=== PATIENT | female | born 1945 | race Hispanic/Latino ===

== ENCOUNTER 2016-06-29 22:32 | Inpatient (IN) | payer MEDICARE ==
[2016-06-29] MEDS ORDERED: ATROVENT IH ONE (22:46)
[2016-06-29] MEDS ORDERED: PROVENTIL IH ONE (22:46)
--- NOTE | 2016-06-29 22:48 | Emergency Department Report ---
HPI - General Time Seen by Provider: 06/29/16 22:40 - HPI HPI: This is a 70-year-old female presents to the emergency department from home with a three-day history of shortness of breath, wheezing, dry cough. The patient has a history of COPD but is not oxygen dependent at home. She has a long history of tobacco abuse and continues to smoke but is down to about 2 cigarettes per day. She used to see Dr. Loo for primary care but says she has to switch to someone else due to her insurance. She denies any chest pain, fever, nausea, vomiting or diaphoresis. She is not taken anything for symptoms prior to presentation. No recent travel or sick contacts at home. She denies any history of AK, CVA, PE/DVT. ED Past Medical Hx - Past Medical History Hx Hypertension: Yes (2005) Hx Heart Attack/AMI: No Hx Congestive Heart Failure: No Hx Deep Vein Thrombosis: No Hx Pulmonary Embolism: No Hx Sickle Cell Disease: No Hx Arthritis: No Hx Seizures: Yes Hx Asthma: No Hx COPD: Yes Hx Tuberculosis: No Hx Dementia: No Hx HIV: No - Surgical History Hx Coronary Stent: No Hx Open Heart Surgery: No Hx Pacemaker: No Hx Internal Defibrillator: No Hx Cholecystectomy: No Hx Appendectomy: No Hx Breast Surgery: No Additional Surgical History: hip surgery, carotid endarterectomy, hysterectomy - Social History Smoking Status: Light Tobacco Smoker - Medications Home Medications: Home Medications Medication Instructions Recorded Confirmed Last Taken Type ALPRAZolam [Xanax TAB] 0.25 mg PO DAILY #7 tablet 01/29/16 06/30/16 1 Day Ago Rx 0.25 Albuterol Sulfate [Ventolin HFA] 2 puff IH Q4H PRN #1 hfa.aer.ad 01/29/16 1 Day Ago Rx 1 HYDROcodone/APAP 5-325 [[place] 1 each PO Q6HR PRN #12 tablet 01/29/16 06/30/16 1 Day Ago Rx 5-325 mg TAB] 1 tab amLODIPine [Norvasc] 5 mg PO QDAY #30 tablet 01/29/16 06/30/16 1 Day Ago Rx 5mg ED Review of Systems ROS: Stated complaint: JOHNNIE Other details as noted in HPI Comment: All other systems reviewed and negative Constitutional: denies: chills, fever Eyes: denies: eye pain, eye discharge, vision change ENT: denies: ear pain, throat pain Respiratory: cough, shortness of breath, wheezing Cardiovascular: denies: chest pain, palpitations Gastrointestinal: denies: abdominal pain, nausea, diarrhea Genitourinary: denies: urgency, dysuria, discharge Musculoskeletal: denies: back pain, joint swelling, arthralgia Skin: denies: rash, lesions Neurological: denies: headache, weakness, paresthesias Physical Exam - Physical Exam Physical Exam: GENERAL: The patient is well-developed well-nourished. HEENT: Normocephalic. Atraumatic. Extraocular motions are intact. Patient has moist mucous membranes. Pupils equal reactive to light bilaterally. NECK: Supple. Trachea is midline. CHEST/LUNGS: There is mild to moderate wheezing throughout the chest. There is some tachypnea but no accessory muscle use. A dry cough heard during examination. There is no respiratory distress noted. HEART/CARDIOVASCULAR: Regular. There is no tachycardia. There is no gallop rub or murmur. ABDOMEN: Abdomen is soft, nontender. Patient has normal bowel sounds. There is no abdominal distention. SKIN: There is no rash. Warm and dry. NEURO: The patient is awake, alert, and oriented. The patient is cooperative. The patient has no focal neurologic deficits. The patient has normal speech. MUSCULOSKELETAL: There is no tenderness or deformity. There is no limitation range of motion. There is no evidence of acute injury. Cap refill less than 2 seconds. - ABG Interpretation Ph: 7.324 PCO2: 55 PO2: 38 Bicarbonate: 29 Interpretation: respiratory acidosis, other (hypoxemia) ED Medical Decision Making - Lab Data Result diagrams: 06/29/16 22:49 06/29/16 22:49 - EKG Data -: EKG Interpreted by Me EKG shows normal: sinus rhythm, axis, intervals, QRS complexes (Q waves to the septal leads), ST-T waves Rate: normal - EKG Data When compared to previous EKG there are: previous EKG unavailable Interpretation: other (sinus rhythm, Q waves to the septal leads) - Radiology Data Radiology results: report reviewed, image reviewed interpreted by me: Chest x-ray shows some hyperinflation of the lungs and flattening of diaphragms consistent with emphysema but no pneumonia or pleural effusion or pneumothorax. CT angiography of the chest does not show any pulmonary embolism or dissection. There is COPD with mild fibrosis. Slight atelectasis of both lower lungs. - Medical Decision Making 70-year-old female presents the emergency department with a few days of shortness of breath, cough, wheezing. She has a history of COPD. Patient was evaluated with physical exam, labs, imaging EKG. EKG does not show any signs of ST elevation [place]. Chest x-ray shows some hyperinflation of the lungs and flattening of the diaphragms consistent with emphysema. Patient had some mild hypoxia while on nasal cannula. An ABG was done that showed some respiratory acidosis and hypoxemia. PO2 was only 38 on ABG. For this reason the patient was placed on a Ventimask. With her shortness of breath and tachycardia a PE had to be ruled out. D-dimer was elevated at [address] angiography of the chest was done. There was no pulmonary embolism or dissection and it showed findings consistent with COPD emphysema. Patient given Solu-Medrol and breathing treatments. Patient already has some hypomagnesemia so no more magnesium was given at this time. Labs showed a slightly elevated troponin as well as some hyponatremia of 125. Patient will be admitted to the hospital for further evaluation and treatment and has been accepted for admission by the hospitalist, Dr. Lyons. - Differential Diagnosis COPD, AK, PE, CHF, Pneumonia Critical Care Time: No Critical care attestation.: If time is entered above; I have spent that time in minutes in the direct care of this critically ill patient, excluding procedure time. ED Disposition Clinical Impression: COPD exacerbation, Hypoxemia, Bronchospasm Dyspnea Qualifiers: Dyspnea type: unspecified Qualified Code(s): R06.00 - Dyspnea, unspecified Disposition: OP ADMITTED IP TO THIS HOSP Is pt being admited?: Yes Condition: Stable Instructions: Chronic Obstructive Pulmonary Disease (ED) Time of Disposition: 05:01
[2016-06-29 23:07] LABS: Basophils % (Auto) 0.4 % (0.0-1.8); Eosinophils % (Auto) 0.6 % (0.0-4.3); Hematocrit 41.5 % (30.3-42.9); Hemoglobin 13.9 gm/dl (10.1-14.3); Mean Corpuscular HGB Conc 33 % (30-34); Mean Corpuscular Hemoglobin 31 pg (28-32); Mean Corpuscular Volume 93 fl (79-97); Platelet Count 348 K/mm3 (140-440); Red Blood Count 4.46 M/mm3 (3.65-5.03); Red Cell Distribution Width 13.9 % (13.2-15.2); White Blood Count 8.2 K/mm3 (4.5-11.0)
[2016-06-29 23:24] LABS: Anion Gap 17 mmol/L; Blood Urea Nitrogen 11 mg/dL (7-17); Calcium 8.6 mg/dL (8.4-10.2); Carbon Dioxide 30 mmol/L (22-30); Chloride 82.2 mmol/L (98-107); Glucose 118 mg/dL (65-100); Magnesium 3.2 mg/dL (1.7-2.3); Potassium 4.2 mmol/L (3.6-5.0); Sodium 125 mmol/L (137-145)
[2016-06-29 23:41] LABS: INR 0.92 (0.87-1.13); Partial Thromboplastin Time 26.9 Sec. (24.2-36.6)
[2016-06-29 23:55] LABS: ISTAT Base Excess 3; ISTAT PCO2 55.7 (35-45); ISTAT PH 7.324 (7.35-7.45); ISTAT PO2 38 (80-105); ISTAT SO2 66; ISTAT TCO2 31
[2016-06-30 00:03] LABS: Bilirubin,Urine NEG (Negative); Blood,Urine SM (Negative); Ketones,Urine NEG (Negative); Leukocyte Esterase,Urine TR (Negative); Mucus,Urine FEW /HPF; Nitrite,Urine NEG (Negative); Protein,Urine <15 mg/dL mg/dL (Negative); Urobilinogen,Urine < 2.0 mg/dL (<2.0)
[2016-06-30] MEDS ORDERED: NACL ONE (01:13)
--- NOTE | 2016-06-30 02:16 | XRay Report ---
FINAL REPORT PROCEDURE: CT ANGIO CHEST TECHNIQUE: Computerized tomographic angiography of the chest was performed after the IV injection of iodinated nonionic contrast including image processing. The image data was postprocessed using 2-dimensional multiplanar reformatted (MPR) and 3-dimensional (MIP and/or volume rendered) techniques. HISTORY: SOB, elevated dimer COMPARISON: No prior studies are available for comparison. FINDINGS: Heart and pericardium: Normal. Thoracic aorta: Normal. Pulmonary vasculature: Normal. Lymph nodes: No enlarged thoracic lymph nodes. Lungs: COPD with mild fibrosis in both lungs. Mild atelectasis identified in the left lower lung posteriorly. No effusion or pneumothorax. Central airway appears patent. Pleural space: No effusion, thickening, or pneumothorax. Musculoskeletal structures: No significant abnormality. Upper abdominal structures: No significant abnormality. IMPRESSION: COPD with mild fibrosis. Slight atelectasis both lower lungs.
[2016-06-30] MEDS ORDERED: NACL 0.9% 1000 ML 1,000 ML IV ONE (02:22)
[2016-06-30] MEDS ORDERED: XANAX PO ONE (03:59)
[2016-06-30] MEDS ORDERED: PROAIR IH PRN (05:59)
[2016-06-30] MEDS ORDERED: DULCOLAX PR PRN (06:00)
[2016-06-30] MEDS ORDERED: NACL 0.9% 1000 ML 1,000 ML IV SCH (06:00)
[2016-06-30] MEDS ORDERED: TYLENOL PO PRN (06:00)
[2016-06-30] MEDS ORDERED: ZOFRAN IV PRN (06:00)
[2016-06-30] MEDS ORDERED: MILK OF MAGNESIA PO PRN (06:00)
[2016-06-30] MEDS ORDERED: PROVENTIL IH PRN ×2 (06:03→06:12)
[2016-06-30] MEDS ORDERED: DUONEB 0.5 MG-3 MG/3 ML SOLN IH PRN (06:04)
[2016-06-30] MEDS ORDERED: NACL 3% 500 ML IV ONE (06:05)
[2016-06-30 06:35] LABS: Hematocrit 45.3 % (30.3-42.9); Hemoglobin 14.9 gm/dl (10.1-14.3); Mean Corpuscular HGB Conc 33 % (30-34); Mean Corpuscular Hemoglobin 31 pg (28-32); Mean Corpuscular Volume 94 fl (79-97); Platelet Count 337 K/mm3 (140-440); Red Blood Count 4.84 M/mm3 (3.65-5.03); Red Cell Distribution Width 14.2 % (13.2-15.2); White Blood Count 5.2 K/mm3 (4.5-11.0)
[2016-06-30 06:52] LABS: Alanine Aminotransferase 10 units/L (7-56); Albumin 3.8 g/dL (3.9-5); Alkaline Phosphatase 111 units/L (35-129); Anion Gap 18 mmol/L; BUN/Creatinine Ratio 13.33; Bilirubin,Total 0.3 mg/dL (0.1-1.2); Blood Urea Nitrogen 8 mg/dL (7-17); Calcium 8.8 mg/dL (8.4-10.2); Carbon Dioxide 29 mmol/L (22-30); Chloride 88.8 mmol/L (98-107); Glucose 126 mg/dL (65-100); Potassium 4.6 mmol/L (3.6-5.0); Sodium 131 mmol/L (137-145); Total Protein 7.6 g/dL (6.3-8.2)
--- NOTE | 2016-06-30 07:09 | Admit Criteria Form ---
Admission Criteria Documentation: COPD Clinical Indications for Admission to Inpatient Care (Place 'X' for any and all applicable criteria): Admission is indicated for ANY ONE of the following (1)(2)(3): [ ]I. Acute exacerbation by high-risk comorbidity (e.g., pneumonia, dysrhythmia, heart failure, pleural effusion, pneumothorax) or severe underlying COPD (e.g., steroid dependent) [X]II. Inpatient admission required rather than observation care (see Chronic Obstructive Pulmonary Disease: Observation Care) because of ANY ONE of the following: [X]a) New or pre-existing signs or symptoms of COPD (eg, dyspnea or Tachypnea at rest or with minimal activity) that persist despite outpatient and observation care treatment [X]b) New-onset hypoxemia (room air SaO2 less than 90%, PO2 less than 60 mm Hg (8.0 kPa)) that persists despite outpatient and observation care treatment [ ]c) Worsening of pre-existing hypoxemia (eg, new or increased requirement for supplemental oxygen to maintain oxygenation at baseline level) that persists despite outpatient and observation care treatment, with oxygen treatment needs performable only in acute inpatient setting [X]d) Hypercarbia (PCO2 greater than 40 mm Hg (5.3 kPa))-induced respiratory acidosis (pH less than 7.35) that persists despite outpatient and observation care treatment [X]e) Supplemental oxygen or respiratory treatments for over 24 hours that are performable only in acute inpatient setting [ ]f) Chest tube placement with active evacuation (e.g., suction, drainage) (5) [ ]g) Other condition, treatment or monitoring requiring inpatient admission [ ]III. Planned invasive surgical or diagnostic procedures requiring acute- care hospitalization [X]IV. Acute respiratory failure (e.g., uncompensated hypercarbia, severe hypoxemia) [ ]V. Severe comorbid condition (e.g., severe steroid myopathy, acute vertebral fracture) that has acutely worsened pulmonary function [ ]. Confusion state, lethargy, obtundation, stupor or coma Extended stay beyond goal length of stay may be needed for (31)(32): [ ]a ) Respiratory Failure. [ ]b) Severe or persisting hypoxemia or hypercarbia [ ]c) Severe or persistent dyspnea [ ]d) Comorbidities (e.g. chronic heart failure, atrial fibrillation with rapid response, pneumonia) [ ]e) Malnutrition The original [facility] content created by [facility] has been revised. The portions of the content which have been revised are identified through the use of italic text or in bold, and [facility] has neither reviewed nor approved the modified material. All other unmodified content is copyright [facility]. Please see references footnoted in the original [facility] edition 2016 Admission Criteria Met: Yes
[2016-06-30 08:19] LABS: Blastocytes % (Manual) 0 %
[2016-06-30 08:20] LABS: Basophils % (Manual) 0 % (0.0-1.8); Eosinophils % (Manual) 0 % (0.0-4.3); Total Cells Counted Percent 0
[2016-06-30] MEDS: DUONEB 0.5 MG-3 MG/3 ML SOLN IH SCH ×3 (08:20→20:00)
[2016-06-30 08:21] LABS: Diff Status Complete; RBC Morphology Normal
--- NOTE | 2016-06-30 08:53 | History and Physical Report ---
CHIEF COMPLAINT: Increasing shortness of breath of three days duration. HISTORY OF PRESENT ILLNESS: A 70-year-old female with a history of hypertension and COPD, comes in for increasing shortness of breath of three days duration. Cough presents with mucoid sputum present. No fever, no chills. The patient is on oxygen at home. The patient has a long history of tobacco smoke and continues to smoke. She says she is down to two cigarettes a day. No recent travel. No nausea, no vomiting. The patient denies any history of chest pain. The patient has shortness of breath on very minimal exertion and wheezing present. The patient's PCP is Dr. Erica Loo. The patient asked to change PCP secondary to Dr. Erica Loo retiring from primary care practice. PAST MEDICAL HISTORY: Significant for hypertension, nicotine dependence, and COPD. PAST SURGICAL HISTORY: Hip surgery, carotid endarterectomy and hysterectomy. SOCIAL HISTORY: Smokes about 2 cigarettes a day. FAMILY HISTORY: Significant for hypertension. CURRENT MEDICATIONS: Xanax 0.25 daily, albuterol 2 puffs q.4 hours p.r.n, [place] one tablet q.6 hours p.r.n., and amlodipine 5 mg p.o. daily. REVIEW OF SYSTEMS: Significant for, CONSTITUTIONAL: No chills, no fever. GENERAL: No weight loss, no weight gain. HEENT: No sore throat, no postnasal drip. CARDIOVASCULAR AND RESPIRATORY SYSTEM: Shortness of breath and wheezing present. Cough productive of mucoid sputum. No chest pain. No diaphoresis. No palpitations. GASTROINTESTINAL: No nausea, no vomiting, no diarrhea. GENITOURINARY: No dysuria, no flank pain. MUSCULOSKELETAL: No joint pains. CENTRAL NERVOUS SYSTEM: No syncope, no seizures. SKIN: No rashes. HEMATOLOGIC AND LYMPHATIC: No lymphedema, no easy bruising. PSYCHIATRIC: No depression. No homicidal or suicidal tendencies. A 14-point review of systems done. Other than history of present illness, review of systems is negative. PHYSICAL EXAMINATION: GENERAL: On examination, well-developed, well-nourished female, lying, in moderate respiratory distress. VITAL SIGNS: Blood pressure is 120/51, temperature , pulse is 101, respiratory rate is 22, shallow labored and tachypneic, sats are low ranging from 82-96. HEENT: Unremarkable. Posterior pharynx is normal. Pupils are equal and reactive. NECK: Supple, no lymphadenopathy, no thyromegaly. Accessory muscles of respiration are prominent. CARDIOVASCULAR: S1, S2 heard. No gallop, no murmur, no rub. Apical impulse in left fifth intercostal space and midclavicular line. LUNGS: Bilateral inspiratory and expiratory rhonchi present. Decreased air entry ABDOMEN: Soft and benign. No guarding, no rigidity. Bowel sounds are normal. EXTREMITIES: Good pedal pulses. No pedal edema. CENTRAL NERVOUS SYSTEM: Alert and oriented x 4, nonfocal exam. SKIN: Normal. Excessive wrinkles present. LABORATORY DATA: Show white count of 8200, H and H is 13.9, hematocrit of 41.5, and platelet count is 348,000. PH is 7.324, pCO2 is 55.7, pO2 is 38, bicarbonate is 29, O2 sats are 66% on FIO2 of 28. Sodium is 125, potassium is 4.2, chloride is 82.2, BUN and creatinine is 11 and 0.5, glucose is 118, CK-MB is 5.0, troponin is 0.037, HDL is 61. Urine is negative. EKG shows nonspecific ST-T wave changes. Heart rate of 90 per minute. Previous EKG unavailable. EKG interpreted by me. Chest x-ray shows hyperinflation and flattened diaphragm consistent with emphysema, but no pneumonia. CT of angiography chest shows no pulmonary embolism or dissection. EMERGENCY DEPARTMENT COURSE: The patient had a mild hypoxia while on nasal cannula. ABG showed respiratory acidosis, hypoxemia and hypercapnia. The patient was placed on Ventimask, was given breathing treatments. Also, hyponatremia of 125. ASSESSMENT AND PLAN: 1. Acute respiratory failure with hypoxia and hypercapnia. Continue nebulizer treatment, IV Levaquin and Solu-Medrol at 60 mg q. 8 hours. 2. Chronic obstructive pulmonary disease exacerbation same as in one. Continue nebulizer treatments, DuoNeb q. 6 hours around the clock and q.3 hours p.r.n., Solu-Medrol 60 mg IV piggyback q.8 hours, and IV Levaquin at 750 mg q. 24 hours. 3. Hyponatremia. Urine lytes ordered. A 3% normal saline at 40 mL ordered. We will recheck the sodium level. No reason for hyponatremia hydrochlorothiazide being administered. 4. Hypertension, continue amlodipine 5 mg daily. 5. Generalized anxiety disorder. Continue Xanax 0.25 mg daily p.r.n. 6. Chronic pain, continue [place] hours p.r.n. 7. Deep venous thrombosis prophylaxis, Lovenox 40 mg subcutaneous daily. [facility] [id number] SARITA/CARLEEN
[2016-06-30] MEDS: LEVAQUIN 750MG/150ML 750 MG/150 ML BAG IV SCH (11:25)
[2016-06-30] MEDS: XANAX PO SCH (11:26)
[2016-06-30] MEDS: NORVASC PO SCH (11:26)
--- NOTE | 2016-06-30 11:26 | Consultation ---
History of Present Illness Consult date: 06/30/16 Requesting physician: LARA ALVARADO Reason for consult: other (Acute on Chronic Hypoxemic Respiratory Failure) History of present illness: PULMONARY/CCM CONSULT NOTE (full dictation # [id number]) Please see dictated notes for full details Medications and Allergies Allergies Allergy/AdvReac Type Severity Reaction Status Date / Time aspirin Allergy Unknown Verified 06/25/14 16:10 chlorzoxazone Allergy Seizure Verified 04/15/14 21:58 [From Parafon Forte] codeine Allergy Unknown Verified 11/03/15 13:57 ibuprofen [From Motrin] Allergy Swelling Verified 04/15/14 21:58 morphine Allergy Unknown Verified 11/03/15 13:57 olmesartan medoxomil Allergy Nausea Verified 04/15/14 21:58 [From Benicar] phenytoin sodium Allergy Unknown Verified 04/15/14 18:58 [From Dilantin] phenytoin sodium extended Allergy Unknown Verified 04/15/14 18:58 [From Dilantin] ramipril Allergy Nausea Verified 04/15/14 21:58 verapamil Allergy Unknown Verified 11/03/15 18:15 Home Medications Medication Instructions Recorded Confirmed Last Taken Type ALPRAZolam [Xanax TAB] 0.25 mg PO DAILY #7 tablet 01/29/16 06/30/16 1 Day Ago Rx 0.25 Albuterol Sulfate [Ventolin HFA] 2 puff IH Q4H PRN #1 hfa.aer.ad 01/29/16 1 Day Ago Rx 1 HYDROcodone/APAP 5-325 [[place] 1 each PO Q6HR PRN #12 tablet 01/29/16 06/30/16 1 Day Ago Rx 5-325 mg TAB] 1 tab amLODIPine [Norvasc] 5 mg PO QDAY #30 tablet 01/29/16 06/30/16 1 Day Ago Rx 5mg Active Meds: Active Medications Acetaminophen (Tylenol) 650 mg PO Q4H PRN PRN Reason: Pain MILD(1-3)/Fever >100.5/GREGORY Acetaminophen/Hydrocodone Bitart ([place] 5/325) 1 each PO Q6HR PRN PRN Reason: Pain Albuterol (Proventil) 2.5 mg IH Q3HRT PRN PRN Reason: Shortness Of Breath/ Wheezing Albuterol/Ipratropium (Duoneb 0.5 Mg-3 Mg/3 Ml Soln) 1 ampul IH Q6HRT [facility] Last Admin: 06/30/16 08:20 Dose: 1 ampul Alprazolam (Xanax) 0.25 mg PO DAILY [place] Amlodipine Besylate (Norvasc) 5 mg PO QDAY [place] Bisacodyl (Dulcolax) 10 mg [place] QDAY PRN PRN Reason: Constipation unrelieved by [facility] Enoxaparin Sodium (Lovenox) 40 mg SUB-Q QDAY [place] Levofloxacin/Dextrose (Levaquin 750mg/150ml) 750 mg in 150 mls @ 100 mls/hr IV Q24HR [place] PRN Reason: Protocol Sodium Chloride (Nacl 3%) 500 mls @ 40 mls/hr IV ONCE.ED ONE Stop: 06/30/16 18:34 Last Admin: 06/30/16 06:52 Dose: 40 mls/hr Magnesium Hydroxide (Milk Of Magnesia) 30 ml PO Q4H PRN PRN Reason: Constipation Methylprednisolone Sodium Succinate (Solu-Medrol) 60 mg IV Q8H [place] Ondansetron HCl (Zofran) 4 mg IV Q8H PRN PRN Reason: N/V unrelieved by Reglan Physical Examination Vital signs: Vital Signs Pulse Resp Pulse Ox 96 H 28 H 96 06/29/16 22:33 06/29/16 22:33 06/29/16 22:33 Results - Laboratory Findings CBC and BMP: 06/30/16 06:22 06/30/16 06:22 ABG POC ABG pH 7.324 (7.35-7.45) L 06/29/16 23:43 POC ABG pCO2 55.7 (35-45) H 06/29/16 23:43 POC ABG pO2 38 (80-105) L 06/29/16 23:43 POC ABG HCO3 29.0 06/29/16 23:43 POC ABG Total CO2 31 06/29/16 23:43 POC ABG O2 Sat 66 06/29/16 23:43 PT/INR, D-dimer PT 12.3 Sec. (12.2-14.9) 06/29/16 23:17 INR 0.92 (0.87-1.13) 06/29/16 23:17 D-Dimer 779.93 ng/mlDDU (0-234) H 06/29/16 23:17 Abnormal lab findings: Abnormal Labs 06/30/16 06/30/16 06:22 06:22 Hgb 14.9 H Hct 45.3 H Seg Neuts % (Manual) 96.0 H Lymphocytes % (Manual) 4.0 L Lymphocytes # (Manual) 0.2 L Sodium 131 L Chloride 88.8 L Creatinine 0.6 L Glucose 126 H Albumin 3.8 L
[2016-06-30] MEDS: LOVENOX SUB-Q SCH (11:28)
[2016-06-30] MEDS: BROVANA NEBU IH SCH ×2 (12:00→20:00)
[2016-06-30] MEDS ORDERED: HYDROMET PO PRN (12:58)
--- NOTE | 2016-06-30 14:34 | Consultation ---
CONSULTING PHYSICIAN: Dasia Lyons MD REASON FOR CONSULTATION: Acute on chronic hypoxemic respiratory failure. CHIEF COMPLAINT AND HISTORY OF PRESENT ILLNESS: The patient is a 70-year-old female with past medical history significant amongst other things for a diagnosis of chronic obstructive lung disease for which she has been on home oxygen in the past, came into the hospital Emergency Room complaining of a 3-day history of shortness of breath, wheezing, cough productive at times of clear thick phlegm, is complaining of some right-sided pleuritic type chest pain prior to coming into the hospital. Also, denied any trauma to that side. In the emergency room, she was found to be hypoxemic, wheezing, and required admission for presumed acute COPD exacerbation. She denied any sick contacts at home. She stated that she was compliant with her flu and pneumonia vaccinations. She continues to smoke. She has a 20+ pack year tobacco smoking history and admits to smoking 1-2 cigarettes a day and that made her symptoms worse. When I stopped by to see her, she was alert. She had a, I believe a 50% Ventimask on. Denied gross or streaky hemoptysis. She states anxiety is her main problem, has not been eating well, has lost some weight of late. Denies any new lumps, bumps, or swellings on her body. Denies any new onset leg pain or swelling either unilaterally or bilaterally. Denies any history of venous thromboembolic phenomenon. She does admit to running out of some of her bronchodilators at home also. That really is as much of the history of presentation as I have. PAST MEDICAL HISTORY: Hypertension, history of seizures, history of chronic obstructive lung disease that should be home oxygen dependent. PAST SURGICAL HISTORY: She has had a hip surgery. She has had a carotid endarterectomy and a hysterectomy in the past. MEDICATIONS: She was on at the time I stopped by to see her, according to the medication administration record included the following: Tylenol 650 mg p.o. q. 4 hours p.r.n., [place] 1 tablet p.o. q. 6 hours p.r.n. that is 5/325 mg, DuoNeb treatments nebulized q. 6 hours, Xanax 0.25 mg p.o. daily, amlodipine 5 mg p.o. daily, Dulcolax 10 mg per rectum daily p.r.n., Lovenox 40 mg subcutaneous daily, Levaquin 750 mg IV daily, milk of magnesia p.r.n., Solu-Medrol 60 mg IV q. 8 hours, Zofran 4 mg IV q. 8 hours p.r.n. nausea and vomiting, and she received a one-time infusion of about 500 mL of sodium chloride at 40 mL an hour. ALLERGIES: To aspirin, to codeine, to ibuprofen. Nature of this allergy is unknown. DIET: Thin, cachectic lady. She states she has lost at least about 10 pounds in the last 3-6 months and blames it on poor appetite secondary to anxiety. FAMILY AND SOCIAL HISTORY: Lives in the community, 20+ pack year tobacco smoking history. These days smoking only about a few cigarettes a day she states. Denies current alcohol or illicit drug use or abuse. REVIEW OF SYSTEMS: No loss of consciousness. No new onset seizures. No new onset focal weakness. No gross hematochezia or melena. No gross hematuria or dysuria. No hematemesis. No hemoptysis. No palpitations. Complete review of systems obtained. Pertinent positives and/or negatives as in body of history above, otherwise noncontributory. PHYSICAL EXAMINATION: VITAL SIGNS: At presentation, she was afebrile, temperature 98.0, pulse was 96, respiratory rate was 28, blood pressure 135/53, oxygen sats 96%, inspired oxygen concentration was not recorded. HEAD, EYES, EARS, NOSE, AND THROAT: Pupils are equal, round, 3 mm, reactive to light. Extraocular muscle movements appear intact. Grossly, no palpable lymph nodes in the supraclavicular or submandibular lymph node chains. Oropharynx is a Mallampati #2 oropharynx with oropharyngeal dryness. LUNGS: Auscultation of both lung remy reveal diminished bilateral breath sounds, prolonged expiratory phase, bilateral expiratory wheezing. HEART: Heart sounds 1 and 2 are heard, regular rate and rhythm at the time of my evaluation, with a soft systolic murmur. ABDOMEN: Flat, soft, bowel sounds are positive, nontender. EXTREMITIES: Without overt digital clubbing, cyanosis, or pedal edema. NEUROLOGIC: The exam is grossly nonfocal. LABORATORY DATA: From my review are as follows: White cell count 8200, hemoglobin 13.8, hematocrit 41.5, platelet count 348. D-dimer elevated at 779. INR 0.92. Arterial blood gas showed a pH of 7.32, pCO2 of 56, pO2 of 38 that was on 2 liters nasal cannula. Serum sodium was 125, potassium 4.2, chloride 82, bicarbonate 30, BUN 11, creatinine 0.5, glucose 118, magnesium 3.2. Troponin slightly elevated at 0.037. Urinalysis negative for nitrites, trace leukocyte esterase, 2 white cells per high power field. Serum sodium is up to 131. No microbiology studies. Radiographic studies have been reviewed. I am attempting to open up the films. I have reviewed the radiologist's interpretation. The chest x-ray is reported by the radiologist as COPD with mild fibrosis and slight atelectasis of both lower lung remy. A CTA of her chest was also done. Again, I am waiting for that film to open up for my review. Its reported that there is a slight basilar atelectasis, no filling defects consistent with a pulmonary emboli. ASSESSMENT AND PLAN: We have an elderly lady in with an acute COPD exacerbation, partly due to noncompliance, partly due to continued tobacco abuse and perhaps may be due to infection. Respiratory hilario, she has refused bilevel positive airway pressure ventilation therapy. We can manage her off of BiPAP at this time. We will titrate oxygen to keep sats greater than or equal to about 90-92%. I will add long acting bronchodilators into the mix. We will continue systemic steroids. Sputum will be sent for Gram stain, cultures and sensitivities. Empiric antibiotic therapy will continue. A venous thromboembolic disorder workup is appropriate and adequate at this point. She is on DVT prophylaxis. She will be placed on GI prophylaxis. Flu and pneumonia vaccination will be per protocol and hopefully, she does improve on the short term. She can go to a regular medical floor. We will do telemetry or remote telemetry, just keep an eye on her oxygen levels. I advised her to keep her face mask on. Thank you very much for the consult Dr. Lyons. We will follow along. We will make further recommendations as picture progresses/becomes clearer. JOB# [id number] AJM/NTS
--- NOTE | 2016-06-30 17:41 | Event Note ---
Date: 06/30/16 Patient admitted for COPD exacerbation, denied fevers chills, refuses physical examination.
[2016-06-30] MEDS: NORCO 5/325 PO PRN (18:29)
[2016-07-01] MEDS: NORCO 5/325 PO PRN ×3 (00:37→17:33)
[2016-07-01] MEDS: DUONEB 0.5 MG-3 MG/3 ML SOLN IH SCH ×4 (03:01→20:30)
[2016-07-01 06:49] LABS: Basophils % (Auto) 0.1 % (0.0-1.8); Hematocrit 34.1 % (30.3-42.9); Hemoglobin 11.1 gm/dl (10.1-14.3); Mean Corpuscular HGB Conc 32 % (30-34); Mean Corpuscular Hemoglobin 31 pg (28-32); Mean Corpuscular Volume 95 fl (79-97); Platelet Count 302 K/mm3 (140-440); Red Blood Count 3.61 M/mm3 (3.65-5.03); Red Cell Distribution Width 14.3 % (13.2-15.2)
[2016-07-01 07:01] LABS: Alanine Aminotransferase 17 units/L (7-56); Albumin 3.2 g/dL (3.9-5); Albumin/Globulin Ratio 1.2 %; Alkaline Phosphatase 68 units/L (35-129); Anion Gap 19 mmol/L; BUN/Creatinine Ratio 13.33; Bilirubin,Total 0.2 mg/dL (0.1-1.2); Blood Urea Nitrogen 8 mg/dL (7-17); Calcium 8.4 mg/dL (8.4-10.2); Carbon Dioxide 28 mmol/L (22-30); Chloride 96.4 mmol/L (98-107); Glucose 118 mg/dL (65-100); Sodium 138 mmol/L (137-145); Total Protein 5.9 g/dL (6.3-8.2)
[2016-07-01] MEDS: BROVANA NEBU IH SCH ×2 (08:47→20:30)
[2016-07-01] MEDS: LEVAQUIN 750MG/150ML 750 MG/150 ML BAG IV SCH (10:19)
[2016-07-01] MEDS: XANAX PO SCH (10:20)
[2016-07-01] MEDS: NORVASC PO SCH (10:20)
[2016-07-01] MEDS: LOVENOX SUB-Q SCH (10:20)
[2016-07-01] MEDS: PEPCID PO SCH (10:20)
--- NOTE | 2016-07-01 11:47 | Progress Note ---
Assessment and Plan - Patient Problems (1) COPD exacerbation Current Visit: Yes Status: Acute Plan to address problem: - continue systemic steroids but taper - continue supplemental oxygen - complete empiric AB's course - continue ERIKA, LABA & ICS - continue GI & VTE prophylaxis - prn anxiolytics (2) Acute respiratory failure with hypoxia and hypercapnia Current Visit: No Status: Acute Plan to address problem: - as above (3) Anxiety Current Visit: No Status: Acute Plan to address problem: - xanax scheduled - will add prn xanax (4) Chronic pain Current Visit: No Status: Chronic Qualifiers: Chronic pain type: C Plan to address problem: - continue prn norco - per attending otherwise Subjective Date of service: 07/01/16 Principal diagnosis: Acute Hypoxemic Respiratory Failure; Acute COPD exacerbation Interval history: Seen and examined at bedside; 24 hour events reviewed; nursing and respiratory care staff consulted; no adverse overnight events reported to me; resting in bed ; remains on nasal canula; denies acute chest pains or increased SOB but complains of headache Objective Vital Signs - 12hr 07/01/16 07/01/16 07/01/16 00:37 01:37 03:02 Temperature Pulse Rate [ 89 Bilateral Throughout] Pulse Rate [ From Monitor] Respiratory 22 22 Rate Respiratory 18 Rate [Bilateral Throughout] Blood Pressure [Left Arm] O2 Sat by Pulse Oximetry 07/01/16 07/01/16 07/01/16 03:23 04:56 08:11 Temperature 97 F L 98.1 F Pulse Rate [ 91 H Bilateral Throughout] Pulse Rate [ 83 80 From Monitor] Respiratory 20 24 Rate Respiratory 16 Rate [Bilateral Throughout] Blood Pressure 129/65 154/63 [Left Arm] O2 Sat by Pulse 96 Oximetry Constitutional: alert, appears uncomfortable Eyes: non-icteric ENT: oropharynx moist Neck: supple Effort: mildly labored (but not too far from baseline per patient) Ascultation: Bilateral: diminished breath sounds, wheezes (expiratory in bases) Cardiovascular: regular rate and rhythm Gastrointestinal: normoactive bowel sounds, soft, non-tender, non-distended Integumentary: normal Extremities: no cyanosis, no edema, pink and warm, pulses normal, no ischemia or petechiae Neurologic: normal mental status, non-focal exam, pupils equal and round, motor strength normal and Psychiatric: mood appropriate, affect normal CBC and BMP: 02/23/17 06:01 07/01/16 06:01 ABG, PT/INR, D-dimer: ABG POC ABG pH 7.324 (7.35-7.45) L 06/29/16 23:43 POC ABG pCO2 55.7 (35-45) H 06/29/16 23:43 POC ABG pO2 38 (80-105) L 06/29/16 23:43 POC ABG HCO3 29.0 06/29/16 23:43 POC ABG Total CO2 31 06/29/16 23:43 POC ABG O2 Sat 66 06/29/16 23:43 PT/INR, D-dimer PT 12.3 Sec. (12.2-14.9) 06/29/16: INR 0.92 (0.87-1.13) 06/29/16 23:17 D-Dimer 779.93 ng/mlDDU (0-234) H 06/29/16 23:17 Abnormal lab findings: Abnormal Labs 06/30/16 06/30/16 07/01/16 06:22 06:22 06:01 RBC 3.61 L Hgb 14.9 H Hct 45.3 H Lymph % (Auto) 7.8 L Lymph # 0.5 L Seg Neutrophils % 85.1 H Seg Neuts % (Manual) 96.0 H Lymphocytes % (Manual) 4.0 L Lymphocytes # (Manual) 0.2 L Sodium 131 L Chloride 88.8 L Creatinine 0.6 L Glucose 126 H Total Protein Albumin 3.8 L 07/01/16 06:01 RBC Hgb Hct Lymph % (Auto) Lymph # Seg Neutrophils % Seg Neuts % (Manual) Lymphocytes % (Manual) Lymphocytes # (Manual) Sodium Chloride 96.4 L Creatinine 0.6 L Glucose 118 H Total Protein 5.9 L D Albumin 3.2 L
--- NOTE | 2016-07-01 11:53 | Progress Note ---
Assessment and Plan Assessment and plan: COPD exacerbation - On Solu-Medrol - IV Levaquin - Breathing treatment, oxygen support - DuoNeb's - Home O2 evaluation Anxiety disorder - Xanax Malnutrition - dietary consult Disposition - Continue inpatient care - Possible discharge tomorrow History Interval history: Shunt was seen and examined this morning, patient still complains short of breath, no fever or chest pain. Patient is asking for home oxygen. Hospitalist Physical - Physical exam Narrative exam: Not in cardiopulmonary distress. The patient appeared emaciated, friable. Vital signs as documented. Head exam is unremarkable. No scleral icterus . Neck is without jugular venous distension, thyromegaly, or carotid bruits. Lungs congested, bilateral wheezing. Cardiac exam reveals regular rate and Rhythm. First and second heart sounds normal. No murmurs, rubs or gallops. Abdominal exam reveals normal bowel sounds, no masses, no organomegaly and no aortic enlargement. Extremities are nonedematous and both femoral and pedal pulses are normal. CHEMICAL LABORATORY TESTER: Alert and oriented 3. No focal weakness. - Constitutional Vitals: Temp Pulse Resp BP Pulse Ox 98.1 F 80 24 154/63 96 07/01/16 08:11 07/01/16 08:11 07/01/16 08:11 07/01/16 08:11 07/01/16 08:11 Results - Labs CBC & Chem 7: 07/01/16 06:01 07/01/16 06:01 Labs: Laboratory Last Values WBC 7.0 K/mm3 (4.5-11.0) 07/01/16 06:01 RBC 3.61 M/mm3 (3.65-5.03) L 07/01/16 06:01 Hgb 11.1 gm/dl (10.1-14.3) D 07/01/16 06:01 Hct 34.1 % (30.3-42.9) D 07/01/16 06:01 MCV 95 fl (79-97) 07/01/16 06:01 MCH 31 pg (28-32) 07/01/16 06:01 MCHC 32 % (30-34) 07/01/16 06:01 RDW 14.3 % (13.2-15.2) 07/01/16 06:01 Plt Count 302 K/mm3 (140-440) 07/01/16 06:01 Lymph % (Auto) 7.8 % (13.4-35.0) L 07/01/16 06:01 Patrick % (Auto) 7.0 % (0.0-7.3) 07/01/16 06:01 Eos % (Auto) 0.0 % (0.0-4.3) 07/01/16 06:01 Baso % (Auto) 0.1 % (0.0-1.8) 07/01/16 06:01 Lymph # 0.5 K/mm3 (1.2-5.4) L 07/01/16 06:01 Patrick # 0.5 K/mm3 (0.0-0.8) 07/01/16 06:01 Eos # 0.0 K/mm3 (0.0-0.4) 07/01/16 06:01 Baso # 0.0 K/mm3 (0.0-0.1) 07/01/16 06:01 Add Manual Diff Complete 06/30/16 06:22 Total Counted 100 06/30/16 06:22 Seg Neutrophils % 85.1 % (40.0-70.0) H 07/01/16 06:01 Seg Neuts % (Manual) 96.0 % (40.0-70.0) H 06/30/16 06:22 Band Neutrophils % 0 % 06/30/16 06:22 Lymphocytes % (Manual) 4.0 % (13.4-35.0) L 06/30/16 06:22 Reactive Lymphs % (Man) 0 % 06/30/16 06:22 Monocytes % (Manual) 0 % (0.0-7.3) 06/30/16 06:22 Eosinophils % (Manual) 0 % (0.0-4.3) 06/30/16 06:22 Basophils % (Manual) 0 % (0.0-1.8) 06/30/16 06:22 Metamyelocytes % 0 % 06/30/16 06:22 Myelocytes % 0 % 06/30/16 06:22 Promyelocytes % 0 % 06/30/16 06:22 Blast Cells % 0 % 06/30/16 06:22 Nucleated RBC % Not Reportable 06/30/16 06:22 Seg Neutrophils # 5.9 K/mm3 (1.8-7.7) 07/01/16 06:01 Seg Neutrophils # Man 5.0 K/mm3 (1.8-7.7) 06/30/16 06:22 Band Neutrophils # 0.0 K/mm3 06/30/16 06:22 Lymphocytes # (Manual) 0.2 K/mm3 (1.2-5.4) L 06/30/16 06:22 Abs React Lymphs (Man) 0.0 K/mm3 06/30/16 06:22 Monocytes # (Manual) 0.0 K/mm3 (0.0-0.8) 06/30/16 06:22 Eosinophils # (Manual) 0.0 K/mm3 (0.0-0.4) 06/30/16 06:22 Basophils # (Manual) 0.0 K/mm3 (0.0-0.1) 06/30/16 06:22 Metamyelocytes # 0.0 K/mm3 06/30/16 06:22 Myelocytes # 0.0 K/mm3 06/30/16 06:22 Promyelocytes # 0.0 K/mm3 06/30/16 06:22 Blast Cells # 0.0 K/mm3 06/30/16 06:22 WBC Morphology Not Reportable 06/30/16 06:22 Hypersegmented Neuts Not Reportable 06/30/16 06:22 Hyposegmented Neuts Not Reportable 06/30/16 06:22 Hypogranular Neuts Not Reportable 06/30/16 06:22 Smudge Cells Not Reportable 06/30/16 06:22 Toxic Granulation Not Reportable 06/30/16 06:22 Toxic Vacuolation Not Reportable 06/30/16 06:22 Dohle Bodies Not Reportable 06/30/16 06:22 Pelger-Huet Anomaly Not Reportable 06/30/16 06:22 Trudy Rods Not Reportable 06/30/16 06:22 Platelet Estimate Appears normal 06/30/16 06:22 Clumped Platelets Not Reportable 06/30/16 06:22 Plt Clumps, EDTA Not Reportable 06/30/16 06:22 Large Platelets Not Reportable 06/30/16 06:22 Giant Platelets Not Reportable 06/30/16 06:22 Platelet Satelliting Not Reportable 06/30/16 06:22 Plt Morphology Comment Not Reportable 06/30/16 06:22 RBC Morphology Normal 06/30/16 06:22 Dimorphic RBCs Not Reportable 06/30/16 06:22 Polychromasia Not Reportable 06/30/16 06:22 Hypochromasia Not Reportable 06/30/16 06:22 Poikilocytosis Not Reportable 06/30/16 06:22 Anisocytosis Not Reportable 06/30/16 06:22 Microcytosis Not Reportable 06/30/16 06:22 Macrocytosis Not Reportable 06/30/16 06:22 Spherocytes Not Reportable 06/30/16 06:22 Pappenheimer Bodies Not Reportable 06/30/16 06:22 Sickle Cells Not Reportable 06/30/16 06:22 Target Cells Not Reportable 06/30/16 06:22 Tear Drop Cells Not Reportable 06/30/16 06:22 Ovalocytes Not Reportable 06/30/16 06:22 Helmet Cells Not Reportable 06/30/16 06:22 [place] Bodies Not Reportable 06/30/16 06:22 [place] Rings Not Reportable 06/30/16 06:22 [place] Cells Not Reportable 06/30/16 06:22 Bite Cells Not Reportable 06/30/16 06:22 Crenated Cell Not Reportable 06/30/16 06:22 Elliptocytes Not Reportable 06/30/16 06:22 Acanthocytes (Spur) Not Reportable 06/30/16 06:22 Rouleaux Not Reportable 06/30/16 06:22 Hemoglobin C Crystals Not Reportable 06/30/16 06:22 Schistocytes Not Reportable 06/30/16 06:22 Malaria parasites Not Reportable 06/30/16 06:22 [place] Bodies Not Reportable 06/30/16 06:22 Hem Pathologist Commnt No 06/30/16 06:22 PT 12.3 Sec. (12.2-14.9) 06/29/16 23:17 INR 0.92 (0.87-1.13) 06/29/16 23:17 APTT 26.9 Sec. (24.2-36.6) 06/29/16 23:17 D-Dimer 779.93 ng/mlDDU (0-234) H 06/29/16 23:17 POC ABG pH 7.324 (7.35-7.45) L 06/29/16 23:43 POC ABG pCO2 55.7 (35-45) H 06/29/16 23:43 POC ABG pO2 38 (80-105) L 06/29/16 23:43 POC ABG HCO3 29.0 06/29/16 23:43 POC ABG Total CO2 31 06/29/16 23:43 POC ABG O2 Sat 66 06/29/16 23:43 POC ABG Base Excess 3 06/29/16 23:43 FiO2 28 % 06/29/16 23:43 Sodium 138 mmol/L (137-145) D 07/01/16 06:01 Potassium 5.0 mmol/L (3.6-5.0) 07/01/16 06:01 Chloride 96.4 mmol/L (98-107) L 07/01/16 06:01 Carbon Dioxide 28 mmol/L (22-30) 07/01/16 06:01 Anion Gap 19 mmol/L 07/01/16 06:01 BUN 8 mg/dL (7-17) 07/01/16 06:01 Creatinine 0.6 mg/dL (0.7-1.2) L 07/01/16 06:01 Estimated GFR > 60 ml/min 07/01/16 06:01 BUN/Creatinine Ratio 13.33 % 07/01/16 06:01 Glucose 118 mg/dL (65-100) H 07/01/16 06:01 Hemoglobin A1c 5.7 % (4-6) 06/30/16 06:22 Calcium 8.4 mg/dL (8.4-10.2) 07/01/16 06:01 Magnesium 3.2 mg/dL (1.7-2.3) H 06/29/16 22:49 Total Bilirubin 0.2 mg/dL (0.1-1.2) 07/01/16 06:01 AST 22 units/L (5-40) 07/01/16 06:01 ALT 17 units/L (7-56) 07/01/16 06:01 Alkaline Phosphatase 68 units/L (35-129) 07/01/16 06:01 Total Creatine Kinase 62 units/L (30-135) 06/29/16 23:17 CK-MB (CK-2) 5.0 ng/mL (0.0-4.0) H 06/29/16 23:17 CK-MB (CK-2) Rel Index 8.0 (0-4) H 06/29/16 23:17 Troponin T 0.037 ng/mL (0.00-0.029) H 06/29/16 23:17 Total Protein 5.9 g/dL (6.3-8.2) L D 07/01/16 06:01 Albumin 3.2 g/dL (3.9-5) L 07/01/16 06:01 Albumin/Globulin Ratio 1.2 % 07/01/16 06:01 Triglycerides 96 mg/dL (2-149) 06/29/16 23: Cholesterol 150 mg/dL (50-199) 06/29/16 23: LDL Cholesterol Direct 70 mg/dL (50-130) 06/29/16 23:17 HDL Cholesterol 61 mg/dL (40-59) H 06/29/16 23:17 Cholesterol/HDL Ratio 2.45 % 06/29/16 23:17 Urine Color Yellow (Yellow) 06/29/16 23:40 Urine Turbidity Clear (Clear) 06/29/16 23:40 Urine pH 6.0 (5.0-7.0) 06/29/16 23:40 Ur Specific [place] 1.012 (1.003-1.030) 06/29/16 23:40 Urine Protein <15 mg/dl mg/dL (Negative) 06/29/16 23:40 Urine Glucose (UA) Neg mg/dL (Negative) 06/29/16 23:40 Urine Ketones Neg mg/dL (Negative) 06/29/16 23:40 Urine Blood Sm (Negative) 06/29/16 23:40 Urine Nitrite Neg (Negative) 06/29/16 23:40 Urine Bilirubin Neg (Negative) 06/29/16 23:40 Urine Urobilinogen < 2.0 mg/dL (<2.0) 06/29/16 23:40 Ur Leukocyte Esterase Tr (Negative) 06/29/16 23:40 Urine WBC (Auto) 2.0 /HPF (0.0-6.0) 06/29/16 23:40 Urine RBC (Auto) 2.0 /HPF (0.0-6.0) 06/29/16 23:40 U Epithel Cells (Auto) 1.0 /HPF (0-13.0) 06/29/16 23:40 Urine Mucus Few /HPF 06/29/16 23:40
[2016-07-01] MEDS ORDERED: XANAX PO PRN (13:18)
[2016-07-02] MEDS: DUONEB 0.5 MG-3 MG/3 ML SOLN IH SCH ×3 (01:23→13:27)
[2016-07-02] MEDS: NORCO 5/325 PO PRN ×2 (02:07→08:53)
[2016-07-02] MEDS: BROVANA NEBU IH SCH (07:45)
[2016-07-02] MEDS: LEVAQUIN 750MG/150ML 750 MG/150 ML BAG IV SCH (09:24)
[2016-07-02] MEDS: NORVASC PO SCH (09:25)
[2016-07-02] MEDS: PEPCID PO SCH (09:25)
[2016-07-02] MEDS: LOVENOX SUB-Q SCH (09:25)
[2016-07-02] MEDS: XANAX PO SCH (09:26)
--- NOTE | 2016-07-02 10:44 | Discharge Summary ---
Providers - Providers Date of Admission: 06/30/16 06:00 Date of discharge: 07/02/16 Attending physician: TIFFANIE MONTEIRO MD Primary care physician: RIKA FIELDS Hospitalization Reason for admission: COPD exacerbation Condition: Stable Disposition: DISCHARGED TO HOME OR SELFCARE Time spent for discharge: 31 minutes - Discharge Diagnoses (1) COPD exacerbation Status: Acute (2) Acute respiratory failure with hypoxia and hypercapnia Status: Acute Core Measure Documentation - Palliative Care Palliative Care/ Comfort Measures: Not Applicable - Core Measures Any of the following diagnoses?: none Exam - Physical Exam Narrative exam: Not in cardiopulmonary distress. The patient appeared emaciated, friable. Vital signs as documented. Head exam is unremarkable. No scleral icterus . Neck is without jugular venous distension, thyromegaly, or carotid bruits. Lungs no wheezing. Cardiac exam reveals regular rate and Rhythm. First and second heart sounds normal. No murmurs, rubs or gallops. Abdominal exam reveals normal bowel sounds, no masses, no organomegaly and no aortic enlargement. Extremities are nonedematous and both femoral and pedal pulses are normal. TOE LASTER: Alert and oriented 3. No focal weakness. - Constitutional Vitals: Temp Pulse Resp BP Pulse Ox 97.8 F 84 18 159/79 99 07/02/16 07:49 07/02/16 07:49 07/02/16 07:49 07/02/16 07:49 07/02/16 07:49 Plan Activity: no restrictions Diet: low cholesterol, low salt Durable Medical Equipment Needed Upon Discharge: Oxygen Follow up with: PRIMARY CARE, [Referring] - 3-5 Days Prescriptions: ALBUTEROL Inhaler [ProAir HFA Inhaler] 2 puff IH QID PRN #1 can PRN Reason: Shortness Of Breath ALPRAZolam [Xanax TAB] 0.25 mg PO DAILY #7 tablet amLODIPine [Norvasc] 5 mg PO QDAY #30 tablet HYDROcodone/APAP 5-325 [[place] 5-325 mg TAB] 1 each PO Q6HR PRN #12 tablet PRN Reason: Pain Levofloxacin [Levaquin TAB] 750 mg PO DAILY #3 tablet Prednisone [predniSONE 10 mg (6-Day Pack, 21 Tabs)] 10 mg PO .TAPER #1 tab.ds.pk
[2016-07-02 11:22] VITALS: BP 141/72
[2016-07-02] MEDS ORDERED: FLUARIX QUAD 2016-2017(36 MOS+) IM ONE (12:00)
--- NOTE | 2016-07-02 13:07 | Progress Note ---
Assessment and Plan - Patient Problems (1) COPD exacerbation Current Visit: Yes Status: Acute (2) Acute respiratory failure with hypoxia and hypercapnia Current Visit: No Status: Acute (3) Anxiety Current Visit: No Status: Acute (4) Chronic pain Current Visit: No Status: Chronic Subjective Date of service: 07/02/16 Principal diagnosis: Acute Hypoxemic Respiratory Failure; Acute COPD exacerbation Interval history: Seen and examined at bedside; 24 hour events reviewed; nursing and respiratory care staff consulted; no adverse overnight events reported to me; Objective Vital Signs - 12hr 07/02/16 07/02/16 07/02/16 01:23 01:33 03:58 Temperature 98.3 F Pulse Rate [ Apical] Pulse Rate [ 84 85 Bilateral Throughout] Pulse Rate [ 89 Right Radial] Respiratory 16 Rate Respiratory 18 18 Rate [Bilateral Throughout] Blood Pressure 134/60 [Right Arm] O2 Sat by Pulse 98 Oximetry 07/02/16 07/02/16 07/02/16 07:45 07:49 07:55 Temperature 97.8 F Pulse Rate [ 84 Apical] Pulse Rate [ 84 90 Bilateral Throughout] Pulse Rate [ Right Radial] Respiratory 18 Rate Respiratory 18 18 Rate [Bilateral Throughout] Blood Pressure 159/79 [Right Arm] O2 Sat by Pulse 98 99 Oximetry 07/02/16 11:21 Temperature 98.2 F Pulse Rate [ 83 Apical] Pulse Rate [ Bilateral Throughout] Pulse Rate [ Right Radial] Respiratory 16 Rate Respiratory Rate [Bilateral Throughout] Blood Pressure 141/72 [Right Arm] O2 Sat by Pulse 98 Oximetry Constitutional: alert, appears uncomfortable Eyes: non-icteric ENT: oropharynx moist Neck: supple Effort: mildly labored (but not too far from baseline per patient) Ascultation: Bilateral: diminished breath sounds, wheezes (expiratory in bases) Cardiovascular: regular rate and rhythm Gastrointestinal: normoactive bowel sounds, soft, non-tender, non-distended Integumentary: normal Extremities: no cyanosis, no edema, pink and warm, pulses normal, no ischemia or petechiae Neurologic: normal mental status, non-focal exam, pupils equal and round, motor strength normal and Psychiatric: mood appropriate, affect normal CBC and BMP: 07/01/16 06:01 07/01/16 06:01 ABG, PT/INR, D-dimer: ABG POC ABG pH 7.324 (7.35-7.45) L 02/21/17 23:43 POC ABG pCO2 55.7 (35-45) H 06/29/16 23:43 POC ABG pO2 38 (80-105) L 06/29/16 23:43 POC ABG HCO3 29.0 06/29/16 23:43 POC ABG Total CO2 31 06/29/16 23:43 POC ABG O2 Sat 66 06/29/16 23:43 PT/INR, D-dimer PT 12.3 Sec. (12.2-14.9) 06/29/16 23:17 INR 0.92 (0.87-1.13) 06/29/16 23:17 D-Dimer 779.93 ng/mlDDU (0-234) H 06/29/16 23:17 Abnormal lab findings: Abnormal Labs 06/30/16 06/30/16 07/01/16 06:22 06:22 06:01 RBC 3.61 L Hgb 14.9 H Hct 45.3 H Lymph % (Auto) 7.8 L Lymph # 0.5 L Seg Neutrophils % 85.1 H Seg Neuts % (Manual) 96.0 H Lymphocytes % (Manual) 4.0 L Lymphocytes # (Manual) 0.2 L Sodium 131 L Chloride 88.8 L Creatinine 0.6 L Glucose 126 H Total Protein Albumin 3.8 L 07/01/16 06:01 RBC Hgb Hct Lymph % (Auto) Lymph # Seg Neutrophils % Seg Neuts % (Manual) Lymphocytes % (Manual) Lymphocytes # (Manual) Sodium Chloride 96.4 L Creatinine 0.6 L Glucose 118 H Total Protein 5.9 L D Albumin 3.2 L
[2016-07-03] MEDS ORDERED: LEVAQUIN PO SCH (10:00)
== END 2016-07-02 15:54 | disposition home or self-care (01) | DRG 189 ==
LOC: ED 22:32 → 3A 06-30 06:00 → CC1 06-30 08:57 → 3A 06-30 22:57
PROVIDERS: ADMIT Internal Medicine; ATTEND Internal Medicine
PROC: 4A033R1 Measurement of Arterial Saturation, Peripheral, Percutaneous Approach (ICD-10-PCS; principal; 2016-06-29)
PROC: 5A09357 Assistance with Respiratory Ventilation, Less than 24 Consecutive Hours, Continuous Positive Airway Pressure (ICD-10-PCS; 2016-06-30)
DX: J96.01 Acute respiratory failure with hypoxia (principal); J44.1 Chronic obstructive pulmonary disease with (acute) exacerbation; E87.1 Hypo-osmolality and hyponatremia; E46 Unspecified protein-calorie malnutrition; I10 Essential (primary) hypertension; F17.200 Nicotine dependence, unspecified, uncomplicated; J96.02 Acute respiratory failure with hypercapnia; F41.9 Anxiety disorder, unspecified; G89.29 Other chronic pain; Z90.710 Acquired absence of both cervix and uterus; Z82.49 Family history of ischemic heart disease and other diseases of the circulatory system; Z88.6 Allergy status to analgesic agent; Z88.8 Allergy status to other drugs, medicaments and biological substances; Z68.26 Body mass index [BMI] 26.0-26.9, adult
CPT/HCPCS: 36415; 71010; 71275; 80048; 80053; 80061; 81001; 82550; 82553; 82803; 83036; 83735; 84484; 85007; 85025; 85379; 85610; 85730; 90686; 93005; 93010; 94640; 94660; 94760; 96374; J1650; J1956; J2930; J7030; Q9967

== ENCOUNTER 2017-03-02 08:14 | Inpatient (IN) | payer MEDICARE ==
[2017-03-02] MEDS ORDERED: DUONEB *Not for PRN Use IH ONE ×2 (09:07→09:20)
[2017-03-02 09:12] LABS: Hematocrit 35.5 % (30.3-42.9); Hemoglobin 11.6 gm/dl (10.1-14.3); Mean Corpuscular HGB Conc 33 % (30-34); Mean Corpuscular Hemoglobin 32 pg (28-32); Mean Corpuscular Volume 98 fl (79-97); Platelet Count 327 K/mm3 (140-440); Red Blood Count 3.62 M/mm3 (3.65-5.03); Red Cell Distribution Width 14.9 % (13.2-15.2); White Blood Count 19.1 K/mm3 (4.5-11.0)
[2017-03-02] MEDS ORDERED: DECADRON IV ONE (09:20)
[2017-03-02] MEDS ORDERED: MORPHINE IV ONE (09:21)
[2017-03-02 09:38] LABS: Alanine Aminotransferase 13 units/L (7-56); Albumin 3.3 g/dL (3.9-5); Albumin/Globulin Ratio 0.8 %; Alkaline Phosphatase 102 units/L (35-129); Anion Gap 16 mmol/L; BUN/Creatinine Ratio 53; Blood Urea Nitrogen 16 mg/dL (7-17); Carbon Dioxide 33 mmol/L (22-30); Chloride 89.8 mmol/L (98-107); Glucose 84 mg/dL (65-100); Potassium 4.5 mmol/L (3.6-5.0); Sodium 134 mmol/L (137-145); Total Protein 7.3 g/dL (6.3-8.2)
--- NOTE | 2017-03-02 09:38 | Emergency Department Report ---
ED Shortness of Breath HPI - General Chief Complaint: Dyspnea/Respdistress Stated Complaint: RESPIRATORY DISTRESS Time Seen by Provider: 03/02/17 08:56 Source: EMS Mode of arrival: Stretcher Limitations: Physical Limitation - History of Present Illness Initial Comments: 8-year-old female presents emergency Department with complaint of shortness of breath and chest pain. Patient is a known COPD patient has been having worsening shortness of breath for several days. She appears uncomfortable in the room. Denies fevers chills but does have increased cough. MD Complaint: shortness of breath, chest pain -: Gradual Severity: moderate Improves With: oxygen Worsens With: lying flat Known History Of: COPD - Related Data Previous Rx's Medication Instructions Recorded Last Taken Type ALBUTEROL Inhaler [ProAir HFA 2 puff IH QID PRN #1 can 02/14/17 Unknown Rx Inhaler] ALPRAZolam [Xanax TAB] 0.25 mg PO DAILY #7 tablet 02/14/17 Unknown Rx Budesonide [Pulmicort Respules] 0.5 mg IH Q12HRT #30 nebu 02/14/17 Unknown Rx HYDROcodone/APAP 5-325 [[place] 1 each PO Q6HR PRN #12 tablet 02/14/17 Unknown Rx 5-325 mg TAB] amLODIPine [Norvasc] 5 mg PO QDAY #30 tablet 02/14/17 Unknown Rx Allergies Allergy/AdvReac Type Severity Reaction Status Date / Time aspirin Allergy Unknown Verified 06/25/14 16:10 chlorzoxazone Allergy Seizure Verified 04/15/14 21:58 [From Parafon Forte] codeine Allergy Unknown Verified 11/03/15 13:57 ibuprofen [From Motrin] Allergy Swelling Verified 04/15/14 21:58 olmesartan medoxomil Allergy Nausea Verified 04/15/14 21:58 [From Benicar] phenytoin sodium Allergy Unknown Verified 04/15/14 18:58 [From Dilantin] phenytoin sodium extended Allergy Unknown Verified 04/15/14 18:58 [From Dilantin] ramipril Allergy Nausea Verified 04/15/14 21:58 verapamil Allergy Unknown Verified 11/03/15 18:15 ED Review of Systems ROS: Stated complaint: RESPIRATORY DISTRESS Other details as noted in HPI Comment: All other systems reviewed and negative Constitutional: denies: chills, fever Eyes: denies: eye pain, eye discharge, vision change ENT: denies: ear pain, throat pain Respiratory: denies: cough, shortness of breath, wheezing Cardiovascular: denies: chest pain, palpitations Endocrine: no symptoms reported Gastrointestinal: denies: abdominal pain, nausea, diarrhea Genitourinary: denies: urgency, dysuria, discharge Musculoskeletal: denies: back pain, joint swelling, arthralgia Skin: denies: rash, lesions Neurological: denies: headache, weakness, paresthesias Psychiatric: denies: anxiety, depression Hematological/Lymphatic: denies: easy bleeding, easy bruising ED Past Medical Hx - Past Medical History Hx Hypertension: Yes (2005) Hx Heart Attack/AMI: No Hx Congestive Heart Failure: No Hx Deep Vein Thrombosis: No Hx Pulmonary Embolism: No Hx Sickle Cell Disease: No Hx Arthritis: No Hx Seizures: Yes Hx Asthma: No Hx COPD: Yes Hx Tuberculosis: No Hx Dementia: No Hx HIV: No - Surgical History Hx Coronary Stent: No Hx Open Heart Surgery: No Hx Pacemaker: No Hx Internal Defibrillator: No Hx Cholecystectomy: No Hx Appendectomy: No Hx Breast Surgery: No Additional Surgical History: hip surgery, carotid endarterectomy, hysterectomy - Social History Smoking Status: Current Every Day Smoker Substance Use Type: None - Medications Home Medications: Home Medications Medication Instructions Recorded Confirmed Last Taken Type ALBUTEROL Inhaler [ProAir HFA 2 puff IH QID PRN #1 can 02/14/17 03/02/17 Unknown Rx Inhaler] ALPRAZolam [Xanax TAB] 0.25 mg PO DAILY #7 tablet 02/14/17 03/02/17 Unknown Rx Budesonide [Pulmicort Respules] 0.5 mg IH Q12HRT #30 nebu 02/14/17 03/02/17 Unknown Rx HYDROcodone/APAP 5-325 [[place] 1 each PO Q6HR PRN #12 tablet 02/14/17 03/02/17 Unknown Rx 5-325 mg TAB] amLODIPine [Norvasc] 5 mg PO QDAY #30 tablet 02/14/17 03/02/17 Unknown Rx ED Physical Exam - General Limitations: Physical Limitation General appearance: alert, anxious, cachectic - Head Head exam: Present: atraumatic, normocephalic - Eye Eye exam: Present: normal appearance. Absent: scleral icterus - ENT ENT exam: Present: mucous membranes moist - Neck Neck exam: Present: normal inspection - Respiratory Respiratory exam: Present: respiratory distress, wheezes - Cardiovascular Cardiovascular Exam: Present: normal rhythm, tachycardia. Absent: systolic murmur, diastolic murmur, rubs, gallop - GI/Abdominal GI/Abdominal exam: Present: soft, normal bowel sounds. Absent: distended, tenderness - Extremities Exam Extremities exam: Present: normal inspection - Back Exam Back exam: Present: normal inspection - Neurological Exam Neurological exam: Present: alert, oriented X3 - Psychiatric Psychiatric exam: Present: normal affect, normal mood - Skin Skin exam: Present: warm, dry, intact, normal color. Absent: rash ED Course Vital Signs 03/02/17 03/02/17 03/02/17 08:35 09:37 13:39 Temperature 97.6 F Pulse Rate 108 H 103 H 89 Respiratory 12 24 16 Rate Blood Pressure 185/65 Blood Pressure 185/65 156/46 142/62 [Left] O2 Sat by Pulse 95 95 98 Oximetry ED Medical Decision Making - Lab Data Result diagrams: 03/02/17 08:55 03/02/17 08:55 Laboratory Results - last 24 hr 03/02/17 03/02/17 08:55 08:55 WBC 19.1 H RBC 3.62 L Hgb 11.6 Hct 35.5 MCV 98 H MCH 32 MCHC 33 RDW 14.9 Plt Count 327 Sodium 134 L Potassium 4.5 Chloride 89.8 L Carbon Dioxide 33 H Anion Gap 16 BUN 16 Creatinine 0.3 L Estimated GFR > 60 BUN/Creatinine Ratio 53 Glucose 84 Calcium 9.0 Total Bilirubin 0.50 AST 15 ALT 13 Alkaline Phosphatase 102 Total Protein 7.3 Albumin 3.3 L Albumin/Globulin Ratio 0.8 - EKG Data -: EKG Interpreted by Me - EKG Data 03/02/17 09:45 Sinus tachycardia 102 rate prolonged QTC of [address] or T-wave changes - Medical Decision Making 71-year-old female with likely pneumonia versus COPD. Plan admit the patient to the hospitalist service. Patient has a white count less shift. Antibiotics ordered blood cultures ordered. Portions of this chart were dictated with dictation software. There may be dictation errors contained within this note. Critical care attestation.: If time is entered above; I have spent that time in minutes in the direct care of this critically ill patient, excluding procedure time. ED Disposition Clinical Impression: Pneumonia COPD (chronic obstructive pulmonary disease) Qualifiers: COPD type: COPD with acute lower respiratory infection Qualified Code(s): J44.0 - Chronic obstructive pulmonary disease with acute lower respiratory infection Disposition: OP ADMIT IP TO THIS HOSP Is pt being admited?: Yes Condition: Stable
--- NOTE | 2017-03-02 09:43 | XRay Report ---
Single view chest: Compared to 02/10/17. History: Shortness of breath. Findings: Normal cardiomediastinal silhouette. Trachea is midline. Evidence of COPD. Ill-defined new density identified in the right lower lobe. Scarring bilaterally. No consolidation. Impression: New ill-defined 2 cm density right lower lobe. CT scan recommended to rule out possibility of a mass.
[2017-03-02 10:11] LABS: Basophils % (Manual) 0 % (0.0-1.8); Blastocytes % (Manual) 0 %; Eosinophils % (Manual) 0 % (0.0-4.3)
[2017-03-02 10:14] LABS: Anisocytosis 1+; Diff Status Complete; Large Platelets Few; Platelet Estimate Cons
[2017-03-02 10:25] LABS: INR 0.92 (0.87-1.13)
[2017-03-02] MEDS ORDERED: ROCEPHIN/NS 1 GM/50 ML 1 GM/50 ML BAG IV ONE (10:40)
[2017-03-02] MEDS ORDERED: XANAX PO ONE (10:54)
[2017-03-02] MEDS ORDERED: XANAX ONE (10:58)
[2017-03-02] MEDS ORDERED: ZITHROMAX 500 MG in NACL 0.9% 250ML 250 ML IV ONE (11:00)
[2017-03-02] MEDS ORDERED: TYLENOL PO PRN (12:14)
[2017-03-02] MEDS ORDERED: PROVENTIL IH PRN (12:14)
[2017-03-02] MEDS ORDERED: NACL 0.9% 1000 ML IV ONE (12:14)
--- NOTE | 2017-03-02 12:31 | History and Physical Report ---
History of Present Illness Chief complaint: I cant breathe, and i keep coughing History of present illness: 71 YO Female with COPD, HTN, Seizure Disorder, Nicotine Dependence, Severe Malnutrition presents to ED for evaluation. Pt states that she has experienced shortness of breath, and productive cough with increased sputum production, and generalized weakness over the past 4 days with worsening symptoms over the past 2 days. Pt also acknowledges chest discomfort after coughing. Pt denies fever, chills, CP, Palpitations, NVD, Syncope, BRBPR, recent ill contacts, leg pain, calf pain, prolonged travel/immobility, individual/family history of DVT/PE, skin rash, hemoptysis, night sweats, trauma, or recent falls. Pt seen and evaluated in ED and found to have evidence of sepsis, and RLL Pneumonia suspicious for aspiration pneumonia. Pt is lethargic on exam, but is able to protect her airway. Sepsis protocol initiated in ED. Past History Past Medical History: COPD, hypertension, seizures, other (Severe Malnitrition, Nicotine Dependence, ) Past Surgical History: hysterectomy, total hip replacement, Other (CEA,) Medications and Allergies Allergies Allergy/AdvReac Type Severity Reaction Status Date / Time aspirin Allergy Unknown Verified 06/25/14 16:10 chlorzoxazone Allergy Seizure Verified 04/15/14 21:58 [From Parafon Forte] codeine Allergy Unknown Verified 11/03/15 13:57 ibuprofen [From Motrin] Allergy Swelling Verified 04/15/14 21:58 olmesartan medoxomil Allergy Nausea Verified 04/15/14 21:58 [From Benicar] phenytoin sodium Allergy Unknown Verified 04/15/14 18:58 [From Dilantin] phenytoin sodium extended Allergy Unknown Verified 04/15/14 18:58 [From Dilantin] ramipril Allergy Nausea Verified 04/15/14 21:58 verapamil Allergy Unknown Verified 11/03/15 18:15 Home Medications Medication Instructions Recorded Confirmed Last Taken Type ALBUTEROL Inhaler [ProAir HFA 2 puff IH QID PRN #1 can 02/14/17 Unknown Rx Inhaler] ALPRAZolam [Xanax TAB] 0.25 mg PO DAILY #7 tablet 02/14/17 Unknown Rx Budesonide [Pulmicort Respules] 0.5 mg IH Q12HRT #30 nebu 02/14/17 Unknown Rx HYDROcodone/APAP 5-325 [[place] 1 each PO Q6HR PRN #12 tablet 02/14/17 Unknown Rx 5-325 mg TAB] Prednisone [predniSONE 10 mg 10 mg PO .TAPER #1 tab.ds.pk 02/14/17 Unknown Rx (6-Day Pack, 21 Tabs)] amLODIPine [Norvasc] 5 mg PO QDAY #30 tablet 02/14/17 Unknown Rx Active Meds: Active Medications Acetaminophen (Tylenol) 650 mg PO Q4H PRN PRN Reason: Pain MILD(1-3)/Fever >100.5/GREGORY Acetaminophen/Hydrocodone Bitart ([place] 5/325) 1 each PO Q6HR PRN PRN Reason: Pain Albuterol (Proventil) 2.5 mg IH Q4HRT PRN PRN Reason: Shortness Of Breath Alprazolam (Xanax) 0.25 mg PO DAILY [place] Amlodipine Besylate (Norvasc) 5 mg PO QDAY [place] Budesonide (Pulmicort) 0.5 mg IH Q12HRT [place] Ceftriaxone Sodium (Rocephin/Ns 2 Gm/100 Ml) 2 gm in 100 mls @ 200 mls/hr IV Q24HR [place] PRN Reason: Protocol Ondansetron HCl (Zofran) 4 mg IV Q8H PRN PRN Reason: N/V unrelieved by Reglan Sodium Chloride (Nacl 0.9% 1000 Ml) 820 ml 30 ml/kg (820 ml) IV ONCE ONE Stop: 03/02/17 12:15 Review of Systems Constitutional: no weight loss, no weight gain, no fever, no chills, no sweats Ears, nose, mouth and throat: no ear pain, no ear discharge, no tinnitis, no decreased hearing, no nose pain, no nasal congestion, no nasal discharge Breasts: no change in shape, no swelling, no mass Cardiovascular: shortness of breath, no chest pain, no orthopnea, no palpitations Respiratory: cough, cough with sputum, excessive sputum, shortness of breath Gastrointestinal: no abdominal pain, no nausea, no vomiting, no diarrhea, no constipation Genitourinary Female: no pelvic pain, no flank pain, no menorrhagia, no dysuria Rectal: no pain, no incontinence, no bleeding Musculoskeletal: no neck stiffness, no neck pain, no shooting arm pain, no arm numbness/tingling, no low back pain Integumentary: no rash, no pruritis, no redness, no sores, no wounds, no jaundice Neurological: no transient paralysis, no paralysis, no weakness, no parathesias , no numbness, no tingling, no seizures, no syncope Psychiatric: no anxiety, no memory loss, no change in sleep habits, no sleep disturbances, no insomnia, no hypersomnia, no change in appetite Endocrine: no cold intolerance, no heat intolerance, no polyphagia, no excessive thirst, no polydipsia, no polyuria, no nocturia Hematologic/Lymphatic: no easy bruising, no easy bleeding Allergic/Immunologic: no urticaria, no allergic rhinitis, no wheezing Exam - Constitutional Vitals: Temp Pulse Resp BP Pulse Ox 97.6 F 103 H 24 156/46 95 03/02/17 08:35 03/02/17 09:37 03/02/17 09:37 03/02/17 09:37 03/02/17 09:37 General appearance: Present: mild distress, cachectic, disheveled - EENT Eyes: Present: PERRL ENT: hearing intact, clear oral mucosa - Neck Neck: Present: supple, normal ROM - Respiratory Respiratory effort: labored Respiratory: bilateral: diminished - Cardiovascular Heart Sounds: Present: S1 & S2. Absent: rub, click - Extremities Extremities: pulses symmetrical, No edema Peripheral Pulses: abnormal (capillary refill: 4 seconds) - Abdominal General gastrointestinal: Present: soft, non-tender, non-distended, normal bowel sounds, other (schaphoid) Female genitourinary: Present: normal - Rectal Rectal Exam: normal rectal tone - Integumentary Integumentary: Present: clear, dry, decreased turgor - Musculoskeletal Musculoskeletal: generalized weakness - Psychiatric Psychiatric: appropriate mood/affect, intact judgment & insight, other ( lethargic,) - Neurologic Neurologic: CNII-XII intact, moves all extremities Results - Labs CBC & Chem 7: 03/02/17 08:55 03/02/17 08:55 Labs: Abnormal lab results 03/02/17 03/02/17 03/02/17 Range/Units 08:55 08:55 09:31 WBC 19.1 H (4.5-11.0) K/mm3 RBC 3.62 L (3.65-5.03) M/mm3 MCV 98 H (79-97) fl Seg Neuts % (Manual) 91.0 H (40.0-70.0) % Lymphocytes % (Manual) 4.0 L (13.4-35.0) % Seg Neutrophils # Man 17.4 H (1.8-7.7) K/mm3 Lymphocytes # (Manual) 0.8 L (1.2-5.4) K/mm3 Monocytes # (Manual) 1.0 H (0.0-0.8) K/mm3 Sodium 134 L (137-145) mmol/L Chloride 89.8 L (98-107) mmol/L Carbon Dioxide 33 H (22-30) mmol/L Creatinine 0.3 L (0.7-1.2) mg/dL NT-Pro-B Natriuret Pep 1163 H (0-900) pg/mL Albumin 3.3 L (3.9-5) g/dL Assessment and Plan - Patient Problems (1) Sepsis Current Visit: Yes Status: Acute Qualifiers: Sepsis type: Streptococcus group B, in Qualified Code(s): P36.0 - Sepsis of due to streptococcus, group B Plan to address problem: IV abx, serial lactic acid level, am cbc, monitor uop q shift, remote telemetry , IVF resuscitation, blood cultures, urinalysis (2) Aspiration pneumonia Current Visit: Yes Status: Acute Qualifiers: Aspiration pneumonia type: due to gastric secretions Laterality: right Lung location: lower lobe of lung Qualified Code(s): J69.0 - Pneumonitis due to inhalation of food and vomit Plan to address problem: Aspiration precautions, IV abx, supplemental oxygen, nebs, pulmonary toilet, incentive spirometry, early ambulation, (3) Pulmonary nodule, right Current Visit: Yes Status: Suspected Plan to address problem: CT chest, when medically optimized, (4) Acute respiratory failure with hypoxia and hypercapnia Current Visit: No Status: Acute Plan to address problem: Supplemental oxygen, nebs, aspiration precautions, incentive spirometry, pulmonary toilet, NIPPV as clinically indicated. (5) COPD (chronic obstructive pulmonary disease) Current Visit: No Status: Chronic Qualifiers: COPD type: COPD with acute lower respiratory infection Chronic bronchitis type: C Emphysema type: E Qualified Code(s): J44.0 - Chronic obstructive pulmonary disease with acute lower respiratory infection Plan to address problem: Treat pneumonia, supplemental oxygen, nebs, aspiration precautions, inhaled steroid nebulizer therapy (6) DVT prophylaxis Current Visit: No Status: Chronic Plan to address problem: SCD to BLE, early ambulation.
[2017-03-02] MEDS: XANAX PO SCH ×2 (16:27→23:43)
[2017-03-02] MEDS: UNASYN/NS 1.5 GM/50 ML 1.5 GM/50 ML BAG IV SCH ×2 (17:11→23:44)
[2017-03-02] MEDS: PULMICORT IH SCH (21:21)
[2017-03-03] MEDS: UNASYN/NS 1.5 GM/50 ML 1.5 GM/50 ML BAG IV SCH (05:45)
[2017-03-03 06:31] LABS: Hematocrit 32.5 % (30.3-42.9); Hemoglobin 10.9 gm/dl (10.1-14.3); Mean Corpuscular HGB Conc 33 % (30-34); Mean Corpuscular Hemoglobin 33 pg (28-32); Mean Corpuscular Volume 100 fl (79-97); Platelet Count 283 K/mm3 (140-440); Red Blood Count 3.27 M/mm3 (3.65-5.03); Red Cell Distribution Width 15.1 % (13.2-15.2)
[2017-03-03 07:24] LABS: Anisocytosis 1+; Basophils % (Manual) 0 % (0.0-1.8); Blastocytes % (Manual) 0 %; Diff Status Complete; Eosinophils % (Manual) 0 % (0.0-4.3)
[2017-03-03] MEDS: PULMICORT IH SCH ×2 (07:56→20:15)
[2017-03-03] MEDS ORDERED: XANAX PO SCH (10:00)
[2017-03-03] MEDS ORDERED: ROCEPHIN/NS 2 GM/100 ML 2 GM/100 ML BAG IV SCH (10:00)
--- NOTE | 2017-03-03 10:50 | Progress Note ---
Assessment and Plan Assessment and plan: 71 YO Female with COPD, HTN, Seizure Disorder, Nicotine Dependence, Severe Malnutrition, presents today hospital complaining of cough, shortness of breath sputum production and generalized weakness 4 days Acute exacerbation of COPD -Steroids, nebulizer, and abx Acute resp failure, hypoxic continue oxygen supplementation, wean as tolerated Pulmonary nodule? Obtain CT chest to further assess Sepsis/ Aspiration PNA continue abx, speech therapy eval to assess for dysphagia DVT ppx lovenox History Interval history: She is complaining of worsening shortness of breath and chest pain. She does not feel any better. Pain is pleuritic and 6/10, mid chest Hospitalist Physical - Physical exam Narrative exam: General.: Moderate distress, cachectic, breathing through pursed lips HEENT: Moist mucous membranes, extraocular muscles intact, no lymphadenopathy Neck: supple Cardiac: S1-S2 heard Lungs: Rhonchorous breath sounds, no wheezing, decreased air entry Abdomen: soft , nontender, nondistended, bowel sounds positive Extremities: no edema clubbing or cyanosis Skin: no rash or lesions Neurologic: no gross focal deficits Psych: appropriate behavior, appropriate mood, corporative, judgment intact - Constitutional Vitals: Temp Pulse Resp BP Pulse Ox 97.7 F 87 28 H 139/54 100 03/03/17 08:15 03/03/17 08:15 03/03/17 08:15 03/03/17 08:15 03/03/17 08:15 General appearance: Present: cachectic, disheveled Results - Labs CBC & Chem 7: 03/03/17 06:15 03/02/17 08:55 Labs: Laboratory Last Values WBC 18.0 K/mm3 (4.5-11.0) H 03/03/17 06:15 RBC 3.27 M/mm3 (3.65-5.03) L 03/03/17 06:15 Hgb 10.9 gm/dl (10.1-14.3) 03/03/17 06:15 Hct 32.5 % (30.3-42.9) 03/03/17 06:15 MCV 100 fl (79-97) H 03/03/17 06:15 MCH 33 pg (28-32) H 03/03/17 06:15 MCHC 33 % (30-34) 03/03/17 06:15 RDW 15.1 % (13.2-15.2) 03/03/17 06:15 Plt Count 283 K/mm3 (140-440) 03/03/17 06:15 Add Manual Diff Complete 03/03/17 06:15 Total Counted 100 03/03/17 06:15 Seg Neutrophils % Voice Writing Reporter 03/03/17 06:15 Seg Neuts % (Manual) 93.0 % (40.0-70.0) H 03/03/17 06:15 Band Neutrophils % 0 % 03/03/17 06:15 Lymphocytes % (Manual) 3.0 % (13.4-35.0) L 03/03/17 06:15 Reactive Lymphs % (Man) 0 % 03/03/17 06:15 Monocytes % (Manual) 4.0 % (0.0-7.3) 03/03/17 06:15 Eosinophils % (Manual) 0 % (0.0-4.3) 03/03/17 06:15 Basophils % (Manual) 0 % (0.0-1.8) 03/03/17 06:15 Metamyelocytes % 0 % 03/03/17 06:15 Myelocytes % 0 % 03/03/17 06:15 Promyelocytes % 0 % 03/03/17 06:15 Blast Cells % 0 % 03/03/17 06:15 Nucleated RBC % Not Reportable 03/03/17 06:15 Seg Neutrophils # Man 16.7 K/mm3 (1.8-7.7) H 03/03/17 06:15 Band Neutrophils # 0.0 K/mm3 03/03/17 06:15 Lymphocytes # (Manual) 0.5 K/mm3 (1.2-5.4) L 03/03/17 06:15 Abs React Lymphs (Man) 0.0 K/mm3 03/03/17 06:15 Monocytes # (Manual) 0.7 K/mm3 (0.0-0.8) 03/03/17 06:15 Eosinophils # (Manual) 0.0 K/mm3 (0.0-0.4) 03/03/17 06:15 Basophils # (Manual) 0.0 K/mm3 (0.0-0.1) 03/03/17 06:15 Metamyelocytes # 0.0 K/mm3 03/03/17 06:15 Myelocytes # 0.0 K/mm3 03/03/17 06:15 Promyelocytes # 0.0 K/mm3 03/03/17 06:15 Blast Cells # 0.0 K/mm3 03/03/17 06:15 WBC Morphology Not Reportable 03/03/17 06:15 Hypersegmented Neuts Not Reportable 03/03/17 06:15 Hyposegmented Neuts Not Reportable 03/03/17 06:15 Hypogranular Neuts Not Reportable 03/03/17 06:15 Smudge Cells Not Reportable 03/03/17 06:15 Toxic Granulation Not Reportable 03/03/17 06:15 Toxic Vacuolation Not Reportable 03/03/17 06:15 Dohle Bodies Not Reportable 03/03/17 06:15 Pelger-Huet Anomaly Not Reportable 03/03/17 06:15 Trudy Rods Not Reportable 03/03/17 06:15 Platelet Estimate Appears normal 03/03/17 06:15 Clumped Platelets Not Reportable 03/03/17 06:15 Plt Clumps, EDTA Not Reportable 03/03/17 06:15 Large Platelets Not Reportable 03/03/17 06:15 Giant Platelets Not Reportable 03/03/17 06:15 Platelet Satelliting Not Reportable 03/03/17 06:15 Plt Morphology Comment Not Reportable 03/03/17 06:15 RBC Morphology Not Reportable 03/03/17 06:15 Dimorphic RBCs Not Reportable 03/03/17 06:15 Polychromasia Not Reportable 03/03/17 06:15 Hypochromasia Not Reportable 03/03/17 06:15 Poikilocytosis Not Reportable 03/03/17 06:15 Anisocytosis 1+ 03/03/17 06:15 Microcytosis Not Reportable 03/03/17 06:15 Macrocytosis Not Reportable 03/03/17 06:15 Spherocytes Not Reportable 03/03/17 06:15 Pappenheimer Bodies Not Reportable 03/03/17 06:15 Sickle Cells Not Reportable 03/03/17 06:15 Target Cells Not Reportable 03/03/17 06:15 Tear Drop Cells Not Reportable 03/03/17 06:15 Ovalocytes Not Reportable 03/03/17 06:15 Helmet Cells Not Reportable 03/03/17 06:15 [place] Bodies Not Reportable 03/03/17 06:15 [place] Rings Not Reportable 03/03/17 06:15 [place] Cells Not Reportable 03/03/17 06:15 Bite Cells Not Reportable 03/03/17 06:15 Crenated Cell Not Reportable 03/03/17 06:15 Elliptocytes Not Reportable 03/03/17 06:15 Acanthocytes (Spur) Not Reportable 03/03/17 06:15 Rouleaux Not Reportable 03/03/17 06:15 Hemoglobin C Crystals Not Reportable 03/03/17 06:15 Schistocytes Not Reportable 03/03/17 06:15 Malaria parasites Not Reportable 03/03/17 06:15 [place] Bodies Not Reportable 03/03/17 06:15 Hem Pathologist Commnt No 03/03/17 06:15 PT 12.8 Sec. (12.2-14.9) 03/02/17 09:31 INR 0.92 (0.87-1.13) 03/02/17 09:31 Sodium 134 mmol/L (137-145) L 03/02/17 08:55 Potassium 4.5 mmol/L (3.6-5.0) 03/02/17 08:55 Chloride 89.8 mmol/L (98-107) L 03/02/17 08:55 Carbon Dioxide 33 mmol/L (22-30) H 03/02/17 08:55 Anion Gap 16 mmol/L 03/02/17 08:55 BUN 16 mg/dL (7-17) 03/02/17 08:55 Creatinine 0.3 mg/dL (0.7-1.2) L 03/02/17 08:55 Estimated GFR > 60 ml/min 03/02/17 08:55 BUN/Creatinine Ratio 53 % 03/02/17 08:55 Glucose 84 mg/dL (65-100) 03/02/17 08:55 Lactic Acid 0.50 mmol/L (0.7-2.0) L 03/02/17 21:09 Calcium 9.0 mg/dL (8.4-10.2) 03/02/17 08:55 Total Bilirubin 0.50 mg/dL (0.1-1.2) 03/02/17 08:55 AST 15 units/L (5-40) 03/02/17 08:55 ALT 13 units/L (7-56) 03/02/17 08:55 Alkaline Phosphatase 102 units/L (35-129) 03/02/17 08:55 Troponin T < 0.010 ng/mL (0.00-0.029) 03/02/17 09:31 NT-Pro-B Natriuret Pep 1163 pg/mL (0-900) H 03/02/17 09:31 Total Protein 7.3 g/dL (6.3-8.2) 03/02/17 08:55 Albumin 3.3 g/dL (3.9-5) L 03/02/17 08:55 Albumin/Globulin Ratio 0.8 % 03/02/17 08:55
[2017-03-03] MEDS: NORVASC PO SCH (11:07)
[2017-03-03] MEDS: XANAX PO SCH ×2 (11:12→22:14)
[2017-03-03] MEDS: ZITHROMAX PO SCH (11:12)
[2017-03-03] MEDS ORDERED: Fluarix Quad 2017-2018(36 MOS+ IM ONE (12:00)
[2017-03-03] MEDS: ROCEPHIN/NS 2 GM/100 ML 2 GM/100 ML BAG IV SCH (12:20)
--- NOTE | 2017-03-03 12:25 | Cat Scan Report ---
CT CHEST WITHOUT CONTRAST: HISTORY: Right lung nodule. TECHNIQUE: Helical CT with sagittal and coronal reformatted images. FINDINGS: Compared to AP chest x-ray performed yesterday and the CT chest dated 06/30/16. Severe emphysematous changes are evident. There are mild subpleural infiltrative changes in the lateral right lower lobe which correlate with the density seen on recent x-ray. No discrete nodule is appreciated. This could represent an inflammatory process. The remainder of the lungs are clear. Trace right pleural effusion has developed. No pneumothorax. Heart and mediastinal structures are unremarkable on noncontrast CT. No thoracic adenopathy is appreciated. The bony structures are intact. IMPRESSION: Severe emphysematous changes. No discrete pulmonary nodule or mass is identified. Infiltrative changes are suspected in the lateral right lower lobe as described. Trace right pleural effusion. Consider followup CT chest to ensure resolution.
[2017-03-03] MEDS: NORCO 5/325 PO PRN (12:55)
[2017-03-03] MEDS: DUONEB *Not for PRN Use IH SCH ×2 (13:57→20:14)
[2017-03-03] MEDS: BROVANA NEBU IH SCH (20:14)
[2017-03-04] MEDS: NORCO 5/325 PO PRN ×3 (01:21→17:46)
[2017-03-04] MEDS: DUONEB *Not for PRN Use IH SCH ×4 (02:14→19:51)
[2017-03-04] MEDS: PULMICORT IH SCH ×2 (07:28→19:35)
[2017-03-04] MEDS: BROVANA NEBU IH SCH ×2 (07:29→19:35)
[2017-03-04] MEDS: NORVASC PO SCH (09:32)
[2017-03-04] MEDS: XANAX PO SCH ×2 (09:32→17:33)
[2017-03-04] MEDS: ZITHROMAX PO SCH (09:32)
[2017-03-04] MEDS: ROCEPHIN/NS 2 GM/100 ML 2 GM/100 ML BAG IV SCH (12:36)
--- NOTE | 2017-03-04 14:22 | Progress Note ---
Assessment and Plan Assessment and plan: 71 YO Female with COPD, HTN, Seizure Disorder, Nicotine Dependence, Severe Malnutrition, presents today hospital complaining of cough, shortness of breath sputum production and generalized weakness 4 days Acute exacerbation of COPD -Steroids, nebulizer, and abx Acute resp failure, hypoxic continue oxygen supplementation, wean as tolerated -check ABG today, pulmonary consult, NIPPV as needed -Check CTA chest to r/o PE Pulmonary nodule? Obtain CT chest to further assess Sepsis/ Aspiration PNA continue abx, speech therapy eval to assess for dysphagia DVT ppx lovenox History Interval history: She is complaining of worsening shortness of breath and chest pain. She does not feel any better. Pain is pleuritic and 6/, mid chest Hospitalist Physical - Physical exam Narrative exam: General.: Moderate distress, cachectic, breathing through pursed lips HEENT: Moist mucous membranes, extraocular muscles intact, no lymphadenopathy Neck: supple Cardiac: S1-S2 heard Lungs: Rhonchorous breath sounds, no wheezing, decreased air entry Abdomen: soft , nontender, nondistended, bowel sounds positive Extremities: no edema clubbing or cyanosis Skin: no rash or lesions Neurologic: no gross focal deficits Psych: appropriate behavior, appropriate mood, corporative, judgment intact - Constitutional Vitals: Temp Pulse Resp BP Pulse Ox 98.0 F 88 18 152/60 97 03/04/17 08:04 03/04/17 13:46 03/04/17 13:46 03/04/17 09:32 03/04/17 08:04 General appearance: Present: cachectic Results - Labs CBC & Chem 7: 03/03/17 06:15 03/02/17 08:55 Labs: Laboratory Last Values WBC 18.0 K/mm3 (4.5-11.0) H 03/03/17 06:15 RBC 3.27 M/mm3 (3.65-5.03) L 03/03/17 06:15 Hgb 10.9 gm/dl (10.1-14.3) 03/03/17 06:15 Hct 32.5 % (30.3-42.9) 03/03/17 06:15 MCV 100 fl (79-97) H 03/03/17 06:15 MCH 33 pg (28-32) H 03/03/17 06:15 MCHC 33 % (30-34) 03/03/17 06:15 RDW 15.1 % (13.2-15.2) 03/03/17 06:15 Plt Count 283 K/mm3 (140-440) 03/03/17 06:15 Add Manual Diff Complete 03/03/17 06:15 Total Counted 100 03/03/17 06:15 Seg Neutrophils % Target Developer 03/03/17 06:15 Seg Neuts % (Manual) 93.0 % (40.0-70.0) H 03/03/17 06:15 Band Neutrophils % 0 % 03/03/17 06:15 Lymphocytes % (Manual) 3.0 % (13.4-35.0) L 03/03/17 06:15 Reactive Lymphs % (Man) 0 % 03/03/17 06:15 Monocytes % (Manual) 4.0 % (0.0-7.3) 03/03/17 06:15 Eosinophils % (Manual) 0 % (0.0-4.3) 03/03/17 06:15 Basophils % (Manual) 0 % (0.0-1.8) 03/03/17 06:15 Metamyelocytes % 0 % 03/03/17 06:15 Myelocytes % 0 % 03/03/17 06:15 Promyelocytes % 0 % 03/03/17 06:15 Blast Cells % 0 % 03/03/17 06:15 Nucleated RBC % Not Reportable 03/03/17 06:15 Seg Neutrophils # Man 16.7 K/mm3 (1.8-7.7) H 03/03/17 06:15 Band Neutrophils # 0.0 K/mm3 03/03/17 06:15 Lymphocytes # (Manual) 0.5 K/mm3 (1.2-5.4) L 03/03/17 06:15 Abs React Lymphs (Man) 0.0 K/mm3 03/03/17 06:15 Monocytes # (Manual) 0.7 K/mm3 (0.0-0.8) 03/03/17 06:15 Eosinophils # (Manual) 0.0 K/mm3 (0.0-0.4) 03/03/17 06:15 Basophils # (Manual) 0.0 K/mm3 (0.0-0.1) 03/03/17 06:15 Metamyelocytes # 0.0 K/mm3 03/03/17 06:15 Myelocytes # 0.0 K/mm3 03/03/17 06:15 Promyelocytes # 0.0 K/mm3 03/03/17 06:15 Blast Cells # 0.0 K/mm3 03/03/17 06:15 WBC Morphology Not Reportable 03/03/17 06:15 Hypersegmented Neuts Not Reportable 03/03/17 06:15 Hyposegmented Neuts Not Reportable 03/03/17 06:15 Hypogranular Neuts Not Reportable 03/03/17 06:15 Smudge Cells Not Reportable 03/03/17 06:15 Toxic Granulation Not Reportable 03/03/17 06:15 Toxic Vacuolation Not Reportable 03/03/17 06:15 Dohle Bodies Not Reportable 03/03/17 06:15 Pelger-Huet Anomaly Not Reportable 03/03/17 06:15 Trudy Rods Not Reportable 03/03/17 06:15 Platelet Estimate Appears normal 03/03/17 06:15 Clumped Platelets Not Reportable 03/03/17 06:15 Plt Clumps, EDTA Not Reportable 03/03/17 06:15 Large Platelets Not Reportable 03/03/17 06:15 Giant Platelets Not Reportable 03/03/17 06:15 Platelet Satelliting Not Reportable 03/03/17 06:15 Plt Morphology Comment Not Reportable 03/03/17 06:15 RBC Morphology Not Reportable 03/03/17 06:15 Dimorphic RBCs Not Reportable 03/03/17 06:15 Polychromasia Not Reportable 03/03/17 06:15 Hypochromasia Not Reportable 03/03/17 06:15 Poikilocytosis Not Reportable 03/03/17 06:15 Anisocytosis 1+ 03/03/17 06:15 Microcytosis Not Reportable 03/03/17 06:15 Macrocytosis Not Reportable 03/03/17 06:15 Spherocytes Not Reportable 03/03/17 06:15 Pappenheimer Bodies Not Reportable 03/03/17 06:15 Sickle Cells Not Reportable 03/03/17 06:15 Target Cells Not Reportable 03/03/17 06:15 Tear Drop Cells Not Reportable 03/03/17 06:15 Ovalocytes Not Reportable 03/03/17 06:15 Helmet Cells Not Reportable 03/03/17 06:15 Chu-Friend Bodies Not Reportable 03/03/17 06:15 Oscar Rings Not Reportable 03/03/17 06:15 Benjamin Cells Not Reportable 03/03/17 06:15 Bite Cells Not Reportable 03/03/17 06:15 Crenated Cell Not Reportable 03/03/17 06:15 Elliptocytes Not Reportable 03/03/17 06:15 Acanthocytes (Spur) Not Reportable 03/03/17 06:15 Rouleaux Not Reportable 03/03/17 06:15 Hemoglobin C Crystals Not Reportable 03/03/17 06:15 Schistocytes Not Reportable 03/03/17 06:15 Malaria parasites Not Reportable 03/03/17 06:15 Brandon Bodies Not Reportable 03/03/17 06:15 Hem Pathologist Commnt No 03/03/17 06:15 PT 12.8 Sec. (12.2-14.9) 03/02/17 09:31 INR 0.92 (0.87-1.13) 03/02/17 09:31 Sodium 134 mmol/L (137-145) L 03/02/17 08:55 Potassium 4.5 mmol/L (3.6-5.0) 03/02/17 08:55 Chloride 89.8 mmol/L (98-107) L 03/02/17 08:55 Carbon Dioxide 33 mmol/L (22-30) H 03/02/17 08:55 Anion Gap 16 mmol/L 03/02/17 08:55 BUN 16 mg/dL (7-17) 03/02/17 08:55 Creatinine 0.3 mg/dL (0.7-1.2) L 03/02/17 08:55 Estimated GFR > 60 ml/min 03/02/17 08:55 BUN/Creatinine Ratio 53 % 03/02/17 08:55 Glucose 84 mg/dL (65-100) 03/02/17 08:55 Lactic Acid 0.50 mmol/L (0.7-2.0) L 03/02/17 21:09 Calcium 9.0 mg/dL (8.4-10.2) 03/02/17 08:55 Total Bilirubin 0.50 mg/dL (0.1-1.2) 03/02/17 08:55 AST 15 units/L (5-40) 03/02/17 08:55 ALT 13 units/L (7-56) 03/02/17 08:55 Alkaline Phosphatase 102 units/L (35-129) 03/02/17 08:55 Troponin T < 0.010 ng/mL (0.00-0.029) 03/02/17 09:31 NT-Pro-B Natriuret Pep 1163 pg/mL (0-900) H 03/02/17 09:31 Total Protein 7.3 g/dL (6.3-8.2) 03/02/17 08:55 Albumin 3.3 g/dL (3.9-5) L 03/02/17 08:55 Albumin/Globulin Ratio 0.8 % 03/02/17 08:55
--- NOTE | 2017-03-04 15:24 | Fluoroscopy Report ---
MODIFIED BARIUM SWALLOW INDICATION: Dysphagia. COMPARISON: None similar. FINDINGS: Fluoroscopy with video provided by radiologist for speech therapist to assess the swallowing mechanism. Food items of various consistencies given. Edentulous jaw. IMPRESSION: Successful modified barium swallow. Please refer to detailed report from speech pathologist. Thank you for the opportunity to participate in this patient's care.
[2017-03-04 17:19] LABS: ISTAT Base Excess 24; ISTAT DEVICE 0; ISTAT HCO3 48.1; ISTAT PH 7.451 (7.35-7.45); ISTAT PO2 43 (80-105); ISTAT SO2 78; ISTAT TCO2 > 50
[2017-03-05] MEDS: XANAX PO SCH ×4 (00:03→22:10)
[2017-03-05] MEDS: DUONEB *Not for PRN Use IH SCH ×4 (02:38→19:38)
[2017-03-05] MEDS: NORCO 5/325 PO PRN ×2 (06:02→14:42)
[2017-03-05] MEDS: PULMICORT IH SCH ×2 (07:05→19:37)
[2017-03-05] MEDS: BROVANA NEBU IH SCH ×2 (07:05→19:37)
[2017-03-05] MEDS: ZITHROMAX PO SCH (09:07)
[2017-03-05] MEDS: ROCEPHIN/NS 2 GM/100 ML 2 GM/100 ML BAG IV SCH (09:07)
[2017-03-05] MEDS: NORVASC PO SCH (09:08)
--- NOTE | 2017-03-05 10:39 | Event Note ---
Date: 03/05/17 Patient was just here at the beginning of the month and was followed by the other group. Please consult them for further management. Their notes can be seen under select visits and selecting the last admission
--- NOTE | 2017-03-05 13:17 | Progress Note ---
Assessment and Plan Assessment and plan: 71 YO Female with COPD, HTN, Seizure Disorder, Nicotine Dependence, Severe Malnutrition, presents today hospital complaining of cough, shortness of breath sputum production and generalized weakness 4 days Acute exacerbation of COPD -Steroids, nebulizer, and abx -We will need home oxygen prior to discharge Acute resp failure, hypoxic continue oxygen supplementation, wean as tolerated - ABG confirms hypoxia , will need home oxygen prior to discharge Pulmonary input pending She was planned for PE workup, venous ultrasound was negative for lower extremity DVT. She has plan for CT angiogram of her chest, but patient refused and states that she is getting better Pulmonary nodule ruled out CT chest reviewed, no evidence of pulmonary nodule Sepsis/ Aspiration PNA continue abx, Dysphagia Speech therapy input appreciated, continue. Diet with nectar thickened liquids DVT ppx lovenox History Interval history: She currently denies chest pain, states that shortness of breath is better. Hospitalist Physical - Physical exam Narrative exam: General.: Moderate distress, cachectic, breathing through pursed lips HEENT: Moist mucous membranes, extraocular muscles intact, no lymphadenopathy Neck: supple Cardiac: S1-S2 heard Lungs: Rhonchorous breath sounds, no wheezing, decreased air entry Abdomen: soft , nontender, nondistended, bowel sounds positive Extremities: no edema clubbing or cyanosis Skin: no rash or lesions Neurologic: no gross focal deficits Psych: appropriate behavior, appropriate mood, corporative, judgment intact - Constitutional Vitals: Temp Pulse Resp BP Pulse Ox 98.9 F 102 H 18 151/57 95 03/05/17 08:06 03/05/17 08:06 03/05/17 08:06 03/05/17 08:06 03/05/17 08:06 General appearance: Present: cachectic Results - Labs CBC & Chem 7: 03/03/17 06:15 03/02/17 08:55 Labs: Laboratory Last Values WBC 18.0 K/mm3 (4.5-11.0) H 03/03/17 06:15 RBC 3.27 M/mm3 (3.65-5.03) L 03/03/17 06:15 Hgb 10.9 gm/dl (10.1-14.3) 03/03/17 06:15 Hct 32.5 % (30.3-42.9) 03/03/17 06:15 MCV 100 fl (79-97) H 03/03/17 06:15 MCH 33 pg (28-32) H 03/03/17 06:15 MCHC 33 % (30-34) 03/03/17 06:15 RDW 15.1 % (13.2-15.2) 03/03/17 06:15 Plt Count 283 K/mm3 (140-440) 03/03/17 06:15 Add Manual Diff Complete 03/03/17 06:15 Total Counted 100 03/03/17 06:15 Seg Neutrophils % Makeup Editor 03/03/17 06:15 Seg Neuts % (Manual) 93.0 % (40.0-70.0) H 03/03/17 06:15 Band Neutrophils % 0 % 03/03/17 06:15 Lymphocytes % (Manual) 3.0 % (13.4-35.0) L 03/03/17 06:15 Reactive Lymphs % (Man) 0 % 03/03/17 06:15 Monocytes % (Manual) 4.0 % (0.0-7.3) 03/03/17 06:15 Eosinophils % (Manual) 0 % (0.0-4.3) 03/03/17 06:15 Basophils % (Manual) 0 % (0.0-1.8) 03/03/17 06:15 Metamyelocytes % 0 % 03/03/17 06:15 Myelocytes % 0 % 03/03/17 06:15 Promyelocytes % 0 % 03/03/17 06:15 Blast Cells % 0 % 03/03/17 06:15 Nucleated RBC % Not Reportable 03/03/17 06:15 Seg Neutrophils # Man 16.7 K/mm3 (1.8-7.7) H 03/03/17 06:15 Band Neutrophils # 0.0 K/mm3 03/03/17 06:15 Lymphocytes # (Manual) 0.5 K/mm3 (1.2-5.4) L 03/03/17 06:15 Abs React Lymphs (Man) 0.0 K/mm3 03/03/17 06:15 Monocytes # (Manual) 0.7 K/mm3 (0.0-0.8) 03/03/17 06:15 Eosinophils # (Manual) 0.0 K/mm3 (0.0-0.4) 03/03/17 06:15 Basophils # (Manual) 0.0 K/mm3 (0.0-0.1) 03/03/17 06:15 Metamyelocytes # 0.0 K/mm3 03/03/17 06:15 Myelocytes # 0.0 K/mm3 03/03/17 06:15 Promyelocytes # 0.0 K/mm3 03/03/17 06:15 Blast Cells # 0.0 K/mm3 03/03/17 06:15 WBC Morphology Not Reportable 03/03/17 06:15 Hypersegmented Neuts Not Reportable 03/03/17 06:15 Hyposegmented Neuts Not Reportable 03/03/17 06:15 Hypogranular Neuts Not Reportable 03/03/17 06:15 Smudge Cells Not Reportable 03/03/17 06:15 Toxic Granulation Not Reportable 03/03/17 06:15 Toxic Vacuolation Not Reportable 03/03/17 06:15 Dohle Bodies Not Reportable 03/03/17 06:15 Pelger-Huet Anomaly Not Reportable 03/03/17 06:15 Trudy Rods Not Reportable 03/03/17 06:15 Platelet Estimate Appears normal 03/03/17 06:15 Clumped Platelets Not Reportable 03/03/17 06:15 Plt Clumps, EDTA Not Reportable 03/03/17 06:15 Large Platelets Not Reportable 03/03/17 06:15 Giant Platelets Not Reportable 03/03/17 06:15 Platelet Satelliting Not Reportable 03/03/17 06:15 Plt Morphology Comment Not Reportable 03/03/17 06:15 RBC Morphology Not Reportable 03/03/17 06:15 Dimorphic RBCs Not Reportable 03/03/17 06:15 Polychromasia Not Reportable 03/03/17 06:15 Hypochromasia Not Reportable 03/03/17 06:15 Poikilocytosis Not Reportable 03/03/17 06:15 Anisocytosis 1+ 03/03/17 06:15 Microcytosis Not Reportable 03/03/17 06:15 Macrocytosis Not Reportable 03/03/17 06:15 Spherocytes Not Reportable 03/03/17 06:15 Pappenheimer Bodies Not Reportable 03/03/17 06:15 Sickle Cells Not Reportable 03/03/17 06:15 Target Cells Not Reportable 03/03/17 06:15 Tear Drop Cells Not Reportable 03/03/17 06:15 Ovalocytes Not Reportable 03/03/17 06:15 Helmet Cells Not Reportable 03/03/17 06:15 Chu-[place] Bodies Not Reportable 03/03/17 06:15 [place] Rings Not Reportable 03/03/17 06:15 Mcgrath Cells Not Reportable 03/03/17 06:15 Bite Cells Not Reportable 03/03/17 06:15 Crenated Cell Not Reportable 03/03/17 06:15 Elliptocytes Not Reportable 03/03/17 06:15 Acanthocytes (Spur) Not Reportable 03/03/17 06:15 Rouleaux Not Reportable 03/03/17 06:15 Hemoglobin C Crystals Not Reportable 03/03/17 06:15 Schistocytes Not Reportable 03/03/17 06:15 Malaria parasites Not Reportable 03/03/17 06:15 Brandon Bodies Not Reportable 03/03/17 06:15 Hem Pathologist Commnt No 03/03/17 06:15 PT 12.8 Sec. (12.2-14.9) 03/02/17 09:31 INR 0.92 (0.87-1.13) 03/02/17 09:31 POC ABG pH 7.451 (7.35-7.45) H 03/04/17 17:10 POC ABG pCO2 69.0 (35-45) H 03/04/17 17:10 POC ABG pO2 43 (80-105) L 03/04/17 17:10 POC ABG HCO3 48.1 03/04/17 17:10 POC ABG Total CO2 > 50 03/04/17 17:10 POC ABG O2 Sat 78 03/04/17 17:10 POC ABG Base Excess 24 03/04/17 17:10 FiO2 21 % 03/04/17 17:10 Sodium 134 mmol/L (137-145) L 03/02/17 08:55 Potassium 4.5 mmol/L (3.6-5.0) 03/02/17 08:55 Chloride 89.8 mmol/L (98-107) L 03/02/17 08:55 Carbon Dioxide 33 mmol/L (22-30) H 03/02/17 08:55 Anion Gap 16 mmol/L 03/02/17 08:55 BUN 16 mg/dL (7-17) 03/02/17 08:55 Creatinine 0.3 mg/dL (0.7-1.2) L 03/02/17 08:55 Estimated GFR > 60 ml/min 03/02/17 08:55 BUN/Creatinine Ratio 53 % 03/02/17 08:55 Glucose 84 mg/dL (65-100) 03/02/17 08:55 Lactic Acid 0.50 mmol/L (0.7-2.0) L 03/02/17 21:09 Calcium 9.0 mg/dL (8.4-10.2) 03/02/17 08:55 Total Bilirubin 0.50 mg/dL (0.1-1.2) 03/02/17 08:55 AST 15 units/L (5-40) 03/02/17 08:55 ALT 13 units/L (7-56) 03/02/17 08:55 Alkaline Phosphatase 102 units/L (35-129) 03/02/17 08:55 Troponin T < 0.010 ng/mL (0.00-0.029) 03/02/17 09:31 NT-Pro-B Natriuret Pep 1163 pg/mL (0-900) H 03/02/17 09:31 Total Protein 7.3 g/dL (6.3-8.2) 03/02/17 08:55 Albumin 3.3 g/dL (3.9-5) L 03/02/17 08:55 Albumin/Globulin Ratio 0.8 % 03/02/17 08:55 - Imaging and Cardiology Venous US: image reviewed (no DVT seen)
--- NOTE | 2017-03-05 21:37 | Event Note ---
Date: 03/05/17 New consult. Thank you 71 YO Female with COPD, HTN, Seizure Disorder, Nicotine Dependence, Severe Malnutrition, presents today hospital complaining of cough, shortness of breath sputum production and generalized weakness 4 days Acute exacerbation of COPD Acute resp failure, hypoxic Sepsis/ Aspiration PNA Oropharyngeal Dysphagia -Bronchodilators, supplemental oxygen to keep O2 sats>925 VTE prophylaxis Aspiration precautions Bronchodilators Steroids with quick taper Home oxygen evaluation prior to discharge. Full consult to follow
[2017-03-06] MEDS: DUONEB *Not for PRN Use IH SCH ×4 (01:42→20:59)
[2017-03-06] MEDS: ZOFRAN IV PRN (03:19)
[2017-03-06] MEDS: XANAX PO SCH ×3 (05:26→21:31)
[2017-03-06] MEDS: ZITHROMAX PO SCH (10:05)
[2017-03-06] MEDS: NORVASC PO SCH (10:05)
[2017-03-06] MEDS: ROCEPHIN/NS 2 GM/100 ML 2 GM/100 ML BAG IV SCH (10:06)
[2017-03-06] MEDS: PULMICORT IH SCH ×2 (11:05→20:59)
[2017-03-06] MEDS: BROVANA NEBU IH SCH ×2 (11:14→20:59)
[2017-03-06] MEDS: NORCO 5/325 PO PRN ×2 (11:34→20:49)
--- NOTE | 2017-03-06 14:36 | Progress Note ---
Assessment and Plan Acute on Chronic Hypoxemic respiratory failure Acute COPD exacerbation RLL pneumonia Possible RLL pulmonary nodule Tobacco Use disorder - continue bronchodilators and pulmonary toilet - continue systemic steroids but taper dose to 60mg IV q6h - continue empiric Rocephin and Zithromax - will get f/up CXR on tuesday (+/- contrast CT scan in about 2 weeks) - wean oxygen for O2 Sats > 92% (she states that she has home oxygen already - tobacco cessation counselled - continue other care per attending / other consultants ...stable to slightly improved but doubt she can be discharged tomorrow Subjective Date of service: 03/06/17 Principal diagnosis: Acute on Chronic hypoxemic Resp Failure; Acute COPD exacerbation Interval history: Patient is seen today for: Acute on Chronic hypoxemic Resp Failure; Acute COPD exacerbation Seen and examined at bedside; 24hour events reviewed; nursing and respiratory care staff consulted; no adverse overnight events reported to me; resting in bed ; on 2L NC; still mildly labored breathing at rest; no chest pains or palpitation; no emesis or overt aspiration; wants to go home tomorrow if possible; admits to still smoking about 1/4 PPD but agrees to continue working on quitting and assistance offered Objective Vital Signs - 12hr 03/06/17 03/06/17 03/06/17 04:33 07:44 11:02 Temperature 97.7 F 98.4 F Pulse Rate 99 H 90 Pulse Rate [ 103 H Anterior Bilateral Throughout] Respiratory 21 18 Rate Respiratory 18 Rate [Anterior Bilateral Throughout] Blood Pressure 141/63 148/62 O2 Sat by Pulse 99 98 Oximetry 03/06/17 03/06/17 11:22 11:23 Temperature 98.2 F Pulse Rate 98 H Pulse Rate [ 98 H Anterior Bilateral Throughout] Respiratory 20 Rate Respiratory 17 Rate [Anterior Bilateral Throughout] Blood Pressure 148/64 O2 Sat by Pulse 94 Oximetry Constitutional: alert, appears uncomfortable Eyes: non-icteric ENT: oropharynx moist, other (no ulcers) Neck: supple, no lymphadenopathy, no JVD, other (no thyromegaly) Effort: mildly labored Ascultation: Bilateral: diminished breath sounds, rales (inspiratory in bases) Percussion: Bilateral: not dull Cardiovascular: regular rate and rhythm, other (no rubs or murmurs) Gastrointestinal: normoactive bowel sounds, soft, non-tender, non-distended, other (no HSM) Integumentary: normal, other (no rash or cellulitis) Extremities: no cyanosis, no edema, pink and warm, pulses normal, no ischemia or petechiae Neurologic: normal mental status, non-focal exam, pupils equal and round, motor strength normal and, other (No fasiculations / spasticity) Psychiatric: mood appropriate, affect normal, other (poor insight regarding health status) CBC and BMP: 03/03/17 06:15 03/02/17 08:55 ABG, PT/INR, D-dimer: ABG POC ABG pH 7.451 (7.35-7.45) H 03/04/17 17:10 POC ABG pCO2 69.0 (35-45) H 03/04/17 17:10 POC ABG pO2 43 (80-105) L 03/04/17 17:10 POC ABG HCO3 48.1 03/04/17 17:10 POC ABG Total CO2 > 50 03/04/17 17:10 POC ABG O2 Sat 78 03/04/17 17:10 PT/INR, D-dimer PT 12.8 Sec. (12.2-14.9) 03/02/17 09:31 INR 0.92 (0.87-1.13) 03/02/17 09:31 Abnormal lab findings: Abnormal Labs 03/02/17 03/03/17 03/04/17 21:09 06:15 17:10 WBC 18.0 H RBC 3.27 L MCV 100 H MCH 33 H Seg Neuts % (Manual) 93.0 H Lymphocytes % (Manual) 3.0 L Seg Neutrophils # Man 16.7 H Lymphocytes # (Manual) 0.5 L POC ABG pH 7.451 H POC ABG pCO2 69.0 H POC ABG pO2 43 L Lactic Acid 0.50 L Chest x-ray: image reviewed (RLL possible nodule) CT scan - chest: image reviewed (RLL lateral segment consolidative change vs nodule not totally visible as out of aquisition remy)
--- NOTE | 2017-03-06 15:33 | Progress Note ---
Assessment and Plan Assessment and plan: 71 YO Female with COPD, HTN, Seizure Disorder, Nicotine Dependence, Severe Malnutrition, presents today hospital complaining of cough, shortness of breath sputum production and generalized weakness 4 days Acute exacerbation of COPD -Steroids, nebulizer, and abx Acute on chronic resp failure, hypoxic continue oxygen supplementation, wean as tolerated - ABG confirms hypoxia , will need home oxygen prior to discharge Pulmonary input pending She was planned for PE workup, venous ultrasound was negative for lower extremity DVT. She has plan for CT angiogram of her chest, but patient refused and states that she is getting better Pulmonary nodule ruled out CT chest reviewed, no evidence of pulmonary nodule Sepsis/ Aspiration PNA continue abx, Dysphagia Speech therapy input appreciated, continue. Diet with nectar thickened liquids Anxiety disorder continue Benzodiazepines q8h DVT ppx lovenox History Interval history: She currently denies chest pain, states that shortness of breath is better. Hospitalist Physical - Physical exam Narrative exam: General.: no distress, appears well HEENT: Moist mucous membranes, extraocular muscles intact, no lymphadenopathy Neck: supple Cardiac: S1-S2 heard Lungs: CTA, no wheezing, improved air entry Abdomen: soft , nontender, nondistended, bowel sounds positive Extremities: no edema clubbing or cyanosis Skin: no rash or lesions Neurologic: no gross focal deficits Psych: appropriate behavior, appropriate mood, corporative, judgment intact - Constitutional Vitals: Temp Pulse Resp BP Pulse Ox 98.2 F 98 H 20 148/64 94 03/06/17 11:23 03/06/17 11:23 03/06/17 11:23 03/06/17 11:23 03/06/17 11:23 General appearance: Present: cachectic Results - Labs CBC & Chem 7: 03/03/17 06:15 03/02/17 08:55 Labs: Laboratory Last Values WBC 18.0 K/mm3 (4.5-11.0) H 03/03/17 06:15 RBC 3.27 M/mm3 (3.65-5.03) L 03/03/17 06:15 Hgb 10.9 gm/dl (10.1-14.3) 03/03/17 06:15 Hct 32.5 % (30.3-42.9) 03/03/17 06:15 MCV 100 fl (79-97) H 03/03/17 06:15 MCH 33 pg (28-32) H 03/03/17 06:15 MCHC 33 % (30-34) 03/03/17 06:15 RDW 15.1 % (13.2-15.2) 03/03/17 06:15 Plt Count 283 K/mm3 (140-440) 03/03/17 06:15 Add Manual Diff Complete 03/03/17 06:15 Total Counted 100 03/03/17 06:15 Seg Neutrophils % [employer] Att[employer] 03/03/17 06:15 Seg Neuts % (Manual) 93.0 % (40.0-70.0) H 03/03/17 06:15 Band Neutrophils % 0 % 03/03/17 06:15 Lymphocytes % (Manual) 3.0 % (13.4-35.0) L 03/03/17 06:15 Reactive Lymphs % (Man) 0 % 03/03/17 06:15 Monocytes % (Manual) 4.0 % (0.0-7.3) 03/03/17 06:15 Eosinophils % (Manual) 0 % (0.0-4.3) 03/03/17 06:15 Basophils % (Manual) 0 % (0.0-1.8) 03/03/17 06:15 Metamyelocytes % 0 % 03/03/17 06:15 Myelocytes % 0 % 03/03/17 06:15 Promyelocytes % 0 % 03/03/17 06:15 Blast Cells % 0 % 03/03/17 06:15 Nucleated RBC % Not Reportable 03/03/17 06:15 Seg Neutrophils # Man 16.7 K/mm3 (1.8-7.7) H 03/03/17 06:15 Band Neutrophils # 0.0 K/mm3 03/03/17 06:15 Lymphocytes # (Manual) 0.5 K/mm3 (1.2-5.4) L 03/03/17 06:15 Abs React Lymphs (Man) 0.0 K/mm3 03/03/17 06:15 Monocytes # (Manual) 0.7 K/mm3 (0.0-0.8) 03/03/17 06:15 Eosinophils # (Manual) 0.0 K/mm3 (0.0-0.4) 03/03/17 06:15 Basophils # (Manual) 0.0 K/mm3 (0.0-0.1) 03/03/17 06:15 Metamyelocytes # 0.0 K/mm3 03/03/17 06:15 Myelocytes # 0.0 K/mm3 03/03/17 06:15 Promyelocytes # 0.0 K/mm3 03/03/17 06:15 Blast Cells # 0.0 K/mm3 03/03/17 06:15 WBC Morphology Not Reportable 03/03/17 06:15 Hypersegmented Neuts Not Reportable 03/03/17 06:15 Hyposegmented Neuts Not Reportable 03/03/17 06:15 Hypogranular Neuts Not Reportable 03/03/17 06:15 Smudge Cells Not Reportable 03/03/17 06:15 Toxic Granulation Not Reportable 03/03/17 06:15 Toxic Vacuolation Not Reportable 03/03/17 06:15 Dohle Bodies Not Reportable 03/03/17 06:15 Pelger-Huet Anomaly Not Reportable 03/03/17 06:15 Trudy Rods Not Reportable 03/03/17 06:15 Platelet Estimate Appears normal 03/03/17 06:15 Clumped Platelets Not Reportable 03/03/17 06:15 Plt Clumps, EDTA Not Reportable 03/03/17 06:15 Large Platelets Not Reportable 03/03/17 06:15 Giant Platelets Not Reportable 03/03/17 06:15 Platelet Satelliting Not Reportable 03/03/17 06:15 Plt Morphology Comment Not Reportable 03/03/17 06:15 RBC Morphology Not Reportable 03/03/17 06:15 Dimorphic RBCs Not Reportable 03/03/17 06:15 Polychromasia Not Reportable 03/03/17 06:15 Hypochromasia Not Reportable 03/03/17 06:15 Poikilocytosis Not Reportable 03/03/17 06:15 Anisocytosis 1+ 03/03/17 06:15 Microcytosis Not Reportable 03/03/17 06:15 Macrocytosis Not Reportable 03/03/17 06:15 Spherocytes Not Reportable 03/03/17 06:15 Pappenheimer Bodies Not Reportable 03/03/17 06:15 Sickle Cells Not Reportable 03/03/17 06:15 Target Cells Not Reportable 03/03/17 06:15 Tear Drop Cells Not Reportable 03/03/17 06:15 Ovalocytes Not Reportable 03/03/17 06:15 Helmet Cells Not Reportable 03/03/17 06:15 [place] Bodies Not Reportable 03/03/17 06:15 [place] Rings Not Reportable 03/03/17 06:15 [place] Cells Not Reportable 03/03/17 06:15 Bite Cells Not Reportable 03/03/17 06:15 Crenated Cell Not Reportable 03/03/17 06:15 Elliptocytes Not Reportable 03/03/17 06:15 Acanthocytes (Spur) Not Reportable 03/03/17 06:15 Rouleaux Not Reportable 03/03/17 06:15 Hemoglobin C Crystals Not Reportable 03/03/17 06:15 Schistocytes Not Reportable 03/03/17 06:15 Malaria parasites Not Reportable 03/03/17 06:15 [place] Bodies Not Reportable 03/03/17 06:15 Hem Pathologist Commnt No 03/03/17 06:15 PT 12.8 Sec. (12.2-14.9) 03/02/17 09:31 INR 0.92 (0.87-1.13) 03/02/17 09:31 POC ABG pH 7.451 (7.35-7.45) H 03/04/17 17:10 POC ABG pCO2 69.0 (35-45) H 03/04/17 17:10 POC ABG pO2 43 (80-105) L 03/04/17 17:10 POC ABG HCO3 48.1 03/04/17 17:10 POC ABG Total CO2 > 50 03/04/17 17:10 POC ABG O2 Sat 78 03/04/17 17:10 POC ABG Base Excess 24 03/04/17 17:10 FiO2 21 % 03/04/17 17:10 Sodium 134 mmol/L (137-145) L 03/02/17 08:55 Potassium 4.5 mmol/L (3.6-5.0) 03/02/17 08:55 Chloride 89.8 mmol/L (98-107) L 03/02/17 08:55 Carbon Dioxide 33 mmol/L (22-30) H 03/02/17 08:55 Anion Gap 16 mmol/L 03/02/17 08:55 BUN 16 mg/dL (7-17) 03/02/17 08:55 Creatinine 0.3 mg/dL (0.7-1.2) L 03/02/17 08:55 Estimated GFR > 60 ml/min 03/02/17 08:55 BUN/Creatinine Ratio 53 % 03/02/17 08:55 Glucose 84 mg/dL (65-100) 03/02/17 08:55 Lactic Acid 0.50 mmol/L (0.7-2.0) L 03/02/17 21:09 Calcium 9.0 mg/dL (8.4-10.2) 03/02/17 08:55 Total Bilirubin 0.50 mg/dL (0.1-1.2) 03/02/17 08:55 AST 15 units/L (5-40) 03/02/17 08:55 ALT 13 units/L (7-56) 03/02/17 08:55 Alkaline Phosphatase 102 units/L (35-129) 03/02/17 08:55 Troponin T < 0.010 ng/mL (0.00-0.029) 03/02/17 09:31 NT-Pro-B Natriuret Pep 1163 pg/mL (0-900) H 03/02/17 09:31 Total Protein 7.3 g/dL (6.3-8.2) 03/02/17 08:55 Albumin 3.3 g/dL (3.9-5) L 03/02/17 08:55 Albumin/Globulin Ratio 0.8 % 03/02/17 08:55
[2017-03-07] MEDS: DUONEB *Not for PRN Use IH SCH ×4 (01:26→20:44)
[2017-03-07] MEDS: XANAX PO SCH ×3 (05:43→21:02)
[2017-03-07] MEDS: NORCO 5/325 PO PRN ×3 (07:25→21:01)
--- NOTE | 2017-03-07 07:29 | Vascular Lab Report ---
LOWER EXTREMITY VENOUS DUPLEX: REASON FOR EXAM: Edema of the lower extremities. COMMENTS ON THE RIGHT: All veins visualized are freely compressible without evidence of internal echogenicity. Flow is spontaneous and phasic throughout. COMMENTS ON THE LEFT: All veins visualized are freely compressible without evidence of internal echogenicity. Flow is spontaneous and phasic throughout. IMPRESSION: No evidence of acute or chronic deep venous thrombosis in either lower extremity.
[2017-03-07] MEDS: NORVASC PO SCH ×2 (08:34→10:06)
[2017-03-07] MEDS: BROVANA NEBU IH SCH ×2 (09:17→20:44)
[2017-03-07] MEDS: PULMICORT IH SCH ×2 (09:17→20:44)
--- NOTE | 2017-03-07 09:23 | Progress Note ---
Assessment and Plan Assessment and plan: Acute exacerbation of COPD Steroids, nebulizer, and abx We will need home oxygen prior to discharge Repeat CXR today Acute resp failure, hypoxic continue oxygen supplementation, wean as tolerated ABG confirms hypoxia , cont home oxygen Pulmonary input pending Venous ultrasound was negative for lower extremity DVT. She has plan for CT angiogram of her chest, but patient refused and states that she is getting better Pulmonary nodule ruled out CT chest reviewed, no evidence of pulmonary nodule Sepsis/ Aspiration PNA continue abx, Dysphagia Speech therapy input appreciated, continue diet with nectar thickened liquids DVT ppx lovenox History Interval history: No new issues overnight Hospitalist Physical - Constitutional Vitals: Temp Pulse Resp BP Pulse Ox 98.3 F 90 18 131/84 97 03/07/17 08:07 03/07/17 09:00 03/07/17 09:00 03/07/17 08:07 03/07/17 08:07 General appearance: Present: cachectic - EENT Eyes: Present: PERRL, EOM intact ENT: hearing intact, clear oral mucosa, dentition normal - Neck Neck: Present: supple, normal ROM - Respiratory Respiratory effort: normal Respiratory: bilateral: diminished, rhonchi, wheezing - Cardiovascular Rhythm: regular Heart Sounds: Present: S1 & S2. Absent: gallop, rub - Extremities Extremities: no ischemia, No edema, Full ROM - Abdominal General gastrointestinal: soft, non-tender, non-distended, normal bowel sounds - Integumentary Integumentary: Present: clear, warm, dry - Neurologic Neurologic: CNII-XII intact, moves all extremities Results - Labs CBC & Chem 7: 03/03/17 06:15 03/02/17 08:55 Labs: Laboratory Last Values WBC 18.0 K/mm3 (4.5-11.0) H 03/03/17 06:15 RBC 3.27 M/mm3 (3.65-5.03) L 03/03/17 06:15 Hgb 10.9 gm/dl (10.1-14.3) 03/03/17 06:15 Hct 32.5 % (30.3-42.9) 03/03/17 06:15 MCV 100 fl (79-97) H 03/03/17 06:15 MCH 33 pg (28-32) H 03/03/17 06:15 MCHC 33 % (30-34) 03/03/17 06:15 RDW 15.1 % (13.2-15.2) 03/03/17 06:15 Plt Count 283 K/mm3 (140-440) 03/03/17 06:15 Add Manual Diff Complete 03/03/17 06:15 Total Counted 100 03/03/17 06:15 Seg Neutrophils % Mine Wirer 03/03/17 06:15 Seg Neuts % (Manual) 93.0 % (40.0-70.0) H 03/03/17 06:15 Band Neutrophils % 0 % 03/03/17 06:15 Lymphocytes % (Manual) 3.0 % (13.4-35.0) L 03/03/17 06:15 Reactive Lymphs % (Man) 0 % 03/03/17 06:15 Monocytes % (Manual) 4.0 % (0.0-7.3) 03/03/17 06:15 Eosinophils % (Manual) 0 % (0.0-4.3) 03/03/17 06:15 Basophils % (Manual) 0 % (0.0-1.8) 03/03/17 06:15 Metamyelocytes % 0 % 03/03/17 06:15 Myelocytes % 0 % 03/03/17 06:15 Promyelocytes % 0 % 03/03/17 06:15 Blast Cells % 0 % 03/03/17 06:15 Nucleated RBC % Not Reportable 03/03/17 06:15 Seg Neutrophils # Man 16.7 K/mm3 (1.8-7.7) H 03/03/17 06:15 Band Neutrophils # 0.0 K/mm3 03/03/17 06:15 Lymphocytes # (Manual) 0.5 K/mm3 (1.2-5.4) L 03/03/17 06:15 Abs React Lymphs (Man) 0.0 K/mm3 03/03/17 06:15 Monocytes # (Manual) 0.7 K/mm3 (0.0-0.8) 03/03/17 06:15 Eosinophils # (Manual) 0.0 K/mm3 (0.0-0.4) 03/03/17 06:15 Basophils # (Manual) 0.0 K/mm3 (0.0-0.1) 03/03/17 06:15 Metamyelocytes # 0.0 K/mm3 03/03/17 06:15 Myelocytes # 0.0 K/mm3 03/03/17 06:15 Promyelocytes # 0.0 K/mm3 03/03/17 06:15 Blast Cells # 0.0 K/mm3 03/03/17 06:15 WBC Morphology Not Reportable 03/03/17 06:15 Hypersegmented Neuts Not Reportable 03/03/17 06:15 Hyposegmented Neuts Not Reportable 03/03/17 06:15 Hypogranular Neuts Not Reportable 03/03/17 06:15 Smudge Cells Not Reportable 03/03/17 06:15 Toxic Granulation Not Reportable 03/03/17 06:15 Toxic Vacuolation Not Reportable 03/03/17 06:15 Dohle Bodies Not Reportable 03/03/17 06:15 Pelger-Huet Anomaly Not Reportable 03/03/17 06:15 Trudy Rods Not Reportable 03/03/17 06:15 Platelet Estimate Appears normal 03/03/17 06:15 Clumped Platelets Not Reportable 03/03/17 06:15 Plt Clumps, EDTA Not Reportable 03/03/17 06:15 Large Platelets Not Reportable 03/03/17 06:15 Giant Platelets Not Reportable 03/03/17 06:15 Platelet Satelliting Not Reportable 03/03/17 06:15 Plt Morphology Comment Not Reportable 03/03/17 06:15 RBC Morphology Not Reportable 03/03/17 06:15 Dimorphic RBCs Not Reportable 03/03/17 06:15 Polychromasia Not Reportable 03/03/17 06:15 Hypochromasia Not Reportable 03/03/17 06:15 Poikilocytosis Not Reportable 03/03/17 06:15 Anisocytosis 1+ 03/03/17 06:15 Microcytosis Not Reportable 03/03/17 06:15 Macrocytosis Not Reportable 03/03/17 06:15 Spherocytes Not Reportable 03/03/17 06:15 Pappenheimer Bodies Not Reportable 03/03/17 06:15 Sickle Cells Not Reportable 03/03/17 06:15 Target Cells Not Reportable 03/03/17 06:15 Tear Drop Cells Not Reportable 03/03/17 06:15 Ovalocytes Not Reportable 03/03/17 06:15 Helmet Cells Not Reportable 03/03/17 06:15 [place] Bodies Not Reportable 03/03/17 06:15 [place] Rings Not Reportable 03/03/17 06:15 [place] Cells Not Reportable 03/03/17 06:15 Bite Cells Not Reportable 03/03/17 06:15 Crenated Cell Not Reportable 03/03/17 06:15 Elliptocytes Not Reportable 03/03/17 06:15 Acanthocytes (Spur) Not Reportable 03/03/17 06:15 Rouleaux Not Reportable 03/03/17 06:15 Hemoglobin C Crystals Not Reportable 03/03/17 06:15 Schistocytes Not Reportable 03/03/17 06:15 Malaria parasites Not Reportable 03/03/17 06:15 [place] Bodies Not Reportable 03/03/17 06:15 Hem Pathologist Commnt No 03/03/17 06:15 PT 12.8 Sec. (12.2-14.9) 03/02/17 09:31 INR 0.92 (0.87-1.13) 03/02/17 09:31 POC ABG pH 7.451 (7.35-7.45) H 03/04/17 17:10 POC ABG pCO2 69.0 (35-45) H 03/04/17 17:10 POC ABG pO2 43 (80-105) L 03/04/17 17:10 POC ABG HCO3 48.1 03/04/17 17:10 POC ABG Total CO2 > 50 03/04/17 17:10 POC ABG O2 Sat 78 03/04/17 17:10 POC ABG Base Excess 24 03/04/17 17:10 FiO2 21 % 03/04/17 17:10 Sodium 134 mmol/L (137-145) L 03/02/17 08:55 Potassium 4.5 mmol/L (3.6-5.0) 03/02/17 08:55 Chloride 89.8 mmol/L (98-107) L 03/02/17 08:55 Carbon Dioxide 33 mmol/L (22-30) H 03/02/17 08:55 Anion Gap 16 mmol/L 03/02/17 08:55 BUN 16 mg/dL (7-17) 03/02/17 08:55 Creatinine 0.3 mg/dL (0.7-1.2) L 03/02/17 08:55 Estimated GFR > 60 ml/min 03/02/17 08:55 BUN/Creatinine Ratio 53 % 03/02/17 08:55 Glucose 84 mg/dL (65-100) 03/02/17 08:55 Lactic Acid 0.50 mmol/L (0.7-2.0) L 03/02/17 21:09 Calcium 9.0 mg/dL (8.4-10.2) 03/02/17 08:55 Total Bilirubin 0.50 mg/dL (0.1-1.2) 03/02/17 08:55 AST 15 units/L (5-40) 03/02/17 08:55 ALT 13 units/L (7-56) 03/02/17 08:55 Alkaline Phosphatase 102 units/L (35-129) 03/02/17 08:55 Troponin T < 0.010 ng/mL (0.00-0.029) 03/02/17 09:31 C-Reactive Protein 2.50 mg/dL (0.00-1.30) H 03/06/17 15:32 NT-Pro-B Natriuret Pep 1163 pg/mL (0-900) H 03/02/17 09:31 Total Protein 7.3 g/dL (6.3-8.2) 03/02/17 08:55 Albumin 3.3 g/dL (3.9-5) L 03/02/17 08:55 Albumin/Globulin Ratio 0.8 % 03/02/17 08:55
[2017-03-07] MEDS: ROCEPHIN/NS 2 GM/100 ML 2 GM/100 ML BAG IV SCH (10:22)
[2017-03-07] MEDS: ZITHROMAX PO SCH (10:22)
--- NOTE | 2017-03-07 12:30 | XRay Report ---
CHEST XRAY, 2 VIEWS: History: Followup pneumonia. Findings: Hazy opacity in the lateral right lung base has resolved since 03/02/17. Small bilateral pleural effusions have developed. Heart size remains normal. Underlying COPD is suspected. The bony structures are intact. IMPRESSION: Changes consistent with COPD. right lower lobe opacity has resolved since exam 5 days ago.
--- NOTE | 2017-03-07 19:25 | Progress Note ---
Assessment and Plan Patient alert, awake and resting on 2 litres O2.O2 saturation 98%. Patient weak. No acute respiratory distress.Patient afebrile.Pneumonia improved. Patient said she already has home. When discharged strongly recommend to come to my office as out patient for pulmonary follow up. - Patient Problems (1) Aspiration pneumonia Current Visit: Yes Status: Acute Qualifiers: Aspiration pneumonia type: due to gastric secretions Laterality: right Lung location: lower lobe of lung Qualified Code(s): J69.0 - Pneumonitis due to inhalation of food and vomit Plan to address problem: Right lower lobe infiltrate improved. Patient afebrile.Still has leukocytosis. Continue Zithromax and ceftrioxone. (2) Sepsis Current Visit: Yes Status: Acute Qualifiers: Sepsis type: Streptococcus group B, in Qualified Code(s): P36.0 - Sepsis of due to streptococcus, group B Plan to address problem: Patient is on zithromax and ceftrioxone. Patient afebrile. Other vital signs stable. (3) COPD (chronic obstructive pulmonary disease) Current Visit: Yes Status: Chronic Qualifiers: COPD type: COPD with acute lower respiratory infection Chronic bronchitis type: C Emphysema type: E Qualified Code(s): J44.0 - Chronic obstructive pulmonary disease with acute lower respiratory infection Plan to address problem: Continue O2 2 litres via nasal canula. ABGs on room air. Continue I/V solumedral Albuterol/atrovent aerosol treatments q 6 hours. Recommend DVT prophylaxis S/C Heparin. (4) Acute respiratory failure with hypoxia and hypercapnia Current Visit: No Status: Acute Plan to address problem: O2 2 litres via nasal canula. ABGs on room air. Albuterol/atrovent aerosol treatments. Continue I/V solumedral Recommend DVT prophylaxis. Continue S/C Heparin. Patient said she already has home O2. PFTs as out patient. (5) Metabolic encephalopathy Current Visit: No Status: Acute Plan to address problem: Management as per primary care. Subjective Date of service: 03/07/17 Principal diagnosis: Acute on Chronic hypoxemic Resp Failure; Acute COPD exacerbation Interval history: Patient alert, awake and resting on 2 litres O2.O2 saturation 98%. Patient weak. No acute respiratory distress.Patient afebrile. Pneumonia improved. Patient said she already has home. When discharged strongly recommend to come to my office as out patient for pulmonary follow up. Objective Vital Signs - 12hr 03/07/17 03/07/17 03/07/17 07:30 08:07 09:00 Temperature 97.5 F L 98.3 F Pulse Rate 96 H 89 Pulse Rate [ 90 Anterior Bilateral Throughout] Respiratory 22 20 Rate Respiratory 18 Rate [Anterior Bilateral Throughout] Blood Pressure 176/62 Blood Pressure 131/84 [Left] O2 Sat by Pulse 96 97 Oximetry 03/07/17 03/07/17 03/07/17 09:18 11:49 16:21 Temperature 97.7 F 98.2 F Pulse Rate 89 86 Pulse Rate [ 91 H Anterior Bilateral Throughout] Respiratory 18 22 Rate Respiratory 17 Rate [Anterior Bilateral Throughout] Blood Pressure 143/76 155/57 Blood Pressure [Left] O2 Sat by Pulse 98 97 96 Oximetry Constitutional: alert, appears uncomfortable Eyes: non-icteric ENT: oropharynx moist, other (no ulcers) Neck: supple, no lymphadenopathy, no JVD, other (no thyromegaly) Effort: mildly labored Ascultation: Bilateral: diminished breath sounds, rales (inspiratory in bases) Percussion: Bilateral: not dull Cardiovascular: regular rate and rhythm, other (no rubs or murmurs) Gastrointestinal: normoactive bowel sounds, soft, non-tender, non-distended, other (no HSM) Integumentary: normal, other (no rash or cellulitis) Extremities: no cyanosis, no edema, pink and warm, pulses normal, no ischemia or petechiae Neurologic: normal mental status, non-focal exam, pupils equal and round, motor strength normal and, other (No fasiculations / spasticity) Psychiatric: mood appropriate, affect normal, other (poor insight regarding health status) CBC and BMP: 03/03/17 06:15 03/02/17 08:55 ABG, PT/INR, D-dimer: ABG POC ABG pH 7.451 (7.35-7.45) H 03/04/17 17:10 POC ABG pCO2 69.0 (35-45) H 03/04/17 17:10 POC ABG pO2 43 (80-105) L 03/04/17 17:10 POC ABG HCO3 48.1 03/04/17 17:10 POC ABG Total CO2 > 50 03/04/17 17:10 POC ABG O2 Sat 78 03/04/17 17:10 PT/INR, D-dimer PT 12.8 Sec. (12.2-14.9) 03/02/17 09:31 INR 0.92 (0.87-1.13) 03/02/17 09:31 Abnormal lab findings: Abnormal Labs 03/02/17 03/03/17 03/04/17 21:09 06:15 17:10 WBC 18.0 H RBC 3.27 L MCV 100 H MCH 33 H Seg Neuts % (Manual) 93.0 H Lymphocytes % (Manual) 3.0 L Seg Neutrophils # Man 16.7 H Lymphocytes # (Manual) 0.5 L POC ABG pH 7.451 H POC ABG pCO2 69.0 H POC ABG pO2 43 L Lactic Acid 0.50 L C-Reactive Protein 03/06/17 15:32 WBC RBC MCV MCH Seg Neuts % (Manual) Lymphocytes % (Manual) Seg Neutrophils # Man Lymphocytes # (Manual) POC ABG pH POC ABG pCO2 POC ABG pO2 Lactic Acid C-Reactive Protein 2.50 H Chest x-ray: report reviewed, image reviewed (Improved right lower lobe infiltrate.)
[2017-03-08] MEDS: NORCO 5/325 PO PRN ×2 (03:17→09:07)
[2017-03-08] MEDS: XANAX PO SCH (05:29)
--- NOTE | 2017-03-08 08:23 | Discharge Summary ---
Providers - Providers Date of Admission: 03/02/17 12:14 Date of discharge: 03/08/17 Attending physician: KENYA YANCEY 03/03/17 10:21 Speech Therapy Evaluation and Treat [CONS] Routine Reason For Exam: dysphagia 03/05/17 12:04 Consult to Physician [CONS] Routine Consulting Provider: OLEGARIO LERMA Reason For Exam: respiratory failure Place consult to:: DR. LERMA Notified:: A.S. Phone number called:: [phone] Was contact made?: Yes If yes, spoke with:: DR. LERMA Time called:: 12:44 Comment:: KEN SPOKE WITH MD Primary care physician: [employer] Hospitalization Reason for admission: sob Condition: Stable Hospital course: 71 YO Female with COPD, HTN, Seizure Disorder, Nicotine Dependence, Severe Malnutrition presents to ED for evaluation of shortness of breath, and productive cough with increased sputum production, and generalized weakness over the past 4 days [employer] with worsening symptoms over the past 2 days [employer]. Pt also acknowledged chest discomfort after coughing. Pt denied fever, chills, CP, Palpitations, NVD, Syncope, BRBPR, recent ill contacts, leg pain, calf pain, prolonged travel/immobility, individual/family history of DVT/PE, skin rash, hemoptysis, night sweats, trauma, or recent falls. Pt seen and evaluated in ED and admitted with dx of sepsis, acute hypoxia, respiratory failureand RLL Pneumonia probable aspiration pneumonia.atient was evaluated for PE with venous ultrasound that was negative for DVT and CT angiogramthat was ordered but patient refused. Patient was evaluated by speech therapy with MBS that revealed mild to moderate oropharyngeal dysphagia. Speech therapy recommended dysphagia diet with pure and nectar thickened liquids. The patient was seen by pulmonary and consultation. Patient also had follow-up chest x-ray which revealed resolution of the pneumonia. Patient is felt to have received maximal hospital benefit and will discharge home. Dedicated discharge time 32 minutes Disposition: DC-01 TO HOME OR SELFCARE Time spent for discharge: 32 - Discharge Diagnoses (1) Aspiration pneumonia Status: Acute Qualifiers: Aspiration pneumonia type: due to gastric secretions Laterality: right Lung location: lower lobe of lung Qualified Code(s): J69.0 - Pneumonitis due to inhalation of food and vomit (2) Sepsis Status: Acute Qualifiers: Sepsis type: Streptococcus group B, in Qualified Code(s): P36.0 - Sepsis of due to streptococcus, group B (3) COPD (chronic obstructive pulmonary disease) Status: Chronic Qualifiers: COPD type: COPD with acute lower respiratory infection Chronic bronchitis type: C Emphysema type: E Qualified Code(s): J44.0 - Chronic obstructive pulmonary disease with acute lower respiratory infection (4) Acute respiratory failure with hypoxia and hypercapnia Status: Acute (5) COPD exacerbation Status: Acute (6) Malnutrition Status: Acute Qualifiers: Malnutrition type: M Protein-calorie malnutrition severity: P (7) Hypertension Status: Chronic Qualifiers: Hypertension type: essential hypertension Qualified Code(s): I10 - Essential (primary) hypertension Core Measure Documentation - Palliative Care Palliative Care/ Comfort Measures: Not Applicable - Core Measures Any of the following diagnoses?: none Exam - Constitutional Vitals: Temp Pulse Resp BP Pulse Ox 97.6 F 92 H 18 161/53 97 03/08/17 07:20 03/08/17 07:20 03/08/17 07:20 03/08/17 07:20 03/08/17 07:20 General appearance: Present: no acute distress, well-nourished - EENT Eyes: Present: PERRL ENT: hearing intact, clear oral mucosa - Neck Neck: Present: supple, normal ROM - Respiratory Respiratory effort: normal Respiratory: bilateral: CTA - Cardiovascular Heart Sounds: Present: S1 & S2. Absent: rub, click - Extremities Extremities: pulses symmetrical, No edema Peripheral Pulses: within normal limits - Abdominal General gastrointestinal: Present: soft, non-tender, non-distended, normal bowel sounds Female genitourinary: Present: normal - Integumentary Integumentary: Present: clear, warm, dry - Musculoskeletal Musculoskeletal: gait normal, strength equal bilaterally - Psychiatric Psychiatric: appropriate mood/affect, intact judgment & insight - Neurologic Neurologic: CNII-XII intact, moves all extremities Plan Activity: no restrictions Weight Bearing Status: Full Weight Bearing Diet: regular Follow up with: LENNY LOCKHART MD [Primary Care Provider] - 3-5 Days DEL MCALLISTER MD [Staff Physician] - 7 Days Prescriptions: ALBUTEROL Inhaler [ProAir HFA Inhaler] 2 puff IH QID PRN #1 can PRN Reason: Shortness Of Breath ALPRAZolam [Xanax TAB] 0.25 mg PO DAILY #7 tablet amLODIPine [Norvasc] 5 mg PO QDAY #30 tablet Arformoterol Nebu [Brovana Nebu] 15 mcg IH Q12HRT #30 ml Azithromycin [Zithromax TAB] 250 mg PO QDAY #5 tablet Budesonide [Pulmicort Respules] 0.5 mg IH Q12HRT #30 nebu HYDROcodone/APAP 5-325 [[place] 5-325 mg TAB] 1 each PO Q6HR PRN #12 tablet PRN Reason: Pain Ipratropium/Albuterol Sulfate [DUONEB *Not for PRN Use*] 1 ampul IH Q6HRT #30 ampul.neb
[2017-03-08] MEDS: BROVANA NEBU IH SCH (08:40)
[2017-03-08] MEDS: PULMICORT IH SCH (08:40)
[2017-03-08] MEDS: DUONEB *Not for PRN Use IH SCH ×3 (08:41→14:21)
[2017-03-08] MEDS: ZITHROMAX PO SCH (10:45)
[2017-03-08] MEDS: ROCEPHIN/NS 2 GM/100 ML 2 GM/100 ML BAG IV SCH (10:46)
[2017-03-08 11:45] VITALS: BP 159/63
[2017-03-08] MEDS: ZOFRAN IV PRN (11:47)
[2017-03-08] MEDS: NORVASC PO SCH (11:48)
== END 2017-03-08 13:00 | disposition home or self-care (01) | DRG 871 ==
LOC: ED 08:14 → 3A 12:14
PROVIDERS: ADMIT Internal Medicine; ATTEND Hospitalist
PROC: 4A033R1 Measurement of Arterial Saturation, Peripheral, Percutaneous Approach (ICD-10-PCS; principal; 2017-03-04)
PROC: 3E0234Z Introduction of Serum, Toxoid and Vaccine into Muscle, Percutaneous Approach (ICD-10-PCS; 2017-03-04)
DX: A41.9 Sepsis, unspecified organism (principal); J69.0 Pneumonitis due to inhalation of food and vomit; E43 Unspecified severe protein-calorie malnutrition; J96.21 Acute and chronic respiratory failure with hypoxia; J96.22 Acute and chronic respiratory failure with hypercapnia; J44.1 Chronic obstructive pulmonary disease with (acute) exacerbation; I10 Essential (primary) hypertension; F17.210 Nicotine dependence, cigarettes, uncomplicated; Z96.649 Presence of unspecified artificial hip joint; G40.909 Epilepsy, unspecified, not intractable, without status epilepticus; Z23 Encounter for immunization; Z88.6 Allergy status to analgesic agent; Z90.710 Acquired absence of both cervix and uterus; Z79.899 Other long term (current) drug therapy; Z88.5 Allergy status to narcotic agent
CPT/HCPCS: 36415; 36600; 71010; 71020; 71250; 74230; 80053; 82140; 82803; 83880; 84484; 85007; 85025; 85610; 86140; 87040; 87493; 90686; 93005; 93010; 93970; 94640; 94760; 96365; 96367; 96375; 99406; G8996-GN; G8997-GN; J0295; J0456; J0696; J1100; J2270; J2405; J2920; J2930; J7030; J7050

== ENCOUNTER 2017-04-04 12:23 | Inpatient (IN) | payer MEDICARE ==
[2017-04-04] MEDS ORDERED: DIPRIVAN 10 MG/ML 0 MG/0 ML BOTTLE IV ONE (13:03)
[2017-04-04] MEDS ORDERED: NACL 0.9% 1000 ML 1,000 ML ONE (13:06)
[2017-04-04] MEDS ORDERED: NACL 0.9% 1000 ML 1,000 ML IV ONE (13:17)
[2017-04-04 13:34] LABS: Hematocrit 28.6 % (30.3-42.9); Mean Corpuscular HGB Conc 31 % (30-34); Mean Corpuscular Hemoglobin 32 pg (28-32); Mean Corpuscular Volume 101 fl (79-97); Platelet Count 327 K/mm3 (140-440); Red Blood Count 2.83 M/mm3 (3.65-5.03); Red Cell Distribution Width 14.1 % (13.2-15.2); White Blood Count 4.2 K/mm3 (4.5-11.0)
[2017-04-04 13:44] LABS: INR 0.86 (0.87-1.13); Partial Thromboplastin Time 32.6 Sec. (24.2-36.6)
--- NOTE | 2017-04-04 13:52 | XRay Report ---
Portable chest: Fever. The lungs are markedly hyperinflated and hyperlucent. Mild patchy changes are noted at the right lung base. Normal heart with no vascular congestion. The cardiopulmonary findings are otherwise unremarkable. Endotracheal and nasogastric tubes are in good positions. Compared to the most recent prior examination of March 07 no interval changes. Impressions: Severe COPD. Incomplete resolution of mild right basilar infiltrate.
--- NOTE | 2017-04-04 13:52 | Emergency Department Report ---
ED General Adult HPI - General Chief complaint: Dyspnea/Respdistress Stated complaint: COPD EXACERBATION Time Seen by Provider: 04/04/17 13:13 Source: EMS Mode of arrival: Ambulatory Limitations: No Limitations - History of Present Illness Initial comments: According to paramedics the patient was found in a smoker's environment obtunded. Medics stated there are multiple ashtrays with cigarette butts. Patient has a history of COPD on home O2. She was poorly responsive at all on their arrival. They did a spot check of her glucose which was not low. They gave her Solu-Medrol and albuterol. She was not placed on CPAP. Patient arrived at this facility in obvious respiratory failure. She was noted to have small pupils not obviously responsive but not pinpoint. Immediately the patient had Ambu bag assistance. She was presumed to have hypercapnic respiratory failure considering her obviously poor air exchange. RSI was performed and the patient was intubated without difficulty. No other history is available. -: unknown - Related Data Previous Rx's Medication Instructions Recorded Last Taken Type ALBUTEROL Inhaler [ProAir HFA 2 puff IH QID PRN #1 can 03/08/17 Unknown Rx Inhaler] ALPRAZolam [Xanax TAB] 0.25 mg PO DAILY #7 tablet 03/08/17 Unknown Rx Arformoterol Nebu [Brovana Nebu] 15 mcg IH Q12HRT #30 ml 03/08/17 Unknown Rx Azithromycin [Zithromax TAB] 250 mg PO QDAY #5 tablet 03/08/17 Unknown Rx Budesonide [Pulmicort Respules] 0.5 mg IH Q12HRT #30 nebu 03/08/17 Unknown Rx HYDROcodone/APAP 5-325 [[place] 1 each PO Q6HR PRN #12 tablet 03/08/17 Unknown Rx 5-325 mg TAB] Ipratropium/Albuterol Sulfate 1 ampul IH Q6HRT #30 ampul.neb 03/08/17 Unknown Rx [DUONEB *Not for PRN Use*] amLODIPine [Norvasc] 5 mg PO QDAY #30 tablet 03/08/17 Unknown Rx methylPREDNISolone [Medrol] 4 mg PO QAM #1 tab.ds.pk 03/08/17 Unknown Rx Allergies Allergy/AdvReac Type Severity Reaction Status Date / Time aspirin Allergy Unknown Verified 06/25/14 16:10 chlorzoxazone Allergy Seizure Verified 04/15/14 21:58 [From Parafon Forte] codeine Allergy Unknown Verified 11/03/15 13:57 ibuprofen [From Motrin] Allergy Swelling Verified 04/15/14 21:58 olmesartan medoxomil Allergy Nausea Verified 04/15/14 21:58 [From Benicar] phenytoin sodium Allergy Unknown Verified 04/15/14 18:58 [From Dilantin] phenytoin sodium extended Allergy Unknown Verified 04/15/14 18:58 [From Dilantin] ramipril Allergy Nausea Verified 04/15/14 21:58 verapamil Allergy Unknown Verified 11/03/15 18:15 ED Review of Systems ROS: Stated complaint: COPD EXACERBATION Other details as noted in HPI Comment: Unobtainable due to pts medical conditions ED Past Medical Hx - Past Medical History Previous Medical History?: Yes Hx Hypertension: Yes Hx CVA: No Hx Heart Attack/AMI: No Hx Congestive Heart Failure: Yes Hx Diabetes: No Hx Deep Vein Thrombosis: No Hx Pulmonary Embolism: No Hx GERD: No Hx Liver Disease: No Hx Renal Disease: No Hx of Cancer: No Hx Sickle Cell Disease: No Hx Arthritis: No Hx Headaches / Migraines: No Hx Seizures: Yes Hx Kidney Stones: No Hx Psychiatric Treatment: No Hx Asthma: Yes Hx COPD: Yes Hx Tuberculosis: No Hx Dementia: No Hx HIV: No - Surgical History Past Surgical History?: Yes Hx Coronary Stent: No Hx Open Heart Surgery: No Hx Pacemaker: No Hx Internal Defibrillator: No Hx Cholecystectomy: No Hx Appendectomy: No Hx Breast Surgery: No Additional Surgical History: hip surgery, carotid endarterectomy, hysterectomy - Social History Smoking Status: Current Every Day Smoker Substance Use Type: None - Medications Home Medications: Home Medications Medication Instructions Recorded Confirmed Last Taken Type ALBUTEROL Inhaler [ProAir HFA 2 puff IH QID PRN #1 can 03/08/17 04/04/17 Unknown Rx Inhaler] ALPRAZolam [Xanax TAB] 0.25 mg PO DAILY #7 tablet 03/08/17 04/04/17 Unknown Rx Arformoterol Nebu [Brovana Nebu] 15 mcg IH Q12HRT #30 ml 03/08/17 04/04/17 Unknown Rx Azithromycin [Zithromax TAB] 250 mg PO QDAY #5 tablet 03/08/17 04/04/17 Unknown Rx Budesonide [Pulmicort Respules] 0.5 mg IH Q12HRT #30 nebu 03/08/17 04/04/17 Unknown Rx HYDROcodone/APAP 5-325 [[place] 1 each PO Q6HR PRN #12 tablet 03/08/17 04/04/17 Unknown Rx 5-325 mg TAB] Ipratropium/Albuterol Sulfate 1 ampul IH Q6HRT #30 ampul.neb 03/08/17 04/04/17 Unknown Rx [DUONEB *Not for PRN Use*] amLODIPine [Norvasc] 5 mg PO QDAY #30 tablet 03/08/17 04/04/17 Unknown Rx methylPREDNISolone [Medrol] 4 mg PO QAM #1 tab.ds.pk 03/08/17 04/04/17 Unknown Rx ED Physical Exam - General Limitations: No Limitations General appearance: obtunded - Head Head exam: Present: atraumatic - Eye Eye exam: Absent: scleral icterus Pupils: Present: miosis - ENT ENT exam: Present: mucous membranes dry - Neck Neck exam: Present: normal inspection. Absent: meningismus - Respiratory Respiratory exam: Present: accessory muscle use, decreased breath sounds - Cardiovascular Cardiovascular Exam: Present: tachycardia - GI/Abdominal GI/Abdominal exam: Present: soft, normal bowel sounds. Absent: distended, tenderness, guarding, rebound, rigid - Extremities Exam Extremities exam: Present: normal inspection. Absent: pedal edema, joint swelling (obtunded and unresponsive) - Neurological Exam Neurological exam: Present: other - Psychiatric Psychiatric exam: Present: other - Skin Skin exam: Present: dry, pallor ED Course Vital Signs 04/04/17 04/04/17 04/04/17 12:31 12:45 13:32 Temperature 98.1 F Pulse Rate 96 H 97 H Respiratory 20 Rate Blood Pressure 145/52 158/81 88/56 O2 Sat by Pulse 97 100 Oximetry 04/04/17 17:03 Temperature Pulse Rate 102 H Respiratory Rate Blood Pressure 122/67 O2 Sat by Pulse Oximetry - Reevaluation(s) Reevaluation #1: Patient had a hypotensive episode after intubation. It responded to IV fluid. Initially she was placed on an Ativan drip as she was becoming somewhat agitated. Nursing staff. She was given ceftriaxone as her lactic acid was slightly elevated. Her BMP showed a total CO2 which was really quite elevated consistent with metabolic compensation for chronic respiratory acidosis. Her blood gas was obtained after she had been on the vent for quite some time. Therefore, it probably didn't wreak flexed the degree of hypercapnic respiratory failure that she undoubtably had on arrival. She is admitted by the hospitalist with an intensive care physician consultation. 04/04/17 19:12 - Intubation Time Out Performed: No Sedative: Ketamine Mg Given: 100 Paralytic: Rocuronium Mg Given: 50 Laryngoscope: Jose Elias Size: 3 ET Tube Size: 7 (very small habitus) Tube Secured Depth (cm): 23 Tube Secured Location: lips Tube Placement Confirmation: visualized tube passing t, equal breath sounds bilat, no breath sounds over epi, confirmation by capnometr Patient Tolerated Procedure: well Intubation Complications: none ED Medical Decision Making - Lab Data Result diagrams: 04/04/17 13:24 04/04/17 13:24 Laboratory Results - last 24 hr 04/04/17 04/04/17 13:24 13:24 WBC 4.2 L RBC 2.83 L Hgb 9.0 L Hct 28.6 L MCV 101 H MCH 32 MCHC 31 RDW 14.1 Plt Count 327 PT 12.2 INR 0.86 L APTT 32.6 Critical Care Time: Yes Critical care time in (mins) excluding proc time.: 60 Critical care attestation.: If time is entered above; I have spent that time in minutes in the direct care of this critically ill patient, excluding procedure time. ED Disposition Clinical Impression: COPD exacerbation, Elevated brain natriuretic peptide (BNP) level, Elevated lactic acid level Respiratory failure Qualifiers: Chronicity: acute on chronic Respiratory failure complication: unspecified whether with hypoxia or hypercapnia Qualified Code(s): J96.20 - Acute and chronic respiratory failure, unspecified whether with hypoxia or hypercapnia Anemia Qualifiers: Anemia type: unspecified type Qualified Code(s): D64.9 - Anemia, unspecified Disposition: OP ADMIT IP TO THIS HOSP Is pt being admited?: Yes Does the pt Need Aspirin: Yes Condition: Stable Instructions: Chronic Bronchitis (ED) Referrals: PRIMARY CARE, [Primary Care Provider] - 3-5 Days Time of Disposition: 19:17
[2017-04-04 13:54] LABS: Alanine Aminotransferase 19 units/L (7-56); Albumin 2.7 g/dL (3.9-5); Albumin/Globulin Ratio 1.1 %; Alkaline Phosphatase 98 units/L (35-129); BUN/Creatinine Ratio 73; Blood Urea Nitrogen 22 mg/dL (7-17); Calcium 7.8 mg/dL (8.4-10.2); Chloride 95.2 mmol/L (98-107); Glucose 108 mg/dL (65-100); Sodium 147 mmol/L (137-145); Total Protein 5.1 g/dL (6.3-8.2)
[2017-04-04 14:08] LABS: Anion Gap 13 mmol/L; Bilirubin,Direct < 0.2 mg/dL (0-0.2)
[2017-04-04 14:10] LABS: Carbon Dioxide 43 mmol/L (22-30)
[2017-04-04 14:21] LABS: Anisocytosis 1+; Basophils % (Manual) 0 % (0.0-1.8); Blastocytes % (Manual) 0 %; Eosinophils % (Manual) 0 % (0.0-4.3)
[2017-04-04 14:22] LABS: Diff Status Complete; Stomatocytes 2+
[2017-04-04 14:41] LABS: ISTAT Base Excess 20; ISTAT HCO3 42.4; ISTAT PCO2 49.4 (35-45); ISTAT PH 7.542 (7.35-7.45); ISTAT PO2 275 (80-105); ISTAT SO2 100; ISTAT TCO2 44
[2017-04-04 14:43] LABS: Bacteria,Urine 1+ /HPF (Negative); Bilirubin,Urine NEG (Negative); Blood,Urine SM (Negative); Ketones,Urine TR mg/dL (Negative); Leukocyte Esterase,Urine NEG (Negative); Mucus,Urine FEW /HPF; Nitrite,Urine NEG (Negative); Protein,Urine <15 mg/dL mg/dL (Negative); Urobilinogen,Urine < 2.0 mg/dL (<2.0)
[2017-04-04] MEDS ORDERED: ARTIFICIAL TEARS OPHTH OINT OU PRN (15:17)
[2017-04-04] MEDS ORDERED: VASELINE LIP THERAPY TP PRN (15:17)
[2017-04-04] MEDS ORDERED: ATIVAN IV ONE (15:18)
[2017-04-04] MEDS ORDERED: ROCEPHIN/NS 1 GM/50 ML 1 GM/50 ML BAG IV ONE (15:19)
[2017-04-04] MEDS ORDERED: ATIVAN ONE (15:21)
--- NOTE | 2017-04-04 15:39 | XRay Report ---
Portable chest: Tube placement. Comparison is made to recent examination of 1:30 PM. Nasogastric and endotracheal tubes are both in good positions. The lungs remain hyperinflated with thickened interstitial disease and mild patchy changes at the right lung base. The cardiopulmonary pattern is unchanged from prior study. Impression: 1. Well-positioned life support tubes. 2. Incomplete resolution of right lower lobe infiltrate.
[2017-04-04] MEDS ORDERED: ZEMURON IV ONE (16:00)
[2017-04-04] MEDS ORDERED: KETALAR ONE (16:00)
[2017-04-04] MEDS ORDERED: NACL 0.9% 500 ML IV SCH (16:00)
--- NOTE | 2017-04-04 16:21 | History and Physical Report ---
History of Present Illness Chief complaint: Shortness of breath History of present illness: When I arrived patient was already intubated and sedated. Did not obtain any history directly from her. Medical history was obtained from the chart and from speaking to other hospital staff. * According to paramedics the patient was found in her house obtunded with ashtrays full of cigarette butts everywhere. She was noted to have a low glucose. The gave her steroids and albuterol. She arrived in the ER in obvious respiratory failure. She also had sluggish pupils. She was then intubated and put on sedation and mechanical ventilator. Of note this patient has been previously admitted in the hospital for treatment of aspiration pneumonia sepsis and acute respiratory failure due to COPD. * Past History Past Medical History: COPD, hypertension, seizures, other ( Nicotine Dependence , Severe Malnutrition,) Past Surgical History: Other ( hysterectomy, total hip replacement, Other (CEA,) ) Social history: smoking (current) Family history: other (unknown) Medications and Allergies Allergies Allergy/AdvReac Type Severity Reaction Status Date / Time aspirin Allergy Unknown Verified 06/25/14 16:10 chlorzoxazone Allergy Seizure Verified 04/15/14 21:58 [From Parafon Forte] codeine Allergy Unknown Verified 11/03/15 13:57 ibuprofen [From Motrin] Allergy Swelling Verified 04/15/14 21:58 olmesartan medoxomil Allergy Nausea Verified 04/15/14 21:58 [From Benicar] phenytoin sodium Allergy Unknown Verified 04/15/14 18:58 [From Dilantin] phenytoin sodium extended Allergy Unknown Verified 04/15/14 18:58 [From Dilantin] ramipril Allergy Nausea Verified 04/15/14 21:58 verapamil Allergy Unknown Verified 11/03/15 18:15 Home Medications Medication Instructions Recorded Confirmed Last Taken Type HYDROcodone/APAP 5-325 [[place] 1 each PO Q6HR PRN #12 tablet 03/08/17 04/25/17 Unknown Rx 5-325 mg TAB] ALBUTEROL Inhaler [ProAir HFA 2 puff IH QID PRN #1 can 04/11/17 04/25/17 Unknown Rx Inhaler] ALPRAZolam [Xanax TAB] 0.25 mg PO DAILY #7 tablet 04/11/17 04/25/17 Unknown Rx Arformoterol Nebu [Brovana Nebu] 15 mcg IH Q12HRT #30 ml 04/11/17 04/25/17 Unknown Rx Budesonide [Pulmicort Respules] 0.5 mg IH Q12HRT #30 nebu 04/11/17 04/25/17 Unknown Rx Famotidine [Pepcid] 20 mg PO BID #60 tablet 04/11/17 04/25/17 Unknown Rx Ipratropium/Albuterol Sulfate 1 ampul IH Q6HRT #30 ampul.neb 04/11/17 04/25/17 Unknown Rx [DUONEB *Not for PRN Use*] NIFEdipine [Procardia] 10 mg PO DAILY #30 capsule 04/11/17 04/25/17 Unknown Rx QUEtiapine [SEROquel] 50 mg PO QHS #60 tablet 04/11/17 04/25/17 Unknown Rx Bisacodyl [Dulcolax suppos] 10 mg NC DAILY PRN 04/25/17 04/25/17 Unknown History Azithromycin [Zithromax TAB] 500 mg PO QDAY #4 tablet 04/29/17 Unknown Rx Prednisone [predniSONE 10 mg 10 mg PO .TAPER #1 tab.ds.pk 04/29/17 Unknown Rx (6-Day Pack, 21 Tabs)] Active Meds: Active Medications Hydrophilic Ointment (Vaseline Lip Therapy) 1 applic TP Q2HR PRN PRN Reason: Dry Lips Lorazepam 100 mg/ Sodium Chloride/ Miscellaneous Information 100 mls @ 1 mls/ hr IV TITR CAMERON; 1 MG/HR PRN Reason: Protocol Ceftriaxone Sodium 1 gm/ (Sodium Chloride) 20 mls @ 20 mls/10 min IV ONCE.ED ONE Stop: 04/04/17 16:39 Multi-Ingred Cream/Lotion/Oil/Oint (Artificial Tears Ophth Oint) 1 applic OU Q4HR PRN PRN Reason: Dry Eye(s) Sodium Chloride (Nacl 0.9% 500 Ml) 1 ml IV DIRECT CAMERON Review of Systems ROS unobtainable: due to mental status Exam - Constitutional Vitals: Temp Pulse Resp BP Pulse Ox 98.1 F 97 H 20 88/56 100 04/04/17 13:32 04/04/17 13:32 04/04/17 13:32 04/04/17 13:32 04/04/17 13:32 General appearance: Present: no acute distress, cachectic - EENT Eyes: Present: PERRL ENT: hearing intact, clear oral mucosa - Neck Neck: Present: supple, normal ROM - Respiratory Respiratory effort: normal Respiratory: bilateral: diminished, wheezing - Cardiovascular Heart Sounds: Present: S1 & S2. Absent: rub, click - Extremities Extremities: pulses symmetrical, No edema Peripheral Pulses: within normal limits - Abdominal General gastrointestinal: Present: soft, non-tender, non-distended, normal bowel sounds Female genitourinary: Present: normal - Integumentary Integumentary: Present: clear, warm, dry - Musculoskeletal Musculoskeletal: other (obtunded) - Psychiatric Psychiatric: other (obtunded) - Neurologic Neurologic: other (obtunded) Results - Labs CBC & Chem 7: 04/11/17 04:40 04/11/17 04:40 Labs: Laboratory Last Values WBC 4.2 K/mm3 (4.5-11.0) L 04/04/17 13:24 RBC 2.83 M/mm3 (3.65-5.03) L 04/04/17 13:24 Hgb 9.0 gm/dl (10.1-14.3) L 04/04/17 13:24 Hct 28.6 % (30.3-42.9) L 04/04/17 13:24 MCV 101 fl (79-97) H 04/04/17 13:24 MCH 32 pg (28-32) 04/04/17 13:24 MCHC 31 % (30-34) 04/04/17 13:24 RDW 14.1 % (13.2-15.2) 04/04/17 13:24 Plt Count 327 K/mm3 (140-440) 04/04/17 13:24 Add Manual Diff Complete 04/04/17 13:24 Total Counted 100 04/04/17 13:24 Seg Neuts % (Manual) 93.0 % (40.0-70.0) H 04/04/17 13:24 Band Neutrophils % 0 % 04/04/17 13:24 Lymphocytes % (Manual) 2.0 % (13.4-35.0) L 04/04/17 13:24 Reactive Lymphs % (Man) 3.0 % 04/04/17 13:24 Monocytes % (Manual) 2.0 % (0.0-7.3) 04/04/17 13:24 Eosinophils % (Manual) 0 % (0.0-4.3) 04/04/17 13:24 Basophils % (Manual) 0 % (0.0-1.8) 04/04/17 13:24 Metamyelocytes % 0 % 04/04/17 13:24 Myelocytes % 0 % 04/04/17 13:24 Promyelocytes % 0 % 04/04/17 13:24 Blast Cells % 0 % 04/04/17 13:24 Nucleated RBC % Not Reportable 04/04/17 13:24 Seg Neutrophils # Man 3.9 K/mm3 (1.8-7.7) 04/04/17 13:24 Band Neutrophils # 0.0 K/mm3 04/04/17 13:24 Lymphocytes # (Manual) 0.1 K/mm3 (1.2-5.4) L 04/04/17 13:24 Abs React Lymphs (Man) 0.1 K/mm3 04/04/17 13:24 Monocytes # (Manual) 0.1 K/mm3 (0.0-0.8) 04/04/17 13:24 Eosinophils # (Manual) 0.0 K/mm3 (0.0-0.4) 04/04/17 13:24 Basophils # (Manual) 0.0 K/mm3 (0.0-0.1) 04/04/17 13:24 Metamyelocytes # 0.0 K/mm3 04/04/17 13:24 Myelocytes # 0.0 K/mm3 04/04/17 13:24 Promyelocytes # 0.0 K/mm3 04/04/17 13:24 Blast Cells # 0.0 K/mm3 04/04/17 13:24 WBC Morphology Not Reportable 04/04/17 13:24 Hypersegmented Neuts Not Reportable 04/04/17 13:24 Hyposegmented Neuts Not Reportable 04/04/17 13:24 Hypogranular Neuts Not Reportable 04/04/17 13:24 Smudge Cells Not Reportable 04/04/17 13:24 Toxic Granulation Not Reportable 04/04/17 13:24 Toxic Vacuolation Not Reportable 04/04/17 13:24 Dohle Bodies Not Reportable 04/04/17 13:24 Pelger-Huet Anomaly Not Reportable 04/04/17 13:24 Trudy Rods Not Reportable 04/04/17 13:24 Platelet Estimate Appears normal 04/04/17 13:24 Clumped Platelets Not Reportable 04/04/17 13:24 Plt Clumps, EDTA Not Reportable 04/04/17 13:24 Large Platelets Not Reportable 04/04/17 13:24 Giant Platelets Not Reportable 04/04/17 13:24 Platelet Satelliting Not Reportable 04/04/17 13:24 Plt Morphology Comment Not Reportable 04/04/17 13:24 RBC Morphology Not Reportable 04/04/17 13:24 Dimorphic RBCs Not Reportable 04/04/17 13:24 Polychromasia Not Reportable 04/04/17 13:24 Hypochromasia Not Reportable 04/04/17 13:24 Poikilocytosis Not Reportable 04/04/17 13:24 Anisocytosis 1+ 04/04/17 13:24 Microcytosis Not Reportable 04/04/17 13:24 Macrocytosis Not Reportable 04/04/17 13:24 Spherocytes Not Reportable 04/04/17 13:24 Pappenheimer Bodies Not Reportable 04/04/17 13:24 Sickle Cells Not Reportable 04/04/17 13:24 Target Cells Not Reportable 04/04/17 13:24 Tear Drop Cells Not Reportable 04/04/17 13:24 Ovalocytes Not Reportable 04/04/17 13:24 Stomatocytes 2+ 04/04/17 13:24 Helmet Cells Not Reportable 04/04/17 13:24 [place] Bodies Not Reportable 04/04/17 13:24 [place] Rings Not Reportable 04/04/17 13:24 [place] Cells Not Reportable 04/04/17 13:24 Bite Cells Not Reportable 04/04/17 13:24 Crenated Cell Not Reportable 04/04/17 13:24 Elliptocytes Not Reportable 04/04/17 13:24 Acanthocytes (Spur) Not Reportable 04/04/17 13:24 Rouleaux Not Reportable 04/04/17 13:24 Hemoglobin C Crystals Not Reportable 04/04/17 13:24 Schistocytes Not Reportable 04/04/17 13:24 Malaria parasites Not Reportable 04/04/17 13:24 [place] Bodies Not Reportable 04/04/17 13:24 Hem Pathologist Commnt No 04/04/17 13:24 PT 12.2 Sec. (12.2-14.9) 04/04/17 13:24 INR 0.86 (0.87-1.13) L 04/04/17 13:24 APTT 32.6 Sec. (24.2-36.6) 04/04/17 13:24 POC ABG pH 7.542 (7.35-7.45) H 04/04/17 14:38 POC ABG pCO2 49.4 (35-45) H 04/04/17 14:38 POC ABG pO2 275 (80-105) H 04/04/17 14:38 POC ABG HCO3 42.4 04/04/17 14:38 POC ABG Total CO2 44 04/04/17 14:38 POC ABG O2 Sat 100 04/04/17 14:38 POC ABG Base Excess 20 04/04/17 14:38 VBG pH 7.333 (7.320-7.420) 04/04/17 13:23 FiO2 50 % 04/04/17 14:38 Sodium 147 mmol/L (137-145) H 04/04/17 13:24 Potassium 4.0 mmol/L (3.6-5.0) 04/04/17 13:24 Chloride 95.2 mmol/L (98-107) L 04/04/17 13:24 Carbon Dioxide 43 mmol/L (22-30) H* 04/04/17 13:24 Anion Gap 13 mmol/L 04/04/17 13:24 BUN 22 mg/dL (7-17) H 04/04/17 13:24 Creatinine 0.3 mg/dL (0.7-1.2) L 04/04/17 13:24 Estimated GFR > 60 ml/min 04/04/17 13:24 BUN/Creatinine Ratio 73 % 04/04/17 13:24 Glucose 108 mg/dL (65-100) H 04/04/17 13:24 Lactic Acid 2.20 mmol/L (0.7-2.0) H* 04/04/17 13:23 Calcium 7.8 mg/dL (8.4-10.2) L 04/04/17 13:24 Magnesium 3.80 mg/dL (1.7-2.3) H 04/04/17 13:24 Total Bilirubin 0.20 mg/dL (0.1-1.2) 04/04/17 13:24 Direct Bilirubin < 0.2 mg/dL (0-0.2) 04/04/17 13:24 Indirect Bilirubin 0.0 mg/dL 04/04/17 13:24 AST 36 units/L (5-40) 04/04/17 13:24 ALT 19 units/L (7-56) 04/04/17 13:24 Alkaline Phosphatase 98 units/L (35-129) 04/04/17 13:24 NT-Pro-B Natriuret Pep 2373 pg/mL (0-900) H 04/04/17 13:24 Total Protein 5.1 g/dL (6.3-8.2) L 04/04/17 13:24 Albumin 2.7 g/dL (3.9-5) L 04/04/17 13:24 Albumin/Globulin Ratio 1.1 % 04/04/17 13:24 Urine Color Yellow (Yellow) 04/04/17 14:25 Urine Turbidity Clear (Clear) 04/04/17 14:25 Urine pH 7.0 (5.0-7.0) 04/04/17 14:25 Ur Specific [place] 1.009 (1.003-1.030) 04/04/17 14:25 Urine Protein <15 mg/dl mg/dL (Negative) 04/04/17 14:25 Urine Glucose (UA) Neg mg/dL (Negative) 04/04/17 14:25 Urine Ketones Tr mg/dL (Negative) 04/04/17 14:25 Urine Blood Sm (Negative) 04/04/17 14:25 Urine Nitrite Neg (Negative) 04/04/17 14:25 Urine Bilirubin Neg (Negative) 04/04/17 14:25 Urine Urobilinogen < 2.0 mg/dL (<2.0) 04/04/17 14:25 Ur Leukocyte Esterase Neg (Negative) 04/04/17 14:25 Urine WBC (Auto) 2.0 /HPF (0.0-6.0) 04/04/17 14:25 Urine RBC (Auto) 4.0 /HPF (0.0-6.0) 04/04/17 14:25 Urine Bacteria (Auto) 1+ /HPF (Negative) 04/04/17 14:25 Urine Mucus Few /HPF 04/04/17 14:25 - Imaging and Cardiology Chest x-ray: image reviewed (right base pneumonia) Assessment and Plan Assessment and plan: 71-year-old woman admitted to the hospital for altered mental status, acute respiratory failure Acute hypoxic and hypercapnic respiratory failure requiring mechanical ventilation less than 96 hours -Continue mechanical ventilator, pulmonary input appreciated, admitted to ICU COPD exacerbation -Steroids , nebs and antibiotics Metabolic encephalopathy Due to respiratory failure, treat underlying cause, Hypernatremia/dehydration We'll treat with half normal saline Right lower lobe pneumonia Continue antibiotic of above Severe malnutrition Dietitian consult. Tobacco abuse We'll provide tobacco cessation counseling and nicotine patches when her mental status improved The high probability of a clinically significant, sudden or life threatening deterioration of the [pulmonary and neurologic] system(s) required my full and direct attention, intervention and personal management. The aggregate critical care time was [44] minutes. This time is in addition to time spent performing reported procedures but includes the following: [] Data Review and interpretation [] Patient assessment and monitoring of vital signs [] Documentation [] Medication orders and management
[2017-04-04] MEDS ORDERED: DULCOLAX PR PRN (16:22)
[2017-04-04] MEDS ORDERED: MILK OF MAGNESIA PO PRN (16:22)
[2017-04-04] MEDS ORDERED: ZOFRAN IV PRN (16:22)
[2017-04-04] MEDS ORDERED: ATIVAN 100 MG in NACL 0.9% 50 ML, VIAFLEX EMPTY CONTAINER 0 ML IV SCH (16:30)
[2017-04-04] MEDS ORDERED: cefTRIAXone 1 GM in NACL 0.9% 20 ML IV ONE (16:30)
--- NOTE | 2017-04-04 18:10 | Consultation ---
History of Present Illness Consult date: 04/04/17 Requesting physician: JOLYNN BARAHONA Reason for consult: COPD, other (Acute on Chronic Hypoxemic Hypercapnic Respiratory Failure; Acute Encephalopathy) History of present illness: PULMONARY/CCM CONSULT NOTE (Full dictation # [id number]) Please see dictated notes for full details Medications and Allergies Allergies Allergy/AdvReac Type Severity Reaction Status Date / Time aspirin Allergy Unknown Verified 06/25/14 16:10 chlorzoxazone Allergy Seizure Verified 04/15/14 21:58 [From Parafon Forte] codeine Allergy Unknown Verified 11/03/15 13:57 ibuprofen [From Motrin] Allergy Swelling Verified 04/15/14 21:58 olmesartan medoxomil Allergy Nausea Verified 04/15/14 21:58 [From Benicar] phenytoin sodium Allergy Unknown Verified 04/15/14 18:58 [From Dilantin] phenytoin sodium extended Allergy Unknown Verified 04/15/14 18:58 [From Dilantin] ramipril Allergy Nausea Verified 04/15/14 21:58 verapamil Allergy Unknown Verified 11/03/15 18:15 Home Medications Medication Instructions Recorded Confirmed Last Taken Type ALBUTEROL Inhaler [ProAir HFA 2 puff IH QID PRN #1 can 03/08/17 04/04/17 Unknown Rx Inhaler] ALPRAZolam [Xanax TAB] 0.25 mg PO DAILY #7 tablet 03/08/17 04/04/17 Unknown Rx Arformoterol Nebu [Brovana Nebu] 15 mcg IH Q12HRT #30 ml 03/08/17 04/04/17 Unknown Rx Azithromycin [Zithromax TAB] 250 mg PO QDAY #5 tablet 03/08/17 04/04/17 Unknown Rx Budesonide [Pulmicort Respules] 0.5 mg IH Q12HRT #30 nebu 03/08/17 04/04/17 Unknown Rx HYDROcodone/APAP 5-325 [[place] 1 each PO Q6HR PRN #12 tablet 03/08/17 04/04/17 Unknown Rx 5-325 mg TAB] Ipratropium/Albuterol Sulfate 1 ampul IH Q6HRT #30 ampul.neb 03/08/17 04/04/17 Unknown Rx [DUONEB *Not for PRN Use*] amLODIPine [Norvasc] 5 mg PO QDAY #30 tablet 03/08/17 04/04/17 Unknown Rx methylPREDNISolone [Medrol] 4 mg PO QAM #1 tab.ds.pk 03/08/17 04/04/17 Unknown Rx Active Meds: Active Medications Acetaminophen (Tylenol) 650 mg PO Q4H PRN PRN Reason: Pain MILD(1-3)/Fever >100.5/GREGORY Albuterol/Ipratropium (Duoneb *Not For Prn Use*) 1 ampul IH Q6HRT CAMERON Arformoterol Tartrate (Brovana Nebu) 15 mcg IH Q12HRT CAMER[place] Bisacodyl (Dulcolax) 10 mg [place] QDAY PRN PRN Reason: Constipation unrelieved by MOM Budesonide (Pulmicort) 0.5 mg IH Q12HRT [facility] Enoxaparin Sodium (Lovenox) 40 mg SUB-Q QDAY [facility] Hydrophilic Ointment (Vaseline Lip Therapy) 1 applic TP Q2HR PRN PRN Reason: Dry Lips Lorazepam 100 mg/ Sodium Chloride/ Miscellaneous Information 100 mls @ 1 mls/ hr IV TITR CAMERON; 1 MG/HR PRN Reason: Protocol Last Admin: 04/04/17 16:25 Dose: 1 mg/hr, 1 mls/hr Sodium Chloride (Nacl 0.45% 1000 Ml) 1,000 mls @ 100 mls/hr IV DIRECT CAMERON Stop: 04/06/17 16:59 Levofloxacin/Dextrose (Levaquin 750mg/150ml) 750 mg in 150 mls @ 100 mls/hr IV Q24HR CAMERON PRN Reason: Protocol Magnesium Hydroxide (Milk Of Magnesia) 30 ml PO Q4H PRN PRN Reason: Constipation Methylprednisolone Sodium Succinate (Solu-Medrol) 125 mg IV Q8HR [facility] Multi-Ingred Cream/Lotion/Oil/Oint (Artificial Tears Ophth Oint) 1 applic OU Q4HR PRN PRN Reason: Dry Eye(s) Ondansetron HCl (Zofran) 4 mg IV Q8H PRN PRN Reason: N/V unrelieved by Reglan Sodium Chloride (Nacl 0.9% 500 Ml) 1 ml IV DIRECT CAMERON Physical Examination Vital signs: Vital Signs BP Pulse Ox 145/52 97 04/04/17 12:31 04/04/17 12:31 Results - Laboratory Findings CBC and BMP: 04/04/17 13:24 04/04/17 13:24 ABG POC ABG pH 7.542 (7.35-7.45) H 04/04/17 14:38 POC ABG pCO2 49.4 (35-45) H 04/04/17 14:38 POC ABG pO2 275 (80-105) H 04/04/17 14:38 POC ABG HCO3 42.4 04/04/17 14:38 POC ABG Total CO2 44 04/04/17 14:38 POC ABG O2 Sat 100 04/04/17 14:38 PT/INR, D-dimer PT 12.2 Sec. (12.2-14.9) 04/04/17 13:24 INR 0.86 (0.87-1.13) L 04/04/17 13:24 Abnormal lab findings: Abnormal Labs 04/04/17 04/04/17 04/04/17 13:23 13:24 13:24 WBC 4.2 L RBC 2.83 L Hgb 9.0 L Hct 28.6 L MCV 101 H Seg Neuts % (Manual) 93.0 H Lymphocytes % (Manual) 2.0 L Lymphocytes # (Manual) 0.1 L INR 0.86 L POC ABG pH POC ABG pCO2 POC ABG pO2 Sodium Chloride Carbon Dioxide BUN Creatinine Glucose Lactic Acid 2.20 H* Calcium Magnesium NT-Pro-B Natriuret Pep Total Protein Albumin 04/04/17 04/04/17 13:24 14:38 WBC RBC Hgb Hct MCV Seg Neuts % (Manual) Lymphocytes % (Manual) Lymphocytes # (Manual) INR POC ABG pH 7.542 H POC ABG pCO2 49.4 H POC ABG pO2 275 H Sodium 147 H Chloride 95.2 L Carbon Dioxide 43 H* BUN 22 H Creatinine 0.3 L Glucose 108 H Lactic Acid Calcium 7.8 L Magnesium 3.80 H NT-Pro-B Natriuret Pep 2373 H Total Protein 5.1 L Albumin 2.7 L
[2017-04-04] MEDS ORDERED: fentaNYL DRIP Premix 2,000 MCG/100 ML BAG IV SCH (19:00)
[2017-04-04 19:22] LABS: Creatine Kinase MB 6.3 ng/mL (0.0-4.0)
[2017-04-04 19:24] LABS: Creatine Kinase 83 units/L (30-135)
[2017-04-04] MEDS: BROVANA NEBU IH SCH (19:34)
[2017-04-04] MEDS: PULMICORT IH SCH (19:34)
[2017-04-04] MEDS: DUONEB *Not for PRN Use IH SCH (19:34)
[2017-04-05] MEDS: NACL 0.45% 1000 ML 1,000 ML IV SCH ×2 (01:56→22:46)
[2017-04-05] MEDS: DUONEB *Not for PRN Use IH SCH ×4 (02:12→20:00)
[2017-04-05 03:37] LABS: ISTAT Base Excess 17; ISTAT HCO3 36.9; ISTAT PCO2 31.5 (35-45); ISTAT PH 7.677 (7.35-7.45); ISTAT PO2 175 (80-105); ISTAT SO2 100; ISTAT TCO2 38
[2017-04-05 05:09] LABS: ISTAT Base Excess 15; ISTAT HCO3 37.5; ISTAT PCO2 44.5 (35-45); ISTAT PH 7.533 (7.35-7.45); ISTAT PO2 89 (80-105); ISTAT SO2 98; ISTAT TCO2 39
[2017-04-05 05:34] LABS: Hematocrit 30.8 % (30.3-42.9); Mean Corpuscular HGB Conc 33 % (30-34); Mean Corpuscular Hemoglobin 32 pg (28-32); Mean Corpuscular Volume 100 fl (79-97); Platelet Count 342 K/mm3 (140-440); Red Blood Count 3.09 M/mm3 (3.65-5.03); Red Cell Distribution Width 14.3 % (13.2-15.2); White Blood Count 8.6 K/mm3 (4.5-11.0)
[2017-04-05 05:49] LABS: BUN/Creatinine Ratio 47; Blood Urea Nitrogen 28 mg/dL (7-17); Calcium 8.3 mg/dL (8.4-10.2); Carbon Dioxide 30 mmol/L (22-30); Chloride 93.5 mmol/L (98-107); Glucose 88 mg/dL (65-100); Potassium 4.4 mmol/L (3.6-5.0); Sodium 144 mmol/L (137-145)
--- NOTE | 2017-04-05 05:49 | Consultation ---
PULMONARY CRITICAL CARE CONSULT NOTE CONSULTING PHYSICIAN: Dr. Peraza REASON FOR CONSULTATION: Acute on chronic hypoxemic respiratory failure and hypercapnic respiratory failure. CHIEF COMPLAINT AND HISTORY OF PRESENT ILLNESS: The patient is a 71-year-old female known to me from past admissions. Past medical history indeed significant for a diagnosis of chronic obstructive lung disease, adult failure to thrive, came in complaining of increasing shortness of breath, productive cough with increased phlegm production. Denied any gross or streaky hemoptysis. It has been getting worse over the preceding 3-4 days with a generalized malaise. She complained of some chest tightness. No real pain in association with her cough. This was at admission initial evaluation by the admitting physician, the attending. She had denied fevers or chills. Denied chest pains. Denied palpitations. Denied syncope. She was evaluated in the Emergency Room, she looked septic. Chest x-ray was suspicious for a right lower lobe pneumonia. At some point, the patient decompensated and required intubation, hence the consult. When I stopped by to see her, she was on mechanical ventilator support, assist control mode, tidal volume 400, rate of 16, PEEP of 5 on 35% FiO2 and was on an Ativan drip, although going at 1 mg per hour, she was unable to respond to my questions appropriately. She did intermittently fight the ventilator and caused some alarms to go up. I do not have any history of vomiting or overt aspiration. It is unclear if there were any sick contacts at home. It is unclear what if she was compliant with her medications. As far as I know, she may still be smoking cigarettes. The above is as much of the history of presentation as I have. PAST MEDICAL HISTORY: Again, significant for chronic obstructive lung disease, unclear if she is home oxygen dependent; history of hypertension; history of seizure disorder; history of tobacco use. She has a history of adult failure to thrive. History of congestive heart failure. PAST SURGICAL HISTORY: She has had a hysterectomy. She has had total hip replacement and carotid endarterectomy in the past. MEDICATIONS: She was on at the time I stopped by to see her were reviewed. Pertinent medications include albuterol and Atrovent treatments nebulized q. 6 hours, Brovana 15 mcg nebulized q. 12 hours, Pulmicort 0.5 mg inhaled q. 12 hours, Levaquin 750 mg IV daily, Lovenox 40 mg subcutaneous daily, Ativan drip at 1 mg per hour, Solu-Medrol 125 mg IV q. 8 hours and p.r.n. Zofran. ALLERGIES: ASPIRIN, CODEINE, IBUPROFEN. Nature of this allergy is unknown. DIET: Cachectic looking lady, but really no significant weight changes since I have last seen her. FAMILY AND SOCIAL HISTORY: I believe she lives in the community. She does have a 10 plus pack year tobacco smoking history, probably much more than that. Continues to smoke. Alcohol or illicit drug use or abuse history is unknown. REVIEW OF SYSTEMS: Unfortunately, is unobtainable at this point secondary to the patient's medical and mental condition since she has been here, no gross hematochezia or melena, no gross hematuria, no hematemesis, no bloody tracheal secretions and no witnessed seizures. PHYSICAL EXAMINATION: At presentation in the Emergency Room: VITAL SIGNS: Afebrile, temperature 98.1, pulse 96, respiratory rate was 20, blood pressure 145/52, oxygen sats 97%, inspired oxygen concentration was not recorded at that time. GENERAL: She is an elderly looking lady, looks her stated age, looks unkempt normocephalic, atraumatic. ET tube in place, taped around 19 cm at the lips, in mild to moderate distress all the same. HEAD, EYES, EARS, NOSE AND THROAT: She is anicteric. No conjunctival erythema. She has some distended neck veins, but no gross jugular venous distention. No palpable thyromegaly, grossly no palpable lymph nodes in the supraclavicular or submandibular lymph node chains. LUNGS: Auscultation of both lung remy reveal bilateral rales, right greater than left. No active wheezing. HEART: Heart sounds 1 and 2 are heard at the time of my exam, regular rate and rhythm. No rubs, no murmurs. ABDOMEN: Soft, is flat. Bowel sounds are positive. Does not appear tender. EXTREMITIES: Without overt digital clubbing, cyanosis, no pedal edema. SKIN: Poor turgor. There is mild tenting. No cellulitis. No decubiti. NEUROLOGIC: The pupils are equal, round, reactive to light and accommodation about 2-3 mm. Extraocular muscle movements appeared intact and she moves all 4 extremities spontaneously. LABORATORY DATA: From my review are as follows: White cell count 4200, hemoglobin 9.0, hematocrit 28.6, platelet count 327. INR 0.86. Arterial blood gas showed a pH of 7.54, pCO2 of 49, pO2 of 275 that was on 50% FiO2 at that time with the above settings, I believe. Serum sodium was 147, potassium 4.0, chloride 95, bicarb 43, BUN 22, creatinine 0.3, glucose was 108. Lactic acid level was elevated at 2.2. Liver function tests essentially within normal limits. BNP 2373. Urinalysis showed trace ketones, negative for nitrites and leukocyte esterase and was otherwise bland. Two sets of blood cultures have been drawn, no growth to date. Chest x-ray essentially shows severe hyperinflation with tenting of the right and left hemidiaphragms almost teardrop looking cardiovascular silhouette even taking the expansion into consideration. No gross cardiomegaly. ET tube tip is just about 1 cm above the aortic knob and certainly below the clavicular heads. NG tube is seen coursing through the mediastinum. No gross pneumothorax, no gross bony fracture. ASSESSMENT: 1. Acute on chronic hypoxemic hypercapnic respiratory failure. 2. Possible pneumonia versus chronic scarring. 3. Sepsis syndrome. 4. Acute chronic obstructive pulmonary disease exacerbation. 5. History of hypertension. 6. History of cardiomyopathy, ejection fraction unknown. 7. History of tobacco use disorder. 8. History of hypertension. PLAN: 1. Continue full mechanical ventilatory support in the short time. I will reduce the set rate down to 12 in light of hypercapnia. I should say in light of alkalosis and allow her to retain some CO2 get back to a chronic baseline state. Aspiration precautions and other ventilator bundles will be addressed daily. We will continue bronchodilators as well as pulmonary hygiene as ordered via the respiratory therapist. I will reduce the systemic steroid dose to about 60 mg IV q. 8 hours. Acute coronary syndrome workup will be done. I will get a set of cardiac enzymes in the setting of an acute chronic obstructive pulmonary disease exacerbation to rule out that being a cause. I have a rather low index of suspicion for venous thromboembolic phenomenon at this point and we will hold on VTE workup. Volume status as long as the blood pressure is okay, we will pursue conservative volume management strategies in light of the elevated BNP and the unclear cardiac status. Enteral nutrition will be the feeding modality of choice. She will be placed on GI prophylaxis. She is appropriately on DVT prophylaxis. We will continue empiric antibiotic therapy for an acute severe COPD exacerbation. Tracheal aspirate has been sent for Gram stain, cultures and sensitivities. I will get a CRP level to better evaluate true infectious potential of the leukopenia. Lactic acid level will be trended. Flu and pneumonia vaccination will be per protocol. Tobacco abstinence will again be counseled once she is extubated and in a better state mentally. We will continue sedation. I will switch over to fentanyl for sedation and analgesia together and see if we can wean her off the Ativan. Thank you very much for the consult Dr. Peraza, Dr. Brar. We will follow along. We will make further recommendations as the picture progresses/becomes clearer. She is critically ill on life-sustaining interventions including mechanical ventilatory support at risk for further deterioration including . At this time, I spent about 40-45 minutes of critical care time without overlap. JOB# [id number] CARMITA/CARLEEN
[2017-04-05 05:50] LABS: Anion Gap 25 mmol/L
[2017-04-05 07:54] LABS: Basophils % (Manual) 0 % (0.0-1.8); Blastocytes % (Manual) 0 %; Eosinophils % (Manual) 0 % (0.0-4.3)
[2017-04-05 07:55] LABS: Anisocytosis 1+
[2017-04-05 07:56] LABS: Diff Status Complete; Stomatocytes 1+
[2017-04-05] MEDS ORDERED: NACL 0.9% 1000 ML 1,000 ML IV ONE (08:13)
[2017-04-05] MEDS ORDERED: SODIUM BICARBONATE FEEDTUBE PRN (10:00)
[2017-04-05] MEDS ORDERED: SIMPLE SYRUP FEEDTUBE PRN ×2 (10:00)
[2017-04-05] MEDS ORDERED: LEVAQUIN 750MG/150ML 750 MG/150 ML BAG IV SCH (10:00)
[2017-04-05] MEDS ORDERED: PANCREAZE DR 10,500 UNIT FEEDTUBE PRN (10:00)
--- NOTE | 2017-04-05 10:31 | Consultation ---
History of Present Illness - Reason for Consult Consult date: 04/05/17 sepsis Requesting physician: SONIA HUYNH - History of Present Illness 71 years old female with history of COPD, hypertension, seizures, Nicotine Dependence, Severe Malnutrition; admitted on 04/04/17 after being found obtunded at home with ashtrays full of cigarette butts everywhere. EMS noted low glucose. They gave her steroids and albuterol. Patient is currently intubated on the ventilator. There is no family members at bedside. Note, [facility] due to respiratory failure, COPD exacerbation and asp pneumonia. In day in the emergency room, he was found on respiratory distress with O2 sat of 80, sluggish pupils. Initial temperature was 98.1. Heart rate 96. Blood pressure 145/52. Initial white count 4.2. Hg 7.1. Platelets 141. Creat 0.3. Lactic acid 2.2. Lactic acid went to 4.7. CRP 5.6. Urinalysis negative. Chest x-ray showed COPD with right basilar infiltrate. Microbiology: Blood cultures: 04/04 [facility] 1 of 4 bottles Urine cultures: Current Antimicrobials: levaquin Past History Past Medical History: COPD, hypertension, seizures, other ( Nicotine Dependence , Severe Malnutrition,) Past Surgical History: Other ( hysterectomy, total hip replacement, Other (CEA,) ) Social history: smoking (current) Family history: other (unknown) Medications and Allergies Allergies Allergy/AdvReac Type Severity Reaction Status Date / Time aspirin Allergy Unknown Verified 06/25/14 16:10 chlorzoxazone Allergy Seizure Verified 04/15/14 21:58 [From Parafon Forte] codeine Allergy Unknown Verified 11/03/15 13:57 ibuprofen [From Motrin] Allergy Swelling Verified 04/15/14 21:58 olmesartan medoxomil Allergy Nausea Verified 04/15/14 21:58 [From Benicar] phenytoin sodium Allergy Unknown Verified 04/15/14 18:58 [From Dilantin] phenytoin sodium extended Allergy Unknown Verified 04/15/14 18:58 [From Dilantin] ramipril Allergy Nausea Verified 04/15/14 21:58 verapamil Allergy Unknown Verified 11/03/15 18:15 Home Medications Medication Instructions Recorded Confirmed Last Taken Type ALBUTEROL Inhaler [ProAir HFA 2 puff IH QID PRN #1 can 10/31/17 11/27/17 Unknown Rx Inhaler] ALPRAZolam [Xanax TAB] 0.25 mg PO DAILY #7 tablet 03/08/17 04/04/17 Unknown Rx Arformoterol Nebu [Brovana Nebu] 15 mcg IH Q12HRT #30 ml 03/08/17 04/04/17 Unknown Rx Azithromycin [Zithromax TAB] 250 mg PO QDAY #5 tablet 03/08/17 04/04/17 Unknown Rx Budesonide [Pulmicort Respules] 0.5 mg IH Q12HRT #30 nebu 03/08/17 04/04/17 Unknown Rx HYDROcodone/APAP 5-325 [Starr 1 each PO Q6HR PRN #12 tablet 03/08/17 04/04/17 Unknown Rx 5-325 mg TAB] Ipratropium/Albuterol Sulfate 1 ampul IH Q6HRT #30 ampul.neb 03/08/17 04/04/17 Unknown Rx [DUONEB *Not for PRN Use*] amLODIPine [Norvasc] 5 mg PO QDAY #30 tablet 03/08/17 04/04/17 Unknown Rx methylPREDNISolone [Medrol] 4 mg PO QAM #1 tab.ds.pk 03/08/17 04/04/17 Unknown Rx Active Meds: Active Medications Acetaminophen (Tylenol) 650 mg PO Q4H PRN PRN Reason: Pain MILD(1-3)/Fever >100.5/GREGORY Albuterol/Ipratropium (Duoneb *Not For Prn Use*) 1 ampul IH Q6HRT [facility] Last Admin: 04/05/17 02:12 Dose: 1 ampul Lipase/Protease/Amylase (Tee Diallo 10,500 Unit) 1 each FEEDTUBE PRN PRN PRN Reason: For Clogged Feeding Tube Arformoterol Tartrate (Brovana Nebu) 15 mcg IH Q12HRT [facility] Last Admin: 04/04/17 19:34 Dose: 15 mcg Aspirin (Aspirin) 150 mg NJ ONCE ONE Stop: 04/05/17 19:19 Bisacodyl (Dulcolax) 10 mg NJ QDAY PRN PRN Reason: Constipation unrelieved by MOM Budesonide (Pulmicort) 0.5 mg IH Q12HRT [facility] Last Admin: 04/04/17 19:34 Dose: 0.5 mg Enoxaparin Sodium (Lovenox) 40 mg SUB-Q QDAY [facility] Hydrophilic Ointment (Vaseline Lip Therapy) 1 applic TP Q2HR PRN PRN Reason: Dry Lips Lorazepam 100 mg/ Sodium Chloride/ Miscellaneous Information 100 mls @ 1 mls/ hr IV TITR [facility]; 1 MG/HR PRN Reason: Protocol Last Admin: 04/04/17 16:25 Dose: 1 mg/hr, 1 mls/hr Sodium Chloride (Nacl 0.45% 1000 Ml) 1,000 mls @ 100 mls/hr IV DIRECT [facility] Stop: 04/06/17 16:59 Last Admin: 04/05/17 01:56 Dose: 100 mls/hr Levofloxacin/Dextrose (Levaquin 750mg/150ml) 750 mg in 150 mls @ 100 mls/hr IV Q24HR [facility] PRN Reason: Protocol Fentanyl Citrate (Fentanyl Drip Premix) 2,000 mcg in 100 mls @ 1.905 mls/hr IV TITR [facility]; 1 MCG/KG/HR PRN Reason: Protocol Magnesium Hydroxide (Milk Of Magnesia) 30 ml PO Q4H PRN PRN Reason: Constipation Methylprednisolone Sodium Succinate (Solu-Medrol) 60 mg IV Q8HR [facility] Last Admin: 04/05/17 01:40 Dose: 60 mg Multi-Ingred Cream/Lotion/Oil/Oint (Artificial Tears Ophth Oint) 1 applic OU Q4HR PRN PRN Reason: Dry Eye(s) Ondansetron HCl (Zofran) 4 mg IV Q8H PRN PRN Reason: N/V unrelieved by Reglan Simple Syrup (Simple Syrup) 15 ml FEEDTUBE PRN PRN PRN Reason: Hypoglycemia Simple Syrup (Simple Syrup) 30 ml FEEDTUBE PRN PRN PRN Reason: Hypoglycemia Sodium Bicarbonate (Sodium Bicarbonate) 325 mg FEEDTUBE PRN PRN PRN Reason: For Clogged Feeding Tube Sodium Chloride (Nacl 0.9% 500 Ml) 1 ml IV DIRECT [place] Review of Systems ROS unobtainable: due to mental status Physical Examination - Physical Exam Narrative exam: General appearance: sedated on the vent Eyes: anicteric sclerae, moist conjunctivae; no lid-lag; PERRLA HENT: Atraumatic; oropharynx +ETT Neck: Trachea midline; supple, no thyromegaly or lymphadenopathy Lungs: distant BS CV: RRR Abdomen: Soft, non-tender Extremities: No peripheral edema or extremity lymphadenopathy Skin: Normal temperature, turgor and texture; no rash, ulcers or subcutaneous nodules Psych: unable to asses. Neuro: sedated Lines: No CVL / PICC - Constitutional Vitals: Vital Signs Temp Pulse Resp BP Pulse Ox 98.1 F 91 H 12 141/78 98 04/04/17 13:32 04/05/17 08:30 04/05/17 09:00 04/05/17 08:30 04/05/17 08:30 Temperature -Last 24 Hours Temperature 98.1 F Results - Labs CBC & Chem 7: 04/05/17 05:12 04/05/17 05:12 Labs: Abnormal lab results 04/04/17 04/04/17 04/04/17 Range/Units 13:23 13:24 13:24 WBC 4.2 L (4.5-11.0) K/mm3 RBC 2.83 L (3.65-5.03) M/mm3 Hgb 9.0 L (10.1-14.3) gm/dl Hct 28.6 L (30.3-42.9) % MCV 101 H (79-97) fl Seg Neuts % (Manual) 93.0 H (40.0-70.0) % Lymphocytes % (Manual) 2.0 L (13.4-35.0) % Lymphocytes # (Manual) 0.1 L (1.2-5.4) K/mm3 INR 0.86 L (0.87-1.13) POC ABG pH (7.35-7.45) POC ABG pCO2 (35-45) POC ABG pO2 (80-105) Sodium (137-145) mmol/L Chloride (98-107) mmol/L Carbon Dioxide (22-30) mmol/L BUN (7-17) mg/dL Creatinine (0.7-1.2) mg/dL Glucose (65-100) mg/dL Lactic Acid 2.20 H* (0.7-2.0) mmol/L Calcium (8.4-10.2) mg/dL Magnesium (1.7-2.3) mg/dL CK-MB (CK-2) (0.0-4.0) ng/mL CK-MB (CK-2) Rel Index (0-4) C-Reactive Protein (0.00-1.30) mg/dL NT-Pro-B Natriuret Pep (0-900) pg/mL Total Protein (6.3-8.2) g/dL Albumin (3.9-5) g/dL 04/04/17 04/04/17 04/04/17 Range/Units 13:24 14:38 18:34 WBC (4.5-11.0) K/mm3 RBC (3.65-5.03) M/mm3 Hgb (10.1-14.3) gm/dl Hct (30.3-42.9) % MCV (79-97) fl Seg Neuts % (Manual) (40.0-70.0) % Lymphocytes % (Manual) (13.4-35.0) % Lymphocytes # (Manual) (1.2-5.4) K/mm3 INR (0.87-1.13) POC ABG pH 7.542 H (7.35-7.45) POC ABG pCO2 49.4 H (35-45) POC ABG pO2 275 H (80-105) Sodium 147 H (137-145) mmol/L Chloride 95.2 L (98-107) mmol/L Carbon Dioxide 43 H* (22-30) mmol/L BUN 22 H (7-17) mg/dL Creatinine 0.3 L (0.7-1.2) mg/dL Glucose 108 H (65-100) mg/dL Lactic Acid (0.7-2.0) mmol/L Calcium 7.8 L (8.4-10.2) mg/dL Magnesium 3.80 H (1.7-2.3) mg/dL CK-MB (CK-2) (0.0-4.0) ng/mL CK-MB (CK-2) Rel Index (0-4) C-Reactive Protein 5.60 H (0.00-1.30) mg/dL NT-Pro-B Natriuret Pep 2373 H (0-900) pg/mL Total Protein 5.1 L (6.3-8.2) g/dL Albumin 2.7 L (3.9-5) g/dL 04/04/17 04/05/17 04/05/17 Range/Units 18:34 03:15 04:54 WBC (4.5-11.0) K/mm3 RBC (3.65-5.03) M/mm3 Hgb (10.1-14.3) gm/dl Hct (30.3-42.9) % MCV (79-97) fl Seg Neuts % (Manual) (40.0-70.0) % Lymphocytes % (Manual) (13.4-35.0) % Lymphocytes # (Manual) (1.2-5.4) K/mm3 INR (0.87-1.13) POC ABG pH 7.677 H 7.533 H (7.35-7.45) POC ABG pCO2 31.5 L (35-45) POC ABG pO2 175 H (80-105) Sodium (137-145) mmol/L Chloride (98-107) mmol/L Carbon Dioxide (22-30) mmol/L BUN (7-17) mg/dL Creatinine (0.7-1.2) mg/dL Glucose (65-100) mg/dL Lactic Acid (0.7-2.0) mmol/L Calcium (8.4-10.2) mg/dL Magnesium (1.7-2.3) mg/dL CK-MB (CK-2) 6.3 H (0.0-4.0) ng/mL CK-MB (CK-2) Rel Index 7.5 H (0-4) C-Reactive Protein (0.00-1.30) mg/dL NT-Pro-B Natriuret Pep (0-900) pg/mL Total Protein (6.3-8.2) g/dL Albumin (3.9-5) g/dL 04/05/17 04/05/17 04/05/17 Range/Units 05:12 05:12 05:12 WBC (4.5-11.0) K/mm3 RBC 3.09 L (3.65-5.03) M/mm3 Hgb 10.0 L (10.1-14.3) gm/dl Hct (30.3-42.9) % MCV 100 H (79-97) fl Seg Neuts % (Manual) (40.0-70.0) % Lymphocytes % (Manual) 12.0 L (13.4-35.0) % Lymphocytes # (Manual) 1.0 L (1.2-5.4) K/mm3 INR (0.87-1.13) POC ABG pH (7.35-7.45) POC ABG pCO2 (35-45) POC ABG pO2 (80-105) Sodium (137-145) mmol/L Chloride 93.5 L (98-107) mmol/L Carbon Dioxide (22-30) mmol/L BUN 28 H (7-17) mg/dL Creatinine 0.6 L D (0.7-1.2) mg/dL Glucose (65-100) mg/dL Lactic Acid 4.70 H* (0.7-2.0) mmol/L Calcium 8.3 L (8.4-10.2) mg/dL Magnesium (1.7-2.3) mg/dL CK-MB (CK-2) (0.0-4.0) ng/mL CK-MB (CK-2) Rel Index (0-4) C-Reactive Protein (0.00-1.30) mg/dL NT-Pro-B Natriuret Pep (0-900) pg/mL Total Protein (6.3-8.2) g/dL Albumin (3.9-5) g/dL Assessment and Plan Assessment: 1) Acute on Chronic resp failure: 2) Right sided pneumonia: HAP ? aspiration. History of recent pneumonia. Recent CT showed RLL infiltrate. CRP 5.6 3) COPD 4) GPC in blood cultures: real bacteremia versus contaminant. 5) History of seizures 6) Nicotine Dependence, 7) Severe Malnutrition 8) Lactic acidosis 9) Encephalopathy Plan: -follow-up blood cultures, urine culture -repeat blood cultures tomorrow -obtain respiratory cultures, procalcitonin, C-reactive protein (CRP) -check influenza antigen PCR in nasopharinx -swallowing eval -stop levaquin -start zosyn and vanco -poor prognosis Thank you Dr Kay for your consultation, will follow up with you. Keely Avila MD Infectious Diseases Specialist [facility] ([facility]) M [phone] O [phone]
[2017-04-05] MEDS: LOVENOX SUB-Q SCH (10:43)
[2017-04-05] MEDS ORDERED: VANCOMYCIN VIAL 1,000 MG in NACL 0.9% 100 ML IV SCH (11:00)
[2017-04-05] MEDS ORDERED: VANCOMYCIN PHARMACY TO DOSE IV SCH (11:00)
--- NOTE | 2017-04-05 11:35 | XRay Report ---
FINAL REPORT EXAM: XR CHEST 1V AP HISTORY: follow up respiratory failure TECHNIQUE: A portable semi-erect view of the chest was obtained. Comparison is made to the study of 06/03/2015. FINDINGS: The lungs are emphysematous. There are no localized infiltrates or effusions. The heart size is normal. The tip of the ET tube is 4 cm above the bebo. There is an NG tube coursing into the stomach. The bones and soft tissues reveal generalized osteopenia. IMPRESSION: COPD. No acute infiltrates or congestion.
[2017-04-05] MEDS: ZOSYN/NS 3.375GM/50ML 3.375 GM/50 ML BAG IV SCH ×2 (13:19→22:32)
[2017-04-05] MEDS ORDERED: ZOSYN/NS 4.5GM/100ML 4.5 GM/100 ML VIAL IV SCH (14:00)
[2017-04-05] MEDS: PULMICORT IH SCH ×3 (14:51→19:59)
[2017-04-05] MEDS: BROVANA NEBU IH SCH ×2 (14:55→19:59)
--- NOTE | 2017-04-05 16:28 | Progress Note ---
Assessment and Plan - Patient Problems (1) Acute respiratory failure with hypoxia and hypercapnia Current Visit: No Status: Acute Plan to address problem: Continue with mechanical ventilatory support Lung protective strategies Aspiration precautions, HOB>40 VAP bundle addressed VTE/Stress ulcer prophylaxis Daily SAT Daily SBT, initiate tomorrow Avoid benzodiazepines Agitation management Check position of feeding tube then initiate nutritional support with glycemic control Wright catheter in this critically ill patient (2) COPD exacerbation Current Visit: Yes Status: Acute Plan to address problem: Bronchodilators Steroids Monitor accuchecks and ensure glycemic control Antibiotics (3) Malnutrition Current Visit: No Status: Acute Plan to address problem: Enteric nutrition. Suspect her severe COPD is contributing to her cachexia (4) Tobacco abuse disorder Current Visit: Yes Status: Acute Plan to address problem: Nicotine withdrawal precautions Smoking cessation counselling post extubation Subjective Date of service: 04/05/17 Interval history: F/UP: Acute on chronic hypercapnic/hypoxic respiratory failure on MVS No acute events documented or noted. Seen and examined. Vitals, labs, medications, chart, imaging reviewed. Discussed in interdisciplinary rounds. Objective - Exam Narrative Exam: VITAL SIGNS: Reviewed. GENERAL: The patient appeared markedly cachectic. Vital signs as documented. HEAD: No signs of head trauma. EYES: Pupils are equal. Unable to assess EARS: Hearing grossly intact. MOUTH: ET tube in place. No dyssynchrony NECK: No adenopathy, no JVD. CHEST: Chest with diminished breath sounds bilaterally. No wheezes, rales, or rhonchi. CARDIAC: Regular rate and rhythm. S1 and S2, without murmurs, gallops, or rubs. VASCULAR: No Edema. Peripheral pulses normal and equal in all extremities. ABDOMEN: Soft, without detectable tenderness. No sign of distention. No rebound or guarding, and no masses palpated. Bowel Sounds normal. MUSCULOSKELETAL: Extremities without clubbing, cyanosis or edema. NEUROLOGIC EXAM: Obeys one step commands---squeeze my hands, no focal motor or sensory deficits noted SKIN: Age-appropriate wrinkles some blemishes Vital Signs - 12hr 04/05/17 04/05/17 04/05/17 04:30 04:45 04:55 Temperature Pulse Rate 106 H 102 H 97 H Respiratory 12 14 Rate Blood Pressure 131/70 131/70 131/70 O2 Sat by Pulse 99 98 100 Oximetry 04/05/17 04/05/1717 05:00 05:15 05:30 Temperature Pulse Rate 103 H 101 H 103 H Respiratory 12 11 L 12 Rate Blood Pressure 174/78 174/78 168/78 O2 Sat by Pulse 100 99 98 Oximetry 04/05/17 04/05/17 04/05/17 05:45 06:00 06:15 Temperature Pulse Rate 101 H 100 H 97 H Respiratory 12 15 12 Rate Blood Pressure 168/78 154/74 154/74 O2 Sat by Pulse 98 99 98 Oximetry 04/05/17 04/05/17 04/05/17 06:30 06:45 07:00 Temperature Pulse Rate 96 H 95 H 96 H Respiratory 12 12 12 Rate Blood Pressure 150/73 150/73 150/77 O2 Sat by Pulse 99 99 99 Oximetry 04/05/17 04/05/17 04/05/17 07:15 07:20 07:30 Temperature Pulse Rate 94 H 91 H Respiratory 12 12 13 Rate Blood Pressure 150/77 146/77 O2 Sat by Pulse 99 97 99 Oximetry 04/05/17 04/05/17 04/05/17 07:45 08:00 08:15 Temperature Pulse Rate 92 H 90 94 H Respiratory 12 12 12 Rate Blood Pressure 146/77 131/74 131/74 O2 Sat by Pulse 99 99 99 Oximetry 04/05/17 04/05/17 04/05/17 08:30 08:45 09:00 Temperature Pulse Rate 91 H 92 H 95 H Respiratory 12 12 12 Rate Blood Pressure 141/78 141/78 165/82 O2 Sat by Pulse 98 98 99 Oximetry 04/05/17 04/05/17 04/05/17 09:15 09:30 09:45 Temperature Pulse Rate 97 H 97 H 98 H Respiratory 17 12 12 Rate Blood Pressure 165/82 184/82 184/82 O2 Sat by Pulse 97 98 98 Oximetry 04/05/17 04/05/17 04/05/17 10:00 10:15 10:22 Temperature Pulse Rate 95 H 101 H 97 H Respiratory 12 19 Rate Blood Pressure 156/82 156/82 180/80 O2 Sat by Pulse 100 98 98 Oximetry 04/05/17 04/05/17 04/05/17 10:30 10:45 11:00 Temperature Pulse Rate 96 H 96 H 105 H Respiratory 12 15 19 Rate Blood Pressure 183/80 183/80 177/80 O2 Sat by Pulse 99 98 97 Oximetry 04/05/17 04/05/17 04/05/17 11:15 11:30 11:45 Temperature Pulse Rate 103 H 102 H 110 H Respiratory 24 14 19 Rate Blood Pressure 177/80 183/61 183/61 O2 Sat by Pulse 98 99 93 Oximetry 04/05/17 04/05/17 04/05/17 12:00 12:15 12:30 Temperature Pulse Rate 110 H 107 H 96 H Respiratory 21 18 15 Rate Blood Pressure 161/73 161/73 166/75 O2 Sat by Pulse 99 99 100 Oximetry 04/05/17 04/05/17 04/05/17 13:00 13:30 14:00 Temperature Pulse Rate 95 H 89 81 Respiratory 35 H 31 H 30 H Rate Blood Pressure 169/73 143/64 154/67 O2 Sat by Pulse 100 100 100 Oximetry 04/05/17 04/05/17 14:36 16:00 Temperature 98.7 F Pulse Rate 84 Respiratory Rate Blood Pressure 186/79 O2 Sat by Pulse 100 Oximetry CBC and BMP: 04/06/17 03:45 04/06/17 03:45 ABG, PT/INR, D-dimer: ABG POC ABG pH 7.533 (7.35-7.45) H 04/05/17 04:54 POC ABG pCO2 44.5 (35-45) 04/05/17 04:54 POC ABG pO2 89 (80-105) 04/05/17 04:54 POC ABG HCO3 37.5 04/05/17 04:54 POC ABG Total CO2 39 04/05/17 04:54 POC ABG O2 Sat 98 04/05/17 04:54 PT/INR, D-dimer PT 12.2 Sec. (12.2-14.9) 04/04/17 13:24 INR 0.86 (0.87-1.13) L 04/04/17 13:24 Abnormal lab findings: Abnormal Labs 04/04/17 04/04/17 04/04/17 13:23 13:24 13:24 WBC 4.2 L RBC 2.83 L Hgb 9.0 L Hct 28.6 L MCV 101 H Seg Neuts % (Manual) 93.0 H Lymphocytes % (Manual) 2.0 L Lymphocytes # (Manual) 0.1 L INR 0.86 L POC ABG pH POC ABG pCO2 POC ABG pO2 Sodium Chloride Carbon Dioxide BUN Creatinine Glucose POC Glucose Lactic Acid 2.20 H* Calcium Magnesium CK-MB (CK-2) CK-MB (CK-2) Rel Index C-Reactive Protein NT-Pro-B Natriuret Pep Total Protein Albumin 04/04/17 04/04/17 04/04/17 13:24 14:38 18:34 WBC RBC Hgb Hct MCV Seg Neuts % (Manual) Lymphocytes % (Manual) Lymphocytes # (Manual) INR POC ABG pH 7.542 H POC ABG pCO2 49.4 H POC ABG pO2 275 H Sodium 147 H Chloride 95.2 L Carbon Dioxide 43 H* BUN 22 H Creatinine 0.3 L Glucose 108 H POC Glucose Lactic Acid Calcium 7.8 L Magnesium 3.80 H CK-MB (CK-2) CK-MB (CK-2) Rel Index C-Reactive Protein 5.60 H NT-Pro-B Natriuret Pep 2373 H Total Protein 5.1 L Albumin 2.7 L 04/04/17 04/05/17 04/05/17 18:34 03:15 04:54 WBC RBC Hgb Hct MCV Seg Neuts % (Manual) Lymphocytes % (Manual) Lymphocytes # (Manual) INR POC ABG pH 7.677 H 7.533 H POC ABG pCO2 31.5 L POC ABG pO2 175 H Sodium Chloride Carbon Dioxide BUN Creatinine Glucose POC Glucose Lactic Acid Calcium Magnesium CK-MB (CK-2) 6.3 H CK-MB (CK-2) Rel Index 7.5 H C-Reactive Protein NT-Pro-B Natriuret Pep Total Protein Albumin 04/05/17 04/05/17 04/05/17 05:12 05:12 05:12 WBC RBC 3.09 L Hgb 10.0 L Hct MCV 100 H Seg Neuts % (Manual) Lymphocytes % (Manual) 12.0 L Lymphocytes # (Manual) 1.0 L INR POC ABG pH POC ABG pCO2 POC ABG pO2 Sodium Chloride 93.5 L Carbon Dioxide BUN 28 H Creatinine 0.6 L D Glucose POC Glucose Lactic Acid 4.70 H* Calcium 8.3 L Magnesium CK-MB (CK-2) CK-MB (CK-2) Rel Index C-Reactive Protein NT-Pro-B Natriuret Pep Total Protein Albumin 04/05/17 12:20 WBC RBC Hgb Hct MCV Seg Neuts % (Manual) Lymphocytes % (Manual) Lymphocytes # (Manual) INR POC ABG pH POC ABG pCO2 POC ABG pO2 Sodium Chloride Carbon Dioxide BUN Creatinine Glucose POC Glucose 147 H Lactic Acid Calcium Magnesium CK-MB (CK-2) CK-MB (CK-2) Rel Index C-Reactive Protein NT-Pro-B Natriuret Pep Total Protein Albumin Chest x-ray: image reviewed (Changes consistent with COPD) Critical care time in (mins) excluding proc time.: 35 Critical care attestation.: If time is entered above; I have spent that time in minutes in the direct care of this critically ill patient, excluding procedure time.
[2017-04-05] MEDS: VANCOMYCIN 750 MG in NACL 0.9% 250ML 250 ML IV SCH (16:34)
--- NOTE | 2017-04-05 17:17 | Progress Note ---
Assessment and Plan Assessment and plan: 71-year-old woman admitted to the hospital for altered mental status, acute respiratory failure Acute hypoxic and hypercapnic respiratory failure requiring mechanical ventilation less than 96 hours -Continue mechanical ventilator, pulmonary input appreciated, Discussed with son , patient with severe COPD but still smokes although son said only one cigarette daily and no exposure to second hand smoke. -Continue Nebs -Repeat ABG COPD exacerbation -Steroids , nebs and antibiotics Metabolic encephalopathy Due to respiratory failure, treat underlying cause, Hypernatremia/dehydration We'll treat with half normal saline Possible Sepsis ID consult CRP Right lower lobe pneumonia possible Aspiration Continue antibiotic of above swallow eval when extubated Hypoglycemia Continue D5W Severe malnutrition Dietitian consult. Tobacco abuse We'll provide tobacco cessation counseling and nicotine patches in her mental status improved spoke to family Considering recurrent admission, and severe COPD, patient with poor prognosis. Will continue to aggressively treat DVT/GI prophy The high probability of a clinically significant, sudden or life threatening deterioration of the [Pulmonary] system(s) required my full and direct attention , intervention and personal management. The aggregate critical care time was [35 ] minutes. This time is in addition to time spent performing reported procedures but includes the following: [x] Data Review and interpretation [x] Patient assessment and monitoring of vital signs [x] Documentation [x] Medication orders and management History Interval history: Patient seen and examined remains intubated, not totally responsive at this time. son at the bedside. Hospitalist Physical - Physical exam Narrative exam: VITAL SIGNS: Reviewed. GENERAL: The patient appeared markedly cachectic. Vital signs as documented. HEAD: No signs of head trauma. EYES: Pupils are equal. Unable to assess EARS: Hearing grossly intact. MOUTH: ET tube in place NECK: No adenopathy, no JVD. CHEST: Chest with diminished breath sounds bilaterally. No wheezes, rales, or rhonchi. CARDIAC: Regular rate and rhythm. S1 and S2, without murmurs, gallops, or rubs. VASCULAR: No Edema. Peripheral pulses normal and equal in all extremities. ABDOMEN: Soft, without detectable tenderness. No sign of distention. No rebound or guarding, and no masses palpated. Bowel Sounds normal. MUSCULOSKELETAL: Contracted, although family reports patient ambulates.. Extremities without clubbing, cyanosis or edema. NEUROLOGIC EXAM: Lethargic, Sedated. No focal sensory or strength deficits. . PSYCHIATRIC: Mood normal. SKIN: Age-appropriate wrinkles some blemishes - Constitutional Vitals: Temp Pulse Resp BP Pulse Ox 98.7 F 84 30 H 186/79 100 04/05/17 16:00 04/05/17 14:36 04/05/17 14:00 04/05/17 14:36 04/05/17 14:36 General appearance: Present: no acute distress, cachectic Results - Labs CBC & Chem 7: 04/06/17 03:45 04/06/17 03:45 Labs: Laboratory Last Values WBC 8.6 K/mm3 (4.5-11.0) 04/05/17 05:12 RBC 3.09 M/mm3 (3.65-5.03) L 04/05/17 05:12 Hgb 10.0 gm/dl (10.1-14.3) L 04/05/17 05:12 Hct 30.8 % (30.3-42.9) 04/05/17 05:12 MCV 100 fl (79-97) H 04/05/17 05:12 MCH 32 pg (28-32) 04/05/17 05:12 MCHC 33 % (30-34) 04/05/17 05:12 RDW 14.3 % (13.2-15.2) 04/05/17 05:12 Plt Count 342 K/mm3 (140-440) 04/05/17 05:12 Add Manual Diff Complete 04/05/17 05:12 Total Counted 100 04/05/17 05:12 Seg Neuts % (Manual) 63.0 % (40.0-70.0) 04/05/17 05:12 Band Neutrophils % 23.0 % 04/05/17 05:12 Lymphocytes % (Manual) 12.0 % (13.4-35.0) L 04/05/17 05:12 Reactive Lymphs % (Man) 0 % 04/05/17 05:12 Monocytes % (Manual) 2.0 % (0.0-7.3) 04/05/17 05:12 Eosinophils % (Manual) 0 % (0.0-4.3) 04/05/17 05:12 Basophils % (Manual) 0 % (0.0-1.8) 04/05/17 05:12 Metamyelocytes % 0 % 04/05/17 05:12 Myelocytes % 0 % 04/05/17 05:12 Promyelocytes % 0 % 04/05/17 05:12 Blast Cells % 0 % 04/05/17 05:12 Nucleated RBC % Not Reportable 04/05/17 05:12 Seg Neutrophils # Man 5.4 K/mm3 (1.8-7.7) 04/05/17 05:12 Band Neutrophils # 2.0 K/mm3 04/05/17 05:12 Lymphocytes # (Manual) 1.0 K/mm3 (1.2-5.4) L 04/05/17 05:12 Abs React Lymphs (Man) 0.0 K/mm3 04/05/17 05:12 Monocytes # (Manual) 0.2 K/mm3 (0.0-0.8) 04/05/17 05:12 Eosinophils # (Manual) 0.0 K/mm3 (0.0-0.4) 04/05/17 05:12 Basophils # (Manual) 0.0 K/mm3 (0.0-0.1) 04/05/17 05:12 Metamyelocytes # 0.0 K/mm3 04/05/17 05:12 Myelocytes # 0.0 K/mm3 04/05/17 05:12 Promyelocytes # 0.0 K/mm3 04/05/17 05:12 Blast Cells # 0.0 K/mm3 04/05/17 05:12 WBC Morphology Not Reportable 04/05/17 05:12 Hypersegmented Neuts Not Reportable 04/05/17 05:12 Hyposegmented Neuts Not Reportable 04/05/17 05:12 Hypogranular Neuts Not Reportable 04/05/17 05:12 Smudge Cells Not Reportable 04/05/17 05:12 Toxic Granulation Not Reportable 04/05/17 05:12 Toxic Vacuolation Not Reportable 04/05/17 05:12 Dohle Bodies Not Reportable 04/05/17 05:12 Pelger-Huet Anomaly Not Reportable 04/05/17 05:12 Trudy Rods Not Reportable 04/05/17 05:12 Platelet Estimate Appears normal 04/05/17 05:12 Clumped Platelets Not Reportable 04/05/17 05:12 Plt Clumps, EDTA Not Reportable 04/05/17 05:12 Large Platelets Not Reportable 04/05/17 05:12 Giant Platelets Not Reportable 04/05/17 05:12 Platelet Satelliting Not Reportable 04/05/17 05:12 Plt Morphology Comment Not Reportable 04/05/17 05:12 RBC Morphology Not Reportable 04/05/17 05:12 Dimorphic RBCs Not Reportable 04/05/17 05:12 Polychromasia Not Reportable 04/05/17 05:12 Hypochromasia Not Reportable 04/05/17 05:12 Poikilocytosis Not Reportable 04/05/17 05:12 Anisocytosis 1+ 04/05/17 05:12 Microcytosis Not Reportable 04/05/17 05:12 Macrocytosis Not Reportable 04/05/17 05:12 Spherocytes Not Reportable 04/05/17 05:12 Pappenheimer Bodies Not Reportable 04/05/17 05:12 Sickle Cells Not Reportable 04/05/17 05:12 Target Cells Not Reportable 04/05/17 05:12 Tear Drop Cells Not Reportable 04/05/17 05:12 Ovalocytes Not Reportable 04/05/17 05:12 Stomatocytes 1+ 04/05/17 05:12 Helmet Cells Not Reportable 04/05/17 05:12 Chu-Kouts Bodies Not Reportable 04/05/17 05:12 Bienville Rings Not Reportable 04/05/17 05:12 Benjamin Cells Not Reportable 04/05/17 05:12 Bite Cells Not Reportable 04/05/17 05:12 Crenated Cell Not Reportable 04/05/17 05:12 Elliptocytes Not Reportable 04/05/17 05:12 Acanthocytes (Spur) Not Reportable 04/05/17 05:12 Rouleaux Not Reportable 04/05/17 05:12 Hemoglobin C Crystals Not Reportable 04/05/17 05:12 Schistocytes Not Reportable 04/05/17 05:12 Malaria parasites Not Reportable 04/05/17 05:12 Brandon Bodies Not Reportable 04/05/17 05:12 Hem Pathologist Commnt No 04/05/17 05:12 PT 12.2 Sec. (12.2-14.9) 04/04/17 13:24 INR 0.86 (0.87-1.13) L 04/04/17 13:24 APTT 32.6 Sec. (24.2-36.6) 04/04/17 13:24 POC ABG pH 7.533 (7.35-7.45) H 04/05/17 04:54 POC ABG pCO2 44.5 (35-45) 04/05/17 04:54 POC ABG pO2 89 (80-105) 04/05/17 04:54 POC ABG HCO3 37.5 04/05/17 04:54 POC ABG Total CO2 39 04/05/17 04:54 POC ABG O2 Sat 98 04/05/17 04:54 POC ABG Base Excess 15 04/05/17 04:54 VBG pH 7.333 (7.320-7.420) 04/04/17 13:23 FiO2 30 % 04/05/17 04:54 Sodium 144 mmol/L (137-145) 04/05/17 05:12 Potassium 4.4 mmol/L (3.6-5.0) 04/05/17 05:12 Chloride 93.5 mmol/L (98-107) L 04/05/17 05:12 Carbon Dioxide 30 mmol/L (22-30) D 04/05/17 05:12 Anion Gap 25 mmol/L 04/05/17 05:12 BUN 28 mg/dL (7-17) H 04/05/17 05:12 Creatinine 0.6 mg/dL (0.7-1.2) L D 04/05/17 05:12 Estimated GFR > 60 ml/min 04/05/17 05:12 BUN/Creatinine Ratio 47 % 04/05/17 05:12 Glucose 88 mg/dL (65-100) 04/05/17 05:12 POC Glucose 147 (70-105) H 04/05/17 12:20 Lactic Acid 4.70 mmol/L (0.7-2.0) H* 04/05/17 05:12 Calcium 8.3 mg/dL (8.4-10.2) L 04/05/17 05:12 Magnesium 3.80 mg/dL (1.7-2.3) H 04/04/17 13:24 Total Bilirubin 0.20 mg/dL (0.1-1.2) 04/04/17 13:24 Direct Bilirubin < 0.2 mg/dL (0-0.2) 04/04/17 13:24 Indirect Bilirubin 0.0 mg/dL 04/04/17 13:24 AST 36 units/L (5-40) 04/04/17 13:24 ALT 19 units/L (7-56) 04/04/17 13:24 Alkaline Phosphatase 98 units/L (35-129) 04/04/17 13:24 Total Creatine Kinase 83 units/L (30-135) 04/04/17 18:34 CK-MB (CK-2) 6.3 ng/mL (0.0-4.0) H 04/04/17 18:34 CK-MB (CK-2) Rel Index 7.5 (0-4) H 04/04/17 18:34 Troponin T < 0.010 ng/mL (0.00-0.029) 04/04/17 18:34 C-Reactive Protein 5.60 mg/dL (0.00-1.30) H 04/04/17 18:34 NT-Pro-B Natriuret Pep 2373 pg/mL (0-900) H 04/04/17 13:24 Total Protein 5.1 g/dL (6.3-8.2) L 04/04/17 13:24 Albumin 2.7 g/dL (3.9-5) L 04/04/17 13:24 Albumin/Globulin Ratio 1.1 % 04/04/17 13:24 Urine Color Yellow (Yellow) 04/04/17 14:25 Urine Turbidity Clear (Clear) 04/04/17 14:25 Urine pH 7.0 (5.0-7.0) 04/04/17 14:25 Ur Specific [place] 1.009 (1.003-1.030) 04/04/17 14:25 Urine Protein <15 mg/dl mg/dL (Negative) 04/04/17 14:25 Urine Glucose (UA) Neg mg/dL (Negative) 04/04/17 14:25 Urine Ketones Tr mg/dL (Negative) 04/04/17 14:25 Urine Blood Sm (Negative) 04/04/17 14:25 Urine Nitrite Neg (Negative) 04/04/17 14:25 Urine Bilirubin Neg (Negative) 04/04/17 14:25 Urine Urobilinogen < 2.0 mg/dL (<2.0) 04/04/17 14:25 Ur Leukocyte Esterase Neg (Negative) 04/04/17 14:25 Urine WBC (Auto) 2.0 /HPF (0.0-6.0) 04/04/17 14:25 Urine RBC (Auto) 4.0 /HPF (0.0-6.0) 04/04/17 14:25 Urine Bacteria (Auto) 1+ /HPF (Negative) 04/04/17 14:25 Urine Mucus Few /HPF 04/04/17 14:25 - Imaging and Cardiology Chest x-ray: image reviewed (copd)
[2017-04-05] MEDS ORDERED: ASPIRIN PR ONE (19:18)
[2017-04-05 22:01] LABS: Urine Drugs of Abuse Note Disclamer
[2017-04-06] MEDS: DUONEB *Not for PRN Use IH SCH ×4 (01:58→20:35)
[2017-04-06 03:59] LABS: Hematocrit 26.2 % (30.3-42.9); Hemoglobin 8.5 gm/dl (10.1-14.3); Mean Corpuscular HGB Conc 33 % (30-34); Mean Corpuscular Hemoglobin 32 pg (28-32); Mean Corpuscular Volume 98 fl (79-97); Platelet Count 257 K/mm3 (140-440); Red Blood Count 2.67 M/mm3 (3.65-5.03); Red Cell Distribution Width 14.8 % (13.2-15.2); White Blood Count 8.6 K/mm3 (4.5-11.0)
[2017-04-06 04:34] LABS: Alanine Aminotransferase 13 units/L (7-56); Albumin 2.5 g/dL (3.9-5); Alkaline Phosphatase 77 units/L (35-129); Anion Gap 14 mmol/L; BUN/Creatinine Ratio 48; Blood Urea Nitrogen 24 mg/dL (7-17); Calcium 7.7 mg/dL (8.4-10.2); Carbon Dioxide 32 mmol/L (22-30); Chloride 96.2 mmol/L (98-107); Glucose 116 mg/dL (65-100); Potassium 4.2 mmol/L (3.6-5.0); Sodium 138 mmol/L (137-145); Total Protein 5.1 g/dL (6.3-8.2)
[2017-04-06 04:53] LABS: ISTAT Base Excess 10; ISTAT PCO2 54.5 (35-45); ISTAT PH 7.415 (7.35-7.45); ISTAT PO2 88 (80-105); ISTAT SO2 97; ISTAT TCO2 37
[2017-04-06] MEDS: ZOSYN/NS 3.375GM/50ML 3.375 GM/50 ML BAG IV SCH ×2 (06:07→13:06)
[2017-04-06] MEDS: BROVANA NEBU IH SCH ×2 (08:24→19:57)
[2017-04-06] MEDS: PULMICORT IH SCH ×2 (08:24→19:57)
--- NOTE | 2017-04-06 09:48 | Progress Note ---
Assessment and Plan Acute on Chronic Hypercapnic Hypoxemic Respiratory Failure Acute COPD exacerbation Acute Encephalopathy (Toxic-Metabolic) Tobacco Use Disorder - continue to lighten sedation and daily sedation vacations - wean oxygen for O2 Sats > 94% - continue aspiration precautions (HOB >/= 40 degrees) - lung protective strategies adopted - VAP bundle addressed - Daily SAT - begin PSV trials as tolerated today (ABG after first couple hours on PSV) - Agitation management (Avoid benzodiazepines if possible) - continue systemic steroids but taper - continue AB's and de-escalate shortly - continue enteral nutrition as tolerated - continue GI & VTE prophylaxis - continue other care per attending / other consultants ....35' CCT Subjective Date of service: 04/06/17 Principal diagnosis: Acute on Chronic Hypoxemic Respiratory Failure; Sepsis Syndrome Interval history: Patient is seen today for: Acute on Chronic Hypercapnic Hypoxemic respiratory Failure; Sepsis Syndrome Seen and examined at bedside; 24 hour events reviewed; nursing and respiratory care staff consulted; remains on MVS; slowly weaning sedation; no emesis or overt aspiration; remains on systemic steroids; no gross bleeding Objective Vital Signs - 12hr 04/05/17 04/05/17 04/05/17 21:51 22:00 22:11 Temperature Pulse Rate 74 71 73 Pulse Rate [ Bilateral Throughout] Respiratory 12 12 12 Rate Respiratory Rate [Bilateral Throughout] Blood Pressure 125/59 123/56 123/56 O2 Sat by Pulse 99 99 99 Oximetry 04/05/17 04/05/17 04/05/17 22:21 22:30 22:41 Temperature Pulse Rate 74 68 65 Pulse Rate [ Bilateral Throughout] Respiratory 12 12 12 Rate Respiratory Rate [Bilateral Throughout] Blood Pressure 123/56 126/57 126/57 O2 Sat by Pulse 98 100 98 Oximetry 04/05/17 04/05/17 04/05/17 22:51 23:00 23:11 Temperature Pulse Rate 75 81 79 Pulse Rate [ Bilateral Throughout] Respiratory 12 12 12 Rate Respiratory Rate [Bilateral Throughout] Blood Pressure 126/57 108/53 108/53 O2 Sat by Pulse 98 100 98 Oximetry 04/05/17 04/05/17 04/05/17 23:21 23:30 23:41 Temperature Pulse Rate 82 87 88 Pulse Rate [ Bilateral Throughout] Respiratory 12 12 12 Rate Respiratory Rate [Bilateral Throughout] Blood Pressure 108/53 100/46 100/46 O2 Sat by Pulse 99 98 99 Oximetry 04/05/17 04/06/17 04/06/17 23:51 00:00 00:11 Temperature 97.2 F L Pulse Rate 84 84 87 Pulse Rate [ Bilateral Throughout] Respiratory 12 12 12 Rate Respiratory Rate [Bilateral Throughout] Blood Pressure 100/46 108/53 108/53 O2 Sat by Pulse 98 99 99 Oximetry 04/06/17 04/06/17 04/06/17 00:21 00:30 00:41 Temperature Pulse Rate 84 77 77 Pulse Rate [ Bilateral Throughout] Respiratory 12 12 12 Rate Respiratory Rate [Bilateral Throughout] Blood Pressure 108/53 115/53 115/53 O2 Sat by Pulse 100 99 100 Oximetry 04/06/17 04/06/17 04/06/17 00:51 01:00 01:11 Temperature Pulse Rate 74 73 60 Pulse Rate [ Bilateral Throughout] Respiratory 12 12 12 Rate Respiratory Rate [Bilateral Throughout] Blood Pressure 115/53 121/54 115/53 O2 Sat by Pulse 100 100 100 Oximetry 04/06/17 04/06/17 04/06/17 01:21 01:30 01:41 Temperature Pulse Rate 63 63 60 Pulse Rate [ Bilateral Throughout] Respiratory 12 12 12 Rate Respiratory Rate [Bilateral Throughout] Blood Pressure 115/53 118/56 118/56 O2 Sat by Pulse 100 99 99 Oximetry 04/06/17 04/06/17 04/06/17 01:48 01:51 02:00 Temperature Pulse Rate 58 L 94 H Pulse Rate [ Bilateral Throughout] Respiratory 12 12 10 L Rate Respiratory Rate [Bilateral Throughout] Blood Pressure 118/56 122/78 O2 Sat by Pulse 98 100 96 Oximetry 04/06/17 04/06/17 04/06/17 02:11 02:21 02:30 Temperature Pulse Rate 103 H 90 Pulse Rate [ Bilateral Throughout] Respiratory 15 16 Rate Respiratory Rate [Bilateral Throughout] Blood Pressure 122/78 122/78 124/55 O2 Sat by Pulse 73 L 96 97 Oximetry 04/06/17 04/06/17 04/06/17 02:41 02:51 03:00 Temperature Pulse Rate 78 70 66 Pulse Rate [ Bilateral Throughout] Respiratory 12 12 12 Rate Respiratory Rate [Bilateral Throughout] Blood Pressure 124/55 124/55 108/53 O2 Sat by Pulse 97 97 99 Oximetry 04/06/17 04/06/17 04/06/17 03:11 03:21 03:30 Temperature Pulse Rate 64 64 65 Pulse Rate [ Bilateral Throughout] Respiratory 12 12 12 Rate Respiratory Rate [Bilateral Throughout] Blood Pressure 108/53 108/53 115/53 O2 Sat by Pulse 99 100 99 Oximetry 04/06/17 04/06/17 04/06/17 03:41 03:51 04:00 Temperature 97.8 F Pulse Rate 63 62 68 Pulse Rate [ Bilateral Throughout] Respiratory 12 12 12 Rate Respiratory Rate [Bilateral Throughout] Blood Pressure 115/53 115/53 108/51 O2 Sat by Pulse 100 99 100 Oximetry 04/06/17 04/06/17 04/06/17 04:11 04:18 04:21 Temperature Pulse Rate 66 70 61 Pulse Rate [ Bilateral Throughout] Respiratory 12 Rate Respiratory Rate [Bilateral Throughout] Blood Pressure 108/51 108/51 108/51 O2 Sat by Pulse 99 98 99 Oximetry 04/06/17 04/06/17 04/06/17 04:30 04:41 04:51 Temperature Pulse Rate 58 L 60 66 Pulse Rate [ Bilateral Throughout] Respiratory 04 19 12 Rate Respiratory Rate [Bilateral Throughout] Blood Pressure 112/54 112/54 112/54 O2 Sat by Pulse 98 100 100 Oximetry 04/06/17 04/06/17 04/06/17 05:00 05:11 05:21 Temperature Pulse Rate 68 59 L 62 Pulse Rate [ Bilateral Throughout] Respiratory 12 12 Rate Respiratory Rate [Bilateral Throughout] Blood Pressure 116/54 116/54 116/54 O2 Sat by Pulse 100 100 100 Oximetry 04/06/17 04/06/17 04/06/17 05:30 05:41 05:51 Temperature Pulse Rate 57 L 59 L 65 Pulse Rate [ Bilateral Throughout] Respiratory 12 12 Rate Respiratory Rate [Bilateral Throughout] Blood Pressure 121/54 121/54 121/54 O2 Sat by Pulse 100 100 100 Oximetry 04/06/17 04/06/17 04/06/17 06:00 06:11 06:21 Temperature Pulse Rate 63 81 73 Pulse Rate [ Bilateral Throughout] Respiratory 12 12 12 Rate Respiratory Rate [Bilateral Throughout] Blood Pressure 115/50 115/50 115/50 O2 Sat by Pulse 100 96 97 Oximetry 04/06/17 04/06/17 04/06/17 06:30 08:00 08:19 Temperature 98.3 F Pulse Rate 72 81 Pulse Rate [ Bilateral Throughout] Respiratory 12 12 Rate Respiratory Rate [Bilateral Throughout] Blood Pressure 101/40 132/51 O2 Sat by Pulse 98 98 95 Oximetry 04/06/17 04/06/17 08:24 08:57 Temperature Pulse Rate Pulse Rate [ 84 82 Bilateral Throughout] Respiratory Rate Respiratory 12 12 Rate [Bilateral Throughout] Blood Pressure O2 Sat by Pulse Oximetry Constitutional: no acute distress, other (sedated) Eyes: non-icteric ENT: oropharynx moist, other (no thyromegaly) Neck: supple, no lymphadenopathy, no JVD Effort: mildly labored Ascultation: Bilateral: diminished breath sounds, rhonchi (bases) Cardiovascular: regular rate and rhythm, other (No rubs / murmurs) Gastrointestinal: normoactive bowel sounds, soft, non-tender, non-distended, other (No HSM) Integumentary: normal Extremities: no cyanosis, no edema, pink and warm, pulses normal Neurologic: pupils equal and round, unable to assess Psychiatric: other (unable to assess) CBC and BMP: 04/06/17 03:45 04/06/17 03:45 ABG, PT/INR, D-dimer: ABG POC ABG pH 7.415 (7.35-7.45) 04/06/17 04:25 POC ABG pCO2 54.5 (35-45) H 04/06/17 04:25 POC ABG pO2 88 (80-105) 04/06/17 04:25 POC ABG HCO3 35.0 04/06/17 04:25 POC ABG Total CO2 37 04/06/17 04:25 POC ABG O2 Sat 97 04/06/17 04:25 PT/INR, D-dimer PT 12.2 Sec. (12.2-14.9) 04/04/17 13:24 INR 0.86 (0.87-1.13) L 04/04/17 13:24 Abnormal lab findings: Abnormal Labs 04/04/17 04/04/17 04/04/17 13:23 13:24 13:24 WBC 4.2 L RBC 2.83 L Hgb 9.0 L Hct 28.6 L MCV 101 H Seg Neuts % (Manual) 93.0 H Lymphocytes % (Manual) 2.0 L Lymphocytes # (Manual) 0.1 L INR 0.86 L POC ABG pH POC ABG pCO2 POC ABG pO2 Sodium Chloride Carbon Dioxide BUN Creatinine Glucose POC Glucose Lactic Acid 2.20 H* Calcium Magnesium CK-MB (CK-2) CK-MB (CK-2) Rel Index C-Reactive Protein NT-Pro-B Natriuret Pep Total Protein Albumin 04/04/17 04/04/17 04/04/17 13:24 14:38 18:34 WBC RBC Hgb Hct MCV Seg Neuts % (Manual) Lymphocytes % (Manual) Lymphocytes # (Manual) INR POC ABG pH 7.542 H POC ABG pCO2 49.4 H POC ABG pO2 275 H Sodium 147 H Chloride 95.2 L Carbon Dioxide 43 H* BUN 22 H Creatinine 0.3 L Glucose 108 H POC Glucose Lactic Acid Calcium 7.8 L Magnesium 3.80 H CK-MB (CK-2) CK-MB (CK-2) Rel Index C-Reactive Protein 5.60 H NT-Pro-B Natriuret Pep 2373 H Total Protein 5.1 L Albumin 2.7 L 04/04/17 04/05/17 04/05/17 18:34 03:15 04:54 WBC RBC Hgb Hct MCV Seg Neuts % (Manual) Lymphocytes % (Manual) Lymphocytes # (Manual) INR POC ABG pH 7.677 H 7.533 H POC ABG pCO2 31.5 L POC ABG pO2 175 H Sodium Chloride Carbon Dioxide BUN Creatinine Glucose POC Glucose Lactic Acid Calcium Magnesium CK-MB (CK-2) 6.3 H CK-MB (CK-2) Rel Index 7.5 H C-Reactive Protein NT-Pro-B Natriuret Pep Total Protein Albumin 04/05/17 04/05/17 04/05/17 05:12 05:12 05:12 WBC RBC 3.09 L Hgb 10.0 L Hct MCV 100 H Seg Neuts % (Manual) Lymphocytes % (Manual) 12.0 L Lymphocytes # (Manual) 1.0 L INR POC ABG pH POC ABG pCO2 POC ABG pO2 Sodium Chloride 93.5 L Carbon Dioxide BUN 28 H Creatinine 0.6 L D Glucose POC Glucose Lactic Acid 4.70 H* Calcium 8.3 L Magnesium CK-MB (CK-2) CK-MB (CK-2) Rel Index C-Reactive Protein NT-Pro-B Natriuret Pep Total Protein Albumin 04/05/17 04/06/17 04/06/17 12:20 03:31 03:45 WBC RBC 2.67 L Hgb 8.5 L Hct 26.2 L MCV 98 H Seg Neuts % (Manual) Lymphocytes % (Manual) Lymphocytes # (Manual) INR POC ABG pH POC ABG pCO2 POC ABG pO2 Sodium Chloride Carbon Dioxide BUN Creatinine Glucose POC Glucose 147 H 118 H Lactic Acid Calcium Magnesium CK-MB (CK-2) CK-MB (CK-2) Rel Index C-Reactive Protein NT-Pro-B Natriuret Pep Total Protein Albumin 04/06/17 04/06/17 04/06/17 03:45 04:25 06:07 WBC RBC Hgb Hct MCV Seg Neuts % (Manual) Lymphocytes % (Manual) Lymphocytes # (Manual) INR POC ABG pH POC ABG pCO2 54.5 H POC ABG pO2 Sodium Chloride 96.2 L Carbon Dioxide 32 H BUN 24 H Creatinine 0.5 L Glucose 116 H POC Glucose 135 H Lactic Acid Calcium 7.7 L Magnesium CK-MB (CK-2) CK-MB (CK-2) Rel Index C-Reactive Protein NT-Pro-B Natriuret Pep Total Protein 5.1 L Albumin 2.5 L Chest x-ray: image reviewed (ETT tip at clavicular heads; hyperinflation; no new infiltrate) Allied health notes reviewed: nursing
--- NOTE | 2017-04-06 10:22 | XRay Report ---
CHEST 1 VIEW INDICATION: Respiratory failure followup. COMPARISON: Yesterday. FINDINGS: Portable, frontal chest radiograph, 2:14 AM, 04/06/2017 reveals stable cardiomediastinal silhouette, supporting devices, hyperexpanded lungs and osseous structures, providing for the difference in technique. CONCLUSION: No significant interval change in this intubated patient with COPD. Thank you for the opportunity to participate in this patient's care.
--- NOTE | 2017-04-06 10:53 | Progress Note ---
Assessment and Plan Assessment and plan: 71-year-old woman admitted to the hospital for altered mental status, acute respiratory failure Acute hypoxic and hypercapnic respiratory failure requiring mechanical ventilation less than 96 hours -Continue mechanical ventilator, pulmonary input appreciated, Discussed with son , patient with severe COPD but still smokes although son said only one cigarette daily and no exposure to second hand smoke. -Continue Nebs -Repeat ABG COPD exacerbation -Steroids , nebs and antibiotics Metabolic encephalopathy Due to respiratory failure, treat underlying cause, Hypernatremia/dehydration We'll treat with half normal saline Possible Sepsis ID consult CRP Right lower lobe pneumonia possible Aspiration Continue antibiotic of above swallow eval when extubated Anemia Likly of chronic condition, will monitor closely, no gross evidence of bleeding. will check iron status. Hypoglycemia Continue D5W Severe malnutrition Dietitian consult. Tobacco abuse We'll provide tobacco cessation counseling and nicotine patches in her mental status improved No family present today. Considering recurrent admission, and severe COPD, patient with poor prognosis. Will continue to aggressively treat DVT/GI prophy The high probability of a clinically significant, sudden or life threatening deterioration of the [Pulmonary] system(s) required my full and direct attention , intervention and personal management. The aggregate critical care time was [35 ] minutes. This time is in addition to time spent performing reported procedures but includes the following: [x] Data Review and interpretation [x] Patient assessment and monitoring of vital signs [x] Documentation [x] Medication orders and management History Interval history: Patient seen and examined remains intubated, OFF Sedation, responds occasionally but not fully awake. Hospitalist Physical - Physical exam Narrative exam: VITAL SIGNS: Reviewed. GENERAL: The patient appeared markedly cachectic. Vital signs as documented. HEAD: No signs of head trauma. EYES: Pupils are equal. Unable to assess EARS: Hearing grossly intact. MOUTH: ET tube in place NECK: No adenopathy, no JVD. CHEST: Chest with diminished breath sounds bilaterally. No wheezes, rales, or rhonchi. CARDIAC: Regular rate and rhythm. S1 and S2, without murmurs, gallops, or rubs. VASCULAR: No Edema. Peripheral pulses normal and equal in all extremities. ABDOMEN: Soft, without detectable tenderness. No sign of distention. No rebound or guarding, and no masses palpated. Bowel Sounds normal. MUSCULOSKELETAL: Contracted, although family reports patient ambulates.. Extremities without clubbing, cyanosis or edema. NEUROLOGIC EXAM: Lethargic, Sedated. No focal sensory or strength deficits. . PSYCHIATRIC: Mood normal. SKIN: Age-appropriate wrinkles some blemishes - Constitutional Vitals: Temp Pulse Resp BP Pulse Ox 98.3 F 82 12 132/51 95 04/06/17 08:00 04/06/17 08:57 04/06/17 08:57 04/06/17 08:19 04/06/17 08:19 General appearance: Present: no acute distress, cachectic Results - Labs CBC & Chem 7: 04/06/17 03:45 04/06/17 03:45 Labs: Laboratory Last Values WBC 8.6 K/mm3 (4.5-11.0) 04/06/17 03:45 RBC 2.67 M/mm3 (3.65-5.03) L 04/06/17 03:45 Hgb 8.5 gm/dl (10.1-14.3) L 04/06/17 03:45 Hct 26.2 % (30.3-42.9) L 04/06/17 03:45 MCV 98 fl (79-97) H 04/06/17 03:45 MCH 32 pg (28-32) 04/06/17 03:45 MCHC 33 % (30-34) 04/06/17 03:45 RDW 14.8 % (13.2-15.2) 04/06/17 03:45 Plt Count 257 K/mm3 (140-440) 04/06/17 03:45 Add Manual Diff Complete 04/05/17 05:12 Total Counted 100 04/05/17 05:12 Seg Neuts % (Manual) 63.0 % (40.0-70.0) 04/05/17 05:12 Band Neutrophils % 23.0 % 04/05/17 05:12 Lymphocytes % (Manual) 12.0 % (13.4-35.0) L 04/05/17 05:12 Reactive Lymphs % (Man) 0 % 04/05/17 05:12 Monocytes % (Manual) 2.0 % (0.0-7.3) 04/05/17 05:12 Eosinophils % (Manual) 0 % (0.0-4.3) 04/05/17 05:12 Basophils % (Manual) 0 % (0.0-1.8) 04/05/17 05:12 Metamyelocytes % 0 % 04/05/17 05:12 Myelocytes % 0 % 04/05/17 05:12 Promyelocytes % 0 % 04/05/17 05:12 Blast Cells % 0 % 04/05/17 05:12 Nucleated RBC % Not Reportable 04/05/17 05:12 Seg Neutrophils # Man 5.4 K/mm3 (1.8-7.7) 04/05/17 05:12 Band Neutrophils # 2.0 K/mm3 04/05/17 05:12 Lymphocytes # (Manual) 1.0 K/mm3 (1.2-5.4) L 04/05/17 05:12 Abs React Lymphs (Man) 0.0 K/mm3 04/05/17 05:12 Monocytes # (Manual) 0.2 K/mm3 (0.0-0.8) 04/05/17 05:12 Eosinophils # (Manual) 0.0 K/mm3 (0.0-0.4) 04/05/17 05:12 Basophils # (Manual) 0.0 K/mm3 (0.0-0.1) 04/05/17 05:12 Metamyelocytes # 0.0 K/mm3 04/05/17 05:12 Myelocytes # 0.0 K/mm3 04/05/17 05:12 Promyelocytes # 0.0 K/mm3 04/05/17 05:12 Blast Cells # 0.0 K/mm3 04/05/17 05:12 WBC Morphology Not Reportable 04/05/17 05:12 Hypersegmented Neuts Not Reportable 04/05/17 05:12 Hyposegmented Neuts Not Reportable 04/05/17 05:12 Hypogranular Neuts Not Reportable 04/05/17 05:12 Smudge Cells Not Reportable 04/05/17 05:12 Toxic Granulation Not Reportable 04/05/17 05:12 Toxic Vacuolation Not Reportable 04/05/17 05:12 Dohle Bodies Not Reportable 04/05/17 05:12 Pelger-Huet Anomaly Not Reportable 04/05/17 05:12 Trudy Rods Not Reportable 04/05/17 05:12 Platelet Estimate Appears normal 04/05/17 05:12 Clumped Platelets Not Reportable 04/05/17 05:12 Plt Clumps, EDTA Not Reportable 04/05/17 05:12 Large Platelets Not Reportable 04/05/17 05:12 Giant Platelets Not Reportable 04/05/17 05:12 Platelet Satelliting Not Reportable 04/05/17 05:12 Plt Morphology Comment Not Reportable 04/05/17 05:12 RBC Morphology Not Reportable 04/05/17 05:12 Dimorphic RBCs Not Reportable 04/05/17 05:12 Polychromasia Not Reportable 04/05/17 05:12 Hypochromasia Not Reportable 04/05/17 05:12 Poikilocytosis Not Reportable 04/05/17 05:12 Anisocytosis 1+ 04/05/17 05:12 Microcytosis Not Reportable 04/05/17 05:12 Macrocytosis Not Reportable 04/05/17 05:12 Spherocytes Not Reportable 04/05/17 05:12 Pappenheimer Bodies Not Reportable 04/05/17 05:12 Sickle Cells Not Reportable 04/05/17 05:12 Target Cells Not Reportable 04/05/17 05:12 Tear Drop Cells Not Reportable 04/05/17 05:12 Ovalocytes Not Reportable 04/05/17 05:12 Stomatocytes 1+ 04/05/17 05:12 Helmet Cells Not Reportable 04/05/17 05:12 [place] Bodies Not Reportable 04/05/17 05:12 [place] Rings Not Reportable 04/05/17 05:12 [place] Cells Not Reportable 04/05/17 05:12 Bite Cells Not Reportable 04/05/17 05:12 Crenated Cell Not Reportable 04/05/17 05:12 Elliptocytes Not Reportable 04/05/17 05:12 Acanthocytes (Spur) Not Reportable 04/05/17 05:12 Rouleaux Not Reportable 04/05/17 05:12 Hemoglobin C Crystals Not Reportable 04/05/17 05:12 Schistocytes Not Reportable 04/05/17 05:12 Malaria parasites Not Reportable 04/05/17 05:12 [place] Bodies Not Reportable 04/05/17 05:12 Hem Pathologist Commnt No 04/05/17 05:12 PT 12.2 Sec. (12.2-14.9) 04/04/17 13:24 INR 0.86 (0.87-1.13) L 04/04/17 13:24 APTT 32.6 Sec. (24.2-36.6) 04/04/17 13:24 POC ABG pH 7.415 (7.35-7.45) 04/06/17 04:25 POC ABG pCO2 54.5 (35-45) H 04/06/17 04:25 POC ABG pO2 88 (80-105) 04/06/17 04:25 POC ABG HCO3 35.0 04/06/17 04:25 POC ABG Total CO2 37 04/06/17 04:25 POC ABG O2 Sat 97 04/06/17 04:25 POC ABG Base Excess 10 04/06/17 04:25 VBG pH 7.333 (7.320-7.420) 04/04/17 13:23 FiO2 30 % 04/06/17 04:25 Sodium 138 mmol/L (137-145) 04/06/17 03:45 Potassium 4.2 mmol/L (3.6-5.0) 04/06/17 03:45 Chloride 96.2 mmol/L (98-107) L 04/06/17 03:45 Carbon Dioxide 32 mmol/L (22-30) H 04/06/17 03:45 Anion Gap 14 mmol/L 04/06/17 03:45 BUN 24 mg/dL (7-17) H 04/06/17 03:45 Creatinine 0.5 mg/dL (0.7-1.2) L 04/06/17 03:45 Estimated GFR > 60 ml/min 04/06/17 03:45 BUN/Creatinine Ratio 48 % 04/06/17 03:45 Glucose 116 mg/dL (65-100) H 04/06/17 03:45 POC Glucose 135 (70-105) H 04/06/17 06:07 Lactic Acid 1.70 mmol/L (0.7-2.0) 04/06/17 03:45 Calcium 7.7 mg/dL (8.4-10.2) L 04/06/17 03:45 Phosphorus 3.60 mg/dL (2.5-4.5) 04/06/17 03:45 Magnesium 1.90 mg/dL (1.7-2.3) 04/06/17 03:45 Total Bilirubin 0.20 mg/dL (0.1-1.2) 04/06/17 03:45 Direct Bilirubin < 0.2 mg/dL (0-0.2) 04/04/17 13:24 Indirect Bilirubin 0.0 mg/dL 04/04/17 13:24 AST 28 units/L (5-40) 04/06/17 03:45 ALT 13 units/L (7-56) 04/06/17 03:45 Alkaline Phosphatase 77 units/L (35-129) 04/06/17 03:45 Total Creatine Kinase 83 units/L (30-135) 04/04/17 18:34 CK-MB (CK-2) 6.3 ng/mL (0.0-4.0) H 04/04/17 18:34 CK-MB (CK-2) Rel Index 7.5 (0-4) H 04/04/17 18:34 Troponin T < 0.010 ng/mL (0.00-0.029) 04/04/17 18:34 C-Reactive Protein 5.60 mg/dL (0.00-1.30) H 04/04/17 18:34 NT-Pro-B Natriuret Pep 2373 pg/mL (0-900) H 04/04/17 13:24 Total Protein 5.1 g/dL (6.3-8.2) L 04/06/17 03:45 Albumin 2.5 g/dL (3.9-5) L 04/06/17 03:45 Albumin/Globulin Ratio 1.0 % 04/06/17 03:45 Urine Color Yellow (Yellow) 04/04/17 14:25 Urine Turbidity Clear (Clear) 04/04/17 14:25 Urine pH 7.0 (5.0-7.0) 04/04/17 14:25 Ur Specific [place] 1.009 (1.003-1.030) 04/04/17 14:25 Urine Protein <15 mg/dl mg/dL (Negative) 04/04/17 14:25 Urine Glucose (UA) Neg mg/dL (Negative) 04/04/17 14:25 Urine Ketones Tr mg/dL (Negative) 04/04/17 14:25 Urine Blood Sm (Negative) 04/04/17 14:25 Urine Nitrite Neg (Negative) 04/04/17 14:25 Urine Bilirubin Neg (Negative) 04/04/17 14:25 Urine Urobilinogen < 2.0 mg/dL (<2.0) 04/04/17 14:25 Ur Leukocyte Esterase Neg (Negative) 04/04/17 14:25 Urine WBC (Auto) 2.0 /HPF (0.0-6.0) 04/04/17 14:25 Urine RBC (Auto) 4.0 /HPF (0.0-6.0) 04/04/17 14:25 Urine Bacteria (Auto) 1+ /HPF (Negative) 04/04/17 14:25 Urine Mucus Few /HPF 04/04/17 14:25 Urine Opiates Screen Presumptive negative 04/05/17 21:50 Urine Methadone Screen Presumptive negative 04/05/17 21:50 Ur Barbiturates Screen Presumptive negative 04/05/17 21:50 Ur Phencyclidine Scrn Presumptive negative 04/05/17 21:50 Ur Amphetamines Screen Presumptive negative 04/05/17 21:50 U Benzodiazepines Scrn Presumptive positive 04/05/17 21:50 Urine Cocaine Screen Presumptive negative 04/05/17 21:50 U Marijuana (THC) Screen Presumptive negative 04/05/17 21:50 Drugs of Abuse Note Disclamer 04/05/17 21:50 - Imaging and Cardiology Chest x-ray: image reviewed (emphysema)
[2017-04-06] MEDS: PEPCID PO SCH ×2 (11:11→22:49)
[2017-04-06] MEDS: LOVENOX SUB-Q SCH (11:11)
--- NOTE | 2017-04-06 11:16 | Progress Note ---
Assessment and Plan Assessment: 1) Acute on Chronic resp failure 2) Right sided pneumonia: HAP ? aspiration ? HAP. History of recent pneumonia. Recent CT showed RLL infiltrate. 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 5) History of seizures 6) Nicotine Dependence 7) Severe Malnutrition 8) Lactic acidosis 9) Encephalopathy Plan: -repeat blood cultures tomorrow -follow-up respiratory cultures -swallowing eval -continue zosyn and vanco -poor prognosis Thank you Dr Kay for your consultation, will follow up with you. Keely Avila MD Infectious Diseases Specialist [facility] ([facility]) M [phone] O [phone] Subjective Date of service: 04/06/17 Principal diagnosis: resp failure Interval history: Remains on the vent fio2 30% p5, sedated, no fever. Microbiology: Blood cultures: 04/04 GPC 1 of 4 bottles Urine cultures: 04/04 neg Influenza: negative Current Antimicrobials: zosyn vanco Previous Antimicrobials: levaquin Objective - Exam Narrative Exam: General appearance: sedated on the vent Eyes: anicteric sclerae, moist conjunctivae; no lid-lag; PERRLA HENT: Atraumatic; oropharynx +ETT Neck: Trachea midline; supple, no thyromegaly or lymphadenopathy Lungs: distant BS CV: RRR Abdomen: Soft, non-tender Extremities: No peripheral edema or extremity lymphadenopathy Skin: Normal temperature, turgor and texture; no rash, ulcers or subcutaneous nodules Psych: unable to asses. Neuro: sedated Lines: No CVL / PICC - Constitutional Vitals: Vital Signs Temp Pulse Resp BP Pulse Ox 98.3 F 82 17 144/51 93 04/06/17 08:00 04/06/17 11:00 04/06/17 11:00 04/06/17 11:00 04/06/17 11:00 Temperature -Last 24 Hours Temperature 98.3 F Temperature 97.8 F Temperature 97.8 F Temperature 97.2 F Temperature 98.0 F Temperature 98.7 F - Labs CBC & Chem 7: 04/06/17 03:45 04/06/17 03:45 Labs: Abnormal lab results 04/05/17 04/06/17 04/06/17 Range/Units 12:20 03:31 03:45 RBC 2.67 L (3.65-5.03) M/mm3 Hgb 8.5 L (10.1-14.3) gm/dl Hct 26.2 L (30.3-42.9) % MCV 98 H (79-97) fl POC ABG pCO2 (35-45) Chloride (98-107) mmol/L Carbon Dioxide (22-30) mmol/L BUN (7-17) mg/dL Creatinine (0.7-1.2) mg/dL Glucose (65-100) mg/dL POC Glucose 147 H 118 H (70-105) Calcium (8.4-10.2) mg/dL Total Protein (6.3-8.2) g/dL Albumin (3.9-5) g/dL 04/06/17 04/06/17 04/06/17 Range/Units 03:45 04:25 06:07 RBC (3.65-5.03) M/mm3 Hgb (10.1-14.3) gm/dl Hct (30.3-42.9) % MCV (79-97) fl POC ABG pCO2 54.5 H (35-45) Chloride 96.2 L (98-107) mmol/L Carbon Dioxide 32 H (22-30) mmol/L BUN 24 H (7-17) mg/dL Creatinine 0.5 L (0.7-1.2) mg/dL Glucose 116 H (65-100) mg/dL POC Glucose 135 H (70-105) Calcium 7.7 L (8.4-10.2) mg/dL Total Protein 5.1 L (6.3-8.2) g/dL Albumin 2.5 L (3.9-5) g/dL
[2017-04-06] MEDS: VANCOMYCIN 750 MG in NACL 0.9% 250ML 250 ML IV SCH (14:17)
--- NOTE | 2017-04-07 02:19 | XRay Report ---
FINAL REPORT EXAM: XR CHEST 1V AP HISTORY: follow up respiratory failure COMPARISON: April 05, 2017. FINDINGS: Frontal view(s) of the chest obtained. Heart normal in size. ETT and NG tube remain in place. Stable emphysematous changes lungs with prominent hyperinflation lungs and flattening hemidiaphragms. Stable patchy density at the lateral margin right lung base. No pneumothorax. IMPRESSION: Stable prominent emphysematous changes. Stable nonspecific patchy density at the lateral margin right lung base which may reflect areas scarring or pneumonia. Stable positioning of ET tube and NG tube.
[2017-04-07] MEDS: DUONEB *Not for PRN Use IH SCH ×4 (02:20→21:29)
[2017-04-07 05:56] LABS: ISTAT Base Excess 16; ISTAT HCO3 39.2; ISTAT PCO2 52.1 (35-45); ISTAT PH 7.485 (7.35-7.45); ISTAT PO2 100 (80-105); ISTAT SO2 98; ISTAT TCO2 41
[2017-04-07] MEDS: ZOSYN/NS 3.375GM/50ML 3.375 GM/50 ML BAG IV SCH ×4 (06:20→21:46)
[2017-04-07] MEDS: BROVANA NEBU IH SCH ×2 (08:04→21:29)
[2017-04-07] MEDS: PULMICORT IH SCH ×2 (08:04→21:29)
[2017-04-07] MEDS: PEPCID PO SCH ×2 (09:22→21:51)
[2017-04-07] MEDS: LOVENOX SUB-Q SCH (09:22)
[2017-04-07] MEDS: TYLENOL PO PRN (09:26)
[2017-04-07] MEDS ORDERED: MORPHINE IV ONE (10:04)
--- NOTE | 2017-04-07 10:23 | Progress Note ---
Assessment and Plan Assessment: 1) Acute on Chronic resp failure 2) Right sided pneumonia: HAP ? aspiration ? HAP. History of recent pneumonia. Recent CT showed RLL infiltrate. 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 5) History of seizures 6) Nicotine Dependence 7) Severe Malnutrition 8) Lactic acidosis 9) Encephalopathy Plan: -repeat blood cultures today -follow-up respiratory cultures -continue zosyn - day 3 of 7 -stop vanco -poor prognosis Thank you Dr Kay for your consultation, will follow up with you. Keely Avila MD Infectious Diseases Specialist [facility] ([facility]) M [phone] O [phone] Subjective Date of service: 04/07/17 Principal diagnosis: Acute on Chronic Hypoxemic Respiratory Failure; Sepsis Syndrome Interval history: Remains on the vent fio2 30% p5, sedated, but follows commands no fever. Microbiology: Blood cultures: 04/04 GPC 1 of 4 bottles Urine cultures: 04/04 neg Influenza: negative Current Antimicrobials: zosyn vanco Previous Antimicrobials: levaquin Objective - Exam Narrative Exam: General appearance: sedated on the vent Eyes: anicteric sclerae, moist conjunctivae; no lid-lag; PERRLA HENT: Atraumatic; oropharynx +ETT Neck: Trachea midline; supple, no thyromegaly or lymphadenopathy Lungs: distant BS CV: RRR Abdomen: Soft, non-tender Extremities: No peripheral edema or extremity lymphadenopathy Skin: Normal temperature, turgor and texture; no rash, ulcers or subcutaneous nodules Psych: unable to asses. Neuro: sedated Lines: No CVL / PICC - Constitutional Vitals: Vital Signs Temp Pulse Resp BP Pulse Ox 97.9 F 91 H 28 H 155/80 97 04/07/17 08:00 04/07/17 10:13 04/07/17 10:13 04/07/17 10:13 04/07/17 10:13 Temperature -Last 24 Hours Temperature 97.9 F Temperature 98.4 F Temperature 98.3 F Temperature 97.5 F Temperature 97.5 F Temperature 98.3 F - Labs CBC & Chem 7: 04/06/17 03:45 04/06/17 03:45 Labs: Abnormal lab results 04/06/17 04/06/17 04/07/17 Range/Units 12:06 17:40 00:05 POC ABG pH (7.35-7.45) POC ABG pCO2 (35-45) POC Glucose 150 H 123 H 138 H (70-105) 04/07/17 04/07/17 Range/Units 04:34 05:41 POC ABG pH 7.485 H (7.35-7.45) POC ABG pCO2 52.1 H (35-45) POC Glucose 153 H (70-105)
[2017-04-07 10:58] LABS: ISTAT Base Excess 18; ISTAT HCO3 41.7; ISTAT PH 7.479 (7.35-7.45); ISTAT PO2 82 (80-105); ISTAT SO2 96; ISTAT TCO2 43
--- NOTE | 2017-04-07 11:57 | Progress Note ---
Assessment and Plan - Patient Problems (1) Acute respiratory failure with hypoxia and hypercapnia Status: Acute Plan to address problem: Tolerating PSV trial. Get weaning parameters. Plan to liberate from mechanical ventilatory support, once weaning parameters are adequate. NIPPV support post extubation Swallow evaluation PT/OT to evaluate and treat (2) COPD exacerbation Status: Acute Plan to address problem: Bronchodilators Steroids Monitor accuchecks and ensure glycemic control Antibiotics (3) Malnutrition Status: Acute Plan to address problem: Enteric nutrition. Suspect her severe COPD is contributing to her cachexia (4) Tobacco abuse disorder Status: Acute Plan to address problem: Nicotine withdrawal precautions Smoking cessation counselling post extubation Subjective Date of service: 04/07/17 Principal diagnosis: Acute on Chronic Hypoxemic Respiratory Failure; Sepsis Syndrome Interval history: F/UP: Acute on chronic hypercapnic/hypoxic respiratory failure on [facility] No acute events documented or noted. Tolerating PSV trials. Seen and examined. Vitals, labs, medications, chart, imaging reviewed. Discussed in interdisciplinary rounds. Objective - Exam Narrative Exam: General appearance: ET to [facility] Chronically ill looking, atraumatic, normocephalic Eyes: anicteric sclerae, moist conjunctivae; no lid-lag; PERRLA HENT: EOMI, PERRL Neck: Trachea midline; supple, no thyromegaly or lymphadenopathy Lungs: Decreased AE bilaterally, distant BS , no wheezing, no rhonchi CV: RRR , S1,S2, no murmurs, gallops or rubs Abdomen: Soft, non-tender, non distended, BS in all 4 quadrants Extremities: No peripheral edema or extremity lymphadenopathy Skin: Normal temperature, turgor and texture; no rash, ulcers or subcutaneous nodules Neuro: Awake, alert, non focal neurology Vital Signs - 12hr 04/07/17 04/07/17 04/07/17 00:00 00:30 01:00 Temperature Pulse Rate 101 H 90 100 H Pulse Rate [ Bilateral Throughout] Respiratory 21 15 22 Rate Respiratory Rate [Bilateral Throughout] Blood Pressure 146/66 144/63 155/78 O2 Sat by Pulse 97 100 99 Oximetry 04/07/17 04/07/17 04/07/17 01:30 02:01 02:30 Temperature Pulse Rate 104 H 106 H 87 Pulse Rate [ Bilateral Throughout] Respiratory 16 21 17 Rate Respiratory Rate [Bilateral Throughout] Blood Pressure 138/61 145/68 154/68 O2 Sat by Pulse 98 98 98 Oximetry 04/07/17 04/07/17 04/07/17 03:01 03:31 03:34 Temperature 98.4 F Pulse Rate 102 H 108 H Pulse Rate [ Bilateral Throughout] Respiratory 22 24 Rate Respiratory Rate [Bilateral Throughout] Blood Pressure 150/75 150/75 O2 Sat by Pulse 96 97 Oximetry 04/07/17 04/07/17 04/07/17 04:00 04:23 04:30 Temperature Pulse Rate 88 89 102 H Pulse Rate [ Bilateral Throughout] Respiratory 20 20 Rate Respiratory Rate [Bilateral Throughout] Blood Pressure 167/73 167/73 155/75 O2 Sat by Pulse 98 99 99 Oximetry 04/07/17 04/07/17 04/07/17 05:00 05:31 06:00 Temperature Pulse Rate 86 94 H 81 Pulse Rate [ Bilateral Throughout] Respiratory 15 13 19 Rate Respiratory Rate [Bilateral Throughout] Blood Pressure 115/56 155/71 162/70 O2 Sat by Pulse 99 97 97 Oximetry 04/07/17 04/07/17 04/07/17 06:30 07:00 07:30 Temperature Pulse Rate 94 H 84 89 Pulse Rate [ Bilateral Throughout] Respiratory 18 13 18 Rate Respiratory Rate [Bilateral Throughout] Blood Pressure 158/75 159/73 156/73 O2 Sat by Pulse 87 98 Oximetry 04/07/17 04/07/17 04/07/17 07:58 08:00 08:01 Temperature 97.9 F Pulse Rate 90 91 H 95 H Pulse Rate [ 91 H Bilateral Throughout] Respiratory 18 25 H Rate Respiratory 25 H Rate [Bilateral Throughout] Blood Pressure 144/93 157/65 154/65 O2 Sat by Pulse 99 99 99 Oximetry 04/07/17 04/07/17 04/07/17 08:22 08:30 08:36 Temperature Pulse Rate 81 Pulse Rate [ 900 H Bilateral Throughout] Respiratory 26 H Rate Respiratory 23 Rate [Bilateral Throughout] Blood Pressure 165/68 O2 Sat by Pulse 99 100 Oximetry 04/07/17 04/07/17 04/07/17 09:00 09:30 10:00 Temperature Pulse Rate 81 89 89 Pulse Rate [ Bilateral Throughout] Respiratory 25 H 22 18 Rate Respiratory Rate [Bilateral Throughout] Blood Pressure 140/69 164/89 155/80 O2 Sat by Pulse 100 100 98 Oximetry 04/07/17 04/07/17 04/07/17 10:13 10:30 11:00 Temperature Pulse Rate 91 H 79 79 Pulse Rate [ Bilateral Throughout] Respiratory 28 H 25 H 26 H Rate Respiratory Rate [Bilateral Throughout] Blood Pressure 155/80 173/74 141/71 O2 Sat by Pulse 97 100 100 Oximetry Constitutional: no acute distress, other (sedated) Eyes: non-icteric ENT: oropharynx moist, other (no thyromegaly) Neck: supple, no lymphadenopathy, no JVD Effort: mildly labored Ascultation: Bilateral: diminished breath sounds, rhonchi (bases) Cardiovascular: regular rate and rhythm, other (No rubs / murmurs) Gastrointestinal: normoactive bowel sounds, soft, non-tender, non-distended, other (No HSM) Integumentary: normal Extremities: no cyanosis, no edema, pink and warm, pulses normal Neurologic: pupils equal and round, unable to assess Psychiatric: other (unable to assess) CBC and BMP: 04/11/17 04:40 04/11/17 04:40 ABG, PT/INR, D-dimer: ABG POC ABG pH 7.479 (7.35-7.45) H 04/07/17 10:13 POC ABG pCO2 56.0 (35-45) H 04/07/17 10:13 POC ABG pO2 82 (80-105) 04/07/17 10:13 POC ABG HCO3 41.7 04/07/17 10:13 POC ABG Total CO2 43 04/07/17 10:13 POC ABG O2 Sat 96 04/07/17 10:13 PT/INR, D-dimer PT 12.2 Sec. (12.2-14.9) 04/04/17 13:24 INR 0.86 (0.87-1.13) L 04/04/17 13:24 Abnormal lab findings: Abnormal Labs 04/04/17 04/04/17 04/04/17 13:23 13:24 13:24 WBC 4.2 L RBC 2.83 L Hgb 9.0 L Hct 28.6 L MCV 101 H Seg Neuts % (Manual) 93.0 H Lymphocytes % (Manual) 2.0 L Lymphocytes # (Manual) 0.1 L INR 0.86 L POC ABG pH POC ABG pCO2 POC ABG pO2 Sodium Chloride Carbon Dioxide BUN Creatinine Glucose POC Glucose Lactic Acid 2.20 H* Calcium Magnesium CK-MB (CK-2) CK-MB (CK-2) Rel Index C-Reactive Protein NT-Pro-B Natriuret Pep Total Protein Albumin 04/04/17 04/04/17 04/04/17 13:24 14:38 18:34 WBC RBC Hgb Hct MCV Seg Neuts % (Manual) Lymphocytes % (Manual) Lymphocytes # (Manual) INR POC ABG pH 7.542 H POC ABG pCO2 49.4 H POC ABG pO2 275 H Sodium 147 H Chloride 95.2 L Carbon Dioxide 43 H* BUN 22 H Creatinine 0.3 L Glucose 108 H POC Glucose Lactic Acid Calcium 7.8 L Magnesium 3.80 H CK-MB (CK-2) CK-MB (CK-2) Rel Index C-Reactive Protein 5.60 H NT-Pro-B Natriuret Pep 2373 H Total Protein 5.1 L Albumin 2.7 L 04/04/17 04/05/17 04/05/17 18:34 03:15 04:54 WBC RBC Hgb Hct MCV Seg Neuts % (Manual) Lymphocytes % (Manual) Lymphocytes # (Manual) INR POC ABG pH 7.677 H 7.533 H POC ABG pCO2 31.5 L POC ABG pO2 175 H Sodium Chloride Carbon Dioxide BUN Creatinine Glucose POC Glucose Lactic Acid Calcium Magnesium CK-MB (CK-2) 6.3 H CK-MB (CK-2) Rel Index 7.5 H C-Reactive Protein NT-Pro-B Natriuret Pep Total Protein Albumin 04/05/17 04/05/17 04/05/17 05:12 05:12 05:12 WBC RBC 3.09 L Hgb 10.0 L Hct MCV 100 H Seg Neuts % (Manual) Lymphocytes % (Manual) 12.0 L Lymphocytes # (Manual) 1.0 L INR POC ABG pH POC ABG pCO2 POC ABG pO2 Sodium Chloride 93.5 L Carbon Dioxide BUN 28 H Creatinine 0.6 L D Glucose POC Glucose Lactic Acid 4.70 H* Calcium 8.3 L Magnesium CK-MB (CK-2) CK-MB (CK-2) Rel Index C-Reactive Protein NT-Pro-B Natriuret Pep Total Protein Albumin 04/05/17 04/06/17 04/06/17 12:20 03:31 03:45 WBC RBC 2.67 L Hgb 8.5 L Hct 26.2 L MCV 98 H Seg Neuts % (Manual) Lymphocytes % (Manual) Lymphocytes # (Manual) INR POC ABG pH POC ABG pCO2 POC ABG pO2 Sodium Chloride Carbon Dioxide BUN Creatinine Glucose POC Glucose 147 H 118 H Lactic Acid Calcium Magnesium CK-MB (CK-2) CK-MB (CK-2) Rel Index C-Reactive Protein NT-Pro-B Natriuret Pep Total Protein Albumin 04/06/17 04/06/17 04/06/17 03:45 04:25 06:07 WBC RBC Hgb Hct MCV Seg Neuts % (Manual) Lymphocytes % (Manual) Lymphocytes # (Manual) INR POC ABG pH POC ABG pCO2 54.5 H POC ABG pO2 Sodium Chloride 96.2 L Carbon Dioxide 32 H BUN 24 H Creatinine 0.5 L Glucose 116 H POC Glucose 135 H Lactic Acid Calcium 7.7 L Magnesium CK-MB (CK-2) CK-MB (CK-2) Rel Index C-Reactive Protein NT-Pro-B Natriuret Pep Total Protein 5.1 L Albumin 2.5 L 04/06/17 04/06/17 04/07/17 12:06 17:40 00:05 WBC RBC Hgb Hct MCV Seg Neuts % (Manual) Lymphocytes % (Manual) Lymphocytes # (Manual) INR POC ABG pH POC ABG pCO2 POC ABG pO2 Sodium Chloride Carbon Dioxide BUN Creatinine Glucose POC Glucose 150 H 123 H 138 H Lactic Acid Calcium Magnesium CK-MB (CK-2) CK-MB (CK-2) Rel Index C-Reactive Protein NT-Pro-B Natriuret Pep Total Protein Albumin 04/07/17 04/07/17 04/07/17 04:34 05:41 10:13 WBC RBC Hgb Hct MCV Seg Neuts % (Manual) Lymphocytes % (Manual) Lymphocytes # (Manual) INR POC ABG pH 7.485 H 7.479 H POC ABG pCO2 52.1 H 56.0 H POC ABG pO2 Sodium Chloride Carbon Dioxide BUN Creatinine Glucose POC Glucose 153 H Lactic Acid Calcium Magnesium CK-MB (CK-2) CK-MB (CK-2) Rel Index C-Reactive Protein NT-Pro-B Natriuret Pep Total Protein Albumin Allied health notes reviewed: RT Critical care time in (mins) excluding proc time.: 35 Critical care attestation.: If time is entered above; I have spent that time in minutes in the direct care of this critically ill patient, excluding procedure time.
[2017-04-07] MEDS: APRESOLINE IV PRN ×2 (13:32→18:21)
[2017-04-07] MEDS ORDERED: HALDOL IV ONE (15:40)
[2017-04-07] MEDS ORDERED: ATIVAN IV ONE (16:45)
--- NOTE | 2017-04-07 17:20 | Progress Note ---
Assessment and Plan Assessment and plan: 71-year-old woman admitted to the hospital for altered mental status, acute respiratory failure Acute hypoxic and hypercapnic respiratory failure requiring mechanical ventilation less than 96 hours -Continue mechanical ventilator, pulmonary input appreciated, Discussed with son , patient with severe COPD but still smokes although son said only one cigarette daily and no exposure to second hand smoke. -Continue Nebs -attempt weaning Trial -Restraints secondary to anxiety COPD exacerbation -Steroids, nebs and antibiotics Metabolic encephalopathy Due to respiratory failure, treat underlying cause, Hypernatremia/dehydration We'll treat with half normal saline Possible Sepsis ID consult CRP Right lower lobe pneumonia possible Aspiration Continue antibiotic of above swallow eval when extubated Anemia Likely of chronic condition, will monitor closely, no gross evidence of bleeding. will check iron status. Hypoglycemia Continue D5W Severe malnutrition Dietitian consult. Tobacco abuse We'll provide tobacco cessation counseling and nicotine patches in her mental status improved No family present today. Considering recurrent admission, and severe COPD, patient with poor prognosis. Will continue to aggressively treat DVT/GI prophy The high probability of a clinically significant, sudden or life threatening deterioration of the [Pulmonary] system(s) required my full and direct attention , intervention and personal management. The aggregate critical care time was [35 ] minutes. This time is in addition to time spent performing reported procedures but includes the following: [x] Data Review and interpretation [x] Patient assessment and monitoring of vital signs [x] Documentation [x] Medication orders and management History Interval history: Patient seen and examined remains intubated, OFF Sedation, responds to verbal stimuli, gets anxious easily. Hospitalist Physical - Physical exam Narrative exam: VITAL SIGNS: Reviewed. GENERAL: The patient appeared markedly cachectic. Vital signs as documented. HEAD: No signs of head trauma. EYES: Pupils are equal. Unable to assess EARS: Hearing grossly intact. MOUTH: ET tube in place NECK: No adenopathy, no JVD. CHEST: Chest with diminished breath sounds bilaterally. No wheezes, rales, or rhonchi. CARDIAC: Regular rate and rhythm. S1 and S2, without murmurs, gallops, or rubs. VASCULAR: No Edema. Peripheral pulses normal and equal in all extremities. ABDOMEN: Soft, without detectable tenderness. No sign of distention. No rebound or guarding, and no masses palpated. Bowel Sounds normal. MUSCULOSKELETAL: Contracted, although family reports patient ambulates. Extremities without clubbing, cyanosis or edema. NEUROLOGIC EXAM: Lethargic, No focal sensory or strength deficits. . PSYCHIATRIC: Mood Anxious. SKIN: Age-appropriate wrinkles some blemishes - Constitutional Vitals: Temp Pulse Resp BP Pulse Ox 97.9 F 120 H 28 H 181/61 97 04/07/17 08:00 04/07/17 16:31 04/07/17 16:31 04/07/17 16:31 04/07/17 16:31 General appearance: Present: mild distress, cachectic Results - Labs CBC & Chem 7: 04/08/17 03:55 04/08/17 03:55 Labs: Laboratory Last Values WBC 8.6 K/mm3 (4.5-11.0) 04/06/17 03:45 RBC 2.67 M/mm3 (3.65-5.03) L 04/06/17 03:45 Hgb 8.5 gm/dl (10.1-14.3) L 04/06/17 03:45 Hct 26.2 % (30.3-42.9) L 04/06/17 03:45 MCV 98 fl (79-97) H 04/06/17 03:45 MCH 32 pg (28-32) 04/06/17 03:45 MCHC 33 % (30-34) 04/06/17 03:45 RDW 14.8 % (13.2-15.2) 04/06/17 03:45 Plt Count 257 K/mm3 (140-440) 04/06/17 03:45 Add Manual Diff Complete 04/05/17 05:12 Total Counted 100 04/05/17 05:12 Seg Neuts % (Manual) 63.0 % (40.0-70.0) 04/05/17 05:12 Band Neutrophils % 23.0 % 04/05/17 05:12 Lymphocytes % (Manual) 12.0 % (13.4-35.0) L 04/05/17 05:12 Reactive Lymphs % (Man) 0 % 04/05/17 05:12 Monocytes % (Manual) 2.0 % (0.0-7.3) 04/05/17 05:12 Eosinophils % (Manual) 0 % (0.0-4.3) 04/05/17 05:12 Basophils % (Manual) 0 % (0.0-1.8) 04/05/17 05:12 Metamyelocytes % 0 % 04/05/17 05:12 Myelocytes % 0 % 04/05/17 05:12 Promyelocytes % 0 % 04/05/17 05:12 Blast Cells % 0 % 04/05/17 05:12 Nucleated RBC % Not Reportable 04/05/17 05:12 Seg Neutrophils # Man 5.4 K/mm3 (1.8-7.7) 04/05/17 05:12 Band Neutrophils # 2.0 K/mm3 04/05/17 05:12 Lymphocytes # (Manual) 1.0 K/mm3 (1.2-5.4) L 04/05/17 05:12 Abs React Lymphs (Man) 0.0 K/mm3 04/05/17 05:12 Monocytes # (Manual) 0.2 K/mm3 (0.0-0.8) 04/05/17 05:12 Eosinophils # (Manual) 0.0 K/mm3 (0.0-0.4) 04/05/17 05:12 Basophils # (Manual) 0.0 K/mm3 (0.0-0.1) 04/05/17 05:12 Metamyelocytes # 0.0 K/mm3 04/05/17 05:12 Myelocytes # 0.0 K/mm3 04/05/17 05:12 Promyelocytes # 0.0 K/mm3 04/05/17 05:12 Blast Cells # 0.0 K/mm3 04/05/17 05:12 WBC Morphology Not Reportable 04/05/17 05:12 Hypersegmented Neuts Not Reportable 04/05/17 05:12 Hyposegmented Neuts Not Reportable 04/05/17 05:12 Hypogranular Neuts Not Reportable 04/05/17 05:12 Smudge Cells Not Reportable 04/05/17 05:12 Toxic Granulation Not Reportable 04/05/17 05:12 Toxic Vacuolation Not Reportable 04/05/17 05:12 Dohle Bodies Not Reportable 04/05/17 05:12 Pelger-Huet Anomaly Not Reportable 04/05/17 05:12 Trudy Rods Not Reportable 04/05/17 05:12 Platelet Estimate Appears normal 04/05/17 05:12 Clumped Platelets Not Reportable 04/05/17 05:12 Plt Clumps, EDTA Not Reportable 04/05/17 05:12 Large Platelets Not Reportable 04/05/17 05:12 Giant Platelets Not Reportable 04/05/17 05:12 Platelet Satelliting Not Reportable 04/05/17 05:12 Plt Morphology Comment Not Reportable 04/05/17 05:12 RBC Morphology Not Reportable 04/05/17 05:12 Dimorphic RBCs Not Reportable 04/05/17 05:12 Polychromasia Not Reportable 04/05/17 05:12 Hypochromasia Not Reportable 04/05/17 05:12 Poikilocytosis Not Reportable 04/05/17 05:12 Anisocytosis 1+ 04/05/17 05:12 Microcytosis Not Reportable 04/05/17 05:12 Macrocytosis Not Reportable 04/05/17 05:12 Spherocytes Not Reportable 04/05/17 05:12 Pappenheimer Bodies Not Reportable 04/05/17 05:12 Sickle Cells Not Reportable 04/05/17 05:12 Target Cells Not Reportable 04/05/17 05:12 Tear Drop Cells Not Reportable 04/05/17 05:12 Ovalocytes Not Reportable 04/05/17 05:12 Stomatocytes 1+ 04/05/17 05:12 Helmet Cells Not Reportable 04/05/17 05:12 Chu-[place] Bodies Not Reportable 04/05/17 05:12 Daggett Rings Not Reportable 04/05/17 05:12 Benjamin Cells Not Reportable 04/05/17 05:12 Bite Cells Not Reportable 04/05/17 05:12 Crenated Cell Not Reportable 04/05/17 05:12 Elliptocytes Not Reportable 04/05/17 05:12 Acanthocytes (Spur) Not Reportable 04/05/17 05:12 Rouleaux Not Reportable 04/05/17 05:12 Hemoglobin C Crystals Not Reportable 04/05/17 05:12 Schistocytes Not Reportable 04/05/17 05:12 Malaria parasites Not Reportable 04/05/17 05:12 Brandon Bodies Not Reportable 04/05/17 05:12 Hem Pathologist Commnt No 04/05/17 05:12 PT 12.2 Sec. (12.2-14.9) 04/04/17 13:24 INR 0.86 (0.87-1.13) L 04/04/17 13:24 APTT 32.6 Sec. (24.2-36.6) 04/04/17 13:24 POC ABG pH 7.479 (7.35-7.45) H 04/07/17 10:13 POC ABG pCO2 56.0 (35-45) H 04/07/17 10:13 POC ABG pO2 82 (80-105) 04/07/17 10:13 POC ABG HCO3 41.7 04/07/17 10:13 POC ABG Total CO2 43 04/07/17 10:13 POC ABG O2 Sat 96 04/07/17 10:13 POC ABG Base Excess 18 04/07/17 10:13 VBG pH 7.333 (7.320-7.420) 04/04/17 13:23 FiO2 30 % 04/07/17 10:13 Sodium 138 mmol/L (137-145) 04/06/17 03:45 Potassium 4.2 mmol/L (3.6-5.0) 04/06/17 03:45 Chloride 96.2 mmol/L (98-107) L 04/06/17 03:45 Carbon Dioxide 32 mmol/L (22-30) H 04/06/17 03:45 Anion Gap 14 mmol/L 04/06/17 03:45 BUN 24 mg/dL (7-17) H 04/06/17 03:45 Creatinine 0.5 mg/dL (0.7-1.2) L 04/06/17 03:45 Estimated GFR > 60 ml/min 04/06/17 03:45 BUN/Creatinine Ratio 48 % 04/06/17 03:45 Glucose 116 mg/dL (65-100) H 04/06/17 03:45 POC Glucose 116 (70-105) H 04/07/17 11:36 Lactic Acid 1.70 mmol/L (0.7-2.0) 04/06/17 03:45 Calcium 7.7 mg/dL (8.4-10.2) L 04/06/17 03:45 Phosphorus 3.60 mg/dL (2.5-4.5) 04/06/17 03:45 Magnesium 1.90 mg/dL (1.7-2.3) 04/06/17 03:45 Total Bilirubin 0.20 mg/dL (0.1-1.2) 04/06/17 03:45 Direct Bilirubin < 0.2 mg/dL (0-0.2) 04/04/17 13:24 Indirect Bilirubin 0.0 mg/dL 04/04/17 13:24 AST 28 units/L (5-40) 04/06/17 03:45 ALT 13 units/L (7-56) 04/06/17 03:45 Alkaline Phosphatase 77 units/L (35-129) 04/06/17 03:45 Total Creatine Kinase 83 units/L (30-135) 04/04/17 18:34 CK-MB (CK-2) 6.3 ng/mL (0.0-4.0) H 04/04/17 18:34 CK-MB (CK-2) Rel Index 7.5 (0-4) H 04/04/17 18:34 Troponin T < 0.010 ng/mL (0.00-0.029) 04/04/17 18:34 C-Reactive Protein 5.60 mg/dL (0.00-1.30) H 04/04/17 18:34 NT-Pro-B Natriuret Pep 2373 pg/mL (0-900) H 04/04/17 13:24 Total Protein 5.1 g/dL (6.3-8.2) L 04/06/17 03:45 Albumin 2.5 g/dL (3.9-5) L 04/06/17 03:45 Albumin/Globulin Ratio 1.0 % 04/06/17 03:45 Urine Color Yellow (Yellow) 04/04/17 14:25 Urine Turbidity Clear (Clear) 04/04/17 14:25 Urine pH 7.0 (5.0-7.0) 04/04/17 14:25 Ur Specific [place] 1.009 (1.003-1.030) 04/04/17 14:25 Urine Protein <15 mg/dl mg/dL (Negative) 04/04/17 14:25 Urine Glucose (UA) Neg mg/dL (Negative) 04/04/17 14:25 Urine Ketones Tr mg/dL (Negative) 04/04/17 14:25 Urine Blood Sm (Negative) 04/04/17 14:25 Urine Nitrite Neg (Negative) 04/04/17 14:25 Urine Bilirubin Neg (Negative) 04/04/17 14:25 Urine Urobilinogen < 2.0 mg/dL (<2.0) 04/04/17 14:25 Ur Leukocyte Esterase Neg (Negative) 04/04/17 14:25 Urine WBC (Auto) 2.0 /HPF (0.0-6.0) 04/04/17 14:25 Urine RBC (Auto) 4.0 /HPF (0.0-6.0) 04/04/17 14:25 Urine Bacteria (Auto) 1+ /HPF (Negative) 04/04/17 14:25 Urine Mucus Few /HPF 04/04/17 14:25 Urine Opiates Screen Presumptive negative 04/05/17 21:50 Urine Methadone Screen Presumptive negative 04/05/17 21:50 Ur Barbiturates Screen Presumptive negative 04/05/17 21:50 Ur Phencyclidine Scrn Presumptive negative 04/05/17 21:50 Ur Amphetamines Screen Presumptive negative 04/05/17 21:50 U Benzodiazepines Scrn Presumptive positive 04/05/17 21:50 Urine Cocaine Screen Presumptive negative 04/05/17 21:50 U Marijuana (THC) Screen Presumptive negative 04/05/17 21:50 Drugs of Abuse Note Disclamer 04/05/17 21:50
[2017-04-07] MEDS ORDERED: APRESOLINE IV PRN (17:21)
[2017-04-07] MEDS ORDERED: NORVASC PO SCH (18:00)
[2017-04-07] MEDS ORDERED: ATIVAN IV PRN (18:55)
[2017-04-07] MEDS: NORVASC PO SCH (18:58)
[2017-04-07] MEDS: XANAX PO SCH (18:59)
[2017-04-08] MEDS: DUONEB *Not for PRN Use IH SCH ×4 (02:32→19:11)
[2017-04-08 04:35] LABS: Hematocrit 31.4 % (30.3-42.9); Hemoglobin 10.3 gm/dl (10.1-14.3); Mean Corpuscular HGB Conc 33 % (30-34); Mean Corpuscular Hemoglobin 31 pg (28-32); Mean Corpuscular Volume 95 fl (79-97); Platelet Count 285 K/mm3 (140-440); Red Cell Distribution Width 14.7 % (13.2-15.2); White Blood Count 12.4 K/mm3 (4.5-11.0)
[2017-04-08] MEDS: ZOSYN/NS 3.375GM/50ML 3.375 GM/50 ML BAG IV SCH ×3 (04:40→22:35)
[2017-04-08 04:50] LABS: Anion Gap 16 mmol/L; BUN/Creatinine Ratio 47; Blood Urea Nitrogen 14 mg/dL (7-17); Carbon Dioxide 33 mmol/L (22-30); Chloride 97.4 mmol/L (98-107); Glucose 96 mg/dL (65-100); Potassium 3.1 mmol/L (3.6-5.0); Sodium 143 mmol/L (137-145)
[2017-04-08] MEDS: PULMICORT IH SCH ×2 (08:04→19:11)
[2017-04-08] MEDS: BROVANA NEBU IH SCH ×2 (08:04→19:11)
--- NOTE | 2017-04-08 10:40 | Progress Note ---
Assessment and Plan Acute on Chronic Hypercapnic Hypoxemic Respiratory Failure Acute COPD exacerbation Acute Encephalopathy (Toxic-Metabolic) Tobacco Use Disorder - continue to wean oxygen for O2 Sats > 92% - continue aspiration precautions - BIPAP prn for SOB / wheezing - continue bronchodilators and pulmonary hygeine per RT - Agitation management (Avoid benzodiazepines if possible) - continue systemic steroids but taper - continue AB's and de-escalate shortly - ST evaluation and advance diet - started tobacco abstinence counselling already - continue GI & VTE prophylaxis - continue other care per attending / other consultants ....35' Subjective Date of service: 04/08/17 Principal diagnosis: Acute on Chronic Hypoxemic Respiratory Failure; Sepsis Syndrome Interval history: Patient is seen today for: Acute on Chronic Hypercapnic Hypoxemic respiratory Failure; Sepsis Syndrome Seen and examined at bedside; 24 hour events reviewed; nursing and respiratory care staff consulted; doing well post extubation so far; somnolent; no emesis or overt aspiration; denies acute chest pains or increased SOB Objective Vital Signs - 12hr 04/07/17 04/07/17 04/07/17 22:57 23:01 23:20 Temperature 98.8 F Pulse Rate 89 87 Pulse Rate [ Anterior Bilateral Throughout] Respiratory 21 22 Rate Respiratory Rate [Anterior Bilateral Throughout] Blood Pressure 161/59 161/59 O2 Sat by Pulse 100 100 Oximetry 04/07/17 04/08/17 04/08/17 23:30 00:00 00:30 Temperature Pulse Rate 85 83 83 Pulse Rate [ Anterior Bilateral Throughout] Respiratory 23 27 H 24 Rate Respiratory Rate [Anterior Bilateral Throughout] Blood Pressure 116/52 107/56 116/53 O2 Sat by Pulse 100 100 100 Oximetry 04/08/17 04/08/17 04/08/17 01:00 01:31 02:00 Temperature Pulse Rate 82 82 88 Pulse Rate [ Anterior Bilateral Throughout] Respiratory 21 17 20 Rate Respiratory Rate [Anterior Bilateral Throughout] Blood Pressure 106/55 134/63 134/63 O2 Sat by Pulse 100 99 100 Oximetry 04/08/17 04/08/17 04/08/17 02:30 02:31 02:45 Temperature Pulse Rate 93 H Pulse Rate [ 99 H 95 H Anterior Bilateral Throughout] Respiratory 17 Rate Respiratory 24 18 Rate [Anterior Bilateral Throughout] Blood Pressure 133/75 O2 Sat by Pulse 99 Oximetry 04/08/17 04/08/17 04/08/17 03:00 03:21 03:30 Temperature 98.4 F Pulse Rate 93 H 88 Pulse Rate [ Anterior Bilateral Throughout] Respiratory 17 19 Rate Respiratory Rate [Anterior Bilateral Throughout] Blood Pressure 126/69 135/59 O2 Sat by Pulse 100 100 Oximetry 04/08/17 04/08/17 04/08/17 04:00 04:30 05:00 Temperature Pulse Rate 98 H 102 H 95 H Pulse Rate [ Anterior Bilateral Throughout] Respiratory 11 L 13 19 Rate Respiratory Rate [Anterior Bilateral Throughout] Blood Pressure 135/69 117/51 130/64 O2 Sat by Pulse 97 98 Oximetry 04/08/17 04/08/17 04/08/17 05:31 06:00 07:00 Temperature Pulse Rate 98 H 102 H Pulse Rate [ Anterior Bilateral Throughout] Respiratory 21 16 19 Rate Respiratory Rate [Anterior Bilateral Throughout] Blood Pressure 125/56 127/62 146/64 O2 Sat by Pulse 100 100 99 Oximetry 04/08/17 04/08/17 04/08/17 07:30 08:00 08:02 Temperature 97.6 F Pulse Rate 92 H 88 Pulse Rate [ 98 H Anterior Bilateral Throughout] Respiratory 21 19 Rate Respiratory 17 Rate [Anterior Bilateral Throughout] Blood Pressure 157/67 153/66 O2 Sat by Pulse 98 Oximetry 04/08/17 04/08/17 04/08/17 08:14 08:30 09:00 Temperature Pulse Rate 104 H 97 H Pulse Rate [ 94 H Anterior Bilateral Throughout] Respiratory 19 23 Rate Respiratory 20 Rate [Anterior Bilateral Throughout] Blood Pressure 142/70 153/67 O2 Sat by Pulse Oximetry Constitutional: appears uncomfortable, other (sedated lightly) Eyes: non-icteric ENT: oropharynx moist, other (no thyromegaly) Neck: supple, no lymphadenopathy, no JVD, other (ETT in place) Effort: mildly labored Ascultation: Bilateral: diminished breath sounds, rhonchi (bases), other ( prolonged exp phase) Cardiovascular: regular rate and rhythm, other (No rubs / murmurs) Gastrointestinal: normoactive bowel sounds, soft, non-tender, non-distended, other (No HSM) Integumentary: normal Extremities: no cyanosis, no edema, pink and warm, pulses normal Neurologic: normal mental status, non-focal exam, pupils equal and round, motor strength normal and Psychiatric: anxious CBC and BMP: 04/10/17 06:05 04/10/17 06:05 ABG, PT/INR, D-dimer: ABG POC ABG pH 7.479 (7.35-7.45) H 04/07/17 10:13 POC ABG pCO2 56.0 (35-45) H 04/07/17 10:13 POC ABG pO2 82 (80-105) 04/07/17 10:13 POC ABG HCO3 41.7 04/07/17 10:13 POC ABG Total CO2 43 04/07/17 10:13 POC ABG O2 Sat 96 04/07/17 10:13 PT/INR, D-dimer PT 12.2 Sec. (12.2-14.9) 04/04/17 13:24 INR 0.86 (0.87-1.13) L 04/04/17 13:24 Abnormal lab findings: Abnormal Labs 04/04/17 04/04/17 04/04/17 13:23 13:24 13:24 WBC 4.2 L RBC 2.83 L Hgb 9.0 L Hct 28.6 L MCV 101 H Seg Neuts % (Manual) 93.0 H Lymphocytes % (Manual) 2.0 L Lymphocytes # (Manual) 0.1 L INR 0.86 L POC ABG pH POC ABG pCO2 POC ABG pO2 Sodium Potassium Chloride Carbon Dioxide BUN Creatinine Glucose POC Glucose Lactic Acid 2.20 H* Calcium Magnesium CK-MB (CK-2) CK-MB (CK-2) Rel Index C-Reactive Protein NT-Pro-B Natriuret Pep Total Protein Albumin 04/04/17 04/04/17 04/04/17 13:24 14:38 18:34 WBC RBC Hgb Hct MCV Seg Neuts % (Manual) Lymphocytes % (Manual) Lymphocytes # (Manual) INR POC ABG pH 7.542 H POC ABG pCO2 49.4 H POC ABG pO2 275 H Sodium 147 H Potassium Chloride 95.2 L Carbon Dioxide 43 H* BUN 22 H Creatinine 0.3 L Glucose 108 H POC Glucose Lactic Acid Calcium 7.8 L Magnesium 3.80 H CK-MB (CK-2) CK-MB (CK-2) Rel Index C-Reactive Protein 5.60 H NT-Pro-B Natriuret Pep 2373 H Total Protein 5.1 L Albumin 2.7 L 04/04/17 04/05/17 04/05/17 18:34 03:15 04:54 WBC RBC Hgb Hct MCV Seg Neuts % (Manual) Lymphocytes % (Manual) Lymphocytes # (Manual) INR POC ABG pH 7.677 H 7.533 H POC ABG pCO2 31.5 L POC ABG pO2 175 H Sodium Potassium Chloride Carbon Dioxide BUN Creatinine Glucose POC Glucose Lactic Acid Calcium Magnesium CK-MB (CK-2) 6.3 H CK-MB (CK-2) Rel Index 7.5 H C-Reactive Protein NT-Pro-B Natriuret Pep Total Protein Albumin 04/05/17 04/05/17 04/05/17 05:12 05:12 05:12 WBC RBC 3.09 L Hgb 10.0 L Hct MCV 100 H Seg Neuts % (Manual) Lymphocytes % (Manual) 12.0 L Lymphocytes # (Manual) 1.0 L INR POC ABG pH POC ABG pCO2 POC ABG pO2 Sodium Potassium Chloride 93.5 L Carbon Dioxide BUN 28 H Creatinine 0.6 L D Glucose POC Glucose Lactic Acid 4.70 H* Calcium 8.3 L Magnesium CK-MB (CK-2) CK-MB (CK-2) Rel Index C-Reactive Protein NT-Pro-B Natriuret Pep Total Protein Albumin 04/05/17 04/06/17 04/06/17 12:20 03:31 03:45 WBC RBC 2.67 L Hgb 8.5 L Hct 26.2 L MCV 98 H Seg Neuts % (Manual) Lymphocytes % (Manual) Lymphocytes # (Manual) INR POC ABG pH POC ABG pCO2 POC ABG pO2 Sodium Potassium Chloride Carbon Dioxide BUN Creatinine Glucose POC Glucose 147 H 118 H Lactic Acid Calcium Magnesium CK-MB (CK-2) CK-MB (CK-2) Rel Index C-Reactive Protein NT-Pro-B Natriuret Pep Total Protein Albumin 04/06/17 04/06/17 04/06/17 03:45 04:25 06:07 WBC RBC Hgb Hct MCV Seg Neuts % (Manual) Lymphocytes % (Manual) Lymphocytes # (Manual) INR POC ABG pH POC ABG pCO2 54.5 H POC ABG pO2 Sodium Potassium Chloride 96.2 L Carbon Dioxide 32 H BUN 24 H Creatinine 0.5 L Glucose 116 H POC Glucose 135 H Lactic Acid Calcium 7.7 L Magnesium CK-MB (CK-2) CK-MB (CK-2) Rel Index C-Reactive Protein NT-Pro-B Natriuret Pep Total Protein 5.1 L Albumin 2.5 L 04/06/17 04/06/17 04/07/17 12:06 17:40 00:05 WBC RBC Hgb Hct MCV Seg Neuts % (Manual) Lymphocytes % (Manual) Lymphocytes # (Manual) INR POC ABG pH POC ABG pCO2 POC ABG pO2 Sodium Potassium Chloride Carbon Dioxide BUN Creatinine Glucose POC Glucose 150 H 123 H 138 H Lactic Acid Calcium Magnesium CK-MB (CK-2) CK-MB (CK-2) Rel Index C-Reactive Protein NT-Pro-B Natriuret Pep Total Protein Albumin 04/07/17 04/07/17 04/07/17 04:34 05:41 10:13 WBC RBC Hgb Hct MCV Seg Neuts % (Manual) Lymphocytes % (Manual) Lymphocytes # (Manual) INR POC ABG pH 7.485 H 7.479 H POC ABG pCO2 52.1 H 56.0 H POC ABG pO2 Sodium Potassium Chloride Carbon Dioxide BUN Creatinine Glucose POC Glucose 153 H Lactic Acid Calcium Magnesium CK-MB (CK-2) CK-MB (CK-2) Rel Index C-Reactive Protein NT-Pro-B Natriuret Pep Total Protein Albumin 04/07/17 04/07/17 04/08/17 11:36 23:56 03:55 WBC 12.4 H RBC 3.30 L Hgb Hct MCV Seg Neuts % (Manual) Lymphocytes % (Manual) Lymphocytes # (Manual) INR POC ABG pH POC ABG pCO2 POC ABG pO2 Sodium Potassium Chloride Carbon Dioxide BUN Creatinine Glucose POC Glucose 116 H 141 H Lactic Acid Calcium Magnesium CK-MB (CK-2) CK-MB (CK-2) Rel Index C-Reactive Protein NT-Pro-B Natriuret Pep Total Protein Albumin 04/08/17 04/08/17 03:55 05:26 WBC RBC Hgb Hct MCV Seg Neuts % (Manual) Lymphocytes % (Manual) Lymphocytes # (Manual) INR POC ABG pH POC ABG pCO2 POC ABG pO2 Sodium Potassium 3.1 L D Chloride 97.4 L Carbon Dioxide 33 H BUN Creatinine 0.3 L Glucose POC Glucose 122 H Lactic Acid Calcium 8.0 L Magnesium CK-MB (CK-2) CK-MB (CK-2) Rel Index C-Reactive Protein NT-Pro-B Natriuret Pep Total Protein Albumin Chest x-ray: image reviewed Allied health notes reviewed: RT
[2017-04-08] MEDS: NORVASC PO SCH (10:55)
[2017-04-08] MEDS: LOVENOX SUB-Q SCH (10:55)
[2017-04-08] MEDS: PEPCID PO SCH ×2 (10:55→22:24)
[2017-04-08] MEDS: XANAX PO SCH (10:56)
[2017-04-08] MEDS ORDERED: POTASSIUM CHLORIDE FEEDTUBE NR (11:00)
--- NOTE | 2017-04-08 14:46 | Progress Note ---
Subjective Date of service: 04/08/17 Principal diagnosis: Acute on Chronic Hypoxemic Respiratory Failure; Sepsis Syndrome Interval history: Extubated on the floor, c/o back pain, no fever. Microbiology: Blood cultures: 04/04 GPC 1 of 4 bottles 04/07 ngtd Urine cultures: 04/04 neg Influenza: negative Current Antimicrobials: zosyn 04/05 Previous Antimicrobials: levaquin vanco Objective - Constitutional Vitals: Vital Signs Temp Pulse Resp BP Pulse Ox 97.6 F 91 H 20 149/62 83 L 04/08/17 08:00 04/08/17 12:30 04/08/17 12:30 04/08/17 12:30 04/08/17 12:01 Temperature -Last 24 Hours Temperature 97.6 F Temperature 98.4 F Temperature 98.8 F Temperature 98.2 F - Labs CBC & Chem 7: 04/08/17 03:55 04/08/17 03:55 Labs: Abnormal lab results 04/07/17 04/08/17 04/08/17 Range/Units 23:56 03:55 03:55 WBC 12.4 H (4.5-11.0) K/mm3 RBC 3.30 L (3.65-5.03) M/mm3 Potassium 3.1 L D (3.6-5.0) mmol/L Chloride 97.4 L (98-107) mmol/L Carbon Dioxide 33 H (22-30) mmol/L Creatinine 0.3 L (0.7-1.2) mg/dL POC Glucose 141 H (70-105) Calcium 8.0 L (8.4-10.2) mg/dL 04/08/17 Range/Units 05:26 WBC (4.5-11.0) K/mm3 RBC (3.65-5.03) M/mm3 Potassium (3.6-5.0) mmol/L Chloride (98-107) mmol/L Carbon Dioxide (22-30) mmol/L Creatinine (0.7-1.2) mg/dL POC Glucose 122 H (70-105) Calcium (8.4-10.2) mg/dL
--- NOTE | 2017-04-08 16:49 | Progress Note ---
Assessment and Plan Assessment and plan: 71-year-old woman admitted to the hospital for altered mental status, acute respiratory failure Acute hypoxic and hypercapnic respiratory failure requiring mechanical ventilation less than 96 hours -Extubated. pulmonary input appreciated, Discussed with son, patient with severe COPD but still smokes although son said only one cigarette daily and no exposure to second hand smoke. -Continue Nebs -attempt weaning Trial -Restraints secondary to anxiety -Transfer to Medical floor. COPD exacerbation -Steroids, nebs and antibiotics Metabolic encephalopathy Due to respiratory failure, treat underlying cause, Hypernatremia/dehydration We'll treat with half normal saline Possible Sepsis ID consult CRP Right lower lobe pneumonia possible Aspiration Continue antibiotic of above swallow eval when extubated Anemia Likely of chronic condition, will monitor closely, no gross evidence of bleeding. will check iron status. Hypoglycemia Continue D5W Severe malnutrition Dietitian consult. Tobacco abuse We'll provide tobacco cessation counseling and nicotine patches in her mental status improved No family present today. Considering recurrent admission, and severe COPD, patient with poor prognosis. Will continue to aggressively treat DVT/GI prophy The high probability of a clinically significant, sudden or life threatening deterioration of the [Pulmonary] system(s) required my full and direct attention , intervention and personal management. The aggregate critical care time was [35 ] minutes. This time is in addition to time spent performing reported procedures but includes the following: [x] Data Review and interpretation [x] Patient assessment and monitoring of vital signs [x] Documentation [x] Medication orders and management History Interval history: Patient seen and examined remains intubated, OFF Sedation, responds to verbal stimuli, gets anxious easily. Hospitalist Physical - Physical exam Narrative exam: VITAL SIGNS: Reviewed. GENERAL: The patient appeared markedly cachectic. Vital signs as documented. HEAD: No signs of head trauma. EYES: Pupils are equal. Unable to assess EARS: Hearing grossly intact. MOUTH: ET tube in place NECK: No adenopathy, no JVD. CHEST: Chest with diminished breath sounds bilaterally. No wheezes, rales, or rhonchi. CARDIAC: Regular rate and rhythm. S1 and S2, without murmurs, gallops, or rubs. VASCULAR: No Edema. Peripheral pulses normal and equal in all extremities. ABDOMEN: Soft, without detectable tenderness. No sign of distention. No rebound or guarding, and no masses palpated. Bowel Sounds normal. MUSCULOSKELETAL: Contracted, although family reports patient ambulates. Extremities without clubbing, cyanosis or edema. NEUROLOGIC EXAM: Lethargic, No focal sensory or strength deficits. . PSYCHIATRIC: Mood Anxious. SKIN: Age-appropriate wrinkles some blemishes - Constitutional Vitals: Temp Pulse Resp BP Pulse Ox 97.6 F 95 H 18 149/62 83 L 04/08/17 08:00 04/08/17 14:20 04/08/17 14:20 04/08/17 12:30 04/08/17 12:01 General appearance: Present: mild distress, cachectic Results - Labs CBC & Chem 7: 04/09/17 05:01 04/09/17 05:01 Labs: Laboratory Last Values WBC 12.4 K/mm3 (4.5-11.0) H 04/08/17 03:55 RBC 3.30 M/mm3 (3.65-5.03) L 04/08/17 03:55 Hgb 10.3 gm/dl (10.1-14.3) 04/08/17 03:55 Hct 31.4 % (30.3-42.9) 04/08/17 03:55 MCV 95 fl (79-97) 04/08/17 03:55 MCH 31 pg (28-32) 04/08/17 03:55 MCHC 33 % (30-34) 04/08/17 03:55 RDW 14.7 % (13.2-15.2) 04/08/17 03:55 Plt Count 285 K/mm3 (140-440) 04/08/17 03:55 Add Manual Diff Complete 04/05/17 05:12 Total Counted 100 04/05/17 05:12 Seg Neuts % (Manual) 63.0 % (40.0-70.0) 04/05/17 05:12 Band Neutrophils % 23.0 % 04/05/17 05:12 Lymphocytes % (Manual) 12.0 % (13.4-35.0) L 04/05/17 05:12 Reactive Lymphs % (Man) 0 % 04/05/17 05:12 Monocytes % (Manual) 2.0 % (0.0-7.3) 04/05/17 05:12 Eosinophils % (Manual) 0 % (0.0-4.3) 04/05/17 05:12 Basophils % (Manual) 0 % (0.0-1.8) 04/05/17 05:12 Metamyelocytes % 0 % 04/05/17 05:12 Myelocytes % 0 % 04/05/17 05:12 Promyelocytes % 0 % 04/05/17 05:12 Blast Cells % 0 % 04/05/17 05:12 Nucleated RBC % Not Reportable 04/05/17 05:12 Seg Neutrophils # Man 5.4 K/mm3 (1.8-7.7) 04/05/17 05:12 Band Neutrophils # 2.0 K/mm3 04/05/17 05:12 Lymphocytes # (Manual) 1.0 K/mm3 (1.2-5.4) L 04/05/17 05:12 Abs React Lymphs (Man) 0.0 K/mm3 04/05/17 05:12 Monocytes # (Manual) 0.2 K/mm3 (0.0-0.8) 04/05/17 05:12 Eosinophils # (Manual) 0.0 K/mm3 (0.0-0.4) 04/05/17 05:12 Basophils # (Manual) 0.0 K/mm3 (0.0-0.1) 04/05/17 05:12 Metamyelocytes # 0.0 K/mm3 04/05/17 05:12 Myelocytes # 0.0 K/mm3 04/05/17 05:12 Promyelocytes # 0.0 K/mm3 04/05/17 05:12 Blast Cells # 0.0 K/mm3 04/05/17 05:12 WBC Morphology Not Reportable 04/05/17 05:12 Hypersegmented Neuts Not Reportable 04/05/17 05:12 Hyposegmented Neuts Not Reportable 04/05/17 05:12 Hypogranular Neuts Not Reportable 04/05/17 05:12 Smudge Cells Not Reportable 04/05/17 05:12 Toxic Granulation Not Reportable 04/05/17 05:12 Toxic Vacuolation Not Reportable 04/05/17 05:12 Dohle Bodies Not Reportable 04/05/17 05:12 Pelger-Huet Anomaly Not Reportable 04/05/17 05:12 Trudy Rods Not Reportable 04/05/17 05:12 Platelet Estimate Appears normal 04/05/17 05:12 Clumped Platelets Not Reportable 04/05/17 05:12 Plt Clumps, EDTA Not Reportable 04/05/17 05:12 Large Platelets Not Reportable 04/05/17 05:12 Giant Platelets Not Reportable 04/05/17 05:12 Platelet Satelliting Not Reportable 04/05/17 05:12 Plt Morphology Comment Not Reportable 04/05/17 05:12 RBC Morphology Not Reportable 04/05/17 05:12 Dimorphic RBCs Not Reportable 04/05/17 05:12 Polychromasia Not Reportable 04/05/17 05:12 Hypochromasia Not Reportable 04/05/17 05:12 Poikilocytosis Not Reportable 04/05/17 05:12 Anisocytosis 1+ 04/05/17 05:12 Microcytosis Not Reportable 04/05/17 05:12 Macrocytosis Not Reportable 04/05/17 05:12 Spherocytes Not Reportable 04/05/17 05:12 Pappenheimer Bodies Not Reportable 04/05/17 05:12 Sickle Cells Not Reportable 04/05/17 05:12 Target Cells Not Reportable 04/05/17 05:12 Tear Drop Cells Not Reportable 04/05/17 05:12 Ovalocytes Not Reportable 04/05/17 05:12 Stomatocytes 1+ 04/05/17 05:12 Helmet Cells Not Reportable 04/05/17 05:12 [place] Bodies Not Reportable 04/05/17 05:12 [place] Rings Not Reportable 04/05/17 05:12 [place] Cells Not Reportable 04/05/17 05:12 Bite Cells Not Reportable 04/05/17 05:12 Crenated Cell Not Reportable 04/05/17 05:12 Elliptocytes Not Reportable 04/05/17 05:12 Acanthocytes (Spur) Not Reportable 04/05/17 05:12 Rouleaux Not Reportable 04/05/17 05:12 Hemoglobin C Crystals Not Reportable 04/05/17 05:12 Schistocytes Not Reportable 04/05/17 05:12 Malaria parasites Not Reportable 04/05/17 05:12 [place] Bodies Not Reportable 04/05/17 05:12 Hem Pathologist Commnt No 04/05/17 05:12 PT 12.2 Sec. (12.2-14.9) 04/04/17 13:24 INR 0.86 (0.87-1.13) L 04/04/17 13:24 APTT 32.6 Sec. (24.2-36.6) 04/04/17 13:24 POC ABG pH 7.479 (7.35-7.45) H 04/07/17 10:13 POC ABG pCO2 56.0 (35-45) H 04/07/17 10:13 POC ABG pO2 82 (80-105) 04/07/17 10:13 POC ABG HCO3 41.7 04/07/17 10:13 POC ABG Total CO2 43 04/07/17 10:13 POC ABG O2 Sat 96 04/07/17 10:13 POC ABG Base Excess 18 04/07/17 10:13 VBG pH 7.333 (7.320-7.420) 04/04/17 13:23 FiO2 30 % 04/07/17 10:13 Sodium 143 mmol/L (137-145) 04/08/17 03:55 Potassium 3.1 mmol/L (3.6-5.0) L D 04/08/17 03:55 Chloride 97.4 mmol/L (98-107) L 04/08/17 03:55 Carbon Dioxide 33 mmol/L (22-30) H 04/08/17 03:55 Anion Gap 16 mmol/L 04/08/17 03:55 BUN 14 mg/dL (7-17) 04/08/17 03:55 Creatinine 0.3 mg/dL (0.7-1.2) L 04/08/17 03:55 Estimated GFR > 60 ml/min 04/08/17 03:55 BUN/Creatinine Ratio 47 % 04/08/17 03:55 Glucose 96 mg/dL (65-100) 04/08/17 03:55 POC Glucose 122 (70-105) H 04/08/17 05:26 Lactic Acid 1.70 mmol/L (0.7-2.0) 04/06/17 03:45 Calcium 8.0 mg/dL (8.4-10.2) L 04/08/17 03:55 Phosphorus 3.60 mg/dL (2.5-4.5) 04/06/17 03:45 Magnesium 1.90 mg/dL (1.7-2.3) 04/06/17 03:45 Total Bilirubin 0.20 mg/dL (0.1-1.2) 04/06/17 03:45 Direct Bilirubin < 0.2 mg/dL (0-0.2) 04/04/17 13:24 Indirect Bilirubin 0.0 mg/dL 04/04/17 13:24 AST 28 units/L (5-40) 04/06/17 03:45 ALT 13 units/L (7-56) 04/06/17 03:45 Alkaline Phosphatase 77 units/L (35-129) 04/06/17 03:45 Total Creatine Kinase 83 units/L (30-135) 04/04/17 18:34 CK-MB (CK-2) 6.3 ng/mL (0.0-4.0) H 04/04/17 18:34 CK-MB (CK-2) Rel Index 7.5 (0-4) H 04/04/17 18:34 Troponin T < 0.010 ng/mL (0.00-0.029) 04/04/17 18:34 C-Reactive Protein 5.60 mg/dL (0.00-1.30) H 04/04/17 18:34 NT-Pro-B Natriuret Pep 2373 pg/mL (0-900) H 04/04/17 13:24 Total Protein 5.1 g/dL (6.3-8.2) L 04/06/17 03:45 Albumin 2.5 g/dL (3.9-5) L 04/06/17 03:45 Albumin/Globulin Ratio 1.0 % 04/06/17 03:45 Urine Color Yellow (Yellow) 04/04/17 14:25 Urine Turbidity Clear (Clear) 04/04/17 14:25 Urine pH 7.0 (5.0-7.0) 04/04/17 14:25 Ur Specific [place] 1.009 (1.003-1.030) 04/04/17 14:25 Urine Protein <15 mg/dl mg/dL (Negative) 04/04/17 14:25 Urine Glucose (UA) Neg mg/dL (Negative) 04/04/17 14:25 Urine Ketones Tr mg/dL (Negative) 04/04/17 14:25 Urine Blood Sm (Negative) 04/04/17 14:25 Urine Nitrite Neg (Negative) 04/04/17 14:25 Urine Bilirubin Neg (Negative) 04/04/17 14:25 Urine Urobilinogen < 2.0 mg/dL (<2.0) 04/04/17 14:25 Ur Leukocyte Esterase Neg (Negative) 04/04/17 14:25 Urine WBC (Auto) 2.0 /HPF (0.0-6.0) 04/04/17 14:25 Urine RBC (Auto) 4.0 /HPF (0.0-6.0) 04/04/17 14:25 Urine Bacteria (Auto) 1+ /HPF (Negative) 04/04/17 14:25 Urine Mucus Few /HPF 04/04/17 14:25 Urine Opiates Screen Presumptive negative 04/05/17 21:50 Urine Methadone Screen Presumptive negative 04/05/17 21:50 Ur Barbiturates Screen Presumptive negative 04/05/17 21:50 Ur Phencyclidine Scrn Presumptive negative 04/05/17 21:50 Ur Amphetamines Screen Presumptive negative 04/05/17 21:50 U Benzodiazepines Scrn Presumptive positive 04/05/17 21:50 Urine Cocaine Screen Presumptive negative 04/05/17 21:50 U Marijuana (THC) Screen Presumptive negative 04/05/17 21:50 Drugs of Abuse Note Disclamer 04/05/17 21:50
--- NOTE | 2017-04-08 22:35 | Event Note ---
s/p fall, sustained laceration to superioir left eye steri-strips placed, check CT head
[2017-04-08] MEDS: TYLENOL PO PRN (22:47)
--- NOTE | 2017-04-09 01:39 | Cat Scan Report ---
FINAL REPORT EXAM: CT HEAD/BRAIN W CON HISTORY: Status post fall. TECHNIQUE: Unenhanced axial CT images of the brain were obtained. No prior studies are available for comparison. FINDINGS: There is mild diffuse generalized volume loss. Mild periventricular low attenuation is seen, nonspecific but most likely chronic small vessel ischemic disease. The conteh-white differentiation is maintained. There is no extra-axial fluid collection, mass, mass effect, midline shift, hydrocephalus, or acute intracranial hemorrhage. There is slightly depressed fracture involving anterior wall of the left maxillary sinus. There is moderate opacification of the left maxillary sinus with frothy secretions. There is also a comminuted fractures along the posterior and lateral rodriguez of the left maxillary sinus. The fracture lines extend superiorly to also involve the lateral left orbital wall, and also left orbital floor. A tiny 1-2 mm focus of air is seen superficial to the fracture site at the lateral left orbital wall. There is a tiny air-fluid level in the left sphenoid sinus. The orbits and globes are grossly unremarkable. IMPRESSION: 1. No acute intracranial abnormality. Mild generalized volume loss and probable chronic small vessel ischemic changes. 2. Comminuted fractures involving the anterior, posterior, and lateral rodriguez of the left maxillary sinus, and also of the left lateral orbital wall and left orbital floor. Moderate opacification of left maxillary sinus with frothy secretions. 3. Tiny air-fluid in the left sphenoid sinus.
[2017-04-09] MEDS: ZOSYN/NS 3.375GM/50ML 3.375 GM/50 ML BAG IV SCH ×3 (05:26→22:11)
[2017-04-09] MEDS: TYLENOL PO PRN ×3 (05:27→22:35)
[2017-04-09 06:22] LABS: Anion Gap 19 mmol/L; BUN/Creatinine Ratio 40; Blood Urea Nitrogen 12 mg/dL (7-17); Calcium 8.3 mg/dL (8.4-10.2); Carbon Dioxide 34 mmol/L (22-30); Chloride 97.3 mmol/L (98-107); Glucose 88 mg/dL (65-100); Sodium 146 mmol/L (137-145)
[2017-04-09 06:23] LABS: Potassium 3.9 mmol/L (3.6-5.0)
[2017-04-09 06:36] LABS: Hemoglobin 9.1 gm/dl (10.1-14.3); Mean Corpuscular HGB Conc 32 % (30-34); Mean Corpuscular Hemoglobin 30 pg (28-32); Mean Corpuscular Volume 96 fl (79-97); Red Blood Count 3.02 M/mm3 (3.65-5.03); White Blood Count 19.1 K/mm3 (4.5-11.0)
[2017-04-09 06:37] LABS: Platelet Count 267 K/mm3 (140-440)
[2017-04-09] MEDS: BROVANA NEBU IH SCH ×2 (08:25→19:56)
[2017-04-09] MEDS: PULMICORT IH SCH ×2 (08:25→19:56)
[2017-04-09] MEDS: DUONEB *Not for PRN Use IH SCH ×4 (08:26→19:57)
[2017-04-09] MEDS: XANAX PO SCH (10:04)
[2017-04-09] MEDS: LOVENOX SUB-Q SCH (12:00)
[2017-04-09] MEDS: NORVASC PO SCH (12:02)
[2017-04-09] MEDS: PEPCID PO SCH ×2 (12:03→22:11)
--- NOTE | 2017-04-09 13:08 | Progress Note ---
Assessment and Plan Acute on Chronic Hypercapnic Hypoxemic Respiratory Failure Acute COPD exacerbation Acute Encephalopathy (Toxic-Metabolic) Tobacco Use Disorder - continue to wean oxygen for O2 Sats > 92% - continue aspiration precautions - BIPAP prn for SOB / wheezing - continue bronchodilators and pulmonary hygeine per RT - Agitation management (Avoid benzodiazepines if possible) - continue systemic steroids but taper - continue AB's and de-escalate per ID recs (repeat BC's NGTD) - ST evaluation and advance diet - started tobacco abstinence counselling already - continue GI & VTE prophylaxis - continue other care per attending / other consultants ...re-evaluate in am & prn Subjective Date of service: 04/09/17 Principal diagnosis: Acute on Chronic Hypoxemic Respiratory Failure; Sepsis Syndrome Interval history: Patient is seen today for: Acute on Chronic Hypercapnic Hypoxemic respiratory Failure; Sepsis Syndrome Seen and examined at bedside; 24 hour events reviewed; nursing and respiratory care staff consulted; doing well post extubation so far; remains somnolent; no N /V/F/C; denies acute chest pains or increased SOB Objective Vital Signs - 12hr 04/09/17 04/09/17 04/09/17 01:32 05:38 08:25 Temperature 98.3 F Pulse Rate 101 H Pulse Rate [ 115 H Anterior Bilateral Throughout] Respiratory 24 21 Rate Respiratory 18 Rate [Anterior Bilateral Throughout] Blood Pressure 151/63 [Left] O2 Sat by Pulse 96 99 Oximetry 04/09/17 08:35 Temperature Pulse Rate Pulse Rate [ 109 H Anterior Bilateral Throughout] Respiratory Rate Respiratory 18 Rate [Anterior Bilateral Throughout] Blood Pressure [Left] O2 Sat by Pulse Oximetry Constitutional: other (somnolent) Eyes: non-icteric ENT: oropharynx moist, other (no thyromegaly) Neck: supple, no lymphadenopathy, no JVD Effort: mildly labored Ascultation: Bilateral: diminished breath sounds, rhonchi (bases) Cardiovascular: regular rate and rhythm, other (No rubs / murmurs) Gastrointestinal: normoactive bowel sounds, soft, non-tender, non-distended, other (No HSM) Integumentary: normal Extremities: no cyanosis, no edema, pink and warm, pulses normal Neurologic: normal mental status, non-focal exam, pupils equal and round, motor strength normal and Psychiatric: anxious CBC and BMP: 04/10/17 06:05 04/10/17 06:05 ABG, PT/INR, D-dimer: ABG POC ABG pH 7.479 (7.35-7.45) H 04/07/17 10:13 POC ABG pCO2 56.0 (35-45) H 04/07/17 10:13 POC ABG pO2 82 (80-105) 04/07/17 10:13 POC ABG HCO3 41.7 04/07/17 10:13 POC ABG Total CO2 43 04/07/17 10:13 POC ABG O2 Sat 96 04/07/17 10:13 PT/INR, D-dimer PT 12.2 Sec. (12.2-14.9) 04/04/17 13:24 INR 0.86 (0.87-1.13) L 04/04/17 13:24 Abnormal lab findings: Abnormal Labs 04/04/17 04/04/17 04/04/17 13:23 13:24 13:24 WBC 4.2 L RBC 2.83 L Hgb 9.0 L Hct 28.6 L MCV 101 H Seg Neuts % (Manual) 93.0 H Lymphocytes % (Manual) 2.0 L Lymphocytes # (Manual) 0.1 L INR 0.86 L POC ABG pH POC ABG pCO2 POC ABG pO2 Sodium Potassium Chloride Carbon Dioxide BUN Creatinine Glucose POC Glucose Lactic Acid 2.20 H* Calcium Magnesium CK-MB (CK-2) CK-MB (CK-2) Rel Index C-Reactive Protein NT-Pro-B Natriuret Pep Total Protein Albumin 04/04/17 04/04/17 04/04/17 13:24 14:38 18:34 WBC RBC Hgb Hct MCV Seg Neuts % (Manual) Lymphocytes % (Manual) Lymphocytes # (Manual) INR POC ABG pH 7.542 H POC ABG pCO2 49.4 H POC ABG pO2 275 H Sodium 147 H Potassium Chloride 95.2 L Carbon Dioxide 43 H* BUN 22 H Creatinine 0.3 L Glucose 108 H POC Glucose Lactic Acid Calcium 7.8 L Magnesium 3.80 H CK-MB (CK-2) CK-MB (CK-2) Rel Index C-Reactive Protein 5.60 H NT-Pro-B Natriuret Pep 2373 H Total Protein 5.1 L Albumin 2.7 L 04/04/17 04/05/17 04/05/17 18:34 03:15 04:54 WBC RBC Hgb Hct MCV Seg Neuts % (Manual) Lymphocytes % (Manual) Lymphocytes # (Manual) INR POC ABG pH 7.677 H 7.533 H POC ABG pCO2 31.5 L POC ABG pO2 175 H Sodium Potassium Chloride Carbon Dioxide BUN Creatinine Glucose POC Glucose Lactic Acid Calcium Magnesium CK-MB (CK-2) 6.3 H CK-MB (CK-2) Rel Index 7.5 H C-Reactive Protein NT-Pro-B Natriuret Pep Total Protein Albumin 04/05/17 04/05/17 04/05/17 05:12 05:12 05:12 WBC RBC 3.09 L Hgb 10.0 L Hct MCV 100 H Seg Neuts % (Manual) Lymphocytes % (Manual) 12.0 L Lymphocytes # (Manual) 1.0 L INR POC ABG pH POC ABG pCO2 POC ABG pO2 Sodium Potassium Chloride 93.5 L Carbon Dioxide BUN 28 H Creatinine 0.6 L D Glucose POC Glucose Lactic Acid 4.70 H* Calcium 8.3 L Magnesium CK-MB (CK-2) CK-MB (CK-2) Rel Index C-Reactive Protein NT-Pro-B Natriuret Pep Total Protein Albumin 04/05/17 04/06/17 04/06/17 12:20 03:31 03:45 WBC RBC 2.67 L Hgb 8.5 L Hct 26.2 L MCV 98 H Seg Neuts % (Manual) Lymphocytes % (Manual) Lymphocytes # (Manual) INR POC ABG pH POC ABG pCO2 POC ABG pO2 Sodium Potassium Chloride Carbon Dioxide BUN Creatinine Glucose POC Glucose 147 H 118 H Lactic Acid Calcium Magnesium CK-MB (CK-2) CK-MB (CK-2) Rel Index C-Reactive Protein NT-Pro-B Natriuret Pep Total Protein Albumin 04/06/17 04/06/17 04/06/17 03:45 04:25 06:07 WBC RBC Hgb Hct MCV Seg Neuts % (Manual) Lymphocytes % (Manual) Lymphocytes # (Manual) INR POC ABG pH POC ABG pCO2 54.5 H POC ABG pO2 Sodium Potassium Chloride 96.2 L Carbon Dioxide 32 H BUN 24 H Creatinine 0.5 L Glucose 116 H POC Glucose 135 H Lactic Acid Calcium 7.7 L Magnesium CK-MB (CK-2) CK-MB (CK-2) Rel Index C-Reactive Protein NT-Pro-B Natriuret Pep Total Protein 5.1 L Albumin 2.5 L 04/06/17 04/06/17 04/07/17 12:06 17:40 00:05 WBC RBC Hgb Hct MCV Seg Neuts % (Manual) Lymphocytes % (Manual) Lymphocytes # (Manual) INR POC ABG pH POC ABG pCO2 POC ABG pO2 Sodium Potassium Chloride Carbon Dioxide BUN Creatinine Glucose POC Glucose 150 H 123 H 138 H Lactic Acid Calcium Magnesium CK-MB (CK-2) CK-MB (CK-2) Rel Index C-Reactive Protein NT-Pro-B Natriuret Pep Total Protein Albumin 04/07/17 04/07/17 04/07/17 04:34 05:41 10:13 WBC RBC Hgb Hct MCV Seg Neuts % (Manual) Lymphocytes % (Manual) Lymphocytes # (Manual) INR POC ABG pH 7.485 H 7.479 H POC ABG pCO2 52.1 H 56.0 H POC ABG pO2 Sodium Potassium Chloride Carbon Dioxide BUN Creatinine Glucose POC Glucose 153 H Lactic Acid Calcium Magnesium CK-MB (CK-2) CK-MB (CK-2) Rel Index C-Reactive Protein NT-Pro-B Natriuret Pep Total Protein Albumin 04/07/17 04/07/17 04/08/17 11:36 23:56 03:55 WBC 12.4 H RBC 3.30 L Hgb Hct MCV Seg Neuts % (Manual) Lymphocytes % (Manual) Lymphocytes # (Manual) INR POC ABG pH POC ABG pCO2 POC ABG pO2 Sodium Potassium Chloride Carbon Dioxide BUN Creatinine Glucose POC Glucose 116 H 141 H Lactic Acid Calcium Magnesium CK-MB (CK-2) CK-MB (CK-2) Rel Index C-Reactive Protein NT-Pro-B Natriuret Pep Total Protein Albumin 04/08/17 04/08/17 04/08/17 03:55 05:26 21:50 WBC RBC Hgb Hct MCV Seg Neuts % (Manual) Lymphocytes % (Manual) Lymphocytes # (Manual) INR POC ABG pH POC ABG pCO2 POC ABG pO2 Sodium Potassium 3.1 L D Chloride 97.4 L Carbon Dioxide 33 H BUN Creatinine 0.3 L Glucose POC Glucose 122 H 159 H Lactic Acid Calcium 8.0 L Magnesium CK-MB (CK-2) CK-MB (CK-2) Rel Index C-Reactive Protein NT-Pro-B Natriuret Pep Total Protein Albumin 04/09/17 04/09/17 05:01 05:01 WBC 19.1 H RBC 3.02 L Hgb 9.1 L Hct 29.0 L MCV Seg Neuts % (Manual) Lymphocytes % (Manual) Lymphocytes # (Manual) INR POC ABG pH POC ABG pCO2 POC ABG pO2 Sodium 146 H Potassium Chloride 97.3 L Carbon Dioxide 34 H BUN Creatinine 0.3 L Glucose POC Glucose Lactic Acid Calcium 8.3 L Magnesium CK-MB (CK-2) CK-MB (CK-2) Rel Index C-Reactive Protein NT-Pro-B Natriuret Pep Total Protein Albumin Chest x-ray: image reviewed Allied health notes reviewed: RT
--- NOTE | 2017-04-09 13:40 | Progress Note ---
Assessment and Plan Assessment: 1) Acute on Chronic resp failure 2) Right sided pneumonia: HAP ? aspiration ? HAP. History of recent pneumonia. Recent CT showed RLL infiltrate. 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 5) History of seizures 6) Nicotine Dependence 7) Severe Malnutrition 8) Lactic acidosis 9) Encephalopathy Plan: -continue zosyn - day 5 I am signing off Thank you Dr Kay for your consultation, will follow up with you. Keely Avila MD Infectious Diseases Specialist [facility] [phone] Subjective Date of service: 04/09/17 Principal diagnosis: Acute on Chronic Hypoxemic Respiratory Failure; Sepsis Syndrome Interval history: feels ok no fever. Microbiology: Blood cultures: 04/04 GPC 1 of 4 bottles 04/07 ngtd Urine cultures: 04/04 neg Influenza: negative Current Antimicrobials: zosyn 04/05 Previous Antimicrobials: levaquin vanco Objective - Exam Narrative Exam: General appearance: sedated on the vent Eyes: anicteric sclerae, moist conjunctivae; no lid-lag; PERRLA HENT: Atraumatic; oropharynx +ETT Neck: Trachea midline; supple, no thyromegaly or lymphadenopathy Lungs: distant BS CV: RRR Abdomen: Soft, non-tender Extremities: No peripheral edema or extremity lymphadenopathy Skin: Normal temperature, turgor and texture; no rash, ulcers or subcutaneous nodules Psych: unable to asses. Neuro: sedated Lines: No CVL / PICC - Constitutional Vitals: Vital Signs Temp Pulse Resp BP Pulse Ox 98.3 F 109 H 18 151/63 99 04/09/17 05:38 04/09/17 08:35 04/09/17 08:35 04/09/17 05:38 04/09/17 08:25 Temperature -Last 24 Hours Temperature 98.3 F Temperature 97.4 F Temperature 98.0 F Temperature 98.2 F - Labs CBC & Chem 7: 04/09/17 05:01 04/09/17 05:01 Labs: Abnormal lab results 04/08/17 04/09/17 04/09/17 Range/Units 21:50 05:01 05:01 WBC 19.1 H (4.5-11.0) K/mm3 RBC 3.02 L (3.65-5.03) M/mm3 Hgb 9.1 L (10.1-14.3) gm/dl Hct 29.0 L (30.3-42.9) % Sodium 146 H (137-145) mmol/L Chloride 97.3 L (98-107) mmol/L Carbon Dioxide 34 H (22-30) mmol/L Creatinine 0.3 L (0.7-1.2) mg/dL POC Glucose 159 H (70-105) Calcium 8.3 L (8.4-10.2) mg/dL
--- NOTE | 2017-04-09 17:18 | Progress Note ---
Assessment and Plan Assessment and plan: 71-year-old woman admitted to the hospital for altered mental status, acute respiratory failure Acute hypoxic and hypercapnic respiratory failure requiring mechanical ventilation less than 96 hours -Extubated. pulmonary input appreciated, Discussed with son, patient with severe COPD but still smokes although son said only one cigarette daily and no exposure to second hand smoke. -Continue Nebs, taper solumedrol. -Pulmonary following -Restraints secondary to anxiety Orbital and Maxillary fracture -Following a fall, unassisted. -No visual abnormality and visual acuity testing -Outpatient Opthalamology eval COPD exacerbation -Steroids, nebs and antibiotics Metabolic encephalopathy Due to respiratory failure, treat underlying cause, Hypernatremia/dehydration Improving, continue gentle hydration Possible Sepsis ID consult CRP Right lower lobe pneumonia possible Aspiration Continue antibiotic of above Anemia Likely of chronic condition, will monitor closely, no gross evidence of bleeding. will check iron status. Hypoglycemia Continue D5W Severe malnutrition Dietitian consult. Tobacco abuse We'll provide tobacco cessation counseling and nicotine patches in her mental status improved No family present today. Considering recurrent admission, and severe COPD, patient with poor prognosis. Will continue to aggressively treat DVT/GI prophy History Interval history: Patient seen and examined remains intubated, off Sedation, responds to verbal stimuli, gets anxious easily. Unfortunately last night patient fell while attempting to get out of bed unassisted to the bathroom. Hospitalist Physical - Physical exam Narrative exam: VITAL SIGNS: Reviewed. GENERAL: The patient appeared markedly cachectic. Vital signs as documented. HEAD: No signs of head trauma. EYES: Pupils are equal. Left orbital thrombosis, echymosis EARS: Hearing grossly intact. MOUTH: ET tube in place NECK: No adenopathy, no JVD. CHEST: Chest with diminished breath sounds bilaterally. No wheezes, rales, or rhonchi. CARDIAC: Regular rate and rhythm. S1 and S2, without murmurs, gallops, or rubs. VASCULAR: No Edema. Peripheral pulses normal and equal in all extremities. ABDOMEN: Soft, without detectable tenderness. No sign of distention. No rebound or guarding, and no masses palpated. Bowel Sounds normal. MUSCULOSKELETAL: Contracted, although family reports patient ambulates. Extremities without clubbing, cyanosis or edema. NEUROLOGIC EXAM: Lethargic, No focal sensory or strength deficits. . PSYCHIATRIC: Mood Anxious. SKIN: Age-appropriate wrinkles some blemishes - Constitutional Vitals: Temp Pulse Resp BP Pulse Ox 98.3 F 112 H 20 151/63 99 04/09/17 05:38 04/09/17 13:19 04/09/17 13:19 04/09/17 05:38 04/09/17 08:25 General appearance: Present: mild distress, cachectic Results - Labs CBC & Chem 7: 04/09/17 05:01 04/09/17 05:01 Labs: Laboratory Last Values WBC 19.1 K/mm3 (4.5-11.0) H 04/09/17 05:01 RBC 3.02 M/mm3 (3.65-5.03) L 04/09/17 05:01 Hgb 9.1 gm/dl (10.1-14.3) L 04/09/17 05:01 Hct 29.0 % (30.3-42.9) L 04/09/17 05:01 MCV 96 fl (79-97) 04/09/17 05:01 MCH 30 pg (28-32) 04/09/17 05:01 MCHC 32 % (30-34) 04/09/17 05:01 RDW 15.0 % (13.2-15.2) 04/09/17 05:01 Plt Count 267 K/mm3 (140-440) 04/09/17 05:01 Add Manual Diff Complete 04/05/17 05:12 Total Counted 100 04/05/17 05:12 Seg Neuts % (Manual) 63.0 % (40.0-70.0) 04/05/17 05:12 Band Neutrophils % 23.0 % 04/05/17 05:12 Lymphocytes % (Manual) 12.0 % (13.4-35.0) L 04/05/17 05:12 Reactive Lymphs % (Man) 0 % 04/05/17 05:12 Monocytes % (Manual) 2.0 % (0.0-7.3) 04/05/17 05:12 Eosinophils % (Manual) 0 % (0.0-4.3) 04/05/17 05:12 Basophils % (Manual) 0 % (0.0-1.8) 04/05/17 05:12 Metamyelocytes % 0 % 04/05/17 05:12 Myelocytes % 0 % 04/05/17 05:12 Promyelocytes % 0 % 04/05/17 05:12 Blast Cells % 0 % 04/05/17 05:12 Nucleated RBC % Not Reportable 04/05/17 05:12 Seg Neutrophils # Man 5.4 K/mm3 (1.8-7.7) 04/05/17 05:12 Band Neutrophils # 2.0 K/mm3 04/05/17 05:12 Lymphocytes # (Manual) 1.0 K/mm3 (1.2-5.4) L 04/05/17 05:12 Abs React Lymphs (Man) 0.0 K/mm3 04/05/17 05:12 Monocytes # (Manual) 0.2 K/mm3 (0.0-0.8) 04/05/17 05:12 Eosinophils # (Manual) 0.0 K/mm3 (0.0-0.4) 04/05/17 05:12 Basophils # (Manual) 0.0 K/mm3 (0.0-0.1) 04/05/17 05:12 Metamyelocytes # 0.0 K/mm3 04/05/17 05:12 Myelocytes # 0.0 K/mm3 04/05/17 05:12 Promyelocytes # 0.0 K/mm3 04/05/17 05:12 Blast Cells # 0.0 K/mm3 04/05/17 05:12 WBC Morphology Not Reportable 04/05/17 05:12 Hypersegmented Neuts Not Reportable 04/05/17 05:12 Hyposegmented Neuts Not Reportable 04/05/17 05:12 Hypogranular Neuts Not Reportable 04/05/17 05:12 Smudge Cells Not Reportable 04/05/17 05:12 Toxic Granulation Not Reportable 04/05/17 05:12 Toxic Vacuolation Not Reportable 04/05/17 05:12 Dohle Bodies Not Reportable 04/05/17 05:12 Pelger-Huet Anomaly Not Reportable 04/05/17 05:12 Trudy Rods Not Reportable 04/05/17 05:12 Platelet Estimate Appears normal 04/05/17 05:12 Clumped Platelets Not Reportable 04/05/17 05:12 Plt Clumps, EDTA Not Reportable 04/05/17 05:12 Large Platelets Not Reportable 04/05/17 05:12 Giant Platelets Not Reportable 04/05/17 05:12 Platelet Satelliting Not Reportable 04/05/17 05:12 Plt Morphology Comment Not Reportable 04/05/17 05:12 RBC Morphology Not Reportable 04/05/17 05:12 Dimorphic RBCs Not Reportable 04/05/17 05:12 Polychromasia Not Reportable 04/05/17 05:12 Hypochromasia Not Reportable 04/05/17 05:12 Poikilocytosis Not Reportable 04/05/17 05:12 Anisocytosis 1+ 04/05/17 05:12 Microcytosis Not Reportable 04/05/17 05:12 Macrocytosis Not Reportable 04/05/17 05:12 Spherocytes Not Reportable 04/05/17 05:12 Pappenheimer Bodies Not Reportable 04/05/17 05:12 Sickle Cells Not Reportable 04/05/17 05:12 Target Cells Not Reportable 04/05/17 05:12 Tear Drop Cells Not Reportable 04/05/17 05:12 Ovalocytes Not Reportable 04/05/17 05:12 Stomatocytes 1+ 04/05/17 05:12 Helmet Cells Not Reportable 04/05/17 05:12 [place] Bodies Not Reportable 04/05/17 05:12 [place] Rings Not Reportable 04/05/17 05:12 [place] Cells Not Reportable 04/05/17 05:12 Bite Cells Not Reportable 04/05/17 05:12 Crenated Cell Not Reportable 04/05/17 05:12 Elliptocytes Not Reportable 04/05/17 05:12 Acanthocytes (Spur) Not Reportable 04/05/17 05:12 Rouleaux Not Reportable 04/05/17 05:12 Hemoglobin C Crystals Not Reportable 04/05/17 05:12 Schistocytes Not Reportable 04/05/17 05:12 Malaria parasites Not Reportable 04/05/17 05:12 [place] Bodies Not Reportable 04/05/17 05:12 Hem Pathologist Commnt No 04/05/17 05:12 PT 12.2 Sec. (12.2-14.9) 04/04/17 13:24 INR 0.86 (0.87-1.13) L 04/04/17 13:24 APTT 32.6 Sec. (24.2-36.6) 04/04/17 13:24 POC ABG pH 7.479 (7.35-7.45) H 04/07/17 10:13 POC ABG pCO2 56.0 (35-45) H 04/07/17 10:13 POC ABG pO2 82 (80-105) 04/07/17 10:13 POC ABG HCO3 41.7 04/07/17 10:13 POC ABG Total CO2 43 04/07/17 10:13 POC ABG O2 Sat 96 04/07/17 10:13 POC ABG Base Excess 18 04/07/17 10:13 VBG pH 7.333 (7.320-7.420) 04/04/17 13:23 FiO2 30 % 04/07/17 10:13 Sodium 146 mmol/L (137-145) H 04/09/17 05:01 Potassium 3.9 mmol/L (3.6-5.0) D 04/09/17 05:01 Chloride 97.3 mmol/L (98-107) L 04/09/17 05:01 Carbon Dioxide 34 mmol/L (22-30) H 04/09/17 05:01 Anion Gap 19 mmol/L 04/09/17 05:01 BUN 12 mg/dL (7-17) 04/09/17 05:01 Creatinine 0.3 mg/dL (0.7-1.2) L 04/09/17 05:01 Estimated GFR > 60 ml/min 04/09/17 05:01 BUN/Creatinine Ratio 40 % 04/09/17 05:01 Glucose 88 mg/dL (65-100) 04/09/17 05:01 POC Glucose 164 (70-105) H 04/09/17 13:11 Lactic Acid 1.70 mmol/L (0.7-2.0) 04/06/17 03:45 Calcium 8.3 mg/dL (8.4-10.2) L 04/09/17 05:01 Phosphorus 3.60 mg/dL (2.5-4.5) 04/06/17 03:45 Magnesium 1.90 mg/dL (1.7-2.3) 04/06/17 03:45 Total Bilirubin 0.20 mg/dL (0.1-1.2) 04/06/17 03:45 Direct Bilirubin < 0.2 mg/dL (0-0.2) 04/04/17 13:24 Indirect Bilirubin 0.0 mg/dL 04/04/17 13:24 AST 28 units/L (5-40) 04/06/17 03:45 ALT 13 units/L (7-56) 04/06/17 03:45 Alkaline Phosphatase 77 units/L (35-129) 04/06/17 03:45 Total Creatine Kinase 83 units/L (30-135) 04/04/17 18:34 CK-MB (CK-2) 6.3 ng/mL (0.0-4.0) H 04/04/17 18:34 CK-MB (CK-2) Rel Index 7.5 (0-4) H 04/04/17 18:34 Troponin T < 0.010 ng/mL (0.00-0.029) 04/04/17 18:34 C-Reactive Protein 5.60 mg/dL (0.00-1.30) H 04/04/17 18:34 NT-Pro-B Natriuret Pep 2373 pg/mL (0-900) H 04/04/17 13:24 Total Protein 5.1 g/dL (6.3-8.2) L 04/06/17 03:45 Albumin 2.5 g/dL (3.9-5) L 04/06/17 03:45 Albumin/Globulin Ratio 1.0 % 04/06/17 03:45 Urine Color Yellow (Yellow) 04/04/17 14:25 Urine Turbidity Clear (Clear) 04/04/17 14:25 Urine pH 7.0 (5.0-7.0) 04/04/17 14:25 Ur Specific [place] 1.009 (1.003-1.030) 04/04/17 14:25 Urine Protein <15 mg/dl mg/dL (Negative) 04/04/17 14:25 Urine Glucose (UA) Neg mg/dL (Negative) 04/04/17 14:25 Urine Ketones Tr mg/dL (Negative) 04/04/17 14:25 Urine Blood Sm (Negative) 04/04/17 14:25 Urine Nitrite Neg (Negative) 04/04/17 14:25 Urine Bilirubin Neg (Negative) 04/04/17 14:25 Urine Urobilinogen < 2.0 mg/dL (<2.0) 04/04/17 14:25 Ur Leukocyte Esterase Neg (Negative) 04/04/17 14:25 Urine WBC (Auto) 2.0 /HPF (0.0-6.0) 04/04/17 14:25 Urine RBC (Auto) 4.0 /HPF (0.0-6.0) 04/04/17 14:25 Urine Bacteria (Auto) 1+ /HPF (Negative) 04/04/17 14:25 Urine Mucus Few /HPF 04/04/17 14:25 Urine Opiates Screen Presumptive negative 04/05/17 21:50 Urine Methadone Screen Presumptive negative 04/05/17 21:50 Ur Barbiturates Screen Presumptive negative 04/05/17 21:50 Ur Phencyclidine Scrn Presumptive negative 04/05/17 21:50 Ur Amphetamines Screen Presumptive negative 04/05/17 21:50 U Benzodiazepines Scrn Presumptive positive 04/05/17 21:50 Urine Cocaine Screen Presumptive negative 04/05/17 21:50 U Marijuana (THC) Screen Presumptive negative 04/05/17 21:50 Drugs of Abuse Note Disclamer 04/05/17 21:50
[2017-04-09] MEDS ORDERED: LEVAQUIN PO ONE (22:00)
[2017-04-09] MEDS ORDERED: DELTASONE PO ONE (22:00)
[2017-04-09] MEDS: HABITROL TD SCH (22:35)
[2017-04-10] MEDS: DUONEB *Not for PRN Use IH SCH ×4 (01:41→20:26)
[2017-04-10 06:42] LABS: Hematocrit 28.9 % (30.3-42.9); Hemoglobin 9.5 gm/dl (10.1-14.3); Mean Corpuscular HGB Conc 33 % (30-34); Mean Corpuscular Hemoglobin 31 pg (28-32); Mean Corpuscular Volume 96 fl (79-97); Platelet Count 257 K/mm3 (140-440); Red Blood Count 3.02 M/mm3 (3.65-5.03); Red Cell Distribution Width 14.8 % (13.2-15.2); White Blood Count 13.1 K/mm3 (4.5-11.0)
[2017-04-10] MEDS: ZOSYN/NS 3.375GM/50ML 3.375 GM/50 ML BAG IV SCH ×3 (06:49→22:15)
[2017-04-10 07:18] LABS: Anion Gap 14 mmol/L; BUN/Creatinine Ratio 35; Blood Urea Nitrogen 14 mg/dL (7-17); Calcium 8.2 mg/dL (8.4-10.2); Carbon Dioxide 37 mmol/L (22-30); Chloride 100.1 mmol/L (98-107); Glucose 123 mg/dL (65-100); Potassium 3.1 mmol/L (3.6-5.0); Sodium 148 mmol/L (137-145)
[2017-04-10] MEDS: BROVANA NEBU IH SCH ×2 (07:49→20:26)
[2017-04-10] MEDS: PULMICORT IH SCH ×2 (07:49→20:26)
[2017-04-10] MEDS: PEPCID PO SCH ×2 (10:15→22:21)
[2017-04-10] MEDS: NORVASC PO SCH (10:16)
[2017-04-10] MEDS: XANAX PO SCH (10:16)
[2017-04-10] MEDS: TYLENOL PO PRN (10:17)
[2017-04-10] MEDS: LOVENOX SUB-Q SCH (10:18)
[2017-04-10] MEDS: HABITROL TD SCH (10:19)
--- NOTE | 2017-04-10 14:20 | Progress Note ---
Assessment and Plan Acute on Chronic Hypercapnic Hypoxemic Respiratory Failure Acute COPD exacerbation Acute Encephalopathy (Toxic-Metabolic) Tobacco Use Disorder - continue to wean oxygen for O2 Sats > 92% - continue aspiration precautions - BIPAP prn for SOB / wheezing - continue bronchodilators and pulmonary hygeine per RT - Agitation management (Avoid benzodiazepines if possible) - continue systemic steroids but taper - continue AB's and de-escalate per ID recs (repeat BC's NGTD) - ST evaluation and advance diet - started tobacco abstinence counselling already - continue GI & VTE prophylaxis - continue other care per attending / other consultants ...re-evaluate in am & prn Subjective Date of service: 04/10/17 Principal diagnosis: Acute on Chronic Hypoxemic Respiratory Failure; Sepsis Syndrome Interval history: Patient is seen today for: Acute on Chronic Hypercapnic Hypoxemic respiratory Failure; Sepsis Syndrome Seen and examined at bedside; 24 hour events reviewed; nursing and respiratory care staff consulted; doing well post extubation so far Objective Vital Signs - 12hr 04/10/17 04/10/17 04/10/17 05:01 05:55 07:47 Temperature 97.9 F 98.0 F Pulse Rate 92 H 92 H 112 H Pulse Rate [ Anterior Bilateral Throughout] Respiratory 18 18 Rate Respiratory Rate [Anterior Bilateral Throughout] Blood Pressure 140/76 Blood Pressure 119/55 [Left] O2 Sat by Pulse 98 97 Oximetry 04/10/17 04/10/17 04/10/17 08:00 08:15 09:19 Temperature Pulse Rate Pulse Rate [ 92 H 93 H Anterior Bilateral Throughout] Respiratory Rate Respiratory 18 18 Rate [Anterior Bilateral Throughout] Blood Pressure Blood Pressure [Left] O2 Sat by Pulse 98 Oximetry 04/10/17 04/10/17 10:16 10:17 Temperature Pulse Rate 112 H Pulse Rate [ Anterior Bilateral Throughout] Respiratory 18 Rate Respiratory Rate [Anterior Bilateral Throughout] Blood Pressure 140/76 Blood Pressure [Left] O2 Sat by Pulse Oximetry Constitutional: other (somnolent) Eyes: non-icteric ENT: oropharynx moist, other (no thyromegaly) Neck: supple, no lymphadenopathy, no JVD Effort: mildly labored Ascultation: Bilateral: diminished breath sounds, rhonchi (bases), other ( prolonged exp phase) Cardiovascular: regular rate and rhythm, other (No rubs / murmurs) Gastrointestinal: normoactive bowel sounds, soft, non-tender, non-distended, other (No HSM) Integumentary: normal Extremities: no cyanosis, no edema, pink and warm, pulses normal Neurologic: normal mental status, non-focal exam, pupils equal and round, motor strength normal and Psychiatric: anxious CBC and BMP: 04/10/17 06:05 04/10/17 06:05 ABG, PT/INR, D-dimer: ABG POC ABG pH 7.479 (7.35-7.45) H 04/07/17 10:13 POC ABG pCO2 56.0 (35-45) H 04/07/17 10:13 POC ABG pO2 82 (80-105) 04/07/17 10:13 POC ABG HCO3 41.7 04/07/17 10:13 POC ABG Total CO2 43 04/07/17 10:13 POC ABG O2 Sat 96 04/07/17 10:13 PT/INR, D-dimer PT 12.2 Sec. (12.2-14.9) 04/04/17 13:24 INR 0.86 (0.87-1.13) L 04/04/17 13:24 Abnormal lab findings: Abnormal Labs 04/04/17 04/04/17 04/04/17 13:23 13:24 13:24 WBC 4.2 L RBC 2.83 L Hgb 9.0 L Hct 28.6 L MCV 101 H Seg Neuts % (Manual) 93.0 H Lymphocytes % (Manual) 2.0 L Lymphocytes # (Manual) 0.1 L INR 0.86 L POC ABG pH POC ABG pCO2 POC ABG pO2 Sodium Potassium Chloride Carbon Dioxide BUN Creatinine Glucose POC Glucose Lactic Acid 2.20 H* Calcium Magnesium CK-MB (CK-2) CK-MB (CK-2) Rel Index C-Reactive Protein NT-Pro-B Natriuret Pep Total Protein Albumin 04/04/17 04/04/17 04/04/17 13:24 14:38 18:34 WBC RBC Hgb Hct MCV Seg Neuts % (Manual) Lymphocytes % (Manual) Lymphocytes # (Manual) INR POC ABG pH 7.542 H POC ABG pCO2 49.4 H POC ABG pO2 275 H Sodium 147 H Potassium Chloride 95.2 L Carbon Dioxide 43 H* BUN 22 H Creatinine 0.3 L Glucose 108 H POC Glucose Lactic Acid Calcium 7.8 L Magnesium 3.80 H CK-MB (CK-2) CK-MB (CK-2) Rel Index C-Reactive Protein 5.60 H NT-Pro-B Natriuret Pep 2373 H Total Protein 5.1 L Albumin 2.7 L 04/04/17 04/05/17 04/05/17 18:34 03:15 04:54 WBC RBC Hgb Hct MCV Seg Neuts % (Manual) Lymphocytes % (Manual) Lymphocytes # (Manual) INR POC ABG pH 7.677 H 7.533 H POC ABG pCO2 31.5 L POC ABG pO2 175 H Sodium Potassium Chloride Carbon Dioxide BUN Creatinine Glucose POC Glucose Lactic Acid Calcium Magnesium CK-MB (CK-2) 6.3 H CK-MB (CK-2) Rel Index 7.5 H C-Reactive Protein NT-Pro-B Natriuret Pep Total Protein Albumin 04/05/17 04/05/17 04/05/17 05:12 05:12 05:12 WBC RBC 3.09 L Hgb 10.0 L Hct MCV 100 H Seg Neuts % (Manual) Lymphocytes % (Manual) 12.0 L Lymphocytes # (Manual) 1.0 L INR POC ABG pH POC ABG pCO2 POC ABG pO2 Sodium Potassium Chloride 93.5 L Carbon Dioxide BUN 28 H Creatinine 0.6 L D Glucose POC Glucose Lactic Acid 4.70 H* Calcium 8.3 L Magnesium CK-MB (CK-2) CK-MB (CK-2) Rel Index C-Reactive Protein NT-Pro-B Natriuret Pep Total Protein Albumin 04/05/17 04/06/17 04/06/17 12:20 03:31 03:45 WBC RBC 2.67 L Hgb 8.5 L Hct 26.2 L MCV 98 H Seg Neuts % (Manual) Lymphocytes % (Manual) Lymphocytes # (Manual) INR POC ABG pH POC ABG pCO2 POC ABG pO2 Sodium Potassium Chloride Carbon Dioxide BUN Creatinine Glucose POC Glucose 147 H 118 H Lactic Acid Calcium Magnesium CK-MB (CK-2) CK-MB (CK-2) Rel Index C-Reactive Protein NT-Pro-B Natriuret Pep Total Protein Albumin 04/06/17 04/06/17 04/06/17 03:45 04:25 06:07 WBC RBC Hgb Hct MCV Seg Neuts % (Manual) Lymphocytes % (Manual) Lymphocytes # (Manual) INR POC ABG pH POC ABG pCO2 54.5 H POC ABG pO2 Sodium Potassium Chloride 96.2 L Carbon Dioxide 32 H BUN 24 H Creatinine 0.5 L Glucose 116 H POC Glucose 135 H Lactic Acid Calcium 7.7 L Magnesium CK-MB (CK-2) CK-MB (CK-2) Rel Index C-Reactive Protein NT-Pro-B Natriuret Pep Total Protein 5.1 L Albumin 2.5 L 04/06/17 04/06/17 04/07/17 12:06 17:40 00:05 WBC RBC Hgb Hct MCV Seg Neuts % (Manual) Lymphocytes % (Manual) Lymphocytes # (Manual) INR POC ABG pH POC ABG pCO2 POC ABG pO2 Sodium Potassium Chloride Carbon Dioxide BUN Creatinine Glucose POC Glucose 150 H 123 H 138 H Lactic Acid Calcium Magnesium CK-MB (CK-2) CK-MB (CK-2) Rel Index C-Reactive Protein NT-Pro-B Natriuret Pep Total Protein Albumin 04/07/17 04/07/17 04/07/17 04:34 05:41 10:13 WBC RBC Hgb Hct MCV Seg Neuts % (Manual) Lymphocytes % (Manual) Lymphocytes # (Manual) INR POC ABG pH 7.485 H 7.479 H POC ABG pCO2 52.1 H 56.0 H POC ABG pO2 Sodium Potassium Chloride Carbon Dioxide BUN Creatinine Glucose POC Glucose 153 H Lactic Acid Calcium Magnesium CK-MB (CK-2) CK-MB (CK-2) Rel Index C-Reactive Protein NT-Pro-B Natriuret Pep Total Protein Albumin 04/07/17 04/07/17 04/08/17 11:36 23:56 03:55 WBC 12.4 H RBC 3.30 L Hgb Hct MCV Seg Neuts % (Manual) Lymphocytes % (Manual) Lymphocytes # (Manual) INR POC ABG pH POC ABG pCO2 POC ABG pO2 Sodium Potassium Chloride Carbon Dioxide BUN Creatinine Glucose POC Glucose 116 H 141 H Lactic Acid Calcium Magnesium CK-MB (CK-2) CK-MB (CK-2) Rel Index C-Reactive Protein NT-Pro-B Natriuret Pep Total Protein Albumin 04/08/17 04/08/17 04/08/17 03:55 05:26 21:50 WBC RBC Hgb Hct MCV Seg Neuts % (Manual) Lymphocytes % (Manual) Lymphocytes # (Manual) INR POC ABG pH POC ABG pCO2 POC ABG pO2 Sodium Potassium 3.1 L D Chloride 97.4 L Carbon Dioxide 33 H BUN Creatinine 0.3 L Glucose POC Glucose 122 H 159 H Lactic Acid Calcium 8.0 L Magnesium CK-MB (CK-2) CK-MB (CK-2) Rel Index C-Reactive Protein NT-Pro-B Natriuret Pep Total Protein Albumin 04/09/17 04/09/17 04/09/17 05:01 05:01 08:00 WBC 19.1 H RBC 3.02 L Hgb 9.1 L Hct 29.0 L MCV Seg Neuts % (Manual) Lymphocytes % (Manual) Lymphocytes # (Manual) INR POC ABG pH POC ABG pCO2 POC ABG pO2 Sodium 146 H Potassium Chloride 97.3 L Carbon Dioxide 34 H BUN Creatinine 0.3 L Glucose POC Glucose 126 H Lactic Acid Calcium 8.3 L Magnesium CK-MB (CK-2) CK-MB (CK-2) Rel Index C-Reactive Protein NT-Pro-B Natriuret Pep Total Protein Albumin 04/09/17 04/09/17 04/10/17 13:11 21:56 06:05 WBC 13.1 H RBC 3.02 L Hgb 9.5 L Hct 28.9 L MCV Seg Neuts % (Manual) Lymphocytes % (Manual) Lymphocytes # (Manual) INR POC ABG pH POC ABG pCO2 POC ABG pO2 Sodium Potassium Chloride Carbon Dioxide BUN Creatinine Glucose POC Glucose 164 H 130 H Lactic Acid Calcium Magnesium CK-MB (CK-2) CK-MB (CK-2) Rel Index C-Reactive Protein NT-Pro-B Natriuret Pep Total Protein Albumin 04/10/17 04/10/17 06:05 07:56 WBC RBC Hgb Hct MCV Seg Neuts % (Manual) Lymphocytes % (Manual) Lymphocytes # (Manual) INR POC ABG pH POC ABG pCO2 POC ABG pO2 Sodium 148 H Potassium 3.1 L D Chloride Carbon Dioxide 37 H BUN Creatinine 0.4 L Glucose 123 H POC Glucose 147 H Lactic Acid Calcium 8.2 L Magnesium CK-MB (CK-2) CK-MB (CK-2) Rel Index C-Reactive Protein NT-Pro-B Natriuret Pep Total Protein Albumin Allied health notes reviewed: RT
[2017-04-10] MEDS ORDERED: MORPHINE IV PRN (14:26)
--- NOTE | 2017-04-10 14:35 | Progress Note ---
Assessment and Plan Assessment and Plan 71-year-old woman admitted to the hospital for altered mental status, acute respiratory failure Improved. Sitting in bed and talking normally Slightly tachypneic Acute hypoxic and hypercapnic respiratory failure requiring mechanical ventilation less than 96 hours -Extubated. pulmonary input appreciated, Discussed with son, patient with severe COPD but still smokes although son said only one cigarette daily and no exposure to second hand smoke. -Continue Nebs, taper solumedrol. -Pulmonary following -Restraints secondary to anxiety Orbital and Maxillary fracture -Following a fall, unassisted. -No visual abnormality and visual acuity testing -Outpatient Opthalamology eval COPD exacerbation -Steroids, nebs and antibiotics Metabolic encephalopathy Due to respiratory failure, treat underlying cause, Hypernatremia/dehydration Improving, continue gentle hydration Possible Sepsis ID consult CRP Right lower lobe pneumonia possible Aspiration Continue antibiotic of above Anemia Likely of chronic condition, will monitor closely, no gross evidence of bleeding. will check iron status. Hypoglycemia Continue D5W Severe malnutrition Dietitian consult. Tobacco abuse We'll provide tobacco cessation counseling and nicotine patches in her mental status improved No family present today. Considering recurrent admission, and severe COPD, patient with poor prognosis. Will continue to aggressively treat DVT/GI prophy Discharge planning issues:Patient willing to be discharged tomorrow Has 2 sons who will take care of her Subjective Date of service: 04/10/17 Principal diagnosis: Acute on Chronic Hypoxemic Respiratory Failure; Sepsis Syndrome Objective - Constitutional Vitals: Vital Signs - 12hr 04/10/17 04/10/17 04/10/17 05:01 05:55 07:47 Temperature 97.9 F 98.0 F Pulse Rate 92 H 92 H 112 H Pulse Rate [ Anterior Bilateral Throughout] Respiratory 18 18 Rate Respiratory Rate [Anterior Bilateral Throughout] Blood Pressure 140/76 Blood Pressure 119/55 [Left] O2 Sat by Pulse 98 97 Oximetry 04/10/17 04/10/17 04/10/17 08:00 08:15 09:19 Temperature Pulse Rate Pulse Rate [ 92 H 93 H Anterior Bilateral Throughout] Respiratory Rate Respiratory 18 18 Rate [Anterior Bilateral Throughout] Blood Pressure Blood Pressure [Left] O2 Sat by Pulse 98 Oximetry 04/10/17 04/10/17 10:16 10:17 Temperature Pulse Rate 112 H Pulse Rate [ Anterior Bilateral Throughout] Respiratory 18 Rate Respiratory Rate [Anterior Bilateral Throughout] Blood Pressure 140/76 Blood Pressure [Left] O2 Sat by Pulse Oximetry - Labs CBC & Chem 7: 04/10/17 06:05 04/10/17 06:05 Labs: Abnormal lab results 04/09/17 04/10/17 04/10/17 Range/Units 21:56 06:05 06:05 WBC 13.1 H (4.5-11.0) K/mm3 RBC 3.02 L (3.65-5.03) M/mm3 Hgb 9.5 L (10.1-14.3) gm/dl Hct 28.9 L (30.3-42.9) % Sodium 148 H (137-145) mmol/L Potassium 3.1 L D (3.6-5.0) mmol/L Carbon Dioxide 37 H (22-30) mmol/L Creatinine 0.4 L (0.7-1.2) mg/dL Glucose 123 H (65-100) mg/dL POC Glucose 130 H (70-105) Calcium 8.2 L (8.4-10.2) mg/dL 04/10/17 Range/Units 07:56 WBC (4.5-11.0) K/mm3 RBC (3.65-5.03) M/mm3 Hgb (10.1-14.3) gm/dl Hct (30.3-42.9) % Sodium (137-145) mmol/L Potassium (3.6-5.0) mmol/L Carbon Dioxide (22-30) mmol/L Creatinine (0.7-1.2) mg/dL Glucose (65-100) mg/dL POC Glucose 147 H (70-105) Calcium (8.4-10.2) mg/dL
[2017-04-10] MEDS ORDERED: PEPTO BISMOL PO PRN (17:22)
[2017-04-10] MEDS: PERCOCET 5/325 PO PRN (17:31)
[2017-04-10 21:29] LABS: ISTAT Base Excess 14; ISTAT HCO3 37.9; ISTAT PCO2 56.8 (35-45); ISTAT PH 7.432 (7.35-7.45); ISTAT PO2 86 (80-105); ISTAT SO2 97; ISTAT TCO2 40
[2017-04-11] MEDS: PERCOCET 5/325 PO PRN (01:24)
[2017-04-11] MEDS: DUONEB *Not for PRN Use IH SCH ×3 (02:02→14:14)
[2017-04-11 05:50] LABS: Hematocrit 24.9 % (30.3-42.9); Hemoglobin 8.4 gm/dl (10.1-14.3); Mean Corpuscular HGB Conc 34 % (30-34); Mean Corpuscular Hemoglobin 33 pg (28-32); Mean Corpuscular Volume 96 fl (79-97); Platelet Count 252 K/mm3 (140-440); Red Blood Count 2.59 M/mm3 (3.65-5.03); Red Cell Distribution Width 15.1 % (13.2-15.2)
[2017-04-11 05:53] LABS: White Blood Count 20.6 K/mm3 (4.5-11.0)
[2017-04-11 06:14] LABS: Albumin 2.7 g/dL (3.9-5); Albumin/Globulin Ratio 1.2 %; Alkaline Phosphatase 52 units/L (35-129); BUN/Creatinine Ratio 45; Blood Urea Nitrogen 18 mg/dL (7-17); Calcium 7.4 mg/dL (8.4-10.2); Carbon Dioxide 32 mmol/L (22-30); Chloride 95.1 mmol/L (98-107); Glucose 123 mg/dL (65-100); Sodium 140 mmol/L (137-145); Total Protein 4.9 g/dL (6.3-8.2)
[2017-04-11 06:42] LABS: Basophils % (Manual) 0 % (0.0-1.8); Blastocytes % (Manual) 0 %; Eosinophils % (Manual) 0 % (0.0-4.3); Total Cells Counted Percent 0
[2017-04-11 06:44] LABS: Diff Status Complete; Platelet Estimate Consistent w Auto
[2017-04-11 06:46] LABS: Alanine Aminotransferase 20 units/L (7-56); Anion Gap 17 mmol/L; Potassium 3.8 mmol/L (3.6-5.0)
[2017-04-11] MEDS: ZOSYN/NS 3.375GM/50ML 3.375 GM/50 ML BAG IV SCH (06:52)
[2017-04-11] MEDS: BROVANA NEBU IH SCH (08:14)
[2017-04-11] MEDS: PULMICORT IH SCH (08:14)
[2017-04-11] MEDS: PEPCID PO SCH (09:30)
[2017-04-11] MEDS: LOVENOX SUB-Q SCH (09:30)
[2017-04-11] MEDS: XANAX PO SCH (09:30)
[2017-04-11] MEDS: HABITROL TD SCH (09:31)
[2017-04-11] MEDS: NORVASC PO SCH (09:42)
--- NOTE | 2017-04-11 12:10 | Discharge Summary ---
Providers - Providers Date of Admission: 04/04/17 16:22 Date of discharge: 04/11/17 Attending physician: MICHELLE CUMMINGS 04/04/17 13:38 Consult to Physician [CONS] Urgent Consulting Provider: OLEGARIO LERMA Reason For Exam: resp failure Place consult to:: Dr. Lerma Notified:: yes Phone number called:: [phone] Was contact made?: Yes If yes, spoke with:: Dr. Lerma Time called:: 13:39 04/04/17 15:17 Consult to Dietitian/Nutrition [CONS] Routine Physician Instructions: Reason For Exam: Reason for Consult: Write/Manage Tube Feeding 04/04/17 16:25 Consult to Dietitian/Nutrition [CONS] Routine Physician Instructions: malnutrition Reason For Exam: Reason for Consult: Malnutrition 04/05/17 08:09 Consult to Physician [CONS] Routine Consulting Provider: EMMY HOOKS Reason For Exam: sepsis Place consult to:: ID Notified:: Y Was contact made?: Yes Comment:: SAW IN ER 04/07/17 11:35 Consult to Wound/ET Nurse [CONS] Routine Reason For Exam: wound eval Primary care physician: TAIL SAWYER Hospitalization Reason for admission: obtunded Condition: Stable Pertinent studies: Multiple CXRs CT head Hospital course: patient is a 71 years old female with advanced COPD, still a smoker, with severe malnutrition, recent hospitalization for acute respiratory failure secondary to COPD exacerbation and aspiration pneumonia, who was admitted after being found in her house obtunded; was noted to have low BS and received steroids and albuterol per EMS; unable to maintain her airway and intubated in ER. Treated with antibiotics, corticosteroids, he had bronchodilators and she slowly improved and was successfully extubated. Transitioned to by mouth medications and corticosteroid taper started. Counseled regarding importance of quitting smoking, adherence to treatment and follow-up. Refused [facility] placement. Discharged home in her family's care. Discharge diagnoses: Acute hypoxic and hypercapnic respiratory failure requiring mechanical ventilation COPD exacerbation Metabolic encephalopathy, Hypernatremia/dehydration Right lower lobe pneumonia Severe malnutrition Tobacco abuse Disposition: TO HOME OR SELFCARE Time spent for discharge: 40 min Core Measure Documentation - Palliative Care Palliative Care/ Comfort Measures: Not Applicable - Core Measures Any of the following diagnoses?: none Exam - Physical Exam Narrative exam: Seen and examined: - Constitutional Vitals: Temp Pulse Resp BP Pulse Ox 98.4 F 94 H 18 115/47 100 04/11/17 07:30 04/11/17 10:00 04/11/17 08:15 04/11/17 09:42 04/11/17 08:16 General appearance: Present: no acute distress, cachectic - EENT Eyes: Present: PERRL, EOM intact - Neck Neck: Present: supple. Absent: enlarged thyroid, masses or JVD - Respiratory Respiratory effort: normal (at rest), labored (with minimal activity) Respiratory: bilateral: diminished, wheezing (rare exp wheezes), negative: rhonchi - Cardiovascular Rhythm: other (tachycardic) Heart Sounds: Absent: systolic murmur - Extremities Extremities: no ischemia - Abdominal General gastrointestinal: Present: soft, non-tender, non-distended, normal bowel sounds - Integumentary Integumentary: Present: warm, dry, pale. Absent: rash - Musculoskeletal Musculoskeletal: generalized weakness - Psychiatric Psychiatric: cooperative - Neurologic Neurologic: CNII-XII intact, no focal deficits Plan Activity: advance as tolerated, fall precautions Diet: regular Special Instructions: smoking cessation Follow up with: PRIMARY CARE, [Primary Care Provider] - 3-5 Days Prescriptions: QUEtiapine [SEROquel] 50 mg PO QHS #60 tablet ALBUTEROL Inhaler [ProAir HFA Inhaler] 2 puff IH QID PRN #1 can PRN Reason: Shortness Of Breath ALPRAZolam [Xanax TAB] 0.25 mg PO DAILY #7 tablet Arformoterol Nebu [Brovana Nebu] 15 mcg IH Q12HRT #30 ml Bisacodyl [Dulcolax suppos] 10 mg MO QDAY PRN #20 supp.rect PRN Reason: Constipation unrelieved by MOM Budesonide [Pulmicort Respules] 0.5 mg IH Q12HRT #30 nebu Famotidine [Pepcid] 20 mg PO BID #60 tablet Ipratropium/Albuterol Sulfate [DUONEB *Not for PRN Use*] 1 ampul IH Q6HRT #30 ampul.neb NIFEdipine [Procardia] 10 mg PO DAILY #30 capsule predniSONE [Deltasone] 20 mg PO QDAY #20 tab
[2017-04-11] MEDS: TYLENOL PO PRN (15:17)
[2017-04-11] MEDS ORDERED: PEPTO BISMOL PO PRN (15:30)
[2017-04-11 16:08] VITALS: BP 112/48
--- NOTE | 2017-04-19 12:13 | Query- General ---
Werner Rhodes____Jl Date:___04/19/17 [employer] Manager/CDS: Krystin / Vitaliy Phone#:___[phone] Exercise your independent professional judgment when responding to this query. Questions asked do not imply a particular answer is desired or expected. We greatly appreciate your clarification on this issue. Clinical Documentation States: 71 year old female was admitted on 04/04/17 The progress note (Dr. Kay 04/09/17) states " 71-year-old woman admitted to the hospital for altered mental status, acute respiratory failure Acute hypoxic and hypercapnic respiratory failure requiring mechanical ventilation less than 96 hours Metabolic encephalopathy Possible Sepsis ID consult CRP " Given the above clinical scenario can you please provide an appropriate diagnosis based on your knowledge of the patient: PHYSICIAN RESPONSE: [ ] Sepsis ruled out [ ] Sepsis ruled in [ ] Other (Please specify) Present on Admission: [ ] Yes (Y) [ ] Clinically undeterminable (W) [ ]No(N) Please also document response in your Progress Notes and/or Discharge Summary and indicate if the condition was present on admission. MTDD
== END 2017-04-11 18:05 | disposition home or self-care (01) | DRG 871 ==
LOC: ED 12:23 → CC1 16:22 → 4A 04-08 12:50 → 2B-ACE 04-10 20:18
PROVIDERS: ADMIT Internal Medicine; ATTEND Internal Medicine
PROC: 5A1945Z Respiratory Ventilation, 24-96 Consecutive Hours (ICD-10-PCS; principal; 2017-04-04)
PROC: 0BH17EZ Insertion of Endotracheal Airway into Trachea, Via Natural or Artificial Opening (ICD-10-PCS; 2017-04-04)
PROC: 5A09357 Assistance with Respiratory Ventilation, Less than 24 Consecutive Hours, Continuous Positive Airway Pressure (ICD-10-PCS; 2017-04-04)
PROC: 4A033R1 Measurement of Arterial Saturation, Peripheral, Percutaneous Approach (ICD-10-PCS; 2017-04-04)
DX: A41.9 Sepsis, unspecified organism (principal); J69.0 Pneumonitis due to inhalation of food and vomit; J96.21 Acute and chronic respiratory failure with hypoxia; E43 Unspecified severe protein-calorie malnutrition; G93.41 Metabolic encephalopathy; J96.22 Acute and chronic respiratory failure with hypercapnia; J44.1 Chronic obstructive pulmonary disease with (acute) exacerbation; Z68.1 Body mass index [BMI] 19.9 or less, adult; E87.0 Hyperosmolality and hypernatremia; S02.80XA Fracture of other specified skull and facial bones, unspecified side, initial encounter for closed fracture; S02.401A Maxillary fracture, unspecified side, initial encounter for closed fracture; E86.0 Dehydration; Z88.6 Allergy status to analgesic agent; Z88.8 Allergy status to other drugs, medicaments and biological substances; I11.0 Hypertensive heart disease with heart failure; I50.9 Heart failure, unspecified; Z90.710 Acquired absence of both cervix and uterus; Z79.899 Other long term (current) drug therapy; F17.200 Nicotine dependence, unspecified, uncomplicated; D64.9 Anemia, unspecified; Z96.649 Presence of unspecified artificial hip joint; Z71.6 Tobacco abuse counseling; E16.2 Hypoglycemia, unspecified; W19.XXXA Unspecified fall, initial encounter; Y93.89 Activity, other specified; Y92.89 Other specified places as the place of occurrence of the external cause; Y99.8 Other external cause status
CPT/HCPCS: 31720; 36415; 36600; 70460; 71010; 80048; 80053; 80074; 80307; 81001; 82140; 82550; 82553; 82803; 82805; 82962; 83735; 83880; 84100; 84484; 85007; 85025; 85027; 85610; 85730; 86140; 87040; 87070; 87086; 87205; 87400; 93005; 93010; 94002; 94003; 94640; 94660; 94760; 96361; 96374; 96375; J0360; J0696; J1630; J1650; J1956; J2060; J2270; J2543; J2704; J2920; J3010; J3370; J7030; J7050

== ENCOUNTER 2017-04-25 15:55 | Inpatient (IN) | payer MEDICARE ==
[2017-04-25 17:05] LABS: Basophils % (Auto) 0.3 % (0.0-1.8); Eosinophils % (Auto) 0.5 % (0.0-4.3); Hematocrit 33.4 % (30.3-42.9); Hemoglobin 10.7 gm/dl (10.1-14.3); Mean Corpuscular HGB Conc 32 % (30-34); Mean Corpuscular Hemoglobin 32 pg (28-32); Mean Corpuscular Volume 100 fl (79-97); Platelet Count 209 K/mm3 (140-440); Red Blood Count 3.34 M/mm3 (3.65-5.03); Red Cell Distribution Width 16.2 % (13.2-15.2); White Blood Count 5.9 K/mm3 (4.5-11.0)
[2017-04-25 17:22] LABS: Urine Drugs of Abuse Note Disclamer
[2017-04-25 17:45] LABS: Alanine Aminotransferase 8 units/L (7-56); Albumin 3.8 g/dL (3.9-5); Albumin/Globulin Ratio 1.9 %; Alkaline Phosphatase 104 units/L (35-129); BUN/Creatinine Ratio 53; Blood Urea Nitrogen 16 mg/dL (7-17); Calcium 8.9 mg/dL (8.4-10.2); Chloride 94.3 mmol/L (98-107); Glucose 69 mg/dL (65-100); Potassium 4.3 mmol/L (3.6-5.0); Sodium 147 mmol/L (137-145); Total Protein 5.8 g/dL (6.3-8.2)
[2017-04-25 17:50] LABS: Anion Gap 14 mmol/L
[2017-04-25 17:58] LABS: Bilirubin,Urine Negative (Negative); Blood,Urine Negative (Negative); Ketones,Urine Negative (Negative); Protein,Urine <15 mg/dL mg/dL (Negative)
[2017-04-25 17:58] LABS: Carbon Dioxide 43 mmol/L (22-30)
[2017-04-25 17:59] LABS: Leukocyte Esterase,Urine Negative (Negative); Nitrite,Urine Negative (Negative); Urobilinogen,Urine < 2.0 mg/dL (<2.0)
--- NOTE | 2017-04-25 18:02 | Emergency Department Report ---
HPI - General Chief Complaint: Altered Mental Status Time Seen by Provider: 04/25/17 17:44 - HPI HPI: Room 2 The patient is a 71-year-old female presenting with a chief complaint of altered mental status. The patient was brought in by EMS secondary to altered mental status. EMS states the patient lives at home alone however "there are other people there." EMS reports the patient has been nonambulatory for the past 2 weeks in addition to "not acting right." Per EMS trip sheet "home health nurse states 'she isn't really answering questions appropriately, I ask her what her name is and she just stares at me.' ... Patient does appear to be asking questions that are inappropriate, as if she is talking to someone that is not present..." The patient is a very poor historian and much of her speech is unintelligible but she does acknowledge she fell approximately 2 weeks ago. Patient states she "just didn't feel well." Location: Mental state Duration: [See above] Quality: Altered Severity: Moderate Modifying factors: [see above] Context: [see above] Mode of transportation: [not driving] ED Past Medical Hx - Past Medical History Hx Hypertension: Yes Hx Congestive Heart Failure: Yes Hx Seizures: Yes Hx Asthma: Yes Hx COPD: Yes - Surgical History Additional Surgical History: hip surgery, carotid endarterectomy, hysterectomy - Family History Family history: no significant - Social History Smoking Status: Unknown if ever smoked Substance Use Type: None - Medications Home Medications: Home Medications Medication Instructions Recorded Confirmed Last Taken Type HYDROcodone/APAP 5-325 [[place] 1 each PO Q6HR PRN #12 tablet 03/08/17 04/04/17 Unknown Rx 5-325 mg TAB] ALBUTEROL Inhaler [ProAir HFA 2 puff IH QID PRN #1 can 04/11/17 Unknown Rx Inhaler] ALPRAZolam [Xanax TAB] 0.25 mg PO DAILY #7 tablet 04/11/17 Unknown Rx Arformoterol Nebu [Brovana Nebu] 15 mcg IH Q12HRT #30 ml 04/11/17 Unknown Rx Bisacodyl [Dulcolax suppos] 10 mg PA QDAY PRN #20 supp.rect 04/11/17 Unknown Rx Budesonide [Pulmicort Respules] 0.5 mg IH Q12HRT #30 nebu 04/11/17 Unknown Rx Famotidine [Pepcid] 20 mg PO BID #60 tablet 04/11/17 Unknown Rx Ipratropium/Albuterol Sulfate 1 ampul IH Q6HRT #30 ampul.neb 04/11/17 Unknown Rx [DUONEB *Not for PRN Use*] NIFEdipine [Procardia] 10 mg PO DAILY #30 capsule 04/11/17 Unknown Rx QUEtiapine [SEROquel] 50 mg PO QHS #60 tablet 04/11/17 Unknown Rx predniSONE [Deltasone] 20 mg PO QDAY #20 tab 04/11/17 Unknown Rx ED Review of Systems ROS: Stated complaint: AMS Other details as noted in HPI Comment: Unobtainable due to pts medical conditions Physical Exam - Physical Exam Vital Signs: Vital Signs 04/25/17 12 16:17 16:34 Pulse Rate 78 80 Respiratory 22 14 Rate Blood Pressure 180/65 Blood Pressure 149/64 [Left] O2 Sat by Pulse 92 100 Oximetry Physical Exam: GENERAL: The patient is well-developed well-nourished female lying on stretcher not appearing to be in acute distress. [] HEENT: Normocephalic. Atraumatic. Extraocular motions are intact. NECK: Supple. No meningitic signs are noted. There is no adenopathy noted. CHEST/LUNGS: Occasional rhonchi. There is no respiratory distress noted. HEART/CARDIOVASCULAR: Regular. There is no tachycardia. There is no gallop rub or murmur. ABDOMEN: Abdomen is soft, nontender. Patient has normal bowel sounds. There is no abdominal distention. SKIN: There is no rash. There is no edema. There is no diaphoresis. NEURO: The patient is awake but appears disoriented. Patient does not answer all questions appropriately. The patient is occasionally cooperative. The patient has normal speech MUSCULOSKELETAL: There is no evidence of acute injury. ED Course Vital Signs 04/25/17 12 16:17 16:34 Pulse Rate 78 80 Respiratory 22 14 Rate Blood Pressure 180/65 Blood Pressure 149/64 [Left] O2 Sat by Pulse 92 100 Oximetry ED Medical Decision Making - Lab Data Result diagrams: 04/25/17 16:53 04/25/17 16:53 Laboratory Tests 04/25/17 04/25/17 04/25/17 16:53 16:53 16:53 WBC 5.9 RBC 3.34 L Hgb 10.7 Hct 33.4 MCV 100 H MCH 32 MCHC 32 RDW 16.2 H Plt Count 209 Lymph % (Auto) 15.1 [place] % (Auto) 7.4 H Eos % (Auto) 0.5 Baso % (Auto) 0.3 Lymph # 0.9 L [place] # 0.4 Eos # 0.0 Baso # 0.0 Seg Neutrophils % 76.7 H Seg Neutrophils # 4.5 POC ABG pH POC ABG pCO2 POC ABG pO2 POC ABG HCO3 POC ABG Total CO2 POC ABG O2 Sat POC ABG Base Excess FiO2 Sodium 147 H Potassium 4.3 Chloride 94.3 L Carbon Dioxide 43 H* Anion Gap 14 BUN 16 Creatinine 0.3 L Estimated GFR > 60 BUN/Creatinine Ratio 53 Glucose 69 Lactic Acid 1.60 Calcium 8.9 Magnesium 1.90 Total Bilirubin 0.40 AST 16 ALT 8 Alkaline Phosphatase 104 Total Protein 5.8 L Albumin 3.8 L Albumin/Globulin Ratio 1.9 TSH Urine Color Urine Turbidity Urine pH Ur Specific [place] Urine Protein Urine Glucose (UA) Urine Ketones Urine Blood Urine Nitrite Urine Bilirubin Urine Urobilinogen Ur Leukocyte Esterase Urine WBC (Auto) Urine RBC (Auto) U Epithel Cells (Auto) Amorphous Crystals Urine Yeast (Budding) Salicylates Urine Opiates Screen Urine Methadone Screen Acetaminophen Ur Barbiturates Screen Ur Phencyclidine Scrn Ur Amphetamines Screen U Benzodiazepines Scrn Urine Cocaine Screen U Marijuana (THC) Screen Drugs of Abuse Note Plasma/Serum Alcohol 04/25/17 04/25/17 04/25/17 16:53 16:53 16:53 WBC RBC Hgb Hct MCV MCH MCHC RDW Plt Count Lymph % (Auto) [place] % (Auto) Eos % (Auto) Baso % (Auto) Lymph # [place] # Eos # Baso # Seg Neutrophils % Seg Neutrophils # POC ABG pH POC ABG pCO2 POC ABG pO2 POC ABG HCO3 POC ABG Total CO2 POC ABG O2 Sat POC ABG Base Excess FiO2 Sodium Potassium Chloride Carbon Dioxide Anion Gap BUN Creatinine Estimated GFR BUN/Creatinine Ratio Glucose Lactic Acid Calcium Magnesium Total Bilirubin AST ALT Alkaline Phosphatase Total Protein Albumin Albumin/Globulin Ratio TSH 1.230 Urine Color Urine Turbidity Urine pH Ur Specific [place] Urine Protein Urine Glucose (UA) Urine Ketones Urine Blood Urine Nitrite Urine Bilirubin Urine Urobilinogen Ur Leukocyte Esterase Urine WBC (Auto) Urine RBC (Auto) U Epithel Cells (Auto) Amorphous Crystals Urine Yeast (Budding) Salicylates < 0.3 L Urine Opiates Screen Urine Methadone Screen Acetaminophen < 15.0 Ur Barbiturates Screen Ur Phencyclidine Scrn Ur Amphetamines Screen U Benzodiazepines Scrn Urine Cocaine Screen U Marijuana (THC) Screen Drugs of Abuse Note Plasma/Serum Alcohol 04/25/17 04/25/17 04/25/17 16:53 17:15 17:15 WBC RBC Hgb Hct MCV MCH MCHC RDW Plt Count Lymph % (Auto) [place] % (Auto) Eos % (Auto) Baso % (Auto) Lymph # [place] # Eos # Baso # Seg Neutrophils % Seg Neutrophils # POC ABG pH POC ABG pCO2 POC ABG pO2 POC ABG HCO3 POC ABG Total CO2 POC ABG O2 Sat POC ABG Base Excess FiO2 Sodium Potassium Chloride Carbon Dioxide Anion Gap BUN Creatinine Estimated GFR BUN/Creatinine Ratio Glucose Lactic Acid Calcium Magnesium Total Bilirubin AST ALT Alkaline Phosphatase Total Protein Albumin Albumin/Globulin Ratio TSH Urine Color Yellow Urine Turbidity Clear Urine pH 6.0 Ur Specific [place] 1.020 Urine Protein <15 mg/dl Urine Glucose (UA) Negative Urine Ketones Negative Urine Blood Negative Urine Nitrite Negative Urine Bilirubin Negative Urine Urobilinogen < 2.0 Ur Leukocyte Esterase Negative Urine WBC (Auto) 3.0 Urine RBC (Auto) 4.0 U Epithel Cells (Auto) 3.0 Amorphous Crystals 1+ Urine Yeast (Budding) Moderate Salicylates Urine Opiates Screen Presumptive negative Urine Methadone Screen Presumptive negative Acetaminophen Ur Barbiturates Screen Presumptive negative Ur Phencyclidine Scrn Presumptive negative Ur Amphetamines Screen Presumptive negative U Benzodiazepines Scrn Presumptive negative Urine Cocaine Screen Presumptive negative U Marijuana (THC) Screen Presumptive negative Drugs of Abuse Note Disclamer Plasma/Serum Alcohol < 0.01 04/25/17 18:43 WBC RBC Hgb Hct MCV MCH MCHC RDW Plt Count Lymph % (Auto) [place] % (Auto) Eos % (Auto) Baso % (Auto) Lymph # [place] # Eos # Baso # Seg Neutrophils % Seg Neutrophils # POC ABG pH 7.341 L POC ABG pCO2 94.3 H POC ABG pO2 49 L POC ABG HCO3 51.0 POC ABG Total CO2 > 50 POC ABG O2 Sat 78 POC ABG Base Excess 25 FiO2 21 Sodium Potassium Chloride Carbon Dioxide Anion Gap BUN Creatinine Estimated GFR BUN/Creatinine Ratio Glucose Lactic Acid Calcium Magnesium Total Bilirubin AST ALT Alkaline Phosphatase Total Protein Albumin Albumin/Globulin Ratio TSH Urine Color Urine Turbidity Urine pH Ur Specific [place] Urine Protein Urine Glucose (UA) Urine Ketones Urine Blood Urine Nitrite Urine Bilirubin Urine Urobilinogen Ur Leukocyte Esterase Urine WBC (Auto) Urine RBC (Auto) U Epithel Cells (Auto) Amorphous Crystals Urine Yeast (Budding) Salicylates Urine Opiates Screen Urine Methadone Screen Acetaminophen Ur Barbiturates Screen Ur Phencyclidine Scrn Ur Amphetamines Screen U Benzodiazepines Scrn Urine Cocaine Screen U Marijuana (THC) Screen Drugs of Abuse Note Plasma/Serum Alcohol - EKG Data -: EKG Interpreted by Me EKG shows normal: sinus rhythm Rate: normal - EKG Data When compared to previous EKG there are: previous EKG unavailable Interpretation: nonspecific ST-T wave marcie (T-wave inversion in lead aVL, V2) - Radiology Data Radiology results: report reviewed (CT head, CT cervical spine, CT facial bones) , image reviewed (chest x-ray, CT head, CT cervical spine, CT facial bones) interpreted by me: Chest x-ray-no focal infiltrates, no pneumothorax. Flattened diaphragms consistent with COPD CT head (read by radiologist) C-studies limited by patient motion artifact however no gross evidence of acute intracranial abnormality CT facial bones (read by radiologist)-recently seen left sided facial fractures are again visualized no new fractures are seen. CT cervical spine (read by radiologist)-no acute fracture or subluxation is identified. - Differential Diagnosis altered mental status, dehydration, rhabdomyolysis, ICH, Critical care attestation.: If time is entered above; I have spent that time in minutes in the direct care of this critically ill patient, excluding procedure time. ED Disposition Clinical Impression: Altered mental status, COPD (chronic obstructive pulmonary disease), Hypercapnia Disposition: OP ADMIT IP TO THIS HOSP Is pt being admited?: Yes Does the pt Need Aspirin: Yes Condition: Fair Instructions: Chronic Obstructive Pulmonary Disease (ED) Referrals: PRIMARY CARE, [Primary Care Provider] - 3-5 Days Time of Disposition: 19:26 (hospitalist paged (Dr. Kim))
[2017-04-25 18:45] LABS: ISTAT Base Excess 25; ISTAT DEVICE 0; ISTAT PCO2 94.3 (35-45); ISTAT PH 7.341 (7.35-7.45); ISTAT PO2 49 (80-105); ISTAT SO2 78; ISTAT TCO2 > 50
--- NOTE | 2017-04-25 18:50 | Cat Scan Report ---
FINAL REPORT PROCEDURE: CT HEAD/BRAIN WO CON TECHNIQUE: Computerized tomography of the head was performed without contrast material. HISTORY: altered mental status, history of fall COMPARISON: 04/08/2017 FINDINGS: Study is limited by patient motion artifact. Bilateral choroid calcification is again noted. There is no CT evidence of intracranial hemorrhage, mass, hydrocephalus, or acute territorial infarction. The intracranial arteries are symmetric in density. No acute fracture is seen. There is bilateral mastoid fluid. IMPRESSION: Study is limited by patient motion artifact, however no gross evidence of acute intracranial abnormality
--- NOTE | 2017-04-25 18:59 | Cat Scan Report ---
FINAL REPORT PROCEDURE: CT FACIAL BONES WO CON TECHNIQUE: Computerized tomography of the facial bones and soft tissues with axial and coronal sections performed from the cranial aspect of the frontal sinuses to the caudal portion of the mandible without contrast material. HISTORY: altered mental status, history of fall COMPARISON: CT head 04/08/2017 FINDINGS: Fractures of the left anterior and posterolateral maxillary sinus rodriguez, extending to the left orbital floor and left lateral orbital wall are again visualized. No new fracture is seen. There is mild left maxillary sinus mucosal thickening. No sinus air-fluid levels are identified. The temporomandibular joints are intact. IMPRESSION: Previously seen left-sided facial fractures are again visualized. No new fractures are seen
--- NOTE | 2017-04-25 19:11 | Cat Scan Report ---
FINAL REPORT PROCEDURE: CT CERVICAL SPINE WO CON TECHNIQUE: Computerized tomography of the cervical spine was performed from the skull base to T1 without contrast material. HISTORY: altered mental status, history of fall COMPARISON: No prior studies are available for comparison. FINDINGS: The vertebral body heights and alignment are maintained. There are significant degenerative disc changes at C5-6 and C6-7, with disc space narrowing and osteophyte formation. There may be a right carotid stent in place. Correlate with patient history. There are emphysematous changes at the lung apices. IMPRESSION: No acute fracture or subluxation is identified..
--- NOTE | 2017-04-25 20:17 | History and Physical Report ---
History of Present Illness Chief complaint: Confused History of present illness: 71 YO Female with COPD, HTN, Seizure Disorder, Nicotine Dependence, Severe Malnutrition presents to ED for evaluation. Pt is confused, lethargic and unable to provide history. History taken from ED staff, medical record,and EMS. per report, patient has experienced weakness and confusion over the past 2 weeks, with worsening ymptoms over the past 2 days. EMS notified after home health nurse found patient to be lethargic and unable to conduct activities of daily living. Upon EMS arrival, Patient found to be is respiratory distress, confused, with garbled speech. No reports of falls, fever, chills, CP, Palpitations, NVD, Syncope, BRBPR, recent ill contacts, leg pain, calf pain, prolonged travel/immobility, individual/family history of DVT/PE, skin rash, hemoptysis, night sweats, trauma, or recent falls. Pt seen and evaluated in ED and found to have acute hypoxemic respiratory failure. Pt treated with NIPPV. Past History Past Medical History: COPD, hypertension, seizures, other (Nicotine Dependence) Past Surgical History: hysterectomy, total hip replacement, Other (Carotid Endarterectomy) Social history: , smoking. denies: alcohol abuse, prescription drug abuse, IV drug use Family history: hypertension Medications and Allergies Allergies Allergy/AdvReac Type Severity Reaction Status Date / Time aspirin Allergy Unknown Verified 06/25/14 16:10 chlorzoxazone Allergy Seizure Verified 04/15/14 21:58 [From Parafon Forte] codeine Allergy Unknown Verified 11/03/15 13:57 ibuprofen [From Motrin] Allergy Swelling Verified 04/15/14 21:58 olmesartan medoxomil Allergy Nausea Verified 04/15/14 21:58 [From Benicar] phenytoin sodium Allergy Unknown Verified 04/15/14 18:58 [From Dilantin] phenytoin sodium extended Allergy Unknown Verified 04/15/14 18:58 [From Dilantin] ramipril Allergy Nausea Verified 04/15/14 21:58 verapamil Allergy Unknown Verified 11/03/15 18:15 Home Medications Medication Instructions Recorded Confirmed Last Taken Type HYDROcodone/APAP 5-325 [[place] 1 each PO Q6HR PRN #12 tablet 03/08/17 04/25/17 Unknown Rx 5-325 mg TAB] ALBUTEROL Inhaler [ProAir HFA 2 puff IH QID PRN #1 can 04/11/17 04/25/17 Unknown Rx Inhaler] ALPRAZolam [Xanax TAB] 0.25 mg PO DAILY #7 tablet 04/11/17 04/25/17 Unknown Rx Arformoterol Nebu [Brovana Nebu] 15 mcg IH Q12HRT #30 ml 04/11/17 04/25/17 Unknown Rx Budesonide [Pulmicort Respules] 0.5 mg IH Q12HRT #30 nebu 04/11/17 04/25/17 Unknown Rx Famotidine [Pepcid] 20 mg PO BID #60 tablet 04/11/17 04/25/17 Unknown Rx Ipratropium/Albuterol Sulfate 1 ampul IH Q6HRT #30 ampul.neb 04/11/17 04/25/17 Unknown Rx [DUONEB *Not for PRN Use*] NIFEdipine [Procardia] 10 mg PO DAILY #30 capsule 04/11/17 04/25/17 Unknown Rx QUEtiapine [SEROquel] 50 mg PO QHS #60 tablet 04/11/17 04/25/17 Unknown Rx Bisacodyl [Dulcolax suppos] 10 mg PA DAILY PRN 04/25/17 04/25/17 Unknown History predniSONE [Deltasone] 20 mg PO DAILY 04/25/17 04/25/17 Unknown History Review of Systems ROS unobtainable: due to mental status Exam - Constitutional Vitals: Temp Pulse Resp BP Pulse Ox 97.6 F 79 23 133/55 100 04/25/17 18:58 04/25/17 19:03 04/25/17 19:03 04/25/17 19:03 04/25/17 19:03 General appearance: Present: mild distress, cachectic, disheveled - EENT Eyes: Present: PERRL ENT: hearing intact, clear oral mucosa - Neck Neck: Present: supple, normal ROM - Respiratory Respiratory effort: labored Respiratory: bilateral: diminished, rhonchi - Cardiovascular Heart Sounds: Present: S1 & S2. Absent: rub, click - Extremities Extremities: pulses symmetrical, No edema Peripheral Pulses: within normal limits - Abdominal General gastrointestinal: Present: soft, non-tender, non-distended, normal bowel sounds Female genitourinary: Present: normal - Integumentary Integumentary: Present: clear, dry, clammy, decreased turgor - Musculoskeletal Musculoskeletal: generalized weakness - Psychiatric Psychiatric: no intact judgment & insight, no memory intact - Neurologic Neurologic: no gait normal Results - Labs CBC & Chem 7: 04/25/17 16:53 04/25/17 16:53 Labs: Abnormal lab results 04/25/17 04/25/17 04/25/17 Range/Units 16:53 16:53 16:53 RBC 3.34 L (3.65-5.03) M/mm3 MCV 100 H (79-97) fl RDW 16.2 H (13.2-15.2) % [place] % (Auto) 7.4 H (0.0-7.3) % Lymph # 0.9 L (1.2-5.4) K/mm3 Seg Neutrophils % 76.7 H (40.0-70.0) % POC ABG pH (7.35-7.45) POC ABG pCO2 (35-45) POC ABG pO2 (80-105) Sodium 147 H (137-145) mmol/L Chloride 94.3 L (98-107) mmol/L Carbon Dioxide 43 H* (22-30) mmol/L Creatinine 0.3 L (0.7-1.2) mg/dL Total Protein 5.8 L (6.3-8.2) g/dL Albumin 3.8 L (3.9-5) g/dL Salicylates < 0.3 L (2.8-20.0) mg/dL 04/25/17 Range/Units 18:43 RBC (3.65-5.03) M/mm3 MCV (79-97) fl RDW (13.2-15.2) % [place] % (Auto) (0.0-7.3) % Lymph # (1.2-5.4) K/mm3 Seg Neutrophils % (40.0-70.0) % POC ABG pH 7.341 L (7.35-7.45) POC ABG pCO2 94.3 H (35-45) POC ABG pO2 49 L (80-105) Sodium (137-145) mmol/L Chloride (98-107) mmol/L Carbon Dioxide (22-30) mmol/L Creatinine (0.7-1.2) mg/dL Total Protein (6.3-8.2) g/dL Albumin (3.9-5) g/dL Salicylates (2.8-20.0) mg/dL Assessment and Plan - Patient Problems (1) Acute respiratory failure with hypoxia and hypercapnia Current Visit: No Status: Acute Plan to address problem: NIPPV, supportive care, nebulizer therapy, aspiration precautions, incentive spirometry, steroid therapy, IV abx, (2) Encephalopathy Current Visit: Yes Status: Acute Plan to address problem: Metabolic encephalopathy: treat respiratory failure, IVF resuscitation, supportive care, neuro checks, (3) Volume depletion Current Visit: Yes Status: Acute Plan to address problem: IVF resuscitation therapy, monitor uop q shift, supportive care, repeat BMP to monitor serum creatnine, (4) Metabolic alkalosis Current Visit: Yes Status: Acute Plan to address problem: Treat hypercapnic respiratory failure, repeat bmp, IVF resuscitation therapy (5) Hypernatremia Current Visit: Yes Status: Acute Plan to address problem: IVF resuscitation therapy, repeat bmp, (6) DVT prophylaxis Current Visit: No Status: Chronic
[2017-04-25] MEDS ORDERED: TYLENOL PO PRN (20:19)
[2017-04-25] MEDS ORDERED: ZOFRAN IV PRN (20:19)
[2017-04-25] MEDS ORDERED: PROVENTIL IH PRN (20:19)
[2017-04-25] MEDS ORDERED: PROAIR IH PRN (20:22)
[2017-04-25] MEDS ORDERED: DULCOLAX PR PRN (20:22)
--- NOTE | 2017-04-25 21:02 | XRay Report ---
FINAL REPORT PROCEDURE: XR CHEST 1V AP TECHNIQUE: Chest radiograph anteroposterior view. CPT 46295 HISTORY: rhonchi COMPARISON: 04/07/2017 FINDINGS: Heart: Normal. Mediastinum/Vessels: Normal. Lungs/Pleural space: Lungs are hyperinflated. There are no confluent infiltrates or mass lesions. Pleural spaces are clear.. Bony thorax: No acute osseous abnormality. Life support devices: None. IMPRESSION: COPD. No acute pulmonary process..
[2017-04-25] MEDS: BROVANA NEBU IH SCH (21:22)
[2017-04-25] MEDS: DUONEB *Not for PRN Use IH SCH (21:22)
[2017-04-25] MEDS: PULMICORT IH SCH (21:22)
[2017-04-25] MEDS ORDERED: PEPCID PO SCH (22:00)
[2017-04-25 22:03] LABS: ISTAT Base Excess 29; ISTAT PCO2 93.4 (35-45); ISTAT PO2 117 (80-105); ISTAT SO2 98; ISTAT TCO2 > 50
[2017-04-25] MEDS ORDERED: PEPCID ONE (22:51)
[2017-04-25] MEDS: PEPCID PO SCH (22:57)
[2017-04-26] MEDS: NACL 0.45% 1000 ML 1,000 ML IV SCH ×2 (00:34→09:51)
[2017-04-26] MEDS: DUONEB *Not for PRN Use IH SCH ×4 (02:00→19:56)
[2017-04-26] MEDS: NORCO 5/325 PO PRN (03:13)
--- NOTE | 2017-04-26 08:54 | Event Note ---
Date: 04/26/17 Called by IMS and the ICU charge nurse last night regarding admission. Patient evaluated by IMS and deemed lethargic, despite normal pH. PCO2 was elevated. Given IMS concern I agreed to admission. Now this am, after reviewing the chart. The patient belongs to the other pulmonary group. I will alert Dr. Huang and ask them to continue to evaluate patient as she was just here at the beginning of the month.
[2017-04-26 09:23] LABS: Hematocrit 30.6 % (30.3-42.9); Hemoglobin 10.1 gm/dl (10.1-14.3); Mean Corpuscular HGB Conc 33 % (30-34); Mean Corpuscular Hemoglobin 33 pg (28-32); Mean Corpuscular Volume 100 fl (79-97); Platelet Count 183 K/mm3 (140-440); Red Blood Count 3.07 M/mm3 (3.65-5.03); White Blood Count 4.7 K/mm3 (4.5-11.0)
[2017-04-26] MEDS: PEPCID PO SCH ×2 (09:31→21:34)
[2017-04-26] MEDS: XANAX PO SCH (09:31)
[2017-04-26 09:35] LABS: BUN/Creatinine Ratio 50; Blood Urea Nitrogen 15 mg/dL (7-17); Calcium 8.5 mg/dL (8.4-10.2); Chloride 95.4 mmol/L (98-107); Glucose 71 mg/dL (65-100); Potassium 4.4 mmol/L (3.6-5.0); Sodium 143 mmol/L (137-145)
[2017-04-26 09:41] LABS: Anion Gap 10 mmol/L; Carbon Dioxide 42 mmol/L (22-30)
[2017-04-26] MEDS: BROVANA NEBU IH SCH ×2 (09:41→19:56)
[2017-04-26] MEDS: PULMICORT IH SCH ×2 (09:42→19:56)
--- NOTE | 2017-04-26 09:48 | Progress Note ---
Assessment and Plan Assessment and plan: Acute respiratory failure with hypoxia and hypercapnea. Patient admitted to ICU. She is on BIPAP. Pulmonology consulted. Repeat ABG Toxic metabolic encephalopathy. She has altered mental status, confused. COPD exacerbation. Started on solu-medrol, Duoneb Hypertension. BP stable Seizure disorder. Seizure precautions. Hypernatremia. Recheck BMP DVT prophylaxis with Heparin subcut. Full code status History Interval history: Patient still confused, No chest pain, No fever Hospitalist Physical - Physical exam Narrative exam: GEN APPEARANCE : Not in acute distress, malnourished HEENT: Normocephalic, atraumatic NECK : supple, no JVD LUNGS: Decreased breath sounds, bilateral rhonchi. No rales, no wheeze HEART: S1 and S2 regular, no murmurs, rubs or gallop, ABD: Soft, non tender, non distended, normal bowel sounds EXT: No edema, no clubbing, no cyanosis NEURO: Lethargic, confused, - Constitutional Vitals: Temp Pulse Resp BP Pulse Ox 97.2 F L 76 24 154/49 100 04/26/17 08:00 04/26/17 09:37 04/26/17 09:37 04/26/17 09:37 04/26/17 09:37 Results - Labs CBC & Chem 7: 04/26/17 08:20 04/26/17 08:20 Labs: Laboratory Last Values WBC 4.7 K/mm3 (4.5-11.0) 04/26/17 08:20 RBC 3.07 M/mm3 (3.65-5.03) L 04/26/17 08:20 Hgb 10.1 gm/dl (10.1-14.3) 04/26/17 08:20 Hct 30.6 % (30.3-42.9) 04/26/17 08:20 MCV 100 fl (79-97) H 04/26/17 08:20 MCH 33 pg (28-32) H 04/26/17 08:20 MCHC 33 % (30-34) 04/26/17 08:20 RDW 16.0 % (13.2-15.2) H 04/26/17 08:20 Plt Count 183 K/mm3 (140-440) 04/26/17 08:20 Lymph % (Auto) 15.1 % (13.4-35.0) 04/25/17 16:53 [place] % (Auto) 7.4 % (0.0-7.3) H 04/25/17 16:53 Eos % (Auto) 0.5 % (0.0-4.3) 04/25/17 16:53 Baso % (Auto) 0.3 % (0.0-1.8) 04/25/17 16:53 Lymph # 0.9 K/mm3 (1.2-5.4) L 04/25/17 16:53 [place] # 0.4 K/mm3 (0.0-0.8) 04/25/17 16:53 Eos # 0.0 K/mm3 (0.0-0.4) 04/25/17 16:53 Baso # 0.0 K/mm3 (0.0-0.1) 04/25/17 16:53 Seg Neutrophils % 76.7 % (40.0-70.0) H 04/25/17 16:53 Seg Neutrophils # 4.5 K/mm3 (1.8-7.7) 04/25/17 16:53 POC ABG pH 7.370 (7.35-7.45) 04/25/17 21:26 POC ABG pCO2 93.4 (35-45) H 04/25/17 21:26 POC ABG pO2 117 (80-105) H 04/25/17 21:26 POC ABG HCO3 54.0 04/25/17 21:26 POC ABG Total CO2 > 50 04/25/17 21:26 POC ABG O2 Sat 98 04/25/17 21:26 POC ABG Base Excess 29 04/25/17 21:26 FiO2 40 % 04/25/17 21:26 Sodium 143 mmol/L (137-145) 04/26/17 08:20 Potassium 4.4 mmol/L (3.6-5.0) 04/26/17 08:20 Chloride 95.4 mmol/L (98-107) L 04/26/17 08:20 Carbon Dioxide 42 mmol/L (22-30) H* 04/26/17 08:20 Anion Gap 10 mmol/L 04/26/17 08:20 BUN 15 mg/dL (7-17) 04/26/17 08:20 Creatinine 0.3 mg/dL (0.7-1.2) L 04/26/17 08:20 Estimated GFR > 60 ml/min 04/26/17 08:20 BUN/Creatinine Ratio 50 % 04/26/17 08:20 Glucose 71 mg/dL (65-100) 04/26/17 08:20 Lactic Acid 2.00 mmol/L (0.7-2.0) 04/25/17 19:02 Calcium 8.5 mg/dL (8.4-10.2) 04/26/17 08:20 Magnesium 1.90 mg/dL (1.7-2.3) 04/25/17 16:53 Total Bilirubin 0.40 mg/dL (0.1-1.2) 04/25/17 16:53 AST 16 units/L (5-40) 04/25/17 16:53 ALT 8 units/L (7-56) 04/25/17 16:53 Alkaline Phosphatase 104 units/L (35-129) 04/25/17 16:53 Ammonia 22.0 umol/L (25-60) L 04/25/17 20:38 Total Protein 5.8 g/dL (6.3-8.2) L 04/25/17 16:53 Albumin 3.8 g/dL (3.9-5) L 04/25/17 16:53 Albumin/Globulin Ratio 1.9 % 04/25/17 16:53 TSH 1.260 mlU/mL (0.270-4.200) 04/25/17 20:22 Free T4 1.03 ng/dL (0.76-1.46) 04/25/17 20:22 Urine Color Yellow (Yellow) 04/25/17 17:15 Urine Turbidity Clear (Clear) 04/25/17 17:15 Urine pH 6.0 (5.0-7.0) 04/25/17 17:15 Ur Specific [place] 1.020 (1.003-1.030) 04/25/17 17:15 Urine Protein <15 mg/dl mg/dL (Negative) 04/25/17 17:15 Urine Glucose (UA) Negative mg/dL (Negative) 04/25/17 17:15 Urine Ketones Negative mg/dL (Negative) 04/25/17 17:15 Urine Blood Negative (Negative) 04/25/17 17:15 Urine Nitrite Negative (Negative) 04/25/17 17:15 Urine Bilirubin Negative (Negative) 04/25/17 17:15 Urine Urobilinogen < 2.0 mg/dL (<2.0) 04/25/17 17:15 Ur Leukocyte Esterase Negative (Negative) 04/25/17 17:15 Urine WBC (Auto) 3.0 /HPF (0.0-6.0) 04/25/17 17:15 Urine RBC (Auto) 4.0 /HPF (0.0-6.0) 04/25/17 17:15 U Epithel Cells (Auto) 3.0 /HPF (0-13.0) 04/25/17 17:15 Amorphous Crystals 1+ 04/25/17 17:15 Urine Yeast (Budding) Moderate /HPF 04/25/17 17:15 Salicylates < 0.3 mg/dL (2.8-20.0) L 04/25/17 16:53 Urine Opiates Screen Presumptive negative 04/25/17 17:15 Urine Methadone Screen Presumptive negative 04/25/17 17:15 Acetaminophen < 15.0 ug/mL (10.0-30.0) 04/25/17 16:53 Ur Barbiturates Screen Presumptive negative 04/25/17 17:15 Ur Phencyclidine Scrn Presumptive negative 04/25/17 17:15 Ur Amphetamines Screen Presumptive negative 04/25/17 17:15 U Benzodiazepines Scrn Presumptive negative 04/25/17 17:15 Urine Cocaine Screen Presumptive negative 04/25/17 17:15 U Marijuana (THC) Screen Presumptive negative 04/25/17 17:15 Drugs of Abuse Note Disclamer 04/25/17 17:15 Plasma/Serum Alcohol < 0.01 gm% (0-0.07) 04/25/17 16:53
[2017-04-26] MEDS ORDERED: DELTASONE PO SCH (10:00)
[2017-04-26] MEDS ORDERED: ZITHROMAX 500 MG in NACL 0.9% 250ML 250 ML IV SCH (10:00)
[2017-04-26] MEDS ORDERED: PROCARDIA*For Tocolysis only PO SCH (10:00)
--- NOTE | 2017-04-26 12:51 | Consultation ---
History of Present Illness Consult date: 04/26/17 Requesting physician: MARLENA AN Reason for consult: COPD, other (Acute on Chronic Hypercapnic Hypoxemic Respiratory Failure) History of present illness: PULMONARY/CCM CONSULT NOTE (Full dictation # [id number]) please see dictated notes for full details Past History Past Medical History: COPD, hypertension, seizures, other (Nicotine Dependence) Past Surgical History: hysterectomy, total hip replacement, Other (Carotid Endarterectomy) Social history: , smoking. denies: alcohol abuse, prescription drug abuse, IV drug use Family history: hypertension Medications and Allergies Allergies Allergy/AdvReac Type Severity Reaction Status Date / Time aspirin Allergy Unknown Verified 06/25/14 16:10 chlorzoxazone Allergy Seizure Verified 04/15/14 21:58 [From Parafon Forte] codeine Allergy Unknown Verified 11/03/15 13:57 ibuprofen [From Motrin] Allergy Swelling Verified 04/15/14 21:58 olmesartan medoxomil Allergy Nausea Verified 04/15/14 21:58 [From Benicar] phenytoin sodium Allergy Unknown Verified 04/15/14 18:58 [From Dilantin] phenytoin sodium extended Allergy Unknown Verified 04/15/14 18:58 [From Dilantin] ramipril Allergy Nausea Verified 04/15/14 21:58 verapamil Allergy Unknown Verified 11/03/15 18:15 Home Medications Medication Instructions Recorded Confirmed Last Taken Type HYDROcodone/APAP 5-325 [[place] 1 each PO Q6HR PRN #12 tablet 03/08/17 04/25/17 Unknown Rx 5-325 mg TAB] ALBUTEROL Inhaler [ProAir HFA 2 puff IH QID PRN #1 can 04/11/17 04/25/17 Unknown Rx Inhaler] ALPRAZolam [Xanax TAB] 0.25 mg PO DAILY #7 tablet 04/11/17 04/25/17 Unknown Rx Arformoterol Nebu [Brovana Nebu] 15 mcg IH Q12HRT #30 ml 04/11/17 04/25/17 Unknown Rx Budesonide [Pulmicort Respules] 0.5 mg IH Q12HRT #30 nebu 04/11/17 04/25/17 Unknown Rx Famotidine [Pepcid] 20 mg PO BID #60 tablet 04/11/17 04/25/17 Unknown Rx Ipratropium/Albuterol Sulfate 1 ampul IH Q6HRT #30 ampul.neb 04/11/17 04/25/17 Unknown Rx [DUONEB *Not for PRN Use*] NIFEdipine [Procardia] 10 mg PO DAILY #30 capsule 04/11/17 04/25/17 Unknown Rx QUEtiapine [SEROquel] 50 mg PO QHS #60 tablet 04/11/17 04/25/17 Unknown Rx Bisacodyl [Dulcolax suppos] 10 mg [place] DAILY PRN 04/25/17 04/25/17 Unknown History predniSONE [Deltasone] 20 mg PO DAILY 04/25/17 04/25/17 Unknown History Active Meds: Active Medications Acetaminophen (Tylenol) 650 mg PO Q4H PRN PRN Reason: Pain MILD(1-3)/Fever >100.5/GREGORY Acetaminophen/Hydrocodone Bitart ([place] 5/325) 1 each PO Q6HR PRN PRN Reason: Pain Last Admin: 04/26/17 03:13 Dose: 1 each Albuterol (Proventil) 2.5 mg IH Q4HRT PRN PRN Reason: Shortness Of Breath Albuterol/Ipratropium (Duoneb *Not For Prn Use*) 1 ampul IH Q6HRT [facility] Last Admin: 04/26/17 09:41 Dose: 1 ampul Alprazolam (Xanax) 0.25 mg PO DAILY [facility] Last Admin: 04/26/17 09:31 Dose: 0.25 mg Arformoterol Tartrate (Brovana Nebu) 15 mcg IH Q12HRT [facility] Last Admin: 04/26/17 09:41 Dose: 15 mcg Bisacodyl (Dulcolax) 10 mg [place] DAILY PRN PRN Reason: Constipation unrelieved by MOM Budesonide (Pulmicort) 0.5 mg IH Q12HRT [facility] Last Admin: 04/26/17 09:42 Dose: 0.5 mg Famotidine (Pepcid) 20 mg PO BID [facility] Last Admin: 04/26/17 09:31 Dose: 20 mg Sodium Chloride (Nacl 0.45% 1000 Ml) 1,000 mls @ 100 mls/hr IV DIRECT [facility] Last Admin: 04/26/17 09:51 Dose: 100 mls/hr Azithromycin 500 mg/ Sodium (Chloride) 250 mls @ 250 mls/hr IV Q24HR [facility] Last Admin: 04/26/17 09:32 Dose: 250 mls/hr Methylprednisolone Sodium Succinate (Solu-Medrol) 20 mg IV Q12HR [facility] Last Admin: 04/26/17 09:31 Dose: 20 mg Ondansetron HCl (Zofran) 4 mg IV Q8H PRN PRN Reason: N/V unrelieved by Reglan Quetiapine Fumarate (Seroquel) 50 mg PO QHS [facility] Last Admin: 04/25/17 22:58 Dose: 50 mg Physical Examination Vital signs: Vital Signs Pulse Resp BP Pulse Ox 78 22 180/65 92 04/25/17 16:17 04/25/17 16:17 04/25/17 16:17 04/25/17 16:17 Results - Laboratory Findings CBC and BMP: 04/26/17 08:20 04/27/17 07:44 ABG POC ABG pH 7.370 (7.35-7.45) 04/25/17 21:26 POC ABG pCO2 93.4 (35-45) H 04/25/17 21:26 POC ABG pO2 117 (80-105) H 04/25/17 21:26 POC ABG HCO3 54.0 04/25/17 21:26 POC ABG Total CO2 > 50 04/25/17 21:26 POC ABG O2 Sat 98 04/25/17 21:26 Abnormal lab findings: Abnormal Labs 04/25/17 04/25/17 04/25/17 16:53 16:53 16:53 RBC 3.34 L MCV 100 H MCH RDW 16.2 H [place] % (Auto) 7.4 H Lymph # 0.9 L Seg Neutrophils % 76.7 H POC ABG pH POC ABG pCO2 POC ABG pO2 Sodium 147 H Chloride 94.3 L Carbon Dioxide 43 H* Creatinine 0.3 L Ammonia Total Protein 5.8 L Albumin 3.8 L Salicylates < 0.3 L 04/25/17 04/25/17 04/25/17 18:43 20:38 21:26 RBC MCV MCH RDW [place] % (Auto) Lymph # Seg Neutrophils % POC ABG pH 7.341 L POC ABG pCO2 94.3 H 93.4 H POC ABG pO2 49 L 117 H Sodium Chloride Carbon Dioxide Creatinine Ammonia 22.0 L Total Protein Albumin Salicylates 04/26/17 04/26/17 08:20 08:20 RBC 3.07 L MCV 100 H MCH 33 H RDW 16.0 H [place] % (Auto) Lymph # Seg Neutrophils % POC ABG pH POC ABG pCO2 POC ABG pO2 Sodium Chloride 95.4 L Carbon Dioxide 42 H* Creatinine 0.3 L Ammonia Total Protein Albumin Salicylates
[2017-04-26 16:42] LABS: ISTAT Base Excess 21; ISTAT HCO3 44.4; ISTAT PCO2 61.6 (35-45); ISTAT PH 7.465 (7.35-7.45); ISTAT PO2 115 (80-105); ISTAT SO2 99; ISTAT TCO2 46
[2017-04-26] MEDS ORDERED: D5/0.45NS 1,000 ML IV SCH (19:00)
[2017-04-26] MEDS ORDERED: APRESOLINE IV PRN (20:21)
[2017-04-26] MEDS: HEPARIN SUB-Q SCH (21:36)
[2017-04-27] MEDS: DUONEB *Not for PRN Use IH SCH ×4 (01:33→22:55)
[2017-04-27 08:25] LABS: Anion Gap 14 mmol/L; BUN/Creatinine Ratio 40; Blood Urea Nitrogen 12 mg/dL (7-17); Calcium 8.4 mg/dL (8.4-10.2); Carbon Dioxide 38 mmol/L (22-30); Chloride 93.7 mmol/L (98-107); Glucose 89 mg/dL (65-100); Sodium 142 mmol/L (137-145)
--- NOTE | 2017-04-27 09:47 | Progress Note ---
Assessment and Plan Assessment and plan: Acute respiratory failure with hypoxia and hypercapnea. Patient admitted to ICU. She was on BIPAP. Now doing well on Oxygen by NM. Pulmonology following Toxic metabolic encephalopathy. This is improving. She was confused yesterday. Today is awake,alert. COPD exacerbation. Continue solu-medrol, Duoneb Hypertension. BP stable Seizure disorder. Seizure precautions. Hypernatremia. Recheck BMP DVT prophylaxis with Heparin subcut. Full code status Discussed with Vamp Seamer. Patient medically stable to transfer to Med/surg. History Interval history: Patient feels much better No more confusion, No chest pain, No fever Hospitalist Physical - Physical exam Narrative exam: GEN APPEARANCE : Not in acute distress, malnourished HEENT: Normocephalic, atraumatic NECK : supple, no JVD LUNGS: Decreased breath sounds, bilateral rhonchi. No rales, no wheeze HEART: S1 and S2 regular, no murmurs, rubs or gallop, ABD: Soft, non tender, non distended, normal bowel sounds EXT: No edema, no clubbing, no cyanosis NEURO: Awake,alert,oriented, moves all ext - Constitutional Vitals: Temp Pulse Resp BP Pulse Ox 97.9 F 87 19 167/103 100 04/27/17 04:00 04/27/17 07:31 04/27/17 07:31 04/27/17 07:31 04/27/17 07:31 Results - Labs CBC & Chem 7: 04/26/17 08:20 04/27/17 07:44 Labs: Laboratory Last Values WBC 4.7 K/mm3 (4.5-11.0) 04/26/17 08:20 RBC 3.07 M/mm3 (3.65-5.03) L 04/26/17 08:20 Hgb 10.1 gm/dl (10.1-14.3) 04/26/17 08:20 Hct 30.6 % (30.3-42.9) 04/26/17 08:20 MCV 100 fl (79-97) H 04/26/17 08:20 MCH 33 pg (28-32) H 04/26/17 08:20 MCHC 33 % (30-34) 04/26/17 08:20 RDW 16.0 % (13.2-15.2) H 04/26/17 08:20 Plt Count 183 K/mm3 (140-440) 04/26/17 08:20 Lymph % (Auto) 15.1 % (13.4-35.0) 04/25/17 16:53 [place] % (Auto) 7.4 % (0.0-7.3) H 04/25/17 16:53 Eos % (Auto) 0.5 % (0.0-4.3) 04/25/17 16:53 Baso % (Auto) 0.3 % (0.0-1.8) 04/25/17 16:53 Lymph # 0.9 K/mm3 (1.2-5.4) L 04/25/17 16:53 [place] # 0.4 K/mm3 (0.0-0.8) 04/25/17 16:53 Eos # 0.0 K/mm3 (0.0-0.4) 04/25/17 16:53 Baso # 0.0 K/mm3 (0.0-0.1) 04/25/17 16:53 Seg Neutrophils % 76.7 % (40.0-70.0) H 04/25/17 16:53 Seg Neutrophils # 4.5 K/mm3 (1.8-7.7) 04/25/17 16:53 POC ABG pH 7.465 (7.35-7.45) H 04/26/17 16:37 POC ABG pCO2 61.6 (35-45) H 04/26/17 16:37 POC ABG pO2 115 (80-105) H 04/26/17 16:37 POC ABG HCO3 44.4 04/26/17 16:37 POC ABG Total CO2 46 04/26/17 16:37 POC ABG O2 Sat 99 04/26/17 16:37 POC ABG Base Excess 21 04/26/17 16:37 FiO2 35 % 04/26/17 16:37 Sodium 142 mmol/L (137-145) 04/27/17 07:44 Potassium 4.0 mmol/L (3.6-5.0) 04/27/17 07:44 Chloride 93.7 mmol/L (98-107) L 04/27/17 07:44 Carbon Dioxide 38 mmol/L (22-30) H 04/27/17 07:44 Anion Gap 14 mmol/L 04/27/17 07:44 BUN 12 mg/dL (7-17) 04/27/17 07:44 Creatinine 0.3 mg/dL (0.7-1.2) L 04/27/17 07:44 Estimated GFR > 60 ml/min 04/27/17 07:44 BUN/Creatinine Ratio 40 % 04/27/17 07:44 Glucose 89 mg/dL (65-100) 04/27/17 07:44 Lactic Acid 2.00 mmol/L (0.7-2.0) 04/25/17 19:02 Calcium 8.4 mg/dL (8.4-10.2) 04/27/17 07:44 Magnesium 1.90 mg/dL (1.7-2.3) 04/25/17 16:53 Total Bilirubin 0.40 mg/dL (0.1-1.2) 04/25/17 16:53 AST 16 units/L (5-40) 04/25/17 16:53 ALT 8 units/L (7-56) 04/25/17 16:53 Alkaline Phosphatase 104 units/L (35-129) 04/25/17 16:53 Ammonia 22.0 umol/L (25-60) L 04/25/17 20:38 Total Protein 5.8 g/dL (6.3-8.2) L 04/25/17 16:53 Albumin 3.8 g/dL (3.9-5) L 04/25/17 16:53 Albumin/Globulin Ratio 1.9 % 04/25/17 16:53 TSH 1.260 mlU/mL (0.270-4.200) 04/25/17 20:22 Free T4 1.03 ng/dL (0.76-1.46) 04/25/17 20:22 Urine Color Yellow (Yellow) 04/25/17 17:15 Urine Turbidity Clear (Clear) 04/25/17 17:15 Urine pH 6.0 (5.0-7.0) 04/25/17 17:15 Ur Specific [place] 1.020 (1.003-1.030) 04/25/17 17:15 Urine Protein <15 mg/dl mg/dL (Negative) 04/25/17 17:15 Urine Glucose (UA) Negative mg/dL (Negative) 04/25/17 17:15 Urine Ketones Negative mg/dL (Negative) 04/25/17 17:15 Urine Blood Negative (Negative) 04/25/17 17:15 Urine Nitrite Negative (Negative) 04/25/17 17:15 Urine Bilirubin Negative (Negative) 04/25/17 17:15 Urine Urobilinogen < 2.0 mg/dL (<2.0) 04/25/17 17:15 Ur Leukocyte Esterase Negative (Negative) 04/25/17 17:15 Urine WBC (Auto) 3.0 /HPF (0.0-6.0) 04/25/17 17:15 Urine RBC (Auto) 4.0 /HPF (0.0-6.0) 04/25/17 17:15 U Epithel Cells (Auto) 3.0 /HPF (0-13.0) 04/25/17 17:15 Amorphous Crystals 1+ 04/25/17 17:15 Urine Yeast (Budding) Moderate /HPF 04/25/17 17:15 Salicylates < 0.3 mg/dL (2.8-20.0) L 04/25/17 16:53 Urine Opiates Screen Presumptive negative 04/25/17 17:15 Urine Methadone Screen Presumptive negative 04/25/17 17:15 Acetaminophen < 15.0 ug/mL (10.0-30.0) 04/25/17 16:53 Ur Barbiturates Screen Presumptive negative 04/25/17 17:15 Ur Phencyclidine Scrn Presumptive negative 04/25/17 17:15 Ur Amphetamines Screen Presumptive negative 04/25/17 17:15 U Benzodiazepines Scrn Presumptive negative 04/25/17 17:15 Urine Cocaine Screen Presumptive negative 04/25/17 17:15 U Marijuana (THC) Screen Presumptive negative 04/25/17 17:15 Drugs of Abuse Note Disclamer 04/25/17 17:15 Plasma/Serum Alcohol < 0.01 gm% (0-0.07) 04/25/17 16:53
[2017-04-27] MEDS: PROCARDIA XL PO SCH (10:16)
[2017-04-27] MEDS: PEPCID PO SCH ×2 (10:16→21:56)
[2017-04-27] MEDS: ZITHROMAX PO SCH (10:16)
[2017-04-27] MEDS: XANAX PO SCH (10:16)
[2017-04-27] MEDS: HEPARIN SUB-Q SCH ×2 (10:17→21:55)
[2017-04-27] MEDS: BROVANA NEBU IH SCH ×2 (11:03→20:00)
[2017-04-27] MEDS: PULMICORT IH SCH ×2 (11:03→20:00)
--- NOTE | 2017-04-27 11:54 | Progress Note ---
Subjective Date of service: 04/27/17 Principal diagnosis: Acute on Chronic Hypercapmic Hypoxemic Respiratory Failure ; AECOPD Interval history: Patient is seen today for: Seen and examined at bedside; 24hour events reviewed; nursing and respiratory care staff consulted; no adverse overnight events reported to me; resting in bed ; Objective Vital Signs - 12hr 04/27/17 04/27/17 04/27/17 00:00 00:11 00:21 Temperature 97.7 F Pulse Rate 103 H 108 H 100 H Pulse Rate [ 103 H From Monitor] Respiratory 22 21 19 Rate Blood Pressure 156/66 162/61 162/61 O2 Sat by Pulse 98 Oximetry 04/27/17 04/27/17 04/27/17 00:31 00:41 00:51 Temperature Pulse Rate 106 H 101 H 101 H Pulse Rate [ From Monitor] Respiratory 23 25 H 25 H Rate Blood Pressure 162/61 156/66 156/66 O2 Sat by Pulse Oximetry 04/27/17 04/27/17 04/27/17 01:01 01:11 01:21 Temperature Pulse Rate 108 H 108 H 85 Pulse Rate [ From Monitor] Respiratory 19 32 H 22 Rate Blood Pressure 147/60 147/60 147/60 O2 Sat by Pulse Oximetry 04/27/17 04/27/17 04/27/17 01:31 01:41 01:51 Temperature Pulse Rate 93 H 108 H 101 H Pulse Rate [ From Monitor] Respiratory 24 24 22 Rate Blood Pressure 147/60 147/60 147/60 O2 Sat by Pulse Oximetry 04/27/17 04/27/17 04/27/17 02:00 02:11 02:21 Temperature Pulse Rate 93 H 84 91 H Pulse Rate [ From Monitor] Respiratory 22 21 21 Rate Blood Pressure 156/69 147/60 147/60 O2 Sat by Pulse Oximetry 04/27/17 04/27/17 04/27/17 02:31 02:41 02:51 Temperature Pulse Rate 94 H 83 85 Pulse Rate [ From Monitor] Respiratory 26 H 26 H 24 Rate Blood Pressure 147/60 147/60 147/60 O2 Sat by Pulse Oximetry 04/27/17 04/27/17 04/27/17 03:01 03:11 03:21 Temperature Pulse Rate 89 91 H 82 Pulse Rate [ From Monitor] Respiratory 18 21 21 Rate Blood Pressure 159/70 159/70 159/70 O2 Sat by Pulse Oximetry 04/27/17 04/27/17 04/27/17 03:31 03:41 03:51 Temperature Pulse Rate 76 78 80 Pulse Rate [ From Monitor] Respiratory 20 20 21 Rate Blood Pressure 159/70 159/70 159/70 O2 Sat by Pulse Oximetry 04/27/17 04/27/17 04/27/17 04:00 04:11 04:21 Temperature 97.9 F Pulse Rate 81 82 82 Pulse Rate [ From Monitor] Respiratory 16 19 20 Rate Blood Pressure 143/55 143/55 143/55 O2 Sat by Pulse Oximetry 04/27/17 04/27/17 04/27/17 04:31 04:41 04:51 Temperature Pulse Rate 87 79 78 Pulse Rate [ From Monitor] Respiratory 21 21 19 Rate Blood Pressure 143/55 143/55 143/55 O2 Sat by Pulse Oximetry 04/27/17 04/27/17 04/27/17 05:01 05:11 05:21 Temperature Pulse Rate 70 105 H 97 H Pulse Rate [ From Monitor] Respiratory 18 22 19 Rate Blood Pressure 151/58 151/58 151/58 O2 Sat by Pulse Oximetry 04/27/17 04/27/17 04/27/17 05:31 05:41 05:51 Temperature Pulse Rate 85 93 H 87 Pulse Rate [ From Monitor] Respiratory 18 20 18 Rate Blood Pressure 151/58 151/58 151/58 O2 Sat by Pulse Oximetry 04/27/17 04/27/17 04/27/17 06:00 06:11 06:21 Temperature Pulse Rate 91 H 92 H 82 Pulse Rate [ From Monitor] Respiratory 18 21 20 Rate Blood Pressure 145/80 145/80 145/80 O2 Sat by Pulse Oximetry 04/27/17 04/27/17 04/27/17 06:31 06:41 06:51 Temperature Pulse Rate 90 97 H 87 Pulse Rate [ From Monitor] Respiratory 18 16 14 Rate Blood Pressure 145/80 145/80 145/80 O2 Sat by Pulse Oximetry 04/27/17 04/27/17 04/27/17 07:01 07:11 07:21 Temperature Pulse Rate 102 H 99 H 82 Pulse Rate [ From Monitor] Respiratory 15 21 19 Rate Blood Pressure 145/80 167/103 167/103 O2 Sat by Pulse Oximetry 04/27/17 04/27/17 04/27/17 07:31 07:41 07:51 Temperature Pulse Rate 87 101 H 93 H Pulse Rate [ From Monitor] Respiratory 19 22 18 Rate Blood Pressure 167/103 167/103 167/103 O2 Sat by Pulse 100 100 98 Oximetry 04/27/17 04/27/17 04/27/17 08:01 08:11 08:21 Temperature Pulse Rate 84 77 90 Pulse Rate [ From Monitor] Respiratory 14 18 18 Rate Blood Pressure 167/103 167/103 167/103 O2 Sat by Pulse 99 97 Oximetry 04/27/17 04/27/17 04/27/17 08:31 08:41 08:51 Temperature Pulse Rate 83 89 92 H Pulse Rate [ From Monitor] Respiratory 22 25 H 17 Rate Blood Pressure 164/92 164/92 164/92 O2 Sat by Pulse 84 82 L 100 Oximetry 04/27/17 04/27/17 04/27/17 09:01 09:11 09:21 Temperature Pulse Rate 94 H 96 H 97 H Pulse Rate [ From Monitor] Respiratory 23 19 21 Rate Blood Pressure 161/65 161/65 161/65 O2 Sat by Pulse 98 72 L Oximetry 04/27/17 04/27/17 04/27/17 09:31 09:41 09:51 Temperature Pulse Rate 99 H 113 H 103 H Pulse Rate [ From Monitor] Respiratory 25 H 20 22 Rate Blood Pressure 161/65 161/65 161/65 O2 Sat by Pulse 100 Oximetry 04/27/17 04/27/17 04/27/17 10:01 10:11 10:21 Temperature Pulse Rate 98 H 90 87 Pulse Rate [ From Monitor] Respiratory 26 H 27 H 21 Rate Blood Pressure 140/65 140/65 140/65 O2 Sat by Pulse 85 100 99 Oximetry 04/27/17 04/27/17 04/27/17 10:31 10:40 10:53 Temperature Pulse Rate 92 H 103 H Pulse Rate [ From Monitor] Respiratory 21 22 Rate Blood Pressure 140/65 140/65 140/65 O2 Sat by Pulse 100 100 Oximetry CBC and BMP: 04/26/17 08:20 04/27/17 07:44 ABG, PT/INR, D-dimer: ABG POC ABG pH 7.465 (7.35-7.45) H 04/26/17 16:37 POC ABG pCO2 61.6 (35-45) H 04/26/17 16:37 POC ABG pO2 115 (80-105) H 04/26/17 16:37 POC ABG HCO3 44.4 04/26/17 16:37 POC ABG Total CO2 46 04/26/17 16:37 POC ABG O2 Sat 99 04/26/17 16:37 Abnormal lab findings: Abnormal Labs 04/25/17 04/25/17 04/25/17 16:53 16:53 16:53 RBC 3.34 L MCV 100 H MCH RDW 16.2 H [place] % (Auto) 7.4 H Lymph # 0.9 L Seg Neutrophils % 76.7 H POC ABG pH POC ABG pCO2 POC ABG pO2 Sodium 147 H Chloride 94.3 L Carbon Dioxide 43 H* Creatinine 0.3 L Ammonia Total Protein 5.8 L Albumin 3.8 L Salicylates < 0.3 L 04/25/17 04/25/17 04/25/17 18:43 20:38 21:26 RBC MCV MCH RDW [place] % (Auto) Lymph # Seg Neutrophils % POC ABG pH 7.341 L POC ABG pCO2 94.3 H 93.4 H POC ABG pO2 49 L 117 H Sodium Chloride Carbon Dioxide Creatinine Ammonia 22.0 L Total Protein Albumin Salicylates 04/26/17 04/26/17 04/26/17 08:20 08:20 16:37 RBC 3.07 L MCV 100 H MCH 33 H RDW 16.0 H [place] % (Auto) Lymph # Seg Neutrophils % POC ABG pH 7.465 H POC ABG pCO2 61.6 H POC ABG pO2 115 H Sodium Chloride 95.4 L Carbon Dioxide 42 H* Creatinine 0.3 L Ammonia Total Protein Albumin Salicylates 04/27/17 07:44 RBC MCV MCH RDW [place] % (Auto) Lymph # Seg Neutrophils % POC ABG pH POC ABG pCO2 POC ABG pO2 Sodium Chloride 93.7 L Carbon Dioxide 38 H Creatinine 0.3 L Ammonia Total Protein Albumin Salicylates
--- NOTE | 2017-04-27 19:03 | Progress Note ---
Assessment and Plan Acute on Chronic Hypercapnic Hypoxemic Respiratory Failure Acute COPD exacerbation Acute Encephalopathy (Toxic-Metabolic) Tobacco Use Disorder - continue to wean oxygen for O2 Sats > 90% - continue aspiration precautions - continue scheduled BIPAP qhs with prn daytime use - continue bronchodilators and pulmonary hygeine per RT - Agitation management (Avoid benzodiazepines if possible - eg use seroquel) - continue systemic steroids but taper - continue empiric antibiotics - started tobacco abstinence counselling already - continue GI & VTE prophylaxis - continue other care per attending / other consultants ...re-evaluate in am & prn Subjective Date of service: 04/27/17 Principal diagnosis: Acute on Chronic Hypercapmic Hypoxemic Respiratory Failure ; AECOPD Interval history: Patient is seen today for: Acute on Chronic Hypercapnic Hypoxemic Respiratory Failure; Acute COPD exacerbation Seen and examined at bedside; 24hour events reviewed; nursing and respiratory care staff consulted; no adverse overnight events reported to me; resting in bed ; feels better; somnolent; denies acute chest pains or increased SOB; No N/V/F/C Objective Vital Signs - 12hr 04/27/17 04/27/17 04/27/17 07:11 07:21 07:31 Temperature Pulse Rate 99 H 82 87 Pulse Rate [ Bilateral Throughout] Respiratory 21 19 19 Rate Respiratory Rate [Bilateral Throughout] Blood Pressure 167/103 167/103 167/103 O2 Sat by Pulse 100 Oximetry 04/27/17 04/27/17 04/27/17 07:41 07:51 08:00 Temperature 98.5 F Pulse Rate 101 H 93 H Pulse Rate [ Bilateral Throughout] Respiratory 22 18 Rate Respiratory Rate [Bilateral Throughout] Blood Pressure 167/103 167/103 O2 Sat by Pulse 100 98 Oximetry 04/27/17 04/27/17 04/27/17 08:01 08:11 08:21 Temperature Pulse Rate 84 77 90 Pulse Rate [ Bilateral Throughout] Respiratory 14 18 18 Rate Respiratory Rate [Bilateral Throughout] Blood Pressure 167/103 167/103 167/103 O2 Sat by Pulse 99 97 Oximetry 04/27/17 04/27/17 04/27/17 08:31 08:41 08:51 Temperature Pulse Rate 83 89 92 H Pulse Rate [ Bilateral Throughout] Respiratory 22 25 H 17 Rate Respiratory Rate [Bilateral Throughout] Blood Pressure 164/92 164/92 164/92 O2 Sat by Pulse 84 82 L 100 Oximetry 04/27/17 04/27/17 04/27/17 09:01 09:11 09:21 Temperature Pulse Rate 94 H 96 H 97 H Pulse Rate [ Bilateral Throughout] Respiratory 23 19 21 Rate Respiratory Rate [Bilateral Throughout] Blood Pressure 161/65 161/65 161/65 O2 Sat by Pulse 98 72 L Oximetry 04/27/17 04/27/17 04/27/17 09:31 09:41 09:51 Temperature Pulse Rate 99 H 113 H 103 H Pulse Rate [ Bilateral Throughout] Respiratory 25 H 20 22 Rate Respiratory Rate [Bilateral Throughout] Blood Pressure 161/65 161/65 161/65 O2 Sat by Pulse 100 Oximetry 04/27/17 04/27/17 04/27/17 10:00 10:01 10:11 Temperature Pulse Rate 98 H 90 Pulse Rate [ Bilateral Throughout] Respiratory 26 H 27 H Rate Respiratory Rate [Bilateral Throughout] Blood Pressure 140/65 140/65 O2 Sat by Pulse 99 85 100 Oximetry 04/27/17 04/27/17 04/27/17 10:21 10:31 10:40 Temperature Pulse Rate 87 92 H Pulse Rate [ Bilateral Throughout] Respiratory 21 21 Rate Respiratory Rate [Bilateral Throughout] Blood Pressure 140/65 140/65 140/65 O2 Sat by Pulse 99 100 100 Oximetry 04/27/17 04/27/17 04/27/17 10:53 11:01 11:05 Temperature Pulse Rate 103 H 98 H Pulse Rate [ 88 Bilateral Throughout] Respiratory 22 22 Rate Respiratory 20 Rate [Bilateral Throughout] Blood Pressure 140/65 140/65 O2 Sat by Pulse Oximetry 04/27/17 04/27/17 04/27/17 11:11 11:20 11:21 Temperature Pulse Rate 86 82 Pulse Rate [ 90 Bilateral Throughout] Respiratory 25 H 24 Rate Respiratory 18 Rate [Bilateral Throughout] Blood Pressure 140/65 140/65 O2 Sat by Pulse Oximetry 04/27/17 04/27/17 04/27/17 11:30 11:41 11:51 Temperature Pulse Rate 86 79 78 Pulse Rate [ Bilateral Throughout] Respiratory 25 H 25 H 20 Rate Respiratory Rate [Bilateral Throughout] Blood Pressure 140/65 140/65 140/65 O2 Sat by Pulse Oximetry 04/27/17 04/27/17 04/27/17 12:00 12:01 12:11 Temperature 97.9 F Pulse Rate 78 95 H Pulse Rate [ Bilateral Throughout] Respiratory 22 25 H Rate Respiratory Rate [Bilateral Throughout] Blood Pressure 140/65 140/65 O2 Sat by Pulse Oximetry 04/27/17 04/27/17 04/27/17 12:21 12:31 12:41 Temperature Pulse Rate 111 H 104 H 109 H Pulse Rate [ Bilateral Throughout] Respiratory 30 H 28 H 26 H Rate Respiratory Rate [Bilateral Throughout] Blood Pressure 140/65 140/65 140/65 O2 Sat by Pulse Oximetry 04/27/17 04/27/17 04/27/17 12:51 13:01 13:11 Temperature Pulse Rate 107 H 91 H 90 Pulse Rate [ Bilateral Throughout] Respiratory 28 H 17 20 Rate Respiratory Rate [Bilateral Throughout] Blood Pressure 140/65 140/65 140/65 O2 Sat by Pulse Oximetry 04/27/17 04/27/17 04/27/17 13:21 13:31 13:41 Temperature Pulse Rate 85 81 76 Pulse Rate [ Bilateral Throughout] Respiratory 21 25 H 20 Rate Respiratory Rate [Bilateral Throughout] Blood Pressure 140/65 140/65 140/65 O2 Sat by Pulse Oximetry 04/27/17 04/27/17 04/27/17 13:51 14:01 14:11 Temperature Pulse Rate 77 74 93 H Pulse Rate [ Bilateral Throughout] Respiratory 17 18 22 Rate Respiratory Rate [Bilateral Throughout] Blood Pressure 140/65 140/65 140/65 O2 Sat by Pulse Oximetry 04/27/17 04/27/17 04/27/17 14:21 14:31 14:41 Temperature Pulse Rate 77 76 75 Pulse Rate [ Bilateral Throughout] Respiratory 17 22 17 Rate Respiratory Rate [Bilateral Throughout] Blood Pressure 140/65 140/65 140/65 O2 Sat by Pulse Oximetry 04/27/17 04/27/17 04/27/17 15:15 15:30 17:15 Temperature 98.1 F Pulse Rate 92 H Pulse Rate [ 82 86 Bilateral Throughout] Respiratory 18 Rate Respiratory 20 18 Rate [Bilateral Throughout] Blood Pressure 100/53 O2 Sat by Pulse 100 Oximetry Constitutional: alert, appears uncomfortable Eyes: non-icteric ENT: oropharynx moist Neck: supple, no lymphadenopathy, no JVD, other (no thyromegaly) Effort: mildly labored Ascultation: Bilateral: diminished breath sounds, rhonchi Percussion: Bilateral: not dull Cardiovascular: regular rate and rhythm, other (no rubs or murmurs) Gastrointestinal: normoactive bowel sounds, soft, non-tender, non-distended, other (No HSM) Integumentary: other (poor turgor) Extremities: no cyanosis, no edema, pink and warm, pulses normal Neurologic: normal mental status, non-focal exam, pupils equal and round, motor strength normal and Psychiatric: depressed CBC and BMP: 04/26/17 08:20 04/27/17 07:44 ABG, PT/INR, D-dimer: ABG POC ABG pH 7.465 (7.35-7.45) H 04/26/17 16:37 POC ABG pCO2 61.6 (35-45) H 04/26/17 16:37 POC ABG pO2 115 (80-105) H 04/26/17 16:37 POC ABG HCO3 44.4 04/26/17 16:37 POC ABG Total CO2 46 04/26/17 16:37 POC ABG O2 Sat 99 04/26/17 16:37 Abnormal lab findings: Abnormal Labs 04/25/17 04/25/17 04/25/17 16:53 16:53 16:53 RBC 3.34 L MCV 100 H MCH RDW 16.2 H [place] % (Auto) 7.4 H Lymph # 0.9 L Seg Neutrophils % 76.7 H POC ABG pH POC ABG pCO2 POC ABG pO2 Sodium 147 H Chloride 94.3 L Carbon Dioxide 43 H* Creatinine 0.3 L POC Glucose Ammonia Total Protein 5.8 L Albumin 3.8 L Salicylates < 0.3 L 04/25/17 04/25/17 04/25/17 18:43 20:38 21:26 RBC MCV MCH RDW [place] % (Auto) Lymph # Seg Neutrophils % POC ABG pH 7.341 L POC ABG pCO2 94.3 H 93.4 H POC ABG pO2 49 L 117 H Sodium Chloride Carbon Dioxide Creatinine POC Glucose Ammonia 22.0 L Total Protein Albumin Salicylates 04/26/17 04/26/17 04/26/17 08:20 08:20 16:37 RBC 3.07 L MCV 100 H MCH 33 H RDW 16.0 H [place] % (Auto) Lymph # Seg Neutrophils % POC ABG pH 7.465 H POC ABG pCO2 61.6 H POC ABG pO2 115 H Sodium Chloride 95.4 L Carbon Dioxide 42 H* Creatinine 0.3 L POC Glucose Ammonia Total Protein Albumin Salicylates 04/27/17 04/27/17 07:44 12:25 RBC MCV MCH RDW [place] % (Auto) Lymph # Seg Neutrophils % POC ABG pH POC ABG pCO2 POC ABG pO2 Sodium Chloride 93.7 L Carbon Dioxide 38 H Creatinine 0.3 L POC Glucose 112 H Ammonia Total Protein Albumin Salicylates Chest x-ray: image reviewed Allied health notes reviewed: nursing
[2017-04-27] MEDS: NORCO 5/325 PO PRN (21:55)
[2017-04-28] MEDS: DUONEB *Not for PRN Use IH SCH ×4 (01:48→21:05)
--- NOTE | 2017-04-28 06:57 | Consultation ---
CONSULTING PHYSICIANS: Dr. Pack and Dr. Kim. REASON FOR CONSULTATION: Acute on chronic hypoxemic hypercapnic respiratory failure, altered mental status. CHIEF COMPLAINT AND HISTORY OF PRESENT ILLNESS: There is a 71-year-old female who is known to me from multiple admissions with past medical history significant amongst other things for a severe home oxygen-dependent chronic obstructive lung disease, but also nicotine dependence, who was brought in to the ER by EMS secondary to weakness, altered mental status. In the preceding couple of days, her symptoms were getting worse. The home health nurse found the patient unarousable. In the ER, she was found delirious essentially, the patient was placed on continuous noninvasive positive pressure ventilation and we are asked to assist with management. When I stopped by to see her, she remained on the BiPAP machine where she was beginning to come around. Denied any chest pains. Denied palpitations. Denied nausea, vomiting, or overt aspiration. Denied any fevers or chills. Denied sick contacts. She admits to continuing to smoke, but states that she has cut it down to 4-5 sticks per day since she was discharged. She denied any new onset leg pain or swelling either unilaterally or bilaterally or any suggestion of venous thromboembolic disorder. That really is as much of the history of presentation as I have. PAST MEDICAL HISTORY: COPD, hypertension, seizure disorders, tobacco use disorder. PAST SURGICAL HISTORY: She has had a hysterectomy. She has had total hip replacement. She has had a carotid endarterectomy. MEDICATIONS: The medications she was on were reviewed, and pertinent medications included she was on DuoNeb treatments nebulized q. 6 hours, Xanax 0.25 mg p.o. daily, Brovana 15 mcg nebulized q.12h., Zithromax 500 mg, I believe IV daily, Pulmicort 0.5 mg nebulized q. 12 hours, Pepcid 20 mg p.o. b.i.d., heparin 5000 units subq q. 8 hours and p.r.n., Zofran 4 mg IV q.8h. p.r.n. nausea and vomiting. She was also on Seroquel 50 mg p.o. at bedtime. ALLERGIES: ASPIRIN, CODEINE AND IBUPROFEN. Nature of these allergy are unknown. DIET: Very thin lady, cachectic-looking lady; however, no significant weight loss or gain since I have last seen her. FAMILY AND SOCIAL HISTORY: Lives in the community. She has a 40+ pack year tobacco smoking history, continues to smoke despite multiple conversations about this. She denies alcohol or illicit drug use or abuse. There is a family history of hypertension. REVIEW OF SYSTEMS: Difficult to obtain secondary to the patient's medical and mental condition. Since she has been here, no gross hematochezia or melena, no gross hematuria, no hematemesis, no hemoptysis. She denies chest pains. She denies palpitations. No seizures. Complete review of systems otherwise unobtainable or as in body of the history above. PHYSICAL EXAMINATION: VITAL SIGNS: At presentation in the Emergency Room, vital signs, she was afebrile. The first temperature I have is 97.6 with a pulse of 78, respiratory rate of 16, blood pressure 131/53, oxygen sats 100%, inspired oxygen concentration at that time was not recorded. GENERAL: She is an elderly looking female, looks her stated age, normocephalic, atraumatic with the BiPAP machine on, in mild to moderate respiratory distress. HEAD, EYES, EARS, NOSE AND THROAT: She is anicteric. No conjunctival erythema. Grossly, no jugular venous distention, no thyromegaly grossly no palpable lymph nodes in the supraclavicular or submandibular lymph node chains. She has a BiPAP full face mask on. I am unable to evaluate her oropharynx. LUNGS: Auscultation of both lung remy, diminished bilateral breath sounds, prolonged expiratory phase, scant if at all any rhonchi in the bases. HEART: Heart sounds 1 and 2 are heard at the time of my evaluation, regular rate and rhythm. No rubs, no murmurs. ABDOMEN: Soft, flat. Bowel sounds positive, nontender, no palpable hepatosplenomegaly. No CVA angle tenderness. EXTREMITIES: Without overt digital clubbing, cyanosis, no pedal edema. Dorsalis pedal pulses were palpable bilaterally, but weak. The skin was of poor turgor without overt tenting. No cellulitis, no rash. NEUROLOGIC: The pupils were equal, round, about 3-4 mm, reactive to light. Extraocular muscle movements were intact. She moved all 4 extremities spontaneously. Mood was depressed, affect was flat. LABORATORY DATA: From my review are as follows: Admission white cell count 5900 with a hemoglobin of 10.7, hematocrit of 33.4 and platelet count of 209. No band forms. ABG showed a pH of 7.34, pCO2 of 94, pO2 of 49 on room air at presentation. Serum sodium was 147, potassium 4.3, chloride 94, bicarbonate 43, BUN 16, creatinine 0.3, glucose was 69. Lactic acid level was within normal limits. Liver function tests essentially within normal limits. Urinalysis was negative for nitrites and leukocyte esterase and unremarkable otherwise. Urine drug screen was negative. Tylenol, aspirin, and alcohol levels were within expected limits. Microbiology studies, no microbiology studies: A chest x-ray was done. I have personally reviewed the chest x-ray and essentially was consistent with the prior chest x-rays, severe COPD, flattening of the hemidiaphragms, increased interstitial markings, no gross pneumothorax, no gross bony fracture. No new focal infiltrates. She had a CT scan of the head, face and cervical spine. The CT of the cervical spine was essentially read as a normal CT without any subluxation. No acute fractures. The CT of the head shows left-sided facial fractures. CT of the face without any acute fractures and CT of the head essentially was read as a normal CT for age. ASSESSMENT AND PLAN: 1. Acute on chronic hypoxemic hypercapnic respiratory failure. 2. Medication noncompliance, likely. 3. Tobacco abuse. 4. Acute exacerbation of chronic obstructive pulmonary disease. 5. History of hypertension. 6. History of seizure disorder. 7. Malnutrition. PLAN: We will repeat arterial blood gases and see if she can be liberated from the BiPAP machine during the day with continued bedtime use. We agree with long and short acting bronchodilators as well as inhaled corticosteroids. I will continue that. We will also continue systemic steroids with a slow taper. We will continue empiric azithromycin therapy for severe COPD. I will treat her empirically for about 5 days. If she is able to cough, sputum to be sent for Gram stain, cultures and sensitivities. Aspiration precautions will be maintained. Oxygen will be titrated to keep sats greater than or equal to about 90%. I have a low pretest probability or clinical suspicion for venous thromboembolic phenomenon and will not pursue that workup much further. She is already showing improvement clinically. She is appropriately on GI and DVT prophylaxis. Flu and pneumonia vaccination will be per protocol. I will take the chance to supervisor counseling and guidance her again to please quit smoking as you never could tell, she may actually by into that. Thank you very much for the consult, Dr. Pack and Dr. Kim. We will follow along. We will make further recommendations as picture progresses/becomes clearer. JOB# [id number] CARMITA/CARLEEN
[2017-04-28] MEDS: NORCO 5/325 PO PRN ×3 (08:00→22:31)
[2017-04-28] MEDS: PULMICORT IH SCH ×2 (08:40→21:00)
[2017-04-28] MEDS: BROVANA NEBU IH SCH ×2 (08:40→21:00)
[2017-04-28] MEDS: XANAX PO SCH (11:09)
[2017-04-28] MEDS: DELTASONE PO SCH (11:09)
[2017-04-28] MEDS: PEPCID PO SCH ×2 (11:09→22:30)
[2017-04-28] MEDS: PROCARDIA XL PO SCH (11:10)
[2017-04-28] MEDS: HEPARIN SUB-Q SCH ×2 (11:12→22:33)
[2017-04-28] MEDS: ZITHROMAX PO SCH (12:24)
--- NOTE | 2017-04-28 12:33 | Progress Note ---
Assessment and Plan - Patient Problems (1) Acute respiratory failure with hypoxia and hypercapnia Current Visit: No Status: Acute Plan to address problem: Continue with supplemental oxygen, restrictive to keep O2 sats>88% Continue bronchodilators, steroids VTE prophylaxis Discontinue david catheter Smoking cessation counselling done at the bedside Oxygen safety discussed (2) COPD exacerbation Current Visit: No Status: Acute Plan to address problem: Continue current care (3) Encephalopathy Current Visit: Yes Status: Acute Plan to address problem: Toxic, metabolic. Much improved (4) Tobacco abuse disorder Current Visit: No Status: Acute Plan to address problem: Nicotine withdrawal precautions Smoking cessation counselling done at the bedside Subjective Date of service: 04/28/17 Principal diagnosis: Acute on Chronic Hypercapmic Hypoxemic Respiratory Failure ; AECOPD Interval history: Follow up: Acute on chronic respiratory failure, COPD with AE, Cachexia, On going tobacco abuse disorder Seen and examined with RN at the bedside. No acute overnight events. vitals, labs, medications, chart reviewed. On 3L NC, states she is feeling better. Denies any chest pain, no shortness of breath, no fevers or chills. Objective - Exam Narrative Exam: GEN APPEARANCE : Not in acute distress, malnourished HEENT: Normocephalic, atraumatic NECK : supple, no JVD LUNGS: Decreased breath sounds, bilateral rhonchi. No rales, no wheeze HEART: S1 and S2 regular, systolic murmur 4/6, no rubs or gallop, ABD: Soft, non tender, non distended, normal bowel sounds David catheter EXT: No edema, no clubbing, no cyanosis NEURO: Awake,alert,oriented, moves all extremities Vital Signs - 12hr 04/28/17 04/28/17 04/28/17 04:09 07:34 08:00 Temperature 98.6 F 98.4 F Pulse Rate 88 93 H Pulse Rate [ 106 H Bilateral Throughout] Respiratory 18 18 20 Rate Respiratory 18 Rate [Bilateral Throughout] Blood Pressure 110/54 121/62 O2 Sat by Pulse 96 100 Oximetry 04/28/17 04/28/17 08:42 09:09 Temperature Pulse Rate Pulse Rate [ 108 H Bilateral Throughout] Respiratory Rate Respiratory 18 Rate [Bilateral Throughout] Blood Pressure O2 Sat by Pulse 99 Oximetry CBC and BMP: 04/26/17 08:20 04/27/17 07:44 ABG, PT/INR, D-dimer: ABG POC ABG pH 7.465 (7.35-7.45) H 04/26/17 16:37 POC ABG pCO2 61.6 (35-45) H 04/26/17 16:37 POC ABG pO2 115 (80-105) H 04/26/17 16:37 POC ABG HCO3 44.4 04/26/17 16:37 POC ABG Total CO2 46 04/26/17 16:37 POC ABG O2 Sat 99 04/26/17 16:37 Abnormal lab findings: Abnormal Labs 04/25/17 04/25/17 04/25/17 16:53 16:53 16:53 RBC 3.34 L MCV 100 H MCH RDW 16.2 H [place] % (Auto) 7.4 H Lymph # 0.9 L Seg Neutrophils % 76.7 H POC ABG pH POC ABG pCO2 POC ABG pO2 Sodium 147 H Chloride 94.3 L Carbon Dioxide 43 H* Creatinine 0.3 L POC Glucose Ammonia Total Protein 5.8 L Albumin 3.8 L Salicylates < 0.3 L 04/25/17 04/25/17 04/25/17 18:43 20:38 21:26 RBC MCV MCH RDW [place] % (Auto) Lymph # Seg Neutrophils % POC ABG pH 7.341 L POC ABG pCO2 94.3 H 93.4 H POC ABG pO2 49 L 117 H Sodium Chloride Carbon Dioxide Creatinine POC Glucose Ammonia 22.0 L Total Protein Albumin Salicylates 04/26/17 04/26/17 04/26/17 08:20 08:20 16:37 RBC 3.07 L MCV 100 H MCH 33 H RDW 16.0 H [place] % (Auto) Lymph # Seg Neutrophils % POC ABG pH 7.465 H POC ABG pCO2 61.6 H POC ABG pO2 115 H Sodium Chloride 95.4 L Carbon Dioxide 42 H* Creatinine 0.3 L POC Glucose Ammonia Total Protein Albumin Salicylates 04/27/17 04/27/17 07:44 12:25 RBC MCV MCH RDW [place] % (Auto) Lymph # Seg Neutrophils % POC ABG pH POC ABG pCO2 POC ABG pO2 Sodium Chloride 93.7 L Carbon Dioxide 38 H Creatinine 0.3 L POC Glucose 112 H Ammonia Total Protein Albumin Salicylates Chest x-ray: image reviewed (COPD changes, hyperinflated with flattened diaphragms)
--- NOTE | 2017-04-28 13:35 | Progress Note ---
Assessment and Plan Assessment and plan: Acute respiratory failure with hypoxia and hypercapnea. Patient admitted to ICU. She was on BIPAP. Now doing well on Oxygen by [place]. Oxygen sat 99% on 2l/min NC. Pulmonology following. Toxic metabolic encephalopathy. This is improving. She was confused yesterday. Today is awake,alert, oriented x 3. COPD exacerbation. Continue solu-medrol, Duoneb Hypertension. BP stable Seizure disorder. Seizure precautions. Hypernatremia. Recheck BMP DVT prophylaxis with Heparin subcut. Full code status I had meeting with patient, case management and social science analyst. Patient states she wants to go home on discharge and does not want to go to any facility History Interval history: Patient feels much better No more confusion, No chest pain, Says she wants to go home and not Rehab on discharge Hospitalist Physical - Physical exam Narrative exam: GEN APPEARANCE : Not in acute distress, malnourished HEENT: Normocephalic, atraumatic NECK : supple, no JVD LUNGS: Decreased breath sounds, bilateral rhonchi. No rales, no wheeze HEART: S1 and S2 regular, no murmurs, rubs or gallop, ABD: Soft, non tender, non distended, normal bowel sounds EXT: No edema, no clubbing, no cyanosis NEURO: Awake,alert,oriented, moves all ext - Constitutional Vitals: Temp Pulse Resp BP Pulse Ox 98.4 F 108 H 18 121/62 99 04/28/17 07:34 04/28/17 09:09 04/28/17 09:09 04/28/17 07:34 04/28/17 08:42 General appearance: Present: mild distress, cachectic, disheveled Results - Labs CBC & Chem 7: 04/26/17 08:20 04/27/17 07:44 Labs: Laboratory Last Values WBC 4.7 K/mm3 (4.5-11.0) 04/26/17 08:20 RBC 3.07 M/mm3 (3.65-5.03) L 04/26/17 08:20 Hgb 10.1 gm/dl (10.1-14.3) 04/26/17 08:20 Hct 30.6 % (30.3-42.9) 04/26/17 08:20 MCV 100 fl (79-97) H 04/26/17 08:20 MCH 33 pg (28-32) H 04/26/17 08:20 MCHC 33 % (30-34) 04/26/17 08:20 RDW 16.0 % (13.2-15.2) H 04/26/17 08:20 Plt Count 183 K/mm3 (140-440) 04/26/17 08:20 Lymph % (Auto) 15.1 % (13.4-35.0) 04/25/17 16:53 [place] % (Auto) 7.4 % (0.0-7.3) H 04/25/17 16:53 Eos % (Auto) 0.5 % (0.0-4.3) 04/25/17 16:53 Baso % (Auto) 0.3 % (0.0-1.8) 04/25/17 16:53 Lymph # 0.9 K/mm3 (1.2-5.4) L 04/25/17 16:53 [place] # 0.4 K/mm3 (0.0-0.8) 04/25/17 16:53 Eos # 0.0 K/mm3 (0.0-0.4) 04/25/17 16:53 Baso # 0.0 K/mm3 (0.0-0.1) 04/25/17 16:53 Seg Neutrophils % 76.7 % (40.0-70.0) H 04/25/17 16:53 Seg Neutrophils # 4.5 K/mm3 (1.8-7.7) 04/25/17 16:53 POC ABG pH 7.465 (7.35-7.45) H 04/26/17 16:37 POC ABG pCO2 61.6 (35-45) H 04/26/17 16:37 POC ABG pO2 115 (80-105) H 04/26/17 16:37 POC ABG HCO3 44.4 04/26/17 16:37 POC ABG Total CO2 46 04/26/17 16:37 POC ABG O2 Sat 99 04/26/17 16:37 POC ABG Base Excess 21 04/26/17 16:37 FiO2 35 % 04/26/17 16:37 Sodium 142 mmol/L (137-145) 04/27/17 07:44 Potassium 4.0 mmol/L (3.6-5.0) 04/27/17 07:44 Chloride 93.7 mmol/L (98-107) L 04/27/17 07:44 Carbon Dioxide 38 mmol/L (22-30) H 04/27/17 07:44 Anion Gap 14 mmol/L 04/27/17 07:44 BUN 12 mg/dL (7-17) 04/27/17 07:44 Creatinine 0.3 mg/dL (0.7-1.2) L 04/27/17 07:44 Estimated GFR > 60 ml/min 04/27/17 07:44 BUN/Creatinine Ratio 40 % 04/27/17 07:44 Glucose 89 mg/dL (65-100) 04/27/17 07:44 POC Glucose 112 (70-105) H 04/27/17 12:25 Lactic Acid 2.00 mmol/L (0.7-2.0) 04/25/17 19:02 Calcium 8.4 mg/dL (8.4-10.2) 04/27/17 07:44 Magnesium 1.90 mg/dL (1.7-2.3) 04/25/17 16:53 Total Bilirubin 0.40 mg/dL (0.1-1.2) 04/25/17 16:53 AST 16 units/L (5-40) 04/25/17 16:53 ALT 8 units/L (7-56) 04/25/17 16:53 Alkaline Phosphatase 104 units/L (35-129) 04/25/17 16:53 Ammonia 22.0 umol/L (25-60) L 04/25/17 20:38 Total Protein 5.8 g/dL (6.3-8.2) L 04/25/17 16:53 Albumin 3.8 g/dL (3.9-5) L 04/25/17 16:53 Albumin/Globulin Ratio 1.9 % 04/25/17 16:53 TSH 1.260 mlU/mL (0.270-4.200) 04/25/17 20:22 Free T4 1.03 ng/dL (0.76-1.46) 04/25/17 20:22 Urine Color Yellow (Yellow) 04/25/17 17:15 Urine Turbidity Clear (Clear) 04/25/17 17:15 Urine pH 6.0 (5.0-7.0) 04/25/17 17:15 Ur Specific [place] 1.020 (1.003-1.030) 04/25/17 17:15 Urine Protein <15 mg/dl mg/dL (Negative) 04/25/17 17:15 Urine Glucose (UA) Negative mg/dL (Negative) 04/25/17 17:15 Urine Ketones Negative mg/dL (Negative) 04/25/17 17:15 Urine Blood Negative (Negative) 04/25/17 17:15 Urine Nitrite Negative (Negative) 04/25/17 17:15 Urine Bilirubin Negative (Negative) 04/25/17 17:15 Urine Urobilinogen < 2.0 mg/dL (<2.0) 04/25/17 17:15 Ur Leukocyte Esterase Negative (Negative) 04/25/17 17:15 Urine WBC (Auto) 3.0 /HPF (0.0-6.0) 04/25/17 17:15 Urine RBC (Auto) 4.0 /HPF (0.0-6.0) 04/25/17 17:15 U Epithel Cells (Auto) 3.0 /HPF (0-13.0) 04/25/17 17:15 Amorphous Crystals 1+ 04/25/17 17:15 Urine Yeast ([place]) Moderate /HPF 04/25/17 17:15 Salicylates < 0.3 mg/dL (2.8-20.0) L 04/25/17 16:53 Urine Opiates Screen Presumptive negative 04/25/17 17:15 Urine Methadone Screen Presumptive negative 04/25/17 17:15 Acetaminophen < 15.0 ug/mL (10.0-30.0) 04/25/17 16:53 Ur Barbiturates Screen Presumptive negative 04/25/17 17:15 Ur Phencyclidine Scrn Presumptive negative 04/25/17 17:15 Ur Amphetamines Screen Presumptive negative 04/25/17 17:15 U Benzodiazepines Scrn Presumptive negative 04/25/17 17:15 Urine Cocaine Screen Presumptive negative 04/25/17 17:15 U Marijuana (THC) Screen Presumptive negative 04/25/17 17:15 Drugs of Abuse Note Disclamer 04/25/17 17:15 Plasma/Serum Alcohol < 0.01 gm% (0-0.07) 04/25/17 16:53
[2017-04-28] MEDS ORDERED: XANAX PO PRN (15:13)
[2017-04-29] MEDS: DUONEB *Not for PRN Use IH SCH ×3 (02:35→13:39)
[2017-04-29] MEDS: NORCO 5/325 PO PRN (06:22)
[2017-04-29] MEDS: ZITHROMAX PO SCH (09:04)
[2017-04-29] MEDS: HEPARIN SUB-Q SCH (09:05)
[2017-04-29] MEDS: DELTASONE PO SCH (09:06)
[2017-04-29] MEDS: PEPCID PO SCH (09:06)
[2017-04-29] MEDS: PROCARDIA XL PO SCH (09:10)
[2017-04-29 09:25] VITALS: BP 134/55
[2017-04-29] MEDS: PULMICORT IH SCH (10:00)
[2017-04-29] MEDS: BROVANA NEBU IH SCH (10:00)
--- NOTE | 2017-04-29 10:32 | Discharge Summary ---
Providers - Providers Date of Admission: 04/25/17 20:19 Date of discharge: 04/29/17 Attending physician: MARLENA AN 04/26/17 08:55 Consult to Physician [CONS] Routine Consulting Provider: DEL MCALLISTER Reason For Exam: Pulmonary follow up/Known to [facility] consult to:: Del Mcallister Notified:: Yes Phone number called:: [phone] Was contact made?: Yes If yes, spoke with:: Winston Time called:: 09:47 Comment:: Nurse tried to reach Dr. Huang on cell phone twice 04/28/17 10:04 Physical Therapy Evaluation and Treat [CONS] Routine Comment: Reason For Exam: Deconditioned Primary care physician: PALEONTOLOGICAL HELPER Hospitalization Condition: Fair Disposition: DC/[place]-06 HOME UNDER HOME [facility] Core Measure Documentation - Palliative Care Palliative Care/ Comfort Measures: Not Applicable - Core Measures Any of the following diagnoses?: none Exam - Constitutional Vitals: Temp Pulse Resp BP Pulse Ox 98.8 F 112 H 20 134/55 100 04/29/17 07:23 04/29/17 09:24 04/29/17 07:23 04/29/17 09:24 04/29/17 04:32 Plan Activity: advance as tolerated Diet: low fat, low cholesterol, low salt Special Instructions: physical therapy Durable Medical Equipment Needed Upon Discharge: Walker-Rolling Additional Instructions: 1.Follow up with PCP in 1 week. 2.Follow up with Pulmonology in 1 week. 3.Continue home Oxygen. 4.Front wheel walker for ambulation Follow up with: PRIMARY CARE,MD [Primary Care Provider] - 3-5 Days Prescriptions: Prednisone [predniSONE 10 mg (6-Day Pack, 21 Tabs)] 10 mg PO .TAPER #1 tab.ds.pk
== END 2017-04-29 16:30 | disposition home health service (06) | DRG 91 ==
LOC: ED 15:55 → 3A 20:19 → CC1 22:14 → 2B-ACE 04-27 16:27
PROVIDERS: ADMIT Internal Medicine; ATTEND Internal Medicine
PROC: 5A09457 Assistance with Respiratory Ventilation, 24-96 Consecutive Hours, Continuous Positive Airway Pressure (ICD-10-PCS; 2017-04-25)
PROC: 4A033R1 Measurement of Arterial Saturation, Peripheral, Percutaneous Approach (ICD-10-PCS; principal; 2017-04-26)
DX: G92 Toxic encephalopathy (principal); E43 Unspecified severe protein-calorie malnutrition; J96.22 Acute and chronic respiratory failure with hypercapnia; J96.21 Acute and chronic respiratory failure with hypoxia; E87.0 Hyperosmolality and hypernatremia; J44.1 Chronic obstructive pulmonary disease with (acute) exacerbation; Z68.1 Body mass index [BMI] 19.9 or less, adult; E86.0 Dehydration; E86.9 Volume depletion, unspecified; G40.909 Epilepsy, unspecified, not intractable, without status epilepticus; Z88.6 Allergy status to analgesic agent; Z88.8 Allergy status to other drugs, medicaments and biological substances; Z90.710 Acquired absence of both cervix and uterus; I11.0 Hypertensive heart disease with heart failure; I50.9 Heart failure, unspecified; Z79.899 Other long term (current) drug therapy; Z82.49 Family history of ischemic heart disease and other diseases of the circulatory system; F17.200 Nicotine dependence, unspecified, uncomplicated; Z96.649 Presence of unspecified artificial hip joint
CPT/HCPCS: 36415; 36600; 70450; 70486; 71010; 72125; 80048; 80053; 80307; 80320; 81001; 82140; 82803; 82962; 83735; 84439; 84443; 85025; 85027; 93005; 93010; 94640; 94660; 94760; 96365; 99285; 99406; G0480; G8978-GP; G8979-GP; G8980-GP; J0360; J0456; J1644; J2920; J7050; J7512

== ENCOUNTER 2017-05-08 21:31 | Inpatient (IN) | payer MEDICARE ==
[2017-05-08 22:28] LABS: Basophils # (Auto) 0.1 K/mm3 (0.0-0.1); Basophils % (Auto) 1.3 % (0.0-1.8); Eosinophils # (Auto) 0.2 K/mm3 (0.0-0.4); Eosinophils % (Auto) 2.7 % (0.0-4.3); Hematocrit 33.5 % (30.3-42.9); Hemoglobin 11.1 gm/dl (10.1-14.3); Lymphocytes % (Auto) 13.6 % (13.4-35.0); Mean Corpuscular HGB Conc 33 % (30-34); Mean Corpuscular Hemoglobin 33 pg (28-32); Mean Corpuscular Volume 99 fl (79-97); Monocytes # (Auto) 0.7 K/mm3 (0.0-0.8); Platelet Count 386 K/mm3 (140-440); Red Cell Distribution Width 15.2 % (13.2-15.2)
--- NOTE | 2017-05-08 22:30 | Emergency Department Report ---
ED Altered Mental Status HPI - General Chief Complaint: Altered Mental Status Stated Complaint: PSHYC EPISODE Time Seen by Provider: 05/08/17 22:16 Source: EMS Mode of arrival: Stretcher Limitations: Altered Mental Status - History of Present Illness MD Complaint: altered mental status, confusion -: unknown Severity: Unable to Determine Consistency of Symptoms: unknown Context: unknown Associated Symptoms: denies other symptoms Treatments Prior to Arrival: oxygen - Related Data Home Medications Medication Instructions Recorded Confirmed Last Taken Bisacodyl [Dulcolax suppos] 10 mg PA DAILY PRN 04/25/17 04/25/17 Unknown Previous Rx's Medication Instructions Recorded Last Taken Type HYDROcodone/APAP 5-325 [[place] 1 each PO Q6HR PRN #12 tablet 03/08/17 Unknown Rx 5-325 mg TAB] ALBUTEROL Inhaler [ProAir HFA 2 puff IH QID PRN #1 can 04/11/17 Unknown Rx Inhaler] ALPRAZolam [Xanax TAB] 0.25 mg PO DAILY #7 tablet 04/11/17 Unknown Rx Arformoterol Nebu [Brovana Nebu] 15 mcg IH Q12HRT #30 ml 04/11/17 Unknown Rx Budesonide [Pulmicort Respules] 0.5 mg IH Q12HRT #30 nebu 04/11/17 Unknown Rx Famotidine [Pepcid] 20 mg PO BID #60 tablet 04/11/17 Unknown Rx Ipratropium/Albuterol Sulfate 1 ampul IH Q6HRT #30 ampul.neb 04/11/17 Unknown Rx [DUONEB *Not for PRN Use*] NIFEdipine [Procardia] 10 mg PO DAILY #30 capsule 04/11/17 Unknown Rx QUEtiapine [SEROquel] 50 mg PO QHS #60 tablet 04/11/17 Unknown Rx Azithromycin [Zithromax TAB] 500 mg PO QDAY #4 tablet 04/29/17 Unknown Rx Prednisone [predniSONE 10 mg 10 mg PO .TAPER #1 tab.ds.pk 04/29/17 Unknown Rx (6-Day Pack, 21 Tabs)] Cephalexin [Keflex] 500 mg PO Q8HR 10 Days #30 cap 05/09/17 Unknown Rx Allergies Allergy/AdvReac Type Severity Reaction Status Date / Time aspirin Allergy Unknown Verified 05/08/17 21:35 chlorzoxazone Allergy Seizure Verified 05/08/17 21:35 [From Parafon Forte] codeine Allergy Unknown Verified 05/08/17 21:35 ibuprofen [From Motrin] Allergy Swelling Verified 05/08/17 21:35 olmesartan medoxomil Allergy Nausea Verified 05/08/17 21:35 [From Benicar] phenytoin sodium Allergy Unknown Verified 05/08/17 21:35 [From Dilantin] phenytoin sodium extended Allergy Unknown Verified 05/08/17 21:35 [From Dilantin] ramipril Allergy Nausea Verified 05/08/17 21:35 verapamil Allergy Unknown Verified 05/08/17 21:35 ED Review of Systems ROS: Stated complaint: PSHYC EPISODE Other details as noted in HPI Comment: Unobtainable due to pts medical conditions ED Past Medical Hx - Past Medical History Previous Medical History?: Yes Hx Hypertension: Yes Hx CVA: No Hx Heart Attack/AMI: No Hx Congestive Heart Failure: Yes Hx Diabetes: No Hx Deep Vein Thrombosis: No Hx Pulmonary Embolism: No Hx GERD: No Hx Liver Disease: No Hx Renal Disease: No Hx Sickle Cell Disease: No Hx Arthritis: No Hx Headaches / Migraines: No Hx Seizures: Yes Hx Kidney Stones: No Hx Psychiatric Treatment: No Hx Asthma: Yes Hx COPD: Yes Hx Tuberculosis: No Hx Dementia: No Hx HIV: No - Surgical History Past Surgical History?: Yes Hx Coronary Stent: No Hx Open Heart Surgery: No Hx Pacemaker: No Hx Internal Defibrillator: No Hx Cholecystectomy: No Hx Appendectomy: No Hx Breast Surgery: No Additional Surgical History: hip surgery, carotid endarterectomy, hysterectomy - Social History Smoking Status: Unknown if ever smoked Substance Use Type: None - Medications Home Medications: Home Medications Medication Instructions Recorded Confirmed Last Taken Type HYDROcodone/APAP 5-325 [[place] 1 each PO Q6HR PRN #12 tablet 03/08/17 04/25/17 Unknown Rx 5-325 mg TAB] ALBUTEROL Inhaler [ProAir HFA 2 puff IH QID PRN #1 can 04/11/17 04/25/17 Unknown Rx Inhaler] ALPRAZolam [Xanax TAB] 0.25 mg PO DAILY #7 tablet 04/11/17 04/25/17 Unknown Rx Arformoterol Nebu [Brovana Nebu] 15 mcg IH Q12HRT #30 ml 04/11/17 04/25/17 Unknown Rx Budesonide [Pulmicort Respules] 0.5 mg IH Q12HRT #30 nebu 04/11/17 04/25/17 Unknown Rx Famotidine [Pepcid] 20 mg PO BID #60 tablet 04/11/17 04/25/17 Unknown Rx Ipratropium/Albuterol Sulfate 1 ampul IH Q6HRT #30 ampul.neb 04/11/17 04/25/17 Unknown Rx [DUONEB *Not for PRN Use*] NIFEdipine [Procardia] 10 mg PO DAILY #30 capsule 04/11/17 04/25/17 Unknown Rx QUEtiapine [SEROquel] 50 mg PO QHS #60 tablet 04/11/17 04/25/17 Unknown Rx Bisacodyl [Dulcolax suppos] 10 mg PA DAILY PRN 04/25/17 04/25/17 Unknown History Azithromycin [Zithromax TAB] 500 mg PO QDAY #4 tablet 04/29/17 Unknown Rx Prednisone [predniSONE 10 mg 10 mg PO .TAPER #1 tab.ds.pk 04/29/17 Unknown Rx (6-Day Pack, 21 Tabs)] Cephalexin [Keflex] 500 mg PO Q8HR 10 Days #30 cap 05/09/17 Unknown Rx ED Physical Exam - General Limitations: Altered Mental Status General appearance: alert, cachectic - Head Head exam: Present: other (Left facial old healing bruise.) - Eye Eye exam: Present: normal appearance - ENT ENT exam: Present: mucous membranes dry - Neck Neck exam: Present: normal inspection, full ROM - Respiratory Respiratory exam: Present: normal lung sounds bilaterally - Cardiovascular Cardiovascular Exam: Present: regular rate, normal rhythm - GI/Abdominal GI/Abdominal exam: Present: soft, tenderness, guarding - Rectal Rectal exam: Present: deferred - Extremities Exam Extremities exam: Present: normal inspection, full ROM, normal capillary refill - Back Exam Back exam: Present: full ROM - Neurological Exam Neurological exam: Present: alert - Psychiatric Psychiatric exam: Present: flat affect - Skin Skin exam: Present: warm, dry, intact ED Course Vital Signs 05/09/17 02:16 Respiratory 20 Rate O2 Sat by Pulse 100 Oximetry - Lab Data Result diagrams: 05/08/17 21:53 05/08/17 21:53 Lab Results 05/08/17 05/08/17 05/08/17 Range/Units 21:53 21:53 21:53 WBC 7.5 (4.5-11.0) K/mm3 RBC 3.40 L (3.65-5.03) M/mm3 Hgb 11.1 (10.1-14.3) gm/dl Hct 33.5 (30.3-42.9) % MCV 99 H (79-97) fl MCH 33 H (28-32) pg MCHC 33 (30-34) % RDW 15.2 (13.2-15.2) % Plt Count 386 (140-440) K/mm3 Lymph % (Auto) 13.6 (13.4-35.0) % [place] % (Auto) 9.0 H (0.0-7.3) % Eos % (Auto) 2.7 (0.0-4.3) % Baso % (Auto) 1.3 (0.0-1.8) % Lymph # 1.0 L (1.2-5.4) K/mm3 [place] # 0.7 (0.0-0.8) K/mm3 Eos # 0.2 (0.0-0.4) K/mm3 Baso # 0.1 (0.0-0.1) K/mm3 Seg Neutrophils % 73.4 H (40.0-70.0) % Seg Neutrophils # 5.5 (1.8-7.7) K/mm3 PT (12.2-14.9) Sec. INR (0.87-1.13) APTT (24.2-36.6) Sec. POC ABG pH (7.35-7.45) POC ABG pCO2 (35-45) POC ABG pO2 (80-105) POC ABG HCO3 POC ABG Total CO2 POC ABG O2 Sat POC ABG Base Excess FiO2 % Sodium 138 (137-145) mmol/L Potassium 3.5 L (3.6-5.0) mmol/L Chloride 95.7 L (98-107) mmol/L Carbon Dioxide 28 (22-30) mmol/L Anion Gap 18 mmol/L BUN 17 (7-17) mg/dL Creatinine 0.7 (0.7-1.2) mg/dL Estimated GFR > 60 ml/min BUN/Creatinine Ratio 24 % Glucose 70 (65-100) mg/dL Calcium 8.2 L (8.4-10.2) mg/dL Total Bilirubin 0.20 (0.1-1.2) mg/dL AST 20 (5-40) units/L ALT 9 (7-56) units/L Alkaline Phosphatase 67 (35-129) units/L Total Creatine Kinase (30-135) units/L CK-MB (CK-2) (0.0-4.0) ng/mL CK-MB (CK-2) Rel Index (0-4) Troponin T (0.00-0.029) ng/mL NT-Pro-B Natriuret Pep (0-900) pg/mL Total Protein 5.8 L (6.3-8.2) g/dL Albumin 3.5 L (3.9-5) g/dL Albumin/Globulin Ratio 1.5 % Lipase (13-60) units/L TSH 2.670 (0.270-4.200) mlU/mL Urine Color (Yellow) Urine Turbidity (Clear) Urine pH (5.0-7.0) Ur Specific [place] (1.003-1.030) Urine Protein (Negative) mg/dL Urine Glucose (UA) (Negative) mg/dL Urine Ketones (Negative) mg/dL Urine Blood (Negative) Urine Nitrite (Negative) Urine Bilirubin (Negative) Urine Urobilinogen (<2.0) mg/dL Ur Leukocyte Esterase (Negative) Urine WBC (Auto) (0.0-6.0) /HPF Urine RBC (Auto) (0.0-6.0) /HPF U Epithel Cells (Auto) (0-13.0) /HPF Urine Bacteria (Auto) (Negative) /HPF Amorphous Crystals Hyaline Casts /LPF Urine Mucus /HPF Urine Opiates Screen Urine Methadone Screen Ur Barbiturates Screen Ur Phencyclidine Scrn Ur Amphetamines Screen U Benzodiazepines Scrn Urine Cocaine Screen U Marijuana (THC) Screen Drugs of Abuse Note Plasma/Serum Alcohol (0-0.07) gm% 05/08/17 05/08/17 05/08/17 Range/Units 21:53 23:14 23:14 WBC (4.5-11.0) K/mm3 RBC (3.65-5.03) M/mm3 Hgb (10.1-14.3) gm/dl Hct (30.3-42.9) % MCV (79-97) fl MCH (28-32) pg MCHC (30-34) % RDW (13.2-15.2) % Plt Count (140-440) K/mm3 Lymph % (Auto) (13.4-35.0) % [place] % (Auto) (0.0-7.3) % Eos % (Auto) (0.0-4.3) % Baso % (Auto) (0.0-1.8) % Lymph # (1.2-5.4) K/mm3 [place] # (0.0-0.8) K/mm3 Eos # (0.0-0.4) K/mm3 Baso # (0.0-0.1) K/mm3 Seg Neutrophils % (40.0-70.0) % Seg Neutrophils # (1.8-7.7) K/mm3 PT 12.3 (12.2-14.9) Sec. INR 0.87 (0.87-1.13) APTT 30.0 (24.2-36.6) Sec. POC ABG pH (7.35-7.45) POC ABG pCO2 (35-45) POC ABG pO2 (80-105) POC ABG HCO3 POC ABG Total CO2 POC ABG O2 Sat POC ABG Base Excess FiO2 % Sodium (137-145) mmol/L Potassium (3.6-5.0) mmol/L Chloride (98-107) mmol/L Carbon Dioxide (22-30) mmol/L Anion Gap mmol/L BUN (7-17) mg/dL Creatinine (0.7-1.2) mg/dL Estimated GFR ml/min BUN/Creatinine Ratio % Glucose (65-100) mg/dL Calcium (8.4-10.2) mg/dL Total Bilirubin (0.1-1.2) mg/dL AST (5-40) units/L ALT (7-56) units/L Alkaline Phosphatase (35-129) units/L Total Creatine Kinase 60 (30-135) units/L CK-MB (CK-2) 4.8 H (0.0-4.0) ng/mL CK-MB (CK-2) Rel Index 8.0 H (0-4) Troponin T 0.022 (0.00-0.029) ng/mL NT-Pro-B Natriuret Pep 353.3 (0-900) pg/mL Total Protein (6.3-8.2) g/dL Albumin (3.9-5) g/dL Albumin/Globulin Ratio % Lipase 23 (13-60) units/L TSH (0.270-4.200) mlU/mL Urine Color (Yellow) Urine Turbidity (Clear) Urine pH (5.0-7.0) Ur Specific [place] (1.003-1.030) Urine Protein (Negative) mg/dL Urine Glucose (UA) (Negative) mg/dL Urine Ketones (Negative) mg/dL Urine Blood (Negative) Urine Nitrite (Negative) Urine Bilirubin (Negative) Urine Urobilinogen (<2.0) mg/dL Ur Leukocyte Esterase (Negative) Urine WBC (Auto) (0.0-6.0) /HPF Urine RBC (Auto) (0.0-6.0) /HPF U Epithel Cells (Auto) (0-13.0) /HPF Urine Bacteria (Auto) (Negative) /HPF Amorphous Crystals Hyaline Casts /LPF Urine Mucus /HPF Urine Opiates Screen Urine Methadone Screen Ur Barbiturates Screen Ur Phencyclidine Scrn Ur Amphetamines Screen U Benzodiazepines Scrn Urine Cocaine Screen U Marijuana (THC) Screen Drugs of Abuse Note Plasma/Serum Alcohol < 0.01 (0-0.07) gm% 05/09/17 05/09/17 05/09/17 Range/Units 01:04 01:04 03:39 WBC (4.5-11.0) K/mm3 RBC (3.65-5.03) M/mm3 Hgb (10.1-14.3) gm/dl Hct (30.3-42.9) % MCV (79-97) fl MCH (28-32) pg MCHC (30-34) % RDW (13.2-15.2) % Plt Count (140-440) K/mm3 Lymph % (Auto) (13.4-35.0) % [place] % (Auto) (0.0-7.3) % Eos % (Auto) (0.0-4.3) % Baso % (Auto) (0.0-1.8) % Lymph # (1.2-5.4) K/mm3 [place] # (0.0-0.8) K/mm3 Eos # (0.0-0.4) K/mm3 Baso # (0.0-0.1) K/mm3 Seg Neutrophils % (40.0-70.0) % Seg Neutrophils # (1.8-7.7) K/mm3 PT (12.2-14.9) Sec. INR (0.87-1.13) APTT (24.2-36.6) Sec. POC ABG pH 7.302 L (7.35-7.45) POC ABG pCO2 81.7 H (35-45) POC ABG pO2 168 H (80-105) POC ABG HCO3 40.4 POC ABG Total CO2 43 POC ABG O2 Sat 99 POC ABG Base Excess 14 FiO2 28 % Sodium (137-145) mmol/L Potassium (3.6-5.0) mmol/L Chloride (98-107) mmol/L Carbon Dioxide (22-30) mmol/L Anion Gap mmol/L BUN (7-17) mg/dL Creatinine (0.7-1.2) mg/dL Estimated GFR ml/min BUN/Creatinine Ratio % Glucose (65-100) mg/dL Calcium (8.4-10.2) mg/dL Total Bilirubin (0.1-1.2) mg/dL AST (5-40) units/L ALT (7-56) units/L Alkaline Phosphatase (35-129) units/L Total Creatine Kinase (30-135) units/L CK-MB (CK-2) (0.0-4.0) ng/mL CK-MB (CK-2) Rel Index (0-4) Troponin T (0.00-0.029) ng/mL NT-Pro-B Natriuret Pep (0-900) pg/mL Total Protein (6.3-8.2) g/dL Albumin (3.9-5) g/dL Albumin/Globulin Ratio % Lipase (13-60) units/L TSH (0.270-4.200) mlU/mL Urine Color [place] (Yellow) Urine Turbidity Slightly cloudy (Clear) Urine pH 7.0 (5.0-7.0) Ur Specific [place] 1.014 (1.003-1.030) Urine Protein <15 mg/dl (Negative) mg/dL Urine Glucose (UA) Neg (Negative) mg/dL Urine Ketones Neg (Negative) mg/dL Urine Blood Sm (Negative) Urine Nitrite Pos (Negative) Urine Bilirubin Neg (Negative) Urine Urobilinogen < 2.0 (<2.0) mg/dL Ur Leukocyte Esterase Lg (Negative) Urine WBC (Auto) 101.0 H (0.0-6.0) /HPF Urine RBC (Auto) 7.0 (0.0-6.0) /HPF U Epithel Cells (Auto) < 1.0 (0-13.0) /HPF Urine Bacteria (Auto) 1+ (Negative) /HPF Amorphous Crystals Few Hyaline Casts 1 /LPF Urine Mucus Few /HPF Urine Opiates Screen Presumptive negative Urine Methadone Screen Presumptive negative Ur Barbiturates Screen Presumptive negative Ur Phencyclidine Scrn Presumptive negative Ur Amphetamines Screen Presumptive negative U Benzodiazepines Scrn Presumptive negative Urine Cocaine Screen Presumptive negative U Marijuana (THC) Screen Presumptive negative Drugs of Abuse Note Disclamer Plasma/Serum Alcohol (0-0.07) gm% - EKG Data -: EKG Interpreted by Ks EKG shows normal: sinus rhythm Rate: normal When compared to previous EKG there are: previous EKG unavailable Interpretation: other (Nonspecific ST changes.) - Medical Decision Making COPD Exacerbation. CO2 Narcosis. Altered Mental Status. Urinary Tract Infection. Critical care attestation.: If time is entered above; I have spent that time in minutes in the direct care of this critically ill patient, excluding procedure time. ED Disposition Clinical Impression: CO2 narcosis, COPD exacerbation, CO2 retention UTI (urinary tract infection) Qualifiers: Urinary tract infection type: acute cystitis Hematuria presence: without hematuria Qualified Code(s): N30.00 - Acute cystitis without hematuria Disposition: OP ADMIT IP TO THIS HOSP Is pt being admited?: Yes Does the pt Need Aspirin: No Condition: Stable Instructions: Urinary Tract Infection in Women (ED), Chronic Bronchitis (ED) Additional Instructions: Follow-up with your primary care doctor in 2 days. Return to the emergency room if your condition worsen. Prescriptions: Cephalexin [Keflex] 500 mg PO Q8HR 10 Days #30 cap Referrals: ALEJANDRA MEEHAN [Other] - 3-5 Days
[2017-05-08 22:59] LABS: Alanine Aminotransferase 9 units/L (7-56); Albumin 3.5 g/dL (3.9-5); BUN/Creatinine Ratio 24; Blood Urea Nitrogen 17 mg/dL (7-17); Calcium 8.2 mg/dL (8.4-10.2); Hemolysis Index 35
--- NOTE | 2017-05-08 23:12 | Cat Scan Report ---
FINAL REPORT EXAM: CT HEAD/BRAIN WO CON HISTORY: altered mental status TECHNIQUE: CT head without contrast PRIORS: Comparison is dated April 25, 2017 FINDINGS: No acute intra-axial or extra-axial hemorrhage is identified. There is no evidence of midline shift or mass effect. The ventricles and sulci are within normal limits. Treadwell-white matter differentiation is intact. No acute parenchymal abnormalities seen. Bony calvarium is grossly intact. Visualized portions of the mastoids and paranasal sinuses are unremarkable. IMPRESSION: Negative CT head
--- NOTE | 2017-05-08 23:14 | Cat Scan Report ---
FINAL REPORT EXAM: CT CERVICAL SPINE WO CON HISTORY: altered mental status TECHNIQUE: CT cervical spine with reconstructions PRIORS: None. FINDINGS: Vertebral bodies demonstrate normal height and alignment. There is disc space narrowing C5-C6 and C6-C7 with marginal vertebral body osteophytes. The facet joints demonstrate normal alignment. The spinous processes are intact. Craniocervical junction is unremarkable. C1 and C2 are intact. IMPRESSION: Degenerative disc disease at C5-C6 and C6-C7 No acute abnormality seen.
--- NOTE | 2017-05-08 23:16 | Cat Scan Report ---
FINAL REPORT EXAM: CT FACIAL BONES WO CON HISTORY: altered mental status TECHNIQUE: CT facial bones without contrast PRIORS: Comparison is dated April 25, 2017 FINDINGS: Fracture through the left orbital floor, left lateral orbital wall, left anterior and lateral rodriguez of the maxillary sinus are again noted unchanged. Nasal bone and zygomatic arches are intact. No new fracture identified. No acute intraorbital abnormalities are identified. IMPRESSION: Multiple left-sided facial fractures unchanged from prior exam
[2017-05-08 23:40] LABS: INR 0.87 (0.87-1.13)
[2017-05-08 23:49] LABS: Creatine Kinase MB 4.8 ng/mL (0.0-4.0)
[2017-05-09 01:32] LABS: Amorphous Crystals,Urine Few; Bacteria,Urine 1+ /HPF (Negative); Bilirubin,Urine NEG (Negative); Blood,Urine SM (Negative); Color,Urine Amber (Yellow); Hyaline Casts,Urine 1 /LPF; Mucus,Urine FEW /HPF; Nitrite,Urine POS (Negative); Protein,Urine <15 mg/dL mg/dL (Negative); Urobilinogen,Urine < 2.0 mg/dL (<2.0)
[2017-05-09 01:46] LABS: Amphetamine Screen,Urine PRESUMPTIVE NEGATIVE; Benzodiazepines Screen,Urine PRESUMPTIVE NEGATIVE; Cannabinoid Screen,Urine PRESUMPTIVE NEGATIVE; Cocaine Screen,Urine PRESUMPTIVE NEGATIVE; Methadone Screen,Urine PRESUMPTIVE NEGATIVE; Opiate Screen,Urine PRESUMPTIVE NEGATIVE
[2017-05-09] MEDS ORDERED: ROCEPHIN/NS 1 GM/50 ML 1 GM/50 ML BAG IV ONE (02:11)
[2017-05-09] MEDS ORDERED: ceFAZolin 1 GM in NACL 0.9% 20 ML IV ONE (02:30)
[2017-05-09] MEDS ORDERED: WATER FOR INJ (PF) 10 ML ONE (02:54)
[2017-05-09] MEDS ORDERED: ANCEF ONE (02:54)
[2017-05-09] MEDS ORDERED: ROCEPHIN 1 GM in NACL 0.9% 20 ML IV ONE (03:00)
[2017-05-09] MEDS ORDERED: ROCEPHIN ONE (03:05)
[2017-05-09] MEDS ORDERED: XYLOCAINE 1% 20 mL ONE (03:05)
[2017-05-09] MEDS ORDERED: DULCOLAX PR PRN (05:53)
--- NOTE | 2017-05-09 06:17 | History and Physical Report ---
History of Present Illness Date of examination: 05/09/17 Date of admission: 05/09/17 04:08 History of present illness: 71-year-old woman with a history of COPD on home oxygen, hypertension, anxiety, depression brought to the emergency room with complaint of altered mental status. Patient was found to have CO2 narcosis and have a urinary tract infection, she was placed on BiPAP and given antibiotic. Review of systems unobtainable. I've admitted this patient before, her family had stated that time that she abuses Xanax PAST MEDICAL HISTORY:COPD on home oxygen, hypertension, anxiety, depression PAST SURGICAL HISTORY:hysterectomy, right hip surgery, right carotid endarterectomy FAMILY HISTORY:hypertension SOCIAL HISTORY: Smoked 3 cigarettes today, normal color return Medications and Allergies Allergies Allergy/AdvReac Type Severity Reaction Status Date / Time aspirin Allergy Unknown Verified 05/08/17 21:35 chlorzoxazone Allergy Seizure Verified 05/08/17 21:35 [From Parafon Forte] codeine Allergy Unknown Verified 05/08/17 21:35 ibuprofen [From Motrin] Allergy Swelling Verified 05/08/17 21:35 olmesartan medoxomil Allergy Nausea Verified 05/08/17 21:35 [From Benicar] phenytoin sodium Allergy Unknown Verified 05/08/17 21:35 [From Dilantin] phenytoin sodium extended Allergy Unknown Verified 05/08/17 21:35 [From Dilantin] ramipril Allergy Nausea Verified 05/08/17 21:35 verapamil Allergy Unknown Verified 05/08/17 21:35 Home Medications Medication Instructions Recorded Confirmed Last Taken Type HYDROcodone/APAP 5-325 [[place] 1 each PO Q6HR PRN #12 tablet 03/08/17 04/25/17 Unknown Rx 5-325 mg TAB] ALBUTEROL Inhaler [ProAir HFA 2 puff IH QID PRN #1 can 04/11/17 04/25/17 Unknown Rx Inhaler] ALPRAZolam [Xanax TAB] 0.25 mg PO DAILY #7 tablet 04/11/17 04/25/17 Unknown Rx Arformoterol Nebu [Brovana Nebu] 15 mcg IH Q12HRT #30 ml 04/11/17 04/25/17 Unknown Rx Budesonide [Pulmicort Respules] 0.5 mg IH Q12HRT #30 nebu 04/11/17 04/25/17 Unknown Rx Famotidine [Pepcid] 20 mg PO BID #60 tablet 04/11/17 04/25/17 Unknown Rx Ipratropium/Albuterol Sulfate 1 ampul IH Q6HRT #30 ampul.neb 04/11/17 04/25/17 Unknown Rx [DUONEB *Not for PRN Use*] NIFEdipine [Procardia] 10 mg PO DAILY #30 capsule 04/11/17 04/25/17 Unknown Rx QUEtiapine [SEROquel] 50 mg PO QHS #60 tablet 04/11/17 04/25/17 Unknown Rx Bisacodyl [Dulcolax suppos] 10 mg VT DAILY PRN 04/25/17 04/25/17 Unknown History Azithromycin [Zithromax TAB] 500 mg PO QDAY #4 tablet 04/29/17 Unknown Rx Prednisone [predniSONE 10 mg 10 mg PO .TAPER #1 tab.ds.pk 04/29/17 Unknown Rx (6-Day Pack, 21 Tabs)] Cephalexin [Keflex] 500 mg PO Q8HR 10 Days #30 cap 05/09/17 Unknown Rx Active Meds: Active Medications Acetaminophen (Tylenol) 650 mg PO Q4H PRN PRN Reason: Pain MILD(1-3)/Fever >100.5/GREGORY Albuterol/Ipratropium (Duoneb *Not For Prn Use*) 1 ampul IH Q6HRT [place] Bisacodyl (Dulcolax) 10 mg VT QDAY PRN PRN Reason: Constipation unrelieved by MOM Enoxaparin Sodium (Lovenox) 40 mg SUB-Q QDAY [place] Ceftriaxone Sodium 1 gm/ (Sodium Chloride) 20 mls @ 2 mls/min IV Q24HR [place] Methylprednisolone Sodium Succinate (Solu-Medrol) 125 mg IV Q6HR [place] Ondansetron HCl (Zofran) 4 mg IV Q8H PRN PRN Reason: N/V unrelieved by Reglan Exam - Physical Exam Narrative exam: Gen. appearance: Patient lying in bed in no acute distress on BiPAP HEENT: Normocephalic/atraumatic, pupils equal round reactive to light, extra occular movement intact, no scleral icterus, no JVD or thyromegaly or nodule, neck is supple, mucous membrane moist, no erythema or exudate Heart: S1-S2, regular rate and rhythm Lungs: Wheezing bilateral breathing comfortable Abdomen: Positive bowel sounds, nontender, nondistended, no organomegaly Extremities: No edema, cyanosis, clubbing Neuro:: Difficult to assess Skin: No rash, nodules, warm dry - Constitutional Vitals: Temp Pulse Resp BP Pulse Ox 88 20 122/58 100 05/09/17 05:04 05/09/17 05:04 05/09/17 03:50 05/09/17 05:04 Results - Labs CBC & Chem 7: 05/08/17 21:53 05/08/17 21:53 Labs: Abnormal lab results 05/08/17 05/08/17 05/08/17 Range/Units 21:53 21:53 23:14 RBC 3.40 L (3.65-5.03) M/mm3 MCV 99 H (79-97) fl MCH 33 H (28-32) pg [place] % (Auto) 9.0 H (0.0-7.3) % Lymph # 1.0 L (1.2-5.4) K/mm3 Seg Neutrophils % 73.4 H (40.0-70.0) % POC ABG pH (7.35-7.45) POC ABG pCO2 (35-45) POC ABG pO2 (80-105) Potassium 3.5 L (3.6-5.0) mmol/L Chloride 95.7 L (98-107) mmol/L Calcium 8.2 L (8.4-10.2) mg/dL CK-MB (CK-2) 4.8 H (0.0-4.0) ng/mL CK-MB (CK-2) Rel Index 8.0 H (0-4) Total Protein 5.8 L (6.3-8.2) g/dL Albumin 3.5 L (3.9-5) g/dL Urine WBC (Auto) (0.0-6.0) /HPF 05/09/17 05/09/17 Range/Units 01:04 03:39 RBC (3.65-5.03) M/mm3 MCV (79-97) fl MCH (28-32) pg [place] % (Auto) (0.0-7.3) % Lymph # (1.2-5.4) K/mm3 Seg Neutrophils % (40.0-70.0) % POC ABG pH 7.302 L (7.35-7.45) POC ABG pCO2 81.7 H (35-45) POC ABG pO2 168 H (80-105) Potassium (3.6-5.0) mmol/L Chloride (98-107) mmol/L Calcium (8.4-10.2) mg/dL CK-MB (CK-2) (0.0-4.0) ng/mL CK-MB (CK-2) Rel Index (0-4) Total Protein (6.3-8.2) g/dL Albumin (3.9-5) g/dL Urine WBC (Auto) 101.0 H (0.0-6.0) /HPF - Imaging and Cardiology EKG: image reviewed Chest x-ray: image reviewed CT Scan - head: report reviewed Assessment and Plan CT C-spine and neck reviewed Assessment Acute respiratory failure, Hypercapnic COPD exacerbation UTI Perieneal rash Hypertension Diabetes type 2 Anxiety Depression Plan Admit to medicine Start high-dose IV steroids, nebulized treatment, BiPAP fingersticks and initiate insulin sliding scale, Continued appropriate medications Apply zinc oxide to affected area DVT prophylaxis
[2017-05-09] MEDS ORDERED: D50W (25GM) Syringe IV PRN (06:27)
[2017-05-09 07:48] LABS: Creatine Kinase MB 3.7 ng/mL (0.0-4.0)
--- NOTE | 2017-05-09 08:30 | XRay Report ---
AP CHEST: HISTORY: Altered mental status Severe COPD changes are stable since 04/25/17. No evidence for pneumonia, pleural effusion or pneumothorax. Normal heart size and pulmonary vascularity. IMPRESSION: Severe COPD. No acute process.
[2017-05-09] MEDS: DUONEB *Not for PRN Use IH SCH ×3 (08:47→19:26)
[2017-05-09] MEDS: NOVOLOG SUB-Q SCH ×4 (09:36→23:06)
[2017-05-09] MEDS ORDERED: ROCEPHIN/NS 1 GM/50 ML 1 GM/50 ML BAG IV SCH (10:00)
[2017-05-09] MEDS: LOVENOX SUB-Q SCH (10:09)
[2017-05-09] MEDS: ROCEPHIN 1 GM in NACL 0.9% 20 ML IV SCH (10:10)
[2017-05-09 14:45] LABS: Creatine Kinase MB 3.7 ng/mL (0.0-4.0)
[2017-05-09] MEDS: PERCOCET 5/325 PO PRN (18:19)
[2017-05-09] MEDS: XANAX PO PRN (18:19)
--- NOTE | 2017-05-09 18:27 | Progress Note ---
Assessment and Plan Assessment and plan: 71-year-old woman with a history of COPD on home oxygen, hypertension, anxiety, depression brought to the emergency room with complaint of altered mental status. Patient was found to have CO2 narcosis and have a urinary tract infection, she was placed on BiPAP and given antibiotic. Acute respiratory failure, Hypercapnic * continue bipap prn COPD exacerbation continue high-dose IV steroids, nebulized treatment, BiPAP UTI fup urine cx, continue abx Perieneal rash wound care Hypertension continue meds Diabetes type 2 SSI History Interval history: Review of systems Constitutional: No fevers, no malaise, no joint pains CVS: No chest pain, no orthopnea, no dyspnea on exertion, no pedal edema GI: No abdominal pain, no diarrhea, no vomiting, no constipation Respiratory: Complaining of shortness of breath, coughing and wheezing Hospitalist Physical - Physical exam Narrative exam: General.: Appears well, no distress, nontoxic HEENT: Moist mucous membranes, extraocular muscles intact, no lymphadenopathy Neck: supple Cardiac: S1-S2 heard Lungs: diminished breath sounds Abdomen: soft , nontender, nondistended, bowel sounds positive Extremities: no edema clubbing or cyanosis Skin: no rash or lesions Neurologic: no gross focal deficits Psych: appropriate behavior, appropriate mood, corporative, judgment intact - Constitutional Vitals: Temp Pulse Resp BP Pulse Ox 97.7 F 88 20 96/41 96 05/09/17 08:03 05/09/17 14:28 05/09/17 14:28 05/09/17 14:28 05/09/17 14:28 Results - Labs CBC & Chem 7: 05/10/17 05:07 05/10/17 05:07 Labs: Laboratory Last Values WBC 7.5 K/mm3 (4.5-11.0) 05/08/17 21:53 RBC 3.40 M/mm3 (3.65-5.03) L 05/08/17 21:53 Hgb 11.1 gm/dl (10.1-14.3) 05/08/17 21:53 Hct 33.5 % (30.3-42.9) 05/08/17 21:53 MCV 99 fl (79-97) H 05/08/17 21:53 MCH 33 pg (28-32) H 05/08/17 21:53 MCHC 33 % (30-34) 05/08/17 21:53 RDW 15.2 % (13.2-15.2) 05/08/17 21:53 Plt Count 386 K/mm3 (140-440) 05/08/17 21:53 Lymph % (Auto) 13.6 % (13.4-35.0) 05/08/17 21:53 [place] % (Auto) 9.0 % (0.0-7.3) H 05/08/17 21:53 Eos % (Auto) 2.7 % (0.0-4.3) 05/08/17 21:53 Baso % (Auto) 1.3 % (0.0-1.8) 05/08/17 21:53 Lymph # 1.0 K/mm3 (1.2-5.4) L 05/08/17 21:53 [place] # 0.7 K/mm3 (0.0-0.8) 05/08/17 21:53 Eos # 0.2 K/mm3 (0.0-0.4) 05/08/17 21:53 Baso # 0.1 K/mm3 (0.0-0.1) 05/08/17 21:53 Seg Neutrophils % 73.4 % (40.0-70.0) H 05/08/17 21:53 Seg Neutrophils # 5.5 K/mm3 (1.8-7.7) 05/08/17 21:53 PT 12.3 Sec. (12.2-14.9) 05/08/17 23:14 INR 0.87 (0.87-1.13) 05/08/17 23:14 APTT 30.0 Sec. (24.2-36.6) 05/08/17 23:14 POC ABG pH 7.302 (7.35-7.45) L 05/09/17 03:39 POC ABG pCO2 81.7 (35-45) H 05/09/17 03:39 POC ABG pO2 168 (80-105) H 05/09/17 03:39 POC ABG HCO3 40.4 05/09/17 03:39 POC ABG Total CO2 43 05/09/17 03:39 POC ABG O2 Sat 99 05/09/17 03:39 POC ABG Base Excess 14 05/09/17 03:39 FiO2 28 % 05/09/17 03:39 Sodium 138 mmol/L (137-145) 05/08/17 21:53 Potassium 3.5 mmol/L (3.6-5.0) L 05/08/17 21:53 Chloride 95.7 mmol/L (98-107) L 05/08/17 21:53 Carbon Dioxide 28 mmol/L (22-30) 05/08/17 21:53 Anion Gap 18 mmol/L 05/08/17 21:53 BUN 17 mg/dL (7-17) 05/08/17 21:53 Creatinine 0.7 mg/dL (0.7-1.2) 05/08/17 21:53 Estimated GFR > 60 ml/min 05/08/17 21:53 BUN/Creatinine Ratio 24 % 05/08/17 21:53 Glucose 70 mg/dL (65-100) 05/08/17 21:53 POC Glucose 146 (70-105) H 05/09/17 16:36 Calcium 8.2 mg/dL (8.4-10.2) L 05/08/17 21:53 Total Bilirubin 0.20 mg/dL (0.1-1.2) 05/08/17 21:53 AST 20 units/L (5-40) 05/08/17 21:53 ALT 9 units/L (7-56) 05/08/17 21:53 Alkaline Phosphatase 67 units/L (35-129) 05/08/17 21:53 Total Creatine Kinase 42 units/L (30-135) 05/09/17 14:02 CK-MB (CK-2) 3.7 ng/mL (0.0-4.0) 05/09/17 14:02 CK-MB (CK-2) Rel Index 8.8 (0-4) H 05/09/17 14:02 Troponin T 0.019 ng/mL (0.00-0.029) 05/09/17 14:02 NT-Pro-B Natriuret Pep 353.3 pg/mL (0-900) 05/08/17 23:14 Total Protein 5.8 g/dL (6.3-8.2) L 05/08/17 21:53 Albumin 3.5 g/dL (3.9-5) L 05/08/17 21:53 Albumin/Globulin Ratio 1.5 % 05/08/17 21:53 Lipase 23 units/L (13-60) 05/08/17 23:14 TSH 2.670 mlU/mL (0.270-4.200) 05/08/17 21:53 Urine Color Tori (Yellow) 05/09/17 01:04 Urine Turbidity Slightly cloudy (Clear) 05/09/17 01:04 Urine pH 7.0 (5.0-7.0) 05/09/17 01:04 Ur Specific [place] 1.014 (1.003-1.030) 05/09/17 01:04 Urine Protein <15 mg/dl mg/dL (Negative) 05/09/17 01:04 Urine Glucose (UA) Neg mg/dL (Negative) 05/09/17 01:04 Urine Ketones Neg mg/dL (Negative) 05/09/17 01:04 Urine Blood Sm (Negative) 05/09/17 01:04 Urine Nitrite Pos (Negative) 05/09/17 01:04 Urine Bilirubin Neg (Negative) 05/09/17 01:04 Urine Urobilinogen < 2.0 mg/dL (<2.0) 05/09/17 01:04 Ur Leukocyte Esterase Lg (Negative) 05/09/17 01:04 Urine WBC (Auto) 101.0 /HPF (0.0-6.0) H 05/09/17 01:04 Urine RBC (Auto) 7.0 /HPF (0.0-6.0) 05/09/17 01:04 U Epithel Cells (Auto) < 1.0 /HPF (0-13.0) 05/09/17 01:04 Urine Bacteria (Auto) 1+ /HPF (Negative) 05/09/17 01:04 Amorphous Crystals Few 05/09/17 01:04 Hyaline Casts 1 /LPF 05/09/17 01:04 Urine Mucus Few /HPF 05/09/17 01:04 Urine Opiates Screen Presumptive negative 05/09/17 01:04 Urine Methadone Screen Presumptive negative 05/09/17 01:04 Ur Barbiturates Screen Presumptive negative 05/09/17 01:04 Ur Phencyclidine Scrn Presumptive negative 05/09/17 01:04 Ur Amphetamines Screen Presumptive negative 05/09/17 01:04 U Benzodiazepines Scrn Presumptive negative 05/09/17 01:04 Urine Cocaine Screen Presumptive negative 05/09/17 01:04 U Marijuana (THC) Screen Presumptive negative 05/09/17 01:04 Drugs of Abuse Note Disclamer 05/09/17 01:04 Plasma/Serum Alcohol < 0.01 gm% (0-0.07) 05/08/17 21:53
[2017-05-10] MEDS: PERCOCET 5/325 PO PRN ×3 (00:12→23:38)
[2017-05-10] MEDS: DUONEB *Not for PRN Use IH SCH ×5 (02:36→21:57)
[2017-05-10 05:57] LABS: Hematocrit 30.7 % (30.3-42.9); Hemoglobin 10.2 gm/dl (10.1-14.3); Mean Corpuscular HGB Conc 33 % (30-34); Mean Corpuscular Hemoglobin 32 pg (28-32); Mean Corpuscular Volume 98 fl (79-97); Platelet Count 281 K/mm3 (140-440); Red Blood Count 3.14 M/mm3 (3.65-5.03); Red Cell Distribution Width 14.8 % (13.2-15.2)
[2017-05-10 06:14] LABS: BUN/Creatinine Ratio 44; Blood Urea Nitrogen 22 mg/dL (7-17); Calcium 8.4 mg/dL (8.4-10.2); Hemolysis Index 19
[2017-05-10] MEDS: XANAX PO PRN ×2 (06:45→20:46)
[2017-05-10 07:20] LABS: Band Neutrophils # (Manual) 0.4 K/mm3; Basophils % (Manual) 0 % (0.0-1.8); Stomatocytes Few; Total Cells Counted 100
[2017-05-10] MEDS: LOVENOX SUB-Q SCH (09:25)
[2017-05-10] MEDS: NOVOLOG SUB-Q SCH ×4 (09:25→23:35)
[2017-05-10] MEDS: ROCEPHIN 1 GM in NACL 0.9% 20 ML IV SCH (09:26)
--- NOTE | 2017-05-10 20:04 | Event Note ---
Date: 05/10/17 PULMONARY CONSULTATION thank you for asking us to participate in the care of this patient. Full consultation dictated. Consultation dictation number: [id number] This is 71 year old white female. with history of COPD and on Home O2 admitted with altered mental status and Patient found to be in CO2 Narcosis.Patient also has urinary tract infection.Patients other medical problems hypertension,anxiety and depression. Patient has history of smoking. still smoking. Counselled her to stop smoking. Patient allergic to Codeine, aspirin, Chlorzoxazone,Ibuprofen. 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 and has 2 children.No furthur history available at this time. Patient started on BIPAP . also started on antibiotics. Immpression: 1.Acute hypercapnic respiratory failure 2.Acute Exacerbation of COPD. 3. UTI 4. Hypertension 5. Anxiety and depression. Plan: 1. BIPAP 16/6, rate 20 , FIO2 28%. 2. Albuterol/atrovent aerosol treatments q 6 hours. 3. Continue I/V solumedral 4. Continue ceftrioxone. 5. Continue S/C Lovenox.
[2017-05-10] MEDS: ZOFRAN IV PRN (20:46)
[2017-05-11] MEDS: DUONEB *Not for PRN Use IH SCH ×4 (01:28→20:18)
[2017-05-11] MEDS: TYLENOL PO PRN (02:09)
[2017-05-11] MEDS: PERCOCET 5/325 PO PRN ×2 (06:07→20:40)
[2017-05-11] MEDS: NOVOLOG SUB-Q SCH ×4 (07:30→23:22)
--- NOTE | 2017-05-11 09:59 | Consultation ---
PULMONARY CONSULTATION CONSULTED BY: Mirela Brar MD BOTTOM TURNER: Daryn Briggs MD REASON FOR CONSULTATION: COPD and CO2 narcosis. Dr. Brar, thank you for asking me to participate in the care of this patient. HISTORY OF PRESENT ILLNESS: This 71-year-old white female with a history of COPD and on home O2 who is admitted to the hospital with altered mental status and the patient found to have CO2 narcosis. The patient also has a urinary tract infection. The patient's other medical problems are hypertension, anxiety, and depression. The patient has a history of smoking. She is still smoking, counseled her to stop smoking. ALLERGIES: CODEINE, ASPIRIN, CHLORZOXAZONE, IBUPROFEN. 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 No further history available at this time. The patient started on BiPAP and also started on IV antibiotics, O2 supplementation and aerosolized bronchodilators. PHYSICAL EXAMINATION: GENERAL: The patient is thin, mild shortness of breath at rest, but alert, awake and oriented. VITAL SIGNS: Temperature is 98.5, pulse 92, respirations 20, and O2 saturation 99% on 2 liters O2 and the patient's blood pressure is 132/55. HEENT: Eyes: Sunken. Pupils reactive to the light. Throat is dry. No inflammation. NECK: Supple. No JVD. No carotid bruit. CARDIOVASCULAR: Regular rate and rhythm at the rate of 100. LUNGS: No wheezes or rhonchi. Diminished breath sounds and prolonged expiratory phase. ABDOMEN: Soft. Bowel sounds present. No CVA tenderness. MUSCULOSKELETAL: No edema, no clubbing, no cyanosis. NEUROLOGICAL: DTRs are present. Babinski negative. No focal neurological deficits. LABORATORY DATA: The patient's CBC: WBC is 10.5, hemoglobin 10.2, hematocrit 30.7, platelet count is 281,000. The patient's BMP: Sodium 139, potassium 3.8, BUN 22 and creatinine 0.5, and glucose 106. The patient's chest x-ray reported severe COPD, no acute process has been reported. IMPRESSION: 1. Acute hypercapnic respiratory failure. 2. Acute exacerbation of chronic obstructive pulmonary disease. 3. Urinary tract infection. 4. Hypertension. 5. Anxiety and depression. PLAN: 1. BiPAP 16/6, rate of 20 and FiO2 of 28%. 2. Albuterol and Atrovent aerosol treatments q. 6 hours. 3. Continue IV Solu-Medrol. 4. Continue ceftriaxone. 5. Continue subcutaneous Lovenox. I want to thank Dr. Brar for this consultation. I will follow the patient with her. JOB# [id number] RSM/NTS
[2017-05-11] MEDS: LOVENOX SUB-Q SCH (10:49)
[2017-05-11] MEDS: ROCEPHIN 1 GM in NACL 0.9% 20 ML IV SCH (10:49)
[2017-05-11] MEDS: XANAX PO PRN ×2 (11:57→18:39)
--- NOTE | 2017-05-11 13:30 | Progress Note ---
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; AECOPD Interval history: Patient is seen today for: Acute on Chronic Hypercapnic hypoxemic Resp Failure; AECOPD Seen and examined at bedside; 24hour events reviewed; nursing and respiratory care staff consulted; no adverse overnight events reported to me; Objective Vital Signs - 12hr 05/11/17 05/11/17 05/11/17 01:35 02:09 03:00 Temperature Pulse Rate 101 H Pulse Rate [ 102 H Anterior Bilateral Throughout] Respiratory 16 16 Rate Respiratory 16 Rate [Anterior Bilateral Throughout] Blood Pressure O2 Sat by Pulse 98 Oximetry 05/11/17 05/11/17 05/11/17 03:01 03:09 06:07 Temperature Pulse Rate 101 H Pulse Rate [ Anterior Bilateral Throughout] Respiratory 16 20 Rate Respiratory Rate [Anterior Bilateral Throughout] Blood Pressure 124/50 O2 Sat by Pulse 98 Oximetry 05/11/17 05/11/17 05/11/17 08:03 08:54 08:55 Temperature 99.2 F Pulse Rate 101 H Pulse Rate [ 98 H Anterior Bilateral Throughout] Respiratory 20 Rate Respiratory 16 Rate [Anterior Bilateral Throughout] Blood Pressure 129/51 O2 Sat by Pulse 94 94 Oximetry 05/11/17 09:15 Temperature Pulse Rate Pulse Rate [ 96 H Anterior Bilateral Throughout] Respiratory Rate Respiratory 16 Rate [Anterior Bilateral Throughout] Blood Pressure O2 Sat by Pulse Oximetry CBC and BMP: 05/10/17 05:07 05/10/17 05:07 ABG, PT/INR, D-dimer: ABG POC ABG pH 7.302 (7.35-7.45) L 05/09/17 03:39 POC ABG pCO2 81.7 (35-45) H 05/09/17 03:39 POC ABG pO2 168 (80-105) H 05/09/17 03:39 POC ABG HCO3 40.4 05/09/17 03:39 POC ABG Total CO2 43 05/09/17 03:39 POC ABG O2 Sat 99 05/09/17 03:39 PT/INR, D-dimer PT 12.3 Sec. (12.2-14.9) 05/08/17 23:14 INR 0.87 (0.87-1.13) 05/08/17 23:14 Abnormal lab findings: Abnormal Labs 05/08/17 05/08/17 05/08/17 21:53 21:53 23:14 RBC 3.40 L MCV 99 H MCH 33 H [place] % (Auto) 9.0 H Lymph # 1.0 L Seg Neutrophils % 73.4 H Seg Neuts % (Manual) Lymphocytes % (Manual) Seg Neutrophils # Man Lymphocytes # (Manual) POC ABG pH POC ABG pCO2 POC ABG pO2 Potassium 3.5 L Chloride 95.7 L Carbon Dioxide BUN Creatinine Glucose POC Glucose Calcium 8.2 L CK-MB (CK-2) 4.8 H CK-MB (CK-2) Rel Index 8.0 H Total Protein 5.8 L Albumin 3.5 L Urine WBC (Auto) 05/09/17 05/09/17 05/09/17 01:04 03:39 06:41 RBC MCV MCH [place] % (Auto) Lymph # Seg Neutrophils % Seg Neuts % (Manual) Lymphocytes % (Manual) Seg Neutrophils # Man Lymphocytes # (Manual) POC ABG pH 7.302 L POC ABG pCO2 81.7 H POC ABG pO2 168 H Potassium Chloride Carbon Dioxide BUN Creatinine Glucose POC Glucose Calcium CK-MB (CK-2) CK-MB (CK-2) Rel Index 8.4 H Total Protein Albumin Urine WBC (Auto) 101.0 H 05/09/17 05/09/17 05/09/17 14:02 16:36 22:51 RBC MCV MCH [place] % (Auto) Lymph # Seg Neutrophils % Seg Neuts % (Manual) Lymphocytes % (Manual) Seg Neutrophils # Man Lymphocytes # (Manual) POC ABG pH POC ABG pCO2 POC ABG pO2 Potassium Chloride Carbon Dioxide BUN Creatinine Glucose POC Glucose 146 H 274 H Calcium CK-MB (CK-2) CK-MB (CK-2) Rel Index 8.8 H Total Protein Albumin Urine WBC (Auto) 05/10/17 05/10/17 05/10/17 05:07 05:07 09:52 RBC 3.14 L MCV 98 H MCH [place] % (Auto) Lymph # Seg Neutrophils % Seg Neuts % (Manual) 83.0 H Lymphocytes % (Manual) 9.0 L Seg Neutrophils # Man 8.7 H Lymphocytes # (Manual) 0.9 L POC ABG pH POC ABG pCO2 POC ABG pO2 Potassium Chloride 95.5 L Carbon Dioxide 35 H D BUN 22 H Creatinine 0.5 L Glucose 106 H POC Glucose 331 H Calcium CK-MB (CK-2) CK-MB (CK-2) Rel Index Total Protein Albumin Urine WBC (Auto) 05/10/17 05/10/17 05/10/17 11:38 16:17 22:49 RBC MCV MCH [place] % (Auto) Lymph # Seg Neutrophils % Seg Neuts % (Manual) Lymphocytes % (Manual) Seg Neutrophils # Man Lymphocytes # (Manual) POC ABG pH POC ABG pCO2 POC ABG pO2 Potassium Chloride Carbon Dioxide BUN Creatinine Glucose POC Glucose 164 H 134 H 200 H Calcium CK-MB (CK-2) CK-MB (CK-2) Rel Index Total Protein Albumin Urine WBC (Auto) 05/11/17 05/11/17 09:53 11:40 RBC MCV MCH [place] % (Auto) Lymph # Seg Neutrophils % Seg Neuts % (Manual) Lymphocytes % (Manual) Seg Neutrophils # Man Lymphocytes # (Manual) POC ABG pH POC ABG pCO2 POC ABG pO2 Potassium Chloride Carbon Dioxide BUN Creatinine Glucose POC Glucose 188 H 137 H Calcium CK-MB (CK-2) CK-MB (CK-2) Rel Index Total Protein Albumin Urine WBC (Auto)
--- NOTE | 2017-05-11 18:10 | Progress Note ---
Assessment and Plan Assessment and plan: 71-year-old woman with a history of COPD on home oxygen, hypertension, anxiety, depression brought to the emergency room with complaint of altered mental status. Patient was found to have CO2 narcosis and have a urinary tract infection, she was placed on BiPAP and given antibiotic. Acute respiratory failure, Hypercapnic * continue bipap prn * need NIV for home * need outpatient sleep study COPD exacerbation continue high-dose IV steroids, nebulized treatment, BiPAP UTI fup urine cx, continue abx Perieneal rash wound care Hypertension continue meds Diabetes type 2 SSI History Interval history: Review of systems Constitutional: No fevers, no malaise, no joint pains CVS: No chest pain, no orthopnea, no dyspnea on exertion, no pedal edema GI: No abdominal pain, no diarrhea, no vomiting, no constipation Respiratory: Complaining of shortness of breath, coughing and wheezing Hospitalist Physical - Physical exam Narrative exam: General.: Appears well, no distress, nontoxic HEENT: Moist mucous membranes, extraocular muscles intact, no lymphadenopathy Neck: supple Cardiac: S1-S2 heard Lungs: diminished breath sounds Abdomen: soft , nontender, nondistended, bowel sounds positive Extremities: no edema clubbing or cyanosis Skin: no rash or lesions Neurologic: no gross focal deficits Psych: appropriate behavior, appropriate mood, corporative, judgment intact - Constitutional Vitals: Temp Pulse Resp BP Pulse Ox 98.6 F 92 H 20 132/47 94 05/11/17 14:21 05/11/17 14:13 05/11/17 14:21 05/11/17 14:21 05/11/17 08:55 Results - Labs CBC & Chem 7: 05/10/17 05:07 05/10/17 05:07 Labs: Laboratory Last Values WBC 10.5 K/mm3 (4.5-11.0) 05/10/17 05:07 RBC 3.14 M/mm3 (3.65-5.03) L 05/10/17 05:07 Hgb 10.2 gm/dl (10.1-14.3) 05/10/17 05:07 Hct 30.7 % (30.3-42.9) 05/10/17 05:07 MCV 98 fl (79-97) H 05/10/17 05:07 MCH 32 pg (28-32) 05/10/17 05:07 MCHC 33 % (30-34) 05/10/17 05:07 RDW 14.8 % (13.2-15.2) 05/10/17 05:07 Plt Count 281 K/mm3 (140-440) 05/10/17 05:07 Lymph % (Auto) 13.6 % (13.4-35.0) 05/08/17 21:53 [place] % (Auto) 9.0 % (0.0-7.3) H 05/08/17 21:53 Eos % (Auto) 2.7 % (0.0-4.3) 05/08/17 21:53 Baso % (Auto) 1.3 % (0.0-1.8) 05/08/17 21:53 Lymph # 1.0 K/mm3 (1.2-5.4) L 05/08/17 21:53 [place] # 0.7 K/mm3 (0.0-0.8) 05/08/17 21:53 Eos # 0.2 K/mm3 (0.0-0.4) 05/08/17 21:53 Baso # 0.1 K/mm3 (0.0-0.1) 05/08/17 21:53 Add Manual Diff Complete 05/10/17 05:07 Total Counted 100 05/10/17 05:07 Seg Neutrophils % Flexographic Press Operator 05/10/17 05:07 Seg Neuts % (Manual) 83.0 % (40.0-70.0) H 05/10/17 05:07 Band Neutrophils % 4.0 % 05/10/17 05:07 Lymphocytes % (Manual) 9.0 % (13.4-35.0) L 05/10/17 05:07 Reactive Lymphs % (Man) 0 % 05/10/17 05:07 Monocytes % (Manual) 2.0 % (0.0-7.3) 05/10/17 05:07 Eosinophils % (Manual) 1.0 % (0.0-4.3) 05/10/17 05:07 Basophils % (Manual) 0 % (0.0-1.8) 05/10/17 05:07 Metamyelocytes % 1.0 % 05/10/17 05:07 Myelocytes % 0 % 05/10/17 05:07 Promyelocytes % 0 % 05/10/17 05:07 Blast Cells % 0 % 05/10/17 05:07 Nucleated RBC % Not Reportable 05/10/17 05:07 Seg Neutrophils # 5.5 K/mm3 (1.8-7.7) 05/08/17 21:53 Seg Neutrophils # Man 8.7 K/mm3 (1.8-7.7) H 05/10/17 05:07 Band Neutrophils # 0.4 K/mm3 05/10/17 05:07 Lymphocytes # (Manual) 0.9 K/mm3 (1.2-5.4) L 05/10/17 05:07 Abs React Lymphs (Man) 0.0 K/mm3 05/10/17 05:07 Monocytes # (Manual) 0.2 K/mm3 (0.0-0.8) 05/10/17 05:07 Eosinophils # (Manual) 0.1 K/mm3 (0.0-0.4) 05/10/17 05:07 Basophils # (Manual) 0.0 K/mm3 (0.0-0.1) 05/10/17 05:07 Metamyelocytes # 0.1 K/mm3 05/10/17 05:07 Myelocytes # 0.0 K/mm3 05/10/17 05:07 Promyelocytes # 0.0 K/mm3 05/10/17 05:07 Blast Cells # 0.0 K/mm3 05/10/17 05:07 WBC Morphology Not Reportable 05/10/17 05:07 Hypersegmented Neuts Not Reportable 05/10/17 05:07 Hyposegmented Neuts Not Reportable 05/10/17 05:07 Hypogranular Neuts Not Reportable 05/10/17 05:07 Smudge Cells Not Reportable 05/10/17 05:07 Toxic Granulation Not Reportable 05/10/17 05:07 Toxic Vacuolation Not Reportable 05/10/17 05:07 Dohle Bodies Not Reportable 05/10/17 05:07 Pelger-Huet Anomaly Not Reportable 05/10/17 05:07 Trudy Rods Not Reportable 05/10/17 05:07 Platelet Estimate Appears normal 05/10/17 05:07 Clumped Platelets Not Reportable 05/10/17 05:07 Plt Clumps, EDTA Not Reportable 05/10/17 05:07 Large Platelets Not Reportable 05/10/17 05:07 Giant Platelets Not Reportable 05/10/17 05:07 Platelet Satelliting Not Reportable 05/10/17 05:07 Plt Morphology Comment Not Reportable 05/10/17 05:07 RBC Morphology Not Reportable 05/10/17 05:07 Dimorphic RBCs Not Reportable 05/10/17 05:07 Polychromasia Not Reportable 05/10/17 05:07 Hypochromasia Not Reportable 05/10/17 05:07 Poikilocytosis Not Reportable 05/10/17 05:07 Anisocytosis Not Reportable 05/10/17 05:07 Microcytosis Not Reportable 05/10/17 05:07 Macrocytosis Not Reportable 05/10/17 05:07 Spherocytes Not Reportable 05/10/17 05:07 Pappenheimer Bodies Not Reportable 05/10/17 05:07 Sickle Cells Not Reportable 05/10/17 05:07 Target Cells Not Reportable 05/10/17 05:07 Tear Drop Cells Not Reportable 05/10/17 05:07 Ovalocytes Not Reportable 05/10/17 05:07 Stomatocytes Few 05/10/17 05:07 Helmet Cells Not Reportable 05/10/17 05:07 [place] Bodies Not Reportable 05/10/17 05:07 [place] Rings Not Reportable 05/10/17 05:07 Benjamin Cells Not Reportable 05/10/17 05:07 Bite Cells Not Reportable 05/10/17 05:07 Crenated Cell Not Reportable 05/10/17 05:07 Elliptocytes Not Reportable 05/10/17 05:07 Acanthocytes (Spur) Not Reportable 05/10/17 05:07 Rouleaux Not Reportable 05/10/17 05:07 Hemoglobin C Crystals Not Reportable 05/10/17 05:07 Schistocytes Not Reportable 05/10/17 05:07 Malaria parasites Not Reportable 05/10/17 05:07 Brandon Bodies Not Reportable 05/10/17 05:07 Hem Pathologist Commnt No 05/10/17 05:07 PT 12.3 Sec. (12.2-14.9) 05/08/17 23:14 INR 0.87 (0.87-1.13) 05/08/17 23:14 APTT 30.0 Sec. (24.2-36.6) 05/08/17 23:14 POC ABG pH 7.302 (7.35-7.45) L 05/09/17 03:39 POC ABG pCO2 81.7 (35-45) H 05/09/17 03:39 POC ABG pO2 168 (80-105) H 05/09/17 03:39 POC ABG HCO3 40.4 05/09/17 03:39 POC ABG Total CO2 43 05/09/17 03:39 POC ABG O2 Sat 99 05/09/17 03:39 POC ABG Base Excess 14 05/09/17 03:39 FiO2 28 % 05/09/17 03:39 Sodium 139 mmol/L (137-145) 05/10/17 05:07 Potassium 3.8 mmol/L (3.6-5.0) 05/10/17 05:07 Chloride 95.5 mmol/L (98-107) L 05/10/17 05:07 Carbon Dioxide 35 mmol/L (22-30) H D 05/10/17 05:07 Anion Gap 12 mmol/L 05/10/17 05:07 BUN 22 mg/dL (7-17) H 05/10/17 05:07 Creatinine 0.5 mg/dL (0.7-1.2) L 05/10/17 05:07 Estimated GFR > 60 ml/min 05/10/17 05:07 BUN/Creatinine Ratio 44 % 05/10/17 05:07 Glucose 106 mg/dL (65-100) H 05/10/17 05:07 POC Glucose 139 (70-105) H 05/11/17 16:38 Calcium 8.4 mg/dL (8.4-10.2) 05/10/17 05:07 Total Bilirubin 0.20 mg/dL (0.1-1.2) 05/08/17 21:53 AST 20 units/L (5-40) 05/08/17 21:53 ALT 9 units/L (7-56) 05/08/17 21:53 Alkaline Phosphatase 67 units/L (35-129) 05/08/17 21:53 Total Creatine Kinase 42 units/L (30-135) 05/09/17 14:02 CK-MB (CK-2) 3.7 ng/mL (0.0-4.0) 05/09/17 14:02 CK-MB (CK-2) Rel Index 8.8 (0-4) H 05/09/17 14:02 Troponin T 0.019 ng/mL (0.00-0.029) 05/09/17 14:02 NT-Pro-B Natriuret Pep 353.3 pg/mL (0-900) 05/08/17 23:14 Total Protein 5.8 g/dL (6.3-8.2) L 05/08/17 21:53 Albumin 3.5 g/dL (3.9-5) L 05/08/17 21:53 Albumin/Globulin Ratio 1.5 % 05/08/17 21:53 Lipase 23 units/L (13-60) 05/08/17 23:14 TSH 2.670 mlU/mL (0.270-4.200) 05/08/17 21:53 Urine Color Tori (Yellow) 05/09/17 01:04 Urine Turbidity Slightly cloudy (Clear) 05/09/17 01:04 Urine pH 7.0 (5.0-7.0) 05/09/17 01:04 Ur Specific [place] 1.014 (1.003-1.030) 05/09/17 01:04 Urine Protein <15 mg/dl mg/dL (Negative) 05/09/17 01:04 Urine Glucose (UA) Neg mg/dL (Negative) 05/09/17 01:04 Urine Ketones Neg mg/dL (Negative) 05/09/17 01:04 Urine Blood Sm (Negative) 05/09/17 01:04 Urine Nitrite Pos (Negative) 05/09/17 01:04 Urine Bilirubin Neg (Negative) 05/09/17 01:04 Urine Urobilinogen < 2.0 mg/dL (<2.0) 05/09/17 01:04 Ur Leukocyte Esterase Lg (Negative) 05/09/17 01:04 Urine WBC (Auto) 101.0 /HPF (0.0-6.0) H 05/09/17 01:04 Urine RBC (Auto) 7.0 /HPF (0.0-6.0) 05/09/17 01:04 U Epithel Cells (Auto) < 1.0 /HPF (0-13.0) 05/09/17 01:04 Urine Bacteria (Auto) 1+ /HPF (Negative) 05/09/17 01:04 Amorphous Crystals Few 05/09/17 01:04 Hyaline Casts 1 /LPF 05/09/17 01:04 Urine Mucus Few /HPF 05/09/17 01:04 Urine Opiates Screen Presumptive negative 05/09/17 01:04 Urine Methadone Screen Presumptive negative 05/09/17 01:04 Ur Barbiturates Screen Presumptive negative 05/09/17 01:04 Ur Phencyclidine Scrn Presumptive negative 05/09/17 01:04 Ur Amphetamines Screen Presumptive negative 05/09/17 01:04 U Benzodiazepines Scrn Presumptive negative 05/09/17 01:04 Urine Cocaine Screen Presumptive negative 05/09/17 01:04 U Marijuana (THC) Screen Presumptive negative 05/09/17 01:04 Drugs of Abuse Note Disclamer 05/09/17 01:04 Plasma/Serum Alcohol < 0.01 gm% (0-0.07) 05/08/17 21:53
[2017-05-12] MEDS: XANAX PO PRN ×3 (01:17→22:38)
[2017-05-12] MEDS: TYLENOL PO PRN (01:17)
[2017-05-12] MEDS: DUONEB *Not for PRN Use IH SCH ×4 (03:03→21:14)
[2017-05-12] MEDS: PERCOCET 5/325 PO PRN ×2 (05:50→19:03)
[2017-05-12] MEDS: NOVOLOG SUB-Q SCH ×4 (08:56→22:41)
[2017-05-12] MEDS: LOVENOX SUB-Q SCH (09:37)
[2017-05-12] MEDS: ZOFRAN IV PRN ×2 (09:37→12:43)
[2017-05-12] MEDS: ROCEPHIN 1 GM in NACL 0.9% 20 ML IV SCH (09:55)
--- NOTE | 2017-05-12 10:54 | Progress Note ---
Assessment and Plan 71-year-old woman with a history of COPD on home oxygen, hypertension, anxiety, depression brought to the emergency room with complaint of altered mental status. Patient was found to have CO2 narcosis and have a urinary tract infection, she was placed on BiPAP and started on antibiotics. 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; AECOPD Interval history: Patient is seen today for: Acute on Chronic Hypercapnic hypoxemic Resp Failure; AECOPD Seen and examined at bedside; 24hour events reviewed; nursing and respiratory care staff consulted; no adverse overnight events reported to me; Objective - Exam Narrative Exam: General.: Appears well, no distress, nontoxic HEENT: Moist mucous membranes, extraocular muscles intact, no lymphadenopathy Neck: supple Cardiac: S1-S2 heard Lungs: diminished breath sounds Abdomen: soft , nontender, nondistended, bowel sounds positive Extremities: no edema clubbing or cyanosis Skin: no rash or lesions Neurologic: no gross focal deficits Psych: appropriate behavior, appropriate mood, corporative, judgment intact Vital Signs - 12hr 05/12/17 05/12/17 05/12/17 01:17 04:00 05:40 Temperature Pulse Rate 79 Respiratory 16 Rate Respiratory 20 Rate [Upper Medial Back] Blood Pressure [Left] O2 Sat by Pulse Oximetry 05/12/17 05/12/17 05/12/17 05:50 06:50 08:06 Temperature 97.0 F L Pulse Rate 83 Respiratory 20 16 20 Rate Respiratory Rate [Upper Medial Back] Blood Pressure 163/58 [Left] O2 Sat by Pulse 98 Oximetry CBC and BMP: 05/10/17 05:07 05/10/17 05:07 ABG, PT/INR, D-dimer: ABG POC ABG pH 7.302 (7.35-7.45) L 05/09/17 03:39 POC ABG pCO2 81.7 (35-45) H 05/09/17 03:39 POC ABG pO2 168 (80-105) H 05/09/17 03:39 POC ABG HCO3 40.4 05/09/17 03:39 POC ABG Total CO2 43 05/09/17 03:39 POC ABG O2 Sat 99 05/09/17 03:39 PT/INR, D-dimer PT 12.3 Sec. (12.2-14.9) 05/08/17 23:14 INR 0.87 (0.87-1.13) 05/08/17 23:14 Abnormal lab findings: Abnormal Labs 05/08/17 05/08/17 05/08/17 21:53 21:53 23:14 RBC 3.40 L MCV 99 H MCH 33 H [place] % (Auto) 9.0 H Lymph # 1.0 L Seg Neutrophils % 73.4 H Seg Neuts % (Manual) Lymphocytes % (Manual) Seg Neutrophils # Man Lymphocytes # (Manual) POC ABG pH POC ABG pCO2 POC ABG pO2 Potassium 3.5 L Chloride 95.7 L Carbon Dioxide BUN Creatinine Glucose POC Glucose Calcium 8.2 L CK-MB (CK-2) 4.8 H CK-MB (CK-2) Rel Index 8.0 H Total Protein 5.8 L Albumin 3.5 L Urine WBC (Auto) 05/09/17 05/09/17 05/09/17 01:04 03:39 06:41 RBC MCV MCH [place] % (Auto) Lymph # Seg Neutrophils % Seg Neuts % (Manual) Lymphocytes % (Manual) Seg Neutrophils # Man Lymphocytes # (Manual) POC ABG pH 7.302 L POC ABG pCO2 81.7 H POC ABG pO2 168 H Potassium Chloride Carbon Dioxide BUN Creatinine Glucose POC Glucose Calcium CK-MB (CK-2) CK-MB (CK-2) Rel Index 8.4 H Total Protein Albumin Urine WBC (Auto) 101.0 H 05/09/17 05/09/17 05/09/17 14:02 16:36 22:51 RBC MCV MCH [place] % (Auto) Lymph # Seg Neutrophils % Seg Neuts % (Manual) Lymphocytes % (Manual) Seg Neutrophils # Man Lymphocytes # (Manual) POC ABG pH POC ABG pCO2 POC ABG pO2 Potassium Chloride Carbon Dioxide BUN Creatinine Glucose POC Glucose 146 H 274 H Calcium CK-MB (CK-2) CK-MB (CK-2) Rel Index 8.8 H Total Protein Albumin Urine WBC (Auto) 05/10/17 05/10/17 05/10/17 05:07 05:07 09:52 RBC 3.14 L MCV 98 H MCH [place] % (Auto) Lymph # Seg Neutrophils % Seg Neuts % (Manual) 83.0 H Lymphocytes % (Manual) 9.0 L Seg Neutrophils # Man 8.7 H Lymphocytes # (Manual) 0.9 L POC ABG pH POC ABG pCO2 POC ABG pO2 Potassium Chloride 95.5 L Carbon Dioxide 35 H D BUN 22 H Creatinine 0.5 L Glucose 106 H POC Glucose 331 H Calcium CK-MB (CK-2) CK-MB (CK-2) Rel Index Total Protein Albumin Urine WBC (Auto) 05/10/17 05/10/17 05/10/17 11:38 16:17 22:49 RBC MCV MCH [place] % (Auto) Lymph # Seg Neutrophils % Seg Neuts % (Manual) Lymphocytes % (Manual) Seg Neutrophils # Man Lymphocytes # (Manual) POC ABG pH POC ABG pCO2 POC ABG pO2 Potassium Chloride Carbon Dioxide BUN Creatinine Glucose POC Glucose 164 H 134 H 200 H Calcium CK-MB (CK-2) CK-MB (CK-2) Rel Index Total Protein Albumin Urine WBC (Auto) 05/11/17 05/11/17 05/11/17 09:53 11:40 16:38 RBC MCV MCH [place] % (Auto) Lymph # Seg Neutrophils % Seg Neuts % (Manual) Lymphocytes % (Manual) Seg Neutrophils # Man Lymphocytes # (Manual) POC ABG pH POC ABG pCO2 POC ABG pO2 Potassium Chloride Carbon Dioxide BUN Creatinine Glucose POC Glucose 188 H 137 H 139 H Calcium CK-MB (CK-2) CK-MB (CK-2) Rel Index Total Protein Albumin Urine WBC (Auto) 05/11/17 05/12/17 21:32 07:41 RBC MCV MCH [place] % (Auto) Lymph # Seg Neutrophils % Seg Neuts % (Manual) Lymphocytes % (Manual) Seg Neutrophils # Man Lymphocytes # (Manual) POC ABG pH POC ABG pCO2 POC ABG pO2 Potassium Chloride Carbon Dioxide BUN Creatinine Glucose POC Glucose 187 H 116 H Calcium CK-MB (CK-2) CK-MB (CK-2) Rel Index Total Protein Albumin Urine WBC (Auto)
--- NOTE | 2017-05-12 16:33 | Progress Note ---
Assessment and Plan Assessment and plan: 71-year-old woman with a history of COPD on home oxygen, hypertension, anxiety, depression brought to the emergency room with complaint of altered mental status. Patient was found to have CO2 narcosis and have a urinary tract infection, she was placed on BiPAP and given antibiotic. Acute respiratory failure, Hypercapnic * continue bipap prn * need NIV for home * need outpatient sleep study COPD exacerbation continue high-dose IV steroids, nebulized treatment, BiPAP UTI fup urine cx, continue abx Perieneal rash wound care Hypertension continue meds Diabetes type 2 SSI Refusing SNF, will be sent home with home health, walker and NIV History Interval history: Review of systems Constitutional: No fevers, no malaise, no joint pains CVS: No chest pain, no orthopnea, no dyspnea on exertion, no pedal edema GI: No abdominal pain, no diarrhea, no vomiting, no constipation Respiratory: Complaining of shortness of breath, coughing and wheezing, improved Hospitalist Physical - Physical exam Narrative exam: General.: Appears well, no distress, nontoxic HEENT: Moist mucous membranes, extraocular muscles intact, no lymphadenopathy Neck: supple Cardiac: S1-S2 heard Lungs: diminished breath sounds Abdomen: soft , nontender, nondistended, bowel sounds positive Extremities: no edema clubbing or cyanosis Skin: no rash or lesions Neurologic: no gross focal deficits Psych: appropriate behavior, appropriate mood, corporative, judgment intact - Constitutional Vitals: Temp Pulse Resp BP Pulse Ox 98.4 F 100 H 18 140/52 99 05/12/17 13:35 05/12/17 14:51 05/12/17 14:51 05/12/17 13:35 05/12/17 13:35 Results - Labs CBC & Chem 7: 05/10/17 05:07 05/10/17 05:07 Labs: Laboratory Last Values WBC 10.5 K/mm3 (4.5-11.0) 05/10/17 05:07 RBC 3.14 M/mm3 (3.65-5.03) L 05/10/17 05:07 Hgb 10.2 gm/dl (10.1-14.3) 05/10/17 05:07 Hct 30.7 % (30.3-42.9) 05/10/17 05:07 MCV 98 fl (79-97) H 05/10/17 05:07 MCH 32 pg (28-32) 05/10/17 05:07 MCHC 33 % (30-34) 05/10/17 05:07 RDW 14.8 % (13.2-15.2) 05/10/17 05:07 Plt Count 281 K/mm3 (140-440) 05/10/17 05:07 Lymph % (Auto) 13.6 % (13.4-35.0) 05/08/17 21:53 [place] % (Auto) 9.0 % (0.0-7.3) H 05/08/17 21:53 Eos % (Auto) 2.7 % (0.0-4.3) 05/08/17 21:53 Baso % (Auto) 1.3 % (0.0-1.8) 05/08/17 21:53 Lymph # 1.0 K/mm3 (1.2-5.4) L 05/08/17 21:53 [place] # 0.7 K/mm3 (0.0-0.8) 05/08/17 21:53 Eos # 0.2 K/mm3 (0.0-0.4) 05/08/17 21:53 Baso # 0.1 K/mm3 (0.0-0.1) 05/08/17 21:53 Add Manual Diff Complete 05/10/17 05:07 Total Counted 100 05/10/17 05:07 Seg Neutrophils % Facs Teacher 05/10/17 05:07 Seg Neuts % (Manual) 83.0 % (40.0-70.0) H 05/10/17 05:07 Band Neutrophils % 4.0 % 05/10/17 05:07 Lymphocytes % (Manual) 9.0 % (13.4-35.0) L 05/10/17 05:07 Reactive Lymphs % (Man) 0 % 05/10/17 05:07 Monocytes % (Manual) 2.0 % (0.0-7.3) 05/10/17 05:07 Eosinophils % (Manual) 1.0 % (0.0-4.3) 05/10/17 05:07 Basophils % (Manual) 0 % (0.0-1.8) 05/10/17 05:07 Metamyelocytes % 1.0 % 05/10/17 05:07 Myelocytes % 0 % 05/10/17 05:07 Promyelocytes % 0 % 05/10/17 05:07 Blast Cells % 0 % 05/10/17 05:07 Nucleated RBC % Not Reportable 05/10/17 05:07 Seg Neutrophils # 5.5 K/mm3 (1.8-7.7) 05/08/17 21:53 Seg Neutrophils # Man 8.7 K/mm3 (1.8-7.7) H 05/10/17 05:07 Band Neutrophils # 0.4 K/mm3 05/10/17 05:07 Lymphocytes # (Manual) 0.9 K/mm3 (1.2-5.4) L 05/10/17 05:07 Abs React Lymphs (Man) 0.0 K/mm3 05/10/17 05:07 Monocytes # (Manual) 0.2 K/mm3 (0.0-0.8) 05/10/17 05:07 Eosinophils # (Manual) 0.1 K/mm3 (0.0-0.4) 05/10/17 05:07 Basophils # (Manual) 0.0 K/mm3 (0.0-0.1) 05/10/17 05:07 Metamyelocytes # 0.1 K/mm3 05/10/17 05:07 Myelocytes # 0.0 K/mm3 05/10/17 05:07 Promyelocytes # 0.0 K/mm3 05/10/17 05:07 Blast Cells # 0.0 K/mm3 05/10/17 05:07 WBC Morphology Not Reportable 05/10/17 05:07 Hypersegmented Neuts Not Reportable 05/10/17 05:07 Hyposegmented Neuts Not Reportable 05/10/17 05:07 Hypogranular Neuts Not Reportable 05/10/17 05:07 Smudge Cells Not Reportable 05/10/17 05:07 Toxic Granulation Not Reportable 05/10/17 05:07 Toxic Vacuolation Not Reportable 05/10/17 05:07 Dohle Bodies Not Reportable 05/10/17 05:07 Pelger-Huet Anomaly Not Reportable 05/10/17 05:07 Trudy Rods Not Reportable 05/10/17 05:07 Platelet Estimate Appears normal 05/10/17 05:07 Clumped Platelets Not Reportable 05/10/17 05:07 Plt Clumps, EDTA Not Reportable 05/10/17 05:07 Large Platelets Not Reportable 05/10/17 05:07 Giant Platelets Not Reportable 05/10/17 05:07 Platelet Satelliting Not Reportable 05/10/17 05:07 Plt Morphology Comment Not Reportable 05/10/17 05:07 RBC Morphology Not Reportable 05/10/17 05:07 Dimorphic RBCs Not Reportable 05/10/17 05:07 Polychromasia Not Reportable 05/10/17 05:07 Hypochromasia Not Reportable 05/10/17 05:07 Poikilocytosis Not Reportable 05/10/17 05:07 Anisocytosis Not Reportable 05/10/17 05:07 Microcytosis Not Reportable 05/10/17 05:07 Macrocytosis Not Reportable 05/10/17 05:07 Spherocytes Not Reportable 05/10/17 05:07 Pappenheimer Bodies Not Reportable 05/10/17 05:07 Sickle Cells Not Reportable 05/10/17 05:07 Target Cells Not Reportable 05/10/17 05:07 Tear Drop Cells Not Reportable 05/10/17 05:07 Ovalocytes Not Reportable 05/10/17 05:07 Stomatocytes Few 05/10/17 05:07 Helmet Cells Not Reportable 05/10/17 05:07 Chu-[place] Bodies Not Reportable 05/10/17 05:07 [place] Rings Not Reportable 05/10/17 05:07 Benjamin Cells Not Reportable 05/10/17 05:07 Bite Cells Not Reportable 05/10/17 05:07 Crenated Cell Not Reportable 05/10/17 05:07 Elliptocytes Not Reportable 05/10/17 05:07 Acanthocytes (Spur) Not Reportable 05/10/17 05:07 Rouleaux Not Reportable 05/10/17 05:07 Hemoglobin C Crystals Not Reportable 05/10/17 05:07 Schistocytes Not Reportable 05/10/17 05:07 Malaria parasites Not Reportable 05/10/17 05:07 [place] Bodies Not Reportable 05/10/17 05:07 Hem Pathologist Commnt No 05/10/17 05:07 PT 12.3 Sec. (12.2-14.9) 05/08/17 23:14 INR 0.87 (0.87-1.13) 05/08/17 23:14 APTT 30.0 Sec. (24.2-36.6) 05/08/17 23:14 POC ABG pH 7.302 (7.35-7.45) L 05/09/17 03:39 POC ABG pCO2 81.7 (35-45) H 05/09/17 03:39 POC ABG pO2 168 (80-105) H 05/09/17 03:39 POC ABG HCO3 40.4 05/09/17 03:39 POC ABG Total CO2 43 05/09/17 03:39 POC ABG O2 Sat 99 05/09/17 03:39 POC ABG Base Excess 14 05/09/17 03:39 FiO2 28 % 05/09/17 03:39 Sodium 139 mmol/L (137-145) 05/10/17 05:07 Potassium 3.8 mmol/L (3.6-5.0) 05/10/17 05:07 Chloride 95.5 mmol/L (98-107) L 05/10/17 05:07 Carbon Dioxide 35 mmol/L (22-30) H D 05/10/17 05:07 Anion Gap 12 mmol/L 05/10/17 05:07 BUN 22 mg/dL (7-17) H 05/10/17 05:07 Creatinine 0.5 mg/dL (0.7-1.2) L 05/10/17 05:07 Estimated GFR > 60 ml/min 05/10/17 05:07 BUN/Creatinine Ratio 44 % 05/10/17 05:07 Glucose 106 mg/dL (65-100) H 05/10/17 05:07 POC Glucose 146 (70-105) H 05/12/17 11:46 Calcium 8.4 mg/dL (8.4-10.2) 05/10/17 05:07 Total Bilirubin 0.20 mg/dL (0.1-1.2) 05/08/17 21:53 AST 20 units/L (5-40) 05/08/17 21:53 ALT 9 units/L (7-56) 05/08/17 21:53 Alkaline Phosphatase 67 units/L (35-129) 05/08/17 21:53 Total Creatine Kinase 42 units/L (30-135) 05/09/17 14:02 CK-MB (CK-2) 3.7 ng/mL (0.0-4.0) 05/09/17 14:02 CK-MB (CK-2) Rel Index 8.8 (0-4) H 05/09/17 14:02 Troponin T 0.019 ng/mL (0.00-0.029) 05/09/17 14:02 NT-Pro-B Natriuret Pep 353.3 pg/mL (0-900) 05/08/17 23:14 Total Protein 5.8 g/dL (6.3-8.2) L 05/08/17 21:53 Albumin 3.5 g/dL (3.9-5) L 05/08/17 21:53 Albumin/Globulin Ratio 1.5 % 05/08/17 21:53 Lipase 23 units/L (13-60) 05/08/17 23:14 TSH 2.670 mlU/mL (0.270-4.200) 05/08/17 21:53 Urine Color Tori (Yellow) 05/09/17 01:04 Urine Turbidity Slightly cloudy (Clear) 05/09/17 01:04 Urine pH 7.0 (5.0-7.0) 05/09/17 01:04 Ur Specific [place] 1.014 (1.003-1.030) 05/09/17 01:04 Urine Protein <15 mg/dl mg/dL (Negative) 05/09/17 01:04 Urine Glucose (UA) Neg mg/dL (Negative) 05/09/17 01:04 Urine Ketones Neg mg/dL (Negative) 05/09/17 01:04 Urine Blood Sm (Negative) 05/09/17 01:04 Urine Nitrite Pos (Negative) 05/09/17 01:04 Urine Bilirubin Neg (Negative) 05/09/17 01:04 Urine Urobilinogen < 2.0 mg/dL (<2.0) 05/09/17 01:04 Ur Leukocyte Esterase Lg (Negative) 05/09/17 01:04 Urine WBC (Auto) 101.0 /HPF (0.0-6.0) H 05/09/17 01:04 Urine RBC (Auto) 7.0 /HPF (0.0-6.0) 05/09/17 01:04 U Epithel Cells (Auto) < 1.0 /HPF (0-13.0) 05/09/17 01:04 Urine Bacteria (Auto) 1+ /HPF (Negative) 05/09/17 01:04 Amorphous Crystals Few 05/09/17 01:04 Hyaline Casts 1 /LPF 05/09/17 01:04 Urine Mucus Few /HPF 05/09/17 01:04 Urine Opiates Screen Presumptive negative 05/09/17 01:04 Urine Methadone Screen Presumptive negative 05/09/17 01:04 Ur Barbiturates Screen Presumptive negative 05/09/17 01:04 Ur Phencyclidine Scrn Presumptive negative 05/09/17 01:04 Ur Amphetamines Screen Presumptive negative 05/09/17 01:04 U Benzodiazepines Scrn Presumptive negative 05/09/17 01:04 Urine Cocaine Screen Presumptive negative 05/09/17 01:04 U Marijuana (THC) Screen Presumptive negative 05/09/17 01:04 Drugs of Abuse Note Disclamer 05/09/17 01:04 Plasma/Serum Alcohol < 0.01 gm% (0-0.07) 05/08/17 21:53
[2017-05-13] MEDS: PERCOCET 5/325 PO PRN ×2 (01:08→10:03)
[2017-05-13] MEDS: DUONEB *Not for PRN Use IH SCH ×4 (02:10→19:30)
[2017-05-13] MEDS: NOVOLOG SUB-Q SCH ×3 (08:05→17:09)
[2017-05-13] MEDS: LOVENOX SUB-Q SCH (10:04)
--- NOTE | 2017-05-13 10:40 | Discharge Summary ---
<NARCISA HAYNES - Last Filed: 05/13/17 16:47> Providers - Providers Date of Admission: 05/09/17 04:08 Date of discharge: 05/13/17 Attending physician: SONIA HUYNH MD 05/10/17 16:20 Consult to Physician [CONS] Routine Consulting Provider: OLEGARIO URIOSTEGUI Reason For Exam: copd, hypercapnea Place consult to:: dr. uriostegui Notified:: yes Phone number called:: [phone] Was contact made?: Yes If yes, spoke with:: dr. uriostegui Time called:: 16:49 Comment:: cal Consult to Wound/ET Nurse [CONS] Routine Reason For Exam: wound eval 05/11/17 18:19 Consult to Case Management [CONS] Routine Services Needed at Discharge: DME Equipment Notified:: YOU Additional Physician Instructions: walker and NIV 05/12/17 07:41 Physical Therapy Evaluation and Treat [CONS] Routine Comment: Reason For Exam: debility Hospitalization Condition: Stable Pertinent studies: Cervical spine CT revealed no acute abnormalities Chest x-ray revealed severe COPD, no acute process. ET face showed multiple left-sided facial ruptures unchanged from prior studies and Head CT is negative Hospital course: 71-year-old woman with a history of COPD on home oxygen, hypertension, anxiety, depression brought to the emergency room with complaint of altered mental status. Patient was found to have CO2 narcosis and have a urinary tract infection, she was placed on BiPAP and given antibiotic. Patient was treated for acute respiratory failure and was placed on BiPAP. She also received IV steroids and nebulized treatments for COPD exacerbation after which she improved. She was found to have UTI and received IV antibiotics for treatment. Patient resume home medication and was clinically stable. She was discharged with home health and NIV for home. Discharge diagnoses Acute respiratory failure, hypercapnic COPD exacerbation UTI Perineal rash Hypertension Diabetes type 2 Disposition: DC/TX-06 HOME UNDER HOME [facility] Time spent for discharge: 33 minutes Core Measure Documentation - Palliative Care Palliative Care/ Comfort Measures: Not Applicable - Core Measures Any of the following diagnoses?: none Exam - Constitutional Vitals: Temp Pulse Resp BP Pulse Ox 98.6 F 98 H 16 149/61 99 05/13/17 07:25 05/13/17 07:50 05/13/17 10:03 05/13/17 07:25 05/13/17 09:44 General appearance: Present: no acute distress, cachectic - EENT Eyes: Present: PERRL ENT: hearing intact, clear oral mucosa - Neck Neck: Present: supple, normal ROM - Respiratory Respiratory effort: normal Respiratory: bilateral: diminished - Cardiovascular Heart Sounds: Present: S1 & S2. Absent: rub, click - Extremities Extremities: pulses symmetrical, No edema Peripheral Pulses: within normal limits - Abdominal General gastrointestinal: Present: soft, non-tender, non-distended, normal bowel sounds Female genitourinary: Present: deferred - Rectal Rectal Exam: deferred - Integumentary Integumentary: Present: clear, warm, dry - Musculoskeletal Musculoskeletal: gait normal, strength equal bilaterally - Psychiatric Psychiatric: appropriate mood/affect, intact judgment & insight, cooperative - Neurologic Neurologic: CNII-XII intact, moves all extremities - Allied Health Allied health notes reviewed: nursing Plan Activity: advance as tolerated, fall precautions, other Weight Bearing Status: Weight Bear as Tolerated Diet: low fat, low cholesterol, low salt, diabetic Special Instructions: smoking cessation Durable Medical Equipment Needed Upon Discharge: Walker-Rolling Follow up with: ALEJANDRA MEEHAN [Other] - 3-5 Days Prescriptions: ALBUTEROL Inhaler [ProAir HFA Inhaler] 2 puff IH QID PRN #1 can PRN Reason: Shortness Of Breath Famotidine [Pepcid] 20 mg PO BID #60 tablet Ipratropium/Albuterol Sulfate [DUONEB *Not for PRN Use*] 1 ampul IH Q6HRT #180 ampul.neb <SONIA HUYNH - Last Filed: 05/19/17 17:09> Providers - Providers Date of Admission: 05/09/17 04:08 Attending physician: SONIA HUYNH MD 05/10/17 16:20 Consult to Physician [CONS] Routine Consulting Provider: OLEGARIO URIOSTEGUI Reason For Exam: copd, hypercapnea Place consult to:: dr. uriostegui Notified:: yes Phone number called:: [phone] Was contact made?: Yes If yes, spoke with:: dr. uriostegui Time called:: 16:49 Comment:: cal Consult to Wound/ET Nurse [CONS] Routine Reason For Exam: wound eval 05/11/17 18:19 Consult to Case Management [CONS] Routine Services Needed at Discharge: DME Equipment Notified:: YOU Additional Physician Instructions: walker and NIV 05/12/17 07:41 Physical Therapy Evaluation and Treat [CONS] Routine Comment: Reason For Exam: debility Hospitalization Hospital course: I saw and evaluated the patient. I reviewed the Mid-level provider's note and agree with the assessment and plan Exam - Constitutional Vitals: Temp Pulse Resp BP Pulse Ox 98.7 F 98 H 22 169/58 99 05/13/17 15:04 05/13/17 15:04 05/13/17 15:04 05/13/17 15:04 05/13/17 15:04
[2017-05-13] MEDS: ROCEPHIN 1 GM in NACL 0.9% 20 ML IV SCH (10:45)
[2017-05-13] MEDS: XANAX PO PRN (11:35)
--- NOTE | 2017-05-13 13:11 | Query-Altered Level of Consc. ---
Werner Rhodes___[place] Date:___05/13/2017 Laurie/TREVOR:___Sakshi Phone#:____[phone] Exercise your independent professional judgment when responding to this query. Questions asked do not imply a particular answer is desired or expected. We greatly appreciate your clarification on this issue. Clinical Documentation States: 71 Year old female was admitted on 05/09/2017 with complaint of altered mental status. Please provide an appropriate diagnosis clarifying the Etiology and Acuity of this clinical scenario: [ ] Metabolic Encephalopathy [ ] Toxic Encephalopathy [ ] Toxic - Metabolic Encephalopathy [ ] Septic Encephalopathy with Sepsis [ ] Septic Encephalopathy without Sepsis [ ] Acute Hepatic Encephalopathy [ ] Subacute Hepatic Encephalopathy [x ] Encephalopathy [ ] Other: [ ] Unable To Determine [ ]Comment/Explanation: Present on Admission: [ x] Yes (Y) [ ] Clinically undeterminable (W) [ ] No (N) Please also document response in your Progress Notes and/or Discharge Summary and indicate if the condition was present on admission. AMBERD
--- NOTE | 2017-05-13 13:17 | Query-Infection ---
Dear Date:__05/13/2017 Welfare Administrator/CDS:___Sakshi Phone#:__[phone] Exercise your independent professional judgment when responding to this query. Questions asked do not imply a particular answer is desired or expected. We greatly appreciate your clarification on this issue. Clinical Documentation States: 71 Year old female was admitted on 05/09/2017 with complaint of altered mental status. The Hospitalist (Dr. Brar) progress note on 05/12/2017 states "Assessment and Plan - UTI - Perieneal rash - Acute respiratory failure, Hypercapnic - COPD exacerbation." Clinical findings show: (please check applicable parameters) PA: 103 RR:24 Infection, known /suspected, with some of the following indicators; Specify the infection: 3 General parameters [ ] Fever (core temp >38.30C or 100.40F) [ ] Hypothermia (core temp <36C) [X] Heart rate >90 bpm [X] Tachypnea: >20 bpm or pCO2 < 32 mmHg [X] Altered mental status [ ] Significant edema / +ve fluid balance (>20 ml/kg 24 h) [ ] Hyperglycemia (Bl. glucose >110 mg/dl) w/o diabetes Inflammatory parameters [ ] Leukocytosis (white blood cell count >12,000/l) [ ] Leukopenia (white blood cell count <4,000/l) [ ] Bandemia (immature WBC > 10%) [ ] Leucocyte Left Shift [ ] Plasma procalcitonin>2 SD above the normal value Hemodynamic and tissue perfusion parameters [ ] Arterial hypotension(SBP <90 mmHg, MAP <70 mmHg,or a SBP drop >40 mmHg in adults) [ ] Hyperlactatemia (>3 mmol/l) [ ] Anion Gap (> 11mEG/l) [ ] Decreased capillary refill or mottling Organ dysfunction parameters [ ] Arterial hypoxemia (PaO2/FIO2 <300) [ ] Creatinine increase =0.5 mg/dl [ ] Acute oliguria (urine output <0.5 ml | kg |h or 45 mM/l for at least 2 hrs) [ ] Coagulation abnormalities (INR >1.5 or activated partial thromboplastin time >60 s) [ ] Ileus (absent villa wel sounds) [ ] Thrombocytopenia (platelet count <100,000/l) [ ] Hyperbilirubinemia (plasma total bilirubin >4 mg/dl) According to the clinical indications above, can Bacteremia be further specified? If so, please indicate below and in your Progress Notes and/ or Discharge Summary. Indicate if the condition was present on admission. PHYSICIAN RESPONSE: [ x] Sepsis [ ] Severe Sepsis [ ] Septic Shock [ ] Septicemia [ ] Sepsis now resolved [ ] SIRS due to non-infectious cause with organ dysfunction [ ] SIRS due to non-infectious cause without organ dysfunction [ ] Other: [ ] Comment/Explanation: Present on Admission: [x ] Yes (Y) [ ] Clinically undeterminable (W) [ ] No (N) [ ] Ruled Out Please also document response in your Progress Notes and/or Discharge Summary and indicate if the condition was present on admission Notes: SIRS/ SIRS WITH ORGAN DYSFUNCTION Systemic inflammatory response syndrome (SIRS) generally refers to the systemic response to trauma/hernandez or other insult such as Acute Myocardial Infarction, Acute Pancreatitis, and Major Surgery with symptoms including fever, tachycardia , tachypnea, and leukocytosis (1). BACTEREMIA Presence of viable bacteria in the circulating blood (2). This term is reserved for patients that do not manifest above SIRS response. SEPTICEMIA Generally refers to a systemic disease associated with the presence of pathological microorganisms or toxins in the blood, which can include bacteria, viruses, fungi or other organisms (1). SEPSIS Generally refers to SIRS due infection (1). SEVERE SEPSIS Generally refers to sepsis associated with acute organ dysfunction (1). SEPTIC SHOCK Generally refers to circulatory failure associated with severe sepsis (2), and defined as hypotension or hypoperfusion despite adequate fluid resuscitation (1 hour) (3). REFERENCES: 1. [place] [employer]/Society of Critical Care Medicine Consensus Conference. Definitions for sepsis and organ failure and guidelines for the use of innovative therapies in sepsis. Critical Care Med 1992;20:864 - 74. 2. Wili lee MM, Smith MP, Sen RANCHO, Mitesh E, Elian D, Greg D, Kervin J, Reanna POST , Kody CARNEY, Lynette G; International Sepsis Definitions Conference. 2001 SCCM/ESICM/ACCP/ATS/SIS International Sepsis Definitions Conference. Intensive Care Med. 2002;29(4):530-8. Epub 2002Aug 03. Review. PubMed PMID:[id number] 3. ICD-9-CM Official Guidelines for Coding and Reporting 4. Medscape Drugs, Diseases and Procedures references 5. [employer] Textbook of Internal Medicine. 18th Edition MTDD
[2017-05-13 15:08] VITALS: BP 169/58
== END 2017-05-13 17:15 | disposition home health service (06) | DRG 871 ==
LOC: ED 21:31 → 2B-ACE 05-09 04:08 → OBSVTOIN 05-09 04:08
PROVIDERS: ADMIT Internal Medicine; ATTEND Internal Medicine
PROC: 4A033R1 Measurement of Arterial Saturation, Peripheral, Percutaneous Approach (ICD-10-PCS; principal; 2017-05-09)
PROC: 5A09357 Assistance with Respiratory Ventilation, Less than 24 Consecutive Hours, Continuous Positive Airway Pressure (ICD-10-PCS; 2017-05-09)
DX: A41.9 Sepsis, unspecified organism (principal); J96.22 Acute and chronic respiratory failure with hypercapnia; J96.21 Acute and chronic respiratory failure with hypoxia; G93.40 Encephalopathy, unspecified; N39.0 Urinary tract infection, site not specified; E87.2 Acidosis; J44.1 Chronic obstructive pulmonary disease with (acute) exacerbation; F41.9 Anxiety disorder, unspecified; F17.210 Nicotine dependence, cigarettes, uncomplicated; I11.0 Hypertensive heart disease with heart failure; F32.9 Major depressive disorder, single episode, unspecified; E11.9 Type 2 diabetes mellitus without complications; Z79.899 Other long term (current) drug therapy; Z90.710 Acquired absence of both cervix and uterus; Z82.49 Family history of ischemic heart disease and other diseases of the circulatory system; Z88.6 Allergy status to analgesic agent; Z88.5 Allergy status to narcotic agent; Z88.8 Allergy status to other drugs, medicaments and biological substances; R21 Rash and other nonspecific skin eruption
CPT/HCPCS: 36415; 70450; 70486; 71010; 72125; 80048; 80053; 80307; 80320; 81001; 82550; 82553; 82803; 82962; 83690; 83880; 84443; 84484; 85007; 85025; 85610; 85730; 87086; 93005; 93010; 94640; 94760; 96365; G0480; G8978-GP; G8979-GP; G8980-GP; J0690; J0696; J1650; J1815; J2405; J2920; J2930

== ENCOUNTER 2017-05-15 02:20 | Inpatient (IN) | payer MEDICARE ==
[2017-05-15] MEDS ORDERED: ATROVENT IH ONE (02:22)
[2017-05-15] MEDS ORDERED: PROVENTIL IH ONE (02:22)
[2017-05-15] MEDS ORDERED: NACL 0.9% 500 ML 500 ML IV ONE (02:22)
--- NOTE | 2017-05-15 03:26 | XRay Report ---
FINAL REPORT PROCEDURE: XR CHEST 1V AP TECHNIQUE: Chest radiograph anteroposterior view. CPT 88055 HISTORY: Dyspnea COMPARISON: 04/25/2027 FINDINGS: Heart: Normal. Mediastinum/Vessels: Normal. Lungs/Pleural space: COPD with fibrosis. No consolidation or effusion. Bony thorax: No acute osseous abnormality. Life support devices: None. IMPRESSION: COPD fibrosis.
[2017-05-15 03:37] LABS: Hematocrit 34.5 % (30.3-42.9); Hemoglobin 11.4 gm/dl (10.1-14.3); Mean Corpuscular HGB Conc 33 % (30-34); Mean Corpuscular Hemoglobin 32 pg (28-32); Mean Corpuscular Volume 98 fl (79-97); Platelet Count 229 K/mm3 (140-440); Red Blood Count 3.54 M/mm3 (3.65-5.03); Red Cell Distribution Width 14.6 % (13.2-15.2)
[2017-05-15 03:53] LABS: Alanine Aminotransferase 42 units/L (7-56); Albumin 3.5 g/dL (3.9-5); BUN/Creatinine Ratio 57; Blood Urea Nitrogen 17 mg/dL (7-17); Calcium 7.8 mg/dL (8.4-10.2); Hemolysis Index 10
[2017-05-15 04:07] LABS: INR 0.77 (0.87-1.13)
--- NOTE | 2017-05-15 04:30 | Emergency Department Report ---
ED Shortness of Breath HPI - General Chief Complaint: Dyspnea/Respdistress Stated Complaint: JOHNNIE Time Seen by Provider: 05/15/17 02:21 Source: EMS Mode of arrival: Ambulatory Limitations: No Limitations - History of Present Illness Initial Comments: Patient is a 71-year-old female with a past medical history of COPD that is presenting with respiratory distress. Patient is in distress and is not able to give extensive history. Patient called 911 secondary to not being able to breathe for several hours. Patient is able to shake her head yes or no and states that she has not had a fever but has had a cough for the past several days. Her shortness of breath became worse this evening. She denies any nausea vomiting diarrhea or chest pain at this time. MD Complaint: shortness of breath, cough Known History Of: COPD - Related Data Previous Rx's Medication Instructions Recorded Last Taken Type ALBUTEROL Inhaler [ProAir HFA 2 puff IH QID PRN #1 can 05/13/17 Unknown Rx Inhaler] ALPRAZolam [Xanax TAB] 0.25 mg PO Q8H #20 tablet 05/13/17 Unknown Rx Amoxicillin/K Clav Tab [Augmentin 1 each PO Q12HR #10 tablet 05/13/17 Unknown Rx 500 MG TAB] Arformoterol Nebu [Brovana Nebu] 15 mcg IH Q12HRT #60 ml 05/13/17 Unknown Rx Budesonide [Pulmicort Respules] 0.5 mg IH Q12HRT #60 nebu 05/13/17 Unknown Rx Famotidine [Pepcid] 20 mg PO BID #60 tablet 05/13/17 Unknown Rx Ipratropium/Albuterol Sulfate 1 ampul IH Q6HRT #180 ampul.neb 05/13/17 Unknown Rx [DUONEB *Not for PRN Use*] amLODIPine [Norvasc] 10 mg PO DAILY #30 tab 05/13/17 Unknown Rx predniSONE [Deltasone] 10 mg PO .TAPER #48 tab 05/13/17 Unknown Rx Allergies Allergy/AdvReac Type Severity Reaction Status Date / Time aspirin Allergy Unknown Verified 05/08/17 21:35 chlorzoxazone Allergy Seizure Verified 05/08/17 21:35 [From Parafon Forte] codeine Allergy Unknown Verified 12/31/17 21:35 ibuprofen [From Motrin] Allergy Swelling Verified 05/08/17 21:35 olmesartan medoxomil Allergy Nausea Verified 05/08/17 21:35 [From Benicar] phenytoin sodium Allergy Unknown Verified 05/08/17 21:35 [From Dilantin] phenytoin sodium extended Allergy Unknown Verified 05/08/17 21:35 [From Dilantin] ramipril Allergy Nausea Verified 05/08/17 21:35 verapamil Allergy Unknown Verified 05/08/17 21:35 ED Review of Systems ROS: Stated complaint: JOHNNIE Other details as noted in HPI Comment: Unobtainable due to pts medical conditions ED Past Medical Hx - Past Medical History Hx Hypertension: Yes (Unknown) Hx CVA: No Hx Heart Attack/AMI: No Hx Congestive Heart Failure: Yes Hx Diabetes: No Hx Deep Vein Thrombosis: No Hx Pulmonary Embolism: No Hx GERD: No Hx Liver Disease: No Hx Renal Disease: No Hx Sickle Cell Disease: No Hx Arthritis: No Hx Headaches / Migraines: No Hx Seizures: Yes Hx Kidney Stones: No Hx Psychiatric Treatment: No Hx Asthma: Yes Hx COPD: Yes (Chronic O2 use) Hx Tuberculosis: No Hx Dementia: No Hx HIV: No - Surgical History Hx Coronary Stent: No Hx Open Heart Surgery: No Hx Pacemaker: No Hx Internal Defibrillator: No Hx Cholecystectomy: No Hx Appendectomy: No Hx Breast Surgery: No Additional Surgical History: hip surgery, carotid endarterectomy, hysterectomy - Social History Smoking Status: Current Every Day Smoker Substance Use Type: None - Medications Home Medications: Home Medications Medication Instructions Recorded Confirmed Last Taken Type ALBUTEROL Inhaler [ProAir HFA 2 puff IH QID PRN #1 can 05/13/17 Unknown Rx Inhaler] ALPRAZolam [Xanax TAB] 0.25 mg PO Q8H #20 tablet 05/13/17 Unknown Rx Amoxicillin/K Clav Tab [Augmentin 1 each PO Q12HR #10 tablet 05/13/17 Unknown Rx 500 MG TAB] Arformoterol Nebu [Brovana Nebu] 15 mcg IH Q12HRT #60 ml 05/13/17 Unknown Rx Budesonide [Pulmicort Respules] 0.5 mg IH Q12HRT #60 nebu 05/13/17 Unknown Rx Famotidine [Pepcid] 20 mg PO BID #60 tablet 05/13/17 Unknown Rx Ipratropium/Albuterol Sulfate 1 ampul IH Q6HRT #180 ampul.neb 05/13/17 Unknown Rx [DUONEB *Not for PRN Use*] amLODIPine [Norvasc] 10 mg PO DAILY #30 tab 05/13/17 Unknown Rx predniSONE [Deltasone] 10 mg PO .TAPER #48 tab 05/13/17 Unknown Rx ED Physical Exam - General Limitations: No Limitations General appearance: alert, in distress, other (tripoding) - Head Head exam: Present: atraumatic, normocephalic - Eye Eye exam: Present: normal appearance - ENT ENT exam: Present: mucous membranes dry - Neck Neck exam: Present: normal inspection - Respiratory Respiratory exam: Present: respiratory distress, wheezes, decreased breath sounds, prolonged expiratory. Absent: normal lung sounds bilaterally, rales, rhonchi - Cardiovascular Cardiovascular Exam: Present: normal rhythm, tachycardia. Absent: systolic murmur, diastolic murmur, rubs, gallop - GI/Abdominal GI/Abdominal exam: Present: soft, normal bowel sounds. Absent: distended, tenderness, guarding - Extremities Exam Extremities exam: Present: normal inspection - Back Exam Back exam: Present: normal inspection - Neurological Exam Neurological exam: Present: alert, oriented X3 - Psychiatric Psychiatric exam: Present: normal affect, normal mood - Skin Skin exam: Present: warm, dry, intact, normal color, other (scaly skin diffusely ). Absent: rash ED Course Vital Signs 05/15/17 05/15/17 05/15/17 02:30 02:40 02:49 Temperature 98.1 F Pulse Rate 124 H 120 H Pulse Rate [ 121 H Anterior Bilateral Throughout] Respiratory 34 H 32 H Rate Respiratory 28 H Rate [Anterior Bilateral Throughout] Blood Pressure 188/76 188/66 O2 Sat by Pulse 96 100 Oximetry 05/15/17 02:54 Temperature Pulse Rate 117 H Pulse Rate [ Anterior Bilateral Throughout] Respiratory 34 H Rate Respiratory Rate [Anterior Bilateral Throughout] Blood Pressure O2 Sat by Pulse 100 Oximetry ED Medical Decision Making - Lab Data Result diagrams: 05/15/17 03:08 05/15/17 03:08 - Medical Decision Making Patient immediately placed on BiPAP hour-long neb treatment was started. Patient's chest x-ray was interpreted by myself as being consistent with COPD with air trapping. No obvious infiltrate seen. Patient be admitted to Dr. Mckenna. Critical care time in (mins) excluding proc time.: 30 Critical care attestation.: If time is entered above; I have spent that time in minutes in the direct care of this critically ill patient, excluding procedure time. ED Disposition Clinical Impression: Acute exacerbation of COPD with asthma, Acute respiratory failure with hypoxia and hypercapnia Altered mental status Qualifiers: Altered mental status type: unspecified Qualified Code(s): R41.82 - Altered mental status, unspecified Disposition: DC-09 OP ADMIT IP TO THIS HOSP Is pt being admited?: Yes Does the pt Need Aspirin: No Condition: Critical Instructions: Asthma (ED) Referrals: PRIMARY CARE, [Primary Care Provider] - 3-5 Days
[2017-05-15] MEDS ORDERED: DULCOLAX PR PRN (05:03)
[2017-05-15] MEDS ORDERED: TYLENOL PO PRN (05:03)
[2017-05-15] MEDS ORDERED: MILK OF MAGNESIA PO PRN (05:03)
--- NOTE | 2017-05-15 05:06 | History and Physical Report ---
History of Present Illness Date of examination: 05/15/17 History of present illness: 71-year-old woman with a history of COPD on home oxygen, hypertension, seizure, anxiety, depression was just discharged from the hospital on the fifth return with worsening shortness of breath, cough.patient BiPAP in the emergency room and given steroids,nebulizer treatment PAST MEDICAL HISTORY:COPD on home oxygen, hypertension, seizure, anxiety, depression PAST SURGICAL HISTORY: Hip surgery, carotid endarterectomy, hysterectomy FAMILY HISTORY:hypertension SOCIAL HISTORY: Denies alcohol, tobacco, drugs Medications and Allergies Allergies Allergy/AdvReac Type Severity Reaction Status Date / Time aspirin Allergy Unknown Verified 05/08/17 21:35 chlorzoxazone Allergy Seizure Verified 05/08/17 21:35 [From Parafon Forte] codeine Allergy Unknown Verified 05/08/17 21:35 ibuprofen [From Motrin] Allergy Swelling Verified 05/08/17 21:35 olmesartan medoxomil Allergy Nausea Verified 05/08/17 21:35 [From Benicar] phenytoin sodium Allergy Unknown Verified 05/08/17 21:35 [From Dilantin] phenytoin sodium extended Allergy Unknown Verified 05/08/17 21:35 [From Dilantin] ramipril Allergy Nausea Verified 05/08/17 21:35 verapamil Allergy Unknown Verified 05/08/17 21:35 Home Medications Medication Instructions Recorded Confirmed Last Taken Type ALBUTEROL Inhaler [ProAir HFA 2 puff IH QID PRN #1 can 05/13/17 Unknown Rx Inhaler] ALPRAZolam [Xanax TAB] 0.25 mg PO Q8H #20 tablet 05/13/17 Unknown Rx Amoxicillin/K Clav Tab [Augmentin 1 each PO Q12HR #10 tablet 05/13/17 Unknown Rx 500 MG TAB] Arformoterol Nebu [Brovana Nebu] 15 mcg IH Q12HRT #60 ml 05/13/17 Unknown Rx Budesonide [Pulmicort Respules] 0.5 mg IH Q12HRT #60 nebu 05/13/17 Unknown Rx Famotidine [Pepcid] 20 mg PO BID #60 tablet 05/13/17 Unknown Rx Ipratropium/Albuterol Sulfate 1 ampul IH Q6HRT #180 ampul.neb 05/13/17 Unknown Rx [DUONEB *Not for PRN Use*] amLODIPine [Norvasc] 10 mg PO DAILY #30 tab 05/13/17 Unknown Rx predniSONE [Deltasone] 10 mg PO .TAPER #48 tab 05/13/17 Unknown Rx Exam - Physical Exam Narrative exam: Gen. appearance: Patient lying in bed in no acute distress HEENT: Normocephalic/atraumatic, pupils equal round reactive to light, extra occular movement intact, no scleral icterus, no JVD or thyromegaly or nodule, neck is supple, mucous membrane moist, no erythema or exudate Heart: S1-S2, regular rate and rhythm Lungs: Wheezing bilateral breathing comfortable Abdomen: Positive bowel sounds, nontender, nondistended, no organomegaly Extremities: No edema, cyanosis, clubbing Neuro:: Oriented 3 , cranial nerves II-12 intact, speech, motor intact Skin: No rash, nodules, warm dry - Constitutional Vitals: Temp Pulse Resp BP Pulse Ox 98.1 F 117 H 34 H 188/66 100 05/15/17 02:49 05/15/17 02:54 05/15/17 02:54 05/15/17 02:49 05/15/17 02:54 Results - Labs CBC & Chem 7: 05/15/17 03:08 05/15/17 03:08 Labs: Abnormal lab results 05/15/17 05/15/17 05/15/17 Range/Units 03:08 03:08 03:08 WBC 14.8 H (4.5-11.0) K/mm3 RBC 3.54 L (3.65-5.03) M/mm3 MCV 98 H (79-97) fl PT 11.1 L (12.2-14.9) Sec. INR 0.77 L (0.87-1.13) Chloride 90.3 L (98-107) mmol/L Carbon Dioxide 39 H (22-30) mmol/L Creatinine 0.3 L (0.7-1.2) mg/dL Glucose 108 H (65-100) mg/dL Calcium 7.8 L (8.4-10.2) mg/dL Total Protein 5.8 L (6.3-8.2) g/dL Albumin 3.5 L (3.9-5) g/dL - Imaging and Cardiology EKG: image reviewed Chest x-ray: image reviewed Assessment and Plan Assessment COPD exacerbation hypertension, seizure anxiety depression Plan Admit to medicine Start steroids, nebulized treatments Continue appropriate medications DVT prophylaxis
[2017-05-15 05:55] LABS: Band Neutrophils # (Manual) 2.1 K/mm3; Basophils % (Manual) 0 % (0.0-1.8); Eosinophils % (Manual) 0 % (0.0-4.3); Total Cells Counted 100
[2017-05-15 05:56] LABS: Anisocytosis Few; Stomatocytes Few
[2017-05-15 07:03] LABS: Bilirubin,Urine NEG (Negative); Blood,Urine NEG (Negative); Color,Urine Straw (Yellow); Nitrite,Urine NEG (Negative); Protein,Urine <15 mg/dL mg/dL (Negative); RBC,Urine < 1.0 /HPF (0.0-6.0); Urobilinogen,Urine < 2.0 mg/dL (<2.0); WBC,Urine < 1.0 /HPF (0.0-6.0)
[2017-05-15] MEDS: DUONEB *Not for PRN Use IH SCH ×3 (07:36→20:15)
[2017-05-15] MEDS: LOVENOX SUB-Q SCH (10:15)
--- NOTE | 2017-05-15 13:13 | Event Note ---
Date: 05/15/17 Admitted today Pt seen and examined Home medication reconciled She asking for percocet, lbp after fall at home she fell on her knees, no syncope severely malnourished bmi 11.7, consult certified medical assistant==>poor prognosis she refuses bipap
[2017-05-15] MEDS: XANAX PO SCH ×2 (13:18→21:50)
[2017-05-15] MEDS: PERCOCET 5/325 PO PRN ×2 (15:47→22:49)
[2017-05-15] MEDS: APRESOLINE IV PRN (22:46)
[2017-05-15] MEDS: PEPCID PO SCH (22:50)
[2017-05-15] MEDS: PROVENTIL IH PRN (22:56)
[2017-05-16] MEDS: DUONEB *Not for PRN Use IH SCH ×3 (01:37→15:34)
[2017-05-16] MEDS: XANAX PO SCH ×3 (05:13→22:21)
[2017-05-16 07:37] LABS: Hematocrit 31.1 % (30.3-42.9); Hemoglobin 10.2 gm/dl (10.1-14.3); Mean Corpuscular HGB Conc 33 % (30-34); Mean Corpuscular Hemoglobin 32 pg (28-32); Mean Corpuscular Volume 99 fl (79-97); Platelet Count 214 K/mm3 (140-440); Red Blood Count 3.16 M/mm3 (3.65-5.03); Red Cell Distribution Width 14.7 % (13.2-15.2)
[2017-05-16 07:49] LABS: BUN/Creatinine Ratio 43; Blood Urea Nitrogen 13 mg/dL (7-17); Calcium 8.3 mg/dL (8.4-10.2); Hemolysis Index 7
[2017-05-16 08:29] LABS: Band Neutrophils # (Manual) 0.5 K/mm3; Basophils % (Manual) 0 % (0.0-1.8); Eosinophils % (Manual) 0 % (0.0-4.3); Total Cells Counted 100
[2017-05-16 08:30] LABS: Platelet Estimate Consistent w Auto; RBC Morphology Normal
[2017-05-16] MEDS: PERCOCET 5/325 PO PRN ×3 (09:29→20:20)
[2017-05-16] MEDS: LOVENOX SUB-Q SCH (09:30)
[2017-05-16] MEDS: PEPCID PO SCH (09:30)
--- NOTE | 2017-05-16 11:34 | Progress Note ---
Assessment and Plan Assessment and plan: Patient is a 71-year-old woman with a history of chronic hypoxic respiratory failure on home O2 due to end-stage COPD, hypertension, seizure disorder and anxiety who presents with worsening shortness of breath and cough. Patient was just discharged on 05/13/2016 after COPD exacerbation, she was sent home on an NIV/BIPAP but she refuses to wear it. -Acute on chronic hypoxic respiratory failure: Consult to pulmonology, continue oxygen -Acute exacerbation of COPD: IV steroids, nebulizer treatments and antibiotics -Severe malnutrition BMI 11: Consult a dietitian, will add supplements -Acute on chronic worsening of her anxiety, patient wants something more for depression: Continue Xanax, add Zoloft -Hypertension urgency: IV hydralazine when necessary -DVT prophylaxis: sq lovenox -We discuss Hospice, see will consider History Interval history: Patient was seen and examined. Follow-up on current diagnosis/shortness of breath which is still present. Overnight uneventful. Patient denies any chest pain, nausea/vomiting or severe headaches. Imaging, nursing note, chart, labs and old chart reviewed. Discussed with patient. She still has a nonproductive cough. Hospitalist Physical - Physical exam Narrative exam: GEN: Severely malnourished BMI 11, pink puffer, mild respiratory increase accessory muscles, awake, alert oriented 3 HEENT: NCAT, EOMI, PERRL, OP Clear NECK: supple, no adenopathy, no thyromegaly, no JVD CVS/HEART: RRR, NORMAL S1S2, NO JVD, pulses present bilaterally CHEST/LUNGS: Rhonchi bilaterally, diminished breath sounds Symmetrical chest expansion, reduced air entry bilaterally GI/Abdomen: soft, NTND, good bowel sounds, no guarding or rebound /Bladder: no suprapubic tenderness, no CVA or paraspinal tenderness EXT/Skin: no c/c/e, no obvious rash MSK: FROM x 4 Neuro: CN 2-12 grossly intact, no new focal deficits Psych: Anxious - Constitutional Vitals: Temp Pulse Resp BP Pulse Ox 97.5 F L 107 H 18 177/70 99 05/16/17 07:16 05/16/17 09:41 05/16/17 09:41 05/16/17 07:16 05/16/17 09:42 Results - Labs CBC & Chem 7: 05/16/17 06:02 05/16/17 06:02 Labs: Laboratory Last Values WBC 11.5 K/mm3 (4.5-11.0) H 05/16/17 06:02 RBC 3.16 M/mm3 (3.65-5.03) L 05/16/17 06:02 Hgb 10.2 gm/dl (10.1-14.3) 05/16/17 06:02 Hct 31.1 % (30.3-42.9) 05/16/17 06:02 MCV 99 fl (79-97) H 05/16/17 06:02 MCH 32 pg (28-32) 05/16/17 06:02 MCHC 33 % (30-34) 05/16/17 06:02 RDW 14.7 % (13.2-15.2) 05/16/17 06:02 Plt Count 214 K/mm3 (140-440) 05/16/17 06:02 Add Manual Diff Complete 05/16/17 06:02 Total Counted 100 05/16/17 06:02 Seg Neutrophils % Press Manager 05/16/17 06:02 Seg Neuts % (Manual) 90.0 % (40.0-70.0) H 05/16/17 06:02 Band Neutrophils % 4.0 % 05/16/17 06:02 Lymphocytes % (Manual) 2.0 % (13.4-35.0) L 05/16/17 06:02 Reactive Lymphs % (Man) 0 % 05/16/17 06:02 Monocytes % (Manual) 4.0 % (0.0-7.3) 05/16/17 06:02 Eosinophils % (Manual) 0 % (0.0-4.3) 05/16/17 06:02 Basophils % (Manual) 0 % (0.0-1.8) 05/16/17 06:02 Metamyelocytes % 0 % 05/16/17 06:02 Myelocytes % 0 % 05/16/17 06:02 Promyelocytes % 0 % 05/16/17 06:02 Blast Cells % 0 % 05/16/17 06:02 Nucleated RBC % Not Reportable 05/16/17 06:02 Seg Neutrophils # Man 10.4 K/mm3 (1.8-7.7) H 05/16/17 06:02 Band Neutrophils # 0.5 K/mm3 05/16/17 06:02 Lymphocytes # (Manual) 0.2 K/mm3 (1.2-5.4) L 05/16/17 06:02 Abs React Lymphs (Man) 0.0 K/mm3 05/16/17 06:02 Monocytes # (Manual) 0.5 K/mm3 (0.0-0.8) 05/16/17 06:02 Eosinophils # (Manual) 0.0 K/mm3 (0.0-0.4) 05/16/17 06:02 Basophils # (Manual) 0.0 K/mm3 (0.0-0.1) 05/16/17 06:02 Metamyelocytes # 0.0 K/mm3 05/16/17 06:02 Myelocytes # 0.0 K/mm3 05/16/17 06:02 Promyelocytes # 0.0 K/mm3 05/16/17 06:02 Blast Cells # 0.0 K/mm3 05/16/17 06:02 WBC Morphology Not Reportable 05/16/17 06:02 Hypersegmented Neuts Not Reportable 05/16/17 06:02 Hyposegmented Neuts Not Reportable 05/16/17 06:02 Hypogranular Neuts Not Reportable 05/16/17 06:02 Smudge Cells Not Reportable 05/16/17 06:02 Toxic Granulation Not Reportable 05/16/17 06:02 Toxic Vacuolation Not Reportable 05/16/17 06:02 Dohle Bodies Not Reportable 05/16/17 06:02 Pelger-Huet Anomaly Not Reportable 05/16/17 06:02 Trudy Rods Not Reportable 05/16/17 06:02 Platelet Estimate Consistent w auto 05/16/17 06:02 Clumped Platelets Not Reportable 05/16/17 06:02 Plt Clumps, EDTA Not Reportable 05/16/17 06:02 Large Platelets Not Reportable 05/16/17 06:02 Giant Platelets Not Reportable 05/16/17 06:02 Platelet Satelliting Not Reportable 05/16/17 06:02 Plt Morphology Comment Not Reportable 05/16/17 06:02 RBC Morphology Normal 05/16/17 06:02 Dimorphic RBCs Not Reportable 05/16/17 06:02 Polychromasia Not Reportable 05/16/17 06:02 Hypochromasia Not Reportable 05/16/17 06:02 Poikilocytosis Not Reportable 05/16/17 06:02 Anisocytosis Not Reportable 05/16/17 06:02 Microcytosis Not Reportable 05/16/17 06:02 Macrocytosis Not Reportable 05/16/17 06:02 Spherocytes Not Reportable 05/16/17 06:02 Pappenheimer Bodies Not Reportable 05/16/17 06:02 Sickle Cells Not Reportable 05/16/17 06:02 Target Cells Not Reportable 05/16/17 06:02 Tear Drop Cells Not Reportable 05/16/17 06:02 Ovalocytes Not Reportable 05/16/17 06:02 Stomatocytes Few 05/15/17 03:08 Helmet Cells Not Reportable 05/16/17 06:02 [place] Bodies Not Reportable 05/16/17 06:02 [place] Rings Not Reportable 05/16/17 06:02 [place] Cells Not Reportable 05/16/17 06:02 Bite Cells Not Reportable 05/16/17 06:02 Crenated Cell Not Reportable 05/16/17 06:02 Elliptocytes Not Reportable 05/16/17 06:02 Acanthocytes (Spur) Not Reportable 05/16/17 06:02 Rouleaux Not Reportable 05/16/17 06:02 Hemoglobin C Crystals Not Reportable 05/16/17 06:02 Schistocytes Not Reportable 05/16/17 06:02 Malaria parasites Not Reportable 05/16/17 06:02 [place] Bodies Not Reportable 05/16/17 06:02 Hem Pathologist Commnt No 05/16/17 06:02 PT 11.1 Sec. (12.2-14.9) L 05/15/17 03:08 INR 0.77 (0.87-1.13) L 05/15/17 03:08 Sodium 143 mmol/L (137-145) 05/16/17 06:02 Potassium 5.0 mmol/L (3.6-5.0) 05/16/17 06:02 Chloride 94.8 mmol/L (98-107) L 05/16/17 06:02 Carbon Dioxide 42 mmol/L (22-30) H* 05/16/17 06:02 Anion Gap 11 mmol/L 05/16/17 06:02 BUN 13 mg/dL (7-17) 05/16/17 06:02 Creatinine 0.3 mg/dL (0.7-1.2) L 05/16/17 06:02 Estimated GFR > 60 ml/min 05/16/17 06:02 BUN/Creatinine Ratio 43 % 05/16/17 06:02 Glucose 124 mg/dL (65-100) H 05/16/17 06:02 POC Glucose 211 (70-105) H 05/15/17 21:55 Lactic Acid 1.30 mmol/L (0.7-2.0) 05/15/17 03:08 Calcium 8.3 mg/dL (8.4-10.2) L 05/16/17 06:02 Total Bilirubin 0.40 mg/dL (0.1-1.2) 05/15/17 03:08 AST 30 units/L (5-40) 05/15/17 03:08 ALT 42 units/L (7-56) 05/15/17 03:08 Alkaline Phosphatase 64 units/L (35-129) 05/15/17 03:08 Troponin T 0.029 ng/mL (0.00-0.029) 05/15/17 03:08 Total Protein 5.8 g/dL (6.3-8.2) L 05/15/17 03:08 Albumin 3.5 g/dL (3.9-5) L 05/15/17 03:08 Albumin/Globulin Ratio 1.5 % 05/15/17 03:08 Urine Color Straw (Yellow) 05/15/17 05:56 Urine Turbidity Clear (Clear) 05/15/17 05:56 Urine pH 6.0 (5.0-7.0) 05/15/17 05:56 Ur Specific [place] 1.011 (1.003-1.030) 05/15/17 05:56 Urine Protein <15 mg/dl mg/dL (Negative) 05/15/17 05:56 Urine Glucose (UA) Neg mg/dL (Negative) 05/15/17 05:56 Urine Ketones Neg mg/dL (Negative) 05/15/17 05:56 Urine Blood Neg (Negative) 05/15/17 05:56 Urine Nitrite Neg (Negative) 05/15/17 05:56 Urine Bilirubin Neg (Negative) 05/15/17 05:56 Urine Urobilinogen < 2.0 mg/dL (<2.0) 05/15/17 05:56 Ur Leukocyte Esterase Neg (Negative) 05/15/17 05:56 Urine WBC (Auto) < 1.0 /HPF (0.0-6.0) 05/15/17 05:56 Urine RBC (Auto) < 1.0 /HPF (0.0-6.0) 05/15/17 05:56
[2017-05-16] MEDS: ZOLOFT PO SCH (14:10)
--- NOTE | 2017-05-16 16:05 | Consultation ---
History of Present Illness Consult date: 05/16/17 Requesting physician: CATHY LINO Reason for consult: COPD, other (Acute on Chronic Hypercapnic Hypoxemic Respiratory Failure) History of present illness: PULMONARY/CCM CONSULT NOTE (Full dictation # [id number]) Please see dictated notes for full details Medications and Allergies Allergies Allergy/AdvReac Type Severity Reaction Status Date / Time aspirin Allergy Unknown Verified 05/08/17 21:35 chlorzoxazone Allergy Seizure Verified 05/08/17 21:35 [From Parafon Forte] codeine Allergy Unknown Verified 05/08/17 21:35 ibuprofen [From Motrin] Allergy Swelling Verified 05/08/17 21:35 olmesartan medoxomil Allergy Nausea Verified 05/08/17 21:35 [From Benicar] phenytoin sodium Allergy Unknown Verified 05/08/17 21:35 [From Dilantin] phenytoin sodium extended Allergy Unknown Verified 05/08/17 21:35 [From Dilantin] ramipril Allergy Nausea Verified 05/08/17 21:35 verapamil Allergy Unknown Verified 05/08/17 21:35 Home Medications Medication Instructions Recorded Confirmed Last Taken Type ALBUTEROL Inhaler [ProAir HFA 2 puff IH QID PRN #1 can 05/13/17 05/15/17 Unknown Rx Inhaler] ALPRAZolam [Xanax TAB] 0.25 mg PO Q8H #20 tablet 05/13/17 05/15/17 Unknown Rx Famotidine [Pepcid] 20 mg PO BID #60 tablet 05/13/17 05/15/17 Unknown Rx Ipratropium/Albuterol Sulfate 1 ampul IH Q6HRT #180 ampul.neb 05/13/17 05/15/17 Unknown Rx [DUONEB *Not for PRN Use*] Active Meds: Active Medications Acetaminophen (Tylenol) 650 mg PO Q4H PRN PRN Reason: Pain MILD(1-3)/Fever >100.5/GREGORY Last Admin: 05/15/17 10:14 Dose: 650 mg Albuterol (Proventil) 2.5 mg IH Q4HRT PRN PRN Reason: Shortness Of Breath Last Admin: 05/15/17 22:56 Dose: 2.5 mg Albuterol/Ipratropium (Duoneb *Not For Prn Use*) 1 ampul IH Q6HRT [facility] Last Admin: 05/16/17 15:34 Dose: 1 ampul Alprazolam (Xanax) 0.25 mg PO Q8H [facility] Last Admin: 05/16/17 15:12 Dose: 0.25 mg Bisacodyl (Dulcolax) 10 mg [place] QDAY PRN PRN Reason: Constipation unrelieved by MOM Enoxaparin Sodium (Lovenox) 30 mg SUB-Q QDAY [facility] Last Admin: 05/16/17 09:30 Dose: 30 mg Famotidine (Pepcid) 20 mg PO DAILY [facility] Hydralazine HCl (Apresoline) 10 mg IV Q4HR PRN PRN Reason: systolic B/P >160 Last Admin: 05/15/17 22:46 Dose: 10 mg Magnesium Hydroxide (Milk Of Magnesia) 30 ml PO Q4H PRN PRN Reason: Constipation Methylprednisolone Sodium Succinate (Solu-Medrol) 125 mg IV Q6H [facility] Last Admin: 05/16/17 15:11 Dose: 125 mg Ondansetron HCl (Zofran) 4 mg IV Q8H PRN PRN Reason: N/V unrelieved by Reglan Oxycodone/Acetaminophen (Percocet 5/325) 1 tab PO Q4H PRN PRN Reason: Pain , Severe (7-10) Last Admin: 05/16/17 15:11 Dose: 1 tab Sertraline HCl (Zoloft) 25 mg PO QDAY [facility] Last Admin: 05/16/17 14:10 Dose: 25 mg Physical Examination Vital signs: Vital Signs Pulse Resp 124 H 25 H 05/15/17 02:20 05/15/17 02:20 Results - Laboratory Findings CBC and BMP: 05/16/17 06:02 05/16/17 06:02 PT/INR, D-dimer PT 11.1 Sec. (12.2-14.9) L 05/15/17 03:08 INR 0.77 (0.87-1.13) L 05/15/17 03:08 Abnormal lab findings: Abnormal Labs 05/15/17 05/15/17 05/15/17 03:08 03:08 03:08 WBC 14.8 H RBC 3.54 L MCV 98 H Seg Neuts % (Manual) 81.0 H Lymphocytes % (Manual) 3.0 L Seg Neutrophils # Man 12.0 H Lymphocytes # (Manual) 0.4 L PT 11.1 L INR 0.77 L Chloride 90.3 L Carbon Dioxide 39 H Creatinine 0.3 L Glucose 108 H POC Glucose Calcium 7.8 L Total Protein 5.8 L Albumin 3.5 L 05/15/17 05/15/17 05/15/17 08:21 12:32 16:21 WBC RBC MCV Seg Neuts % (Manual) Lymphocytes % (Manual) Seg Neutrophils # Man Lymphocytes # (Manual) PT INR Chloride Carbon Dioxide Creatinine Glucose POC Glucose 166 H 125 H 168 H Calcium Total Protein Albumin 05/15/17 05/16/17 05/16/17 21:55 06:02 06:02 WBC 11.5 H RBC 3.16 L MCV 99 H Seg Neuts % (Manual) 90.0 H Lymphocytes % (Manual) 2.0 L Seg Neutrophils # Man 10.4 H Lymphocytes # (Manual) 0.2 L PT INR Chloride 94.8 L Carbon Dioxide 42 H* Creatinine 0.3 L Glucose 124 H POC Glucose 211 H Calcium 8.3 L Total Protein Albumin 05/16/17 05/16/17 07:22 11:45 WBC RBC MCV Seg Neuts % (Manual) Lymphocytes % (Manual) Seg Neutrophils # Man Lymphocytes # (Manual) PT INR Chloride Carbon Dioxide Creatinine Glucose POC Glucose 132 H 197 H Calcium Total Protein Albumin
[2017-05-16] MEDS: ZITHROMAX PO SCH (20:20)
[2017-05-16] MEDS: BROVANA NEBU IH SCH (20:30)
[2017-05-16] MEDS: PULMICORT IH SCH (20:30)
[2017-05-16] MEDS: BUSPAR PO SCH (22:21)
[2017-05-17] MEDS: DUONEB *Not for PRN Use IH SCH ×5 (01:18→20:11)
[2017-05-17] MEDS: PERCOCET 5/325 PO PRN ×2 (01:53→20:16)
[2017-05-17] MEDS: XANAX PO SCH ×3 (05:47→22:31)
[2017-05-17] MEDS: APRESOLINE IV PRN (05:47)
[2017-05-17] MEDS: PROVENTIL IH PRN (06:15)
[2017-05-17] MEDS: BUSPAR PO SCH ×2 (09:59→22:30)
[2017-05-17] MEDS: LOVENOX SUB-Q SCH (10:00)
[2017-05-17] MEDS: PEPCID PO SCH (10:01)
[2017-05-17] MEDS: ZOLOFT PO SCH (10:01)
[2017-05-17] MEDS: ZITHROMAX PO SCH (11:01)
--- NOTE | 2017-05-17 11:36 | Progress Note ---
Assessment and Plan Assessment and plan: Patient is a 71-year-old woman with a history of chronic hypoxic respiratory failure on home O2 due to end-stage COPD, hypertension, seizure disorder and anxiety who presents with worsening shortness of breath and cough. Patient was just discharged on 05/13/2016 after COPD exacerbation, she was sent home on an NIV/BIPAP but she refuses to wear it. -Acute on chronic hypoxic respiratory failure: Consult to pulmonology, continue oxygen -Acute exacerbation of COPD: IV steroids, nebulizer treatments and antibiotics -Severe malnutrition BMI 11: Consult a dietitian, will add supplements -Acute on chronic worsening of her anxiety, patient wants something more for depression: Continue Xanax, add Zoloft -Hypertension urgency: IV hydralazine when necessary -DVT prophylaxis: sq lovenox -We discuss Hospice, she will consider==>she wore her bipap at night. History Interval history: Patient was seen and examined. Follow-up on current diagnosis/shortness of breath which is still present. Overnight uneventful. Patient denies any chest pain, nausea/vomiting or severe headaches. Imaging, nursing note, chart, labs and old chart reviewed. Discussed with patient. She still has a nonproductive cough. Hospitalist Physical - Physical exam Narrative exam: GEN: Severely malnourished BMI 11, pink puffer, mild respiratory increase accessory muscles, awake, alert oriented 3 HEENT: NCAT, EOMI, PERRL, OP Clear NECK: supple, no adenopathy, no thyromegaly, no JVD CVS/HEART: RRR, NORMAL S1S2, NO JVD, pulses present bilaterally CHEST/LUNGS: Rhonchi bilaterally, diminished breath sounds Symmetrical chest expansion, reduced air entry bilaterally GI/Abdomen: soft, NTND, good bowel sounds, no guarding or rebound /Bladder: no suprapubic tenderness, no CVA or paraspinal tenderness EXT/Skin: no c/c/e, no obvious rash MSK: FROM x 4 Neuro: CN 2-12 grossly intact, no new focal deficits Psych: Anxious - Constitutional Vitals: Temp Pulse Resp BP Pulse Ox 97.6 F 108 H 20 164/64 96 05/17/17 08:55 05/17/17 08:55 05/17/17 08:55 05/17/17 08:55 05/17/17 08:55 Results - Labs CBC & Chem 7: 05/16/17 06:02 05/16/17 06:02 Labs: Laboratory Last Values WBC 11.5 K/mm3 (4.5-11.0) H 05/16/17 06:02 RBC 3.16 M/mm3 (3.65-5.03) L 05/16/17 06:02 Hgb 10.2 gm/dl (10.1-14.3) 05/16/17 06:02 Hct 31.1 % (30.3-42.9) 05/16/17 06:02 MCV 99 fl (79-97) H 05/16/17 06:02 MCH 32 pg (28-32) 05/16/17 06:02 MCHC 33 % (30-34) 05/16/17 06:02 RDW 14.7 % (13.2-15.2) 05/16/17 06:02 Plt Count 214 K/mm3 (140-440) 05/16/17 06:02 Add Manual Diff Complete 05/16/17 06:02 Total Counted 100 05/16/17 06:02 Seg Neutrophils % Sole Rounding Machine Operator 05/16/17 06:02 Seg Neuts % (Manual) 90.0 % (40.0-70.0) H 05/16/17 06:02 Band Neutrophils % 4.0 % 05/16/17 06:02 Lymphocytes % (Manual) 2.0 % (13.4-35.0) L 05/16/17 06:02 Reactive Lymphs % (Man) 0 % 05/16/17 06:02 Monocytes % (Manual) 4.0 % (0.0-7.3) 05/16/17 06:02 Eosinophils % (Manual) 0 % (0.0-4.3) 05/16/17 06:02 Basophils % (Manual) 0 % (0.0-1.8) 05/16/17 06:02 Metamyelocytes % 0 % 05/16/17 06:02 Myelocytes % 0 % 05/16/17 06:02 Promyelocytes % 0 % 05/16/17 06:02 Blast Cells % 0 % 05/16/17 06:02 Nucleated RBC % Not Reportable 05/16/17 06:02 Seg Neutrophils # Man 10.4 K/mm3 (1.8-7.7) H 05/16/17 06:02 Band Neutrophils # 0.5 K/mm3 05/16/17 06:02 Lymphocytes # (Manual) 0.2 K/mm3 (1.2-5.4) L 05/16/17 06:02 Abs React Lymphs (Man) 0.0 K/mm3 05/16/17 06:02 Monocytes # (Manual) 0.5 K/mm3 (0.0-0.8) 05/16/17 06:02 Eosinophils # (Manual) 0.0 K/mm3 (0.0-0.4) 05/16/17 06:02 Basophils # (Manual) 0.0 K/mm3 (0.0-0.1) 05/16/17 06:02 Metamyelocytes # 0.0 K/mm3 05/16/17 06:02 Myelocytes # 0.0 K/mm3 05/16/17 06:02 Promyelocytes # 0.0 K/mm3 05/16/17 06:02 Blast Cells # 0.0 K/mm3 05/16/17 06:02 WBC Morphology Not Reportable 05/16/17 06:02 Hypersegmented Neuts Not Reportable 05/16/17 06:02 Hyposegmented Neuts Not Reportable 05/16/17 06:02 Hypogranular Neuts Not Reportable 05/16/17 06:02 Smudge Cells Not Reportable 05/16/17 06:02 Toxic Granulation Not Reportable 05/16/17 06:02 Toxic Vacuolation Not Reportable 05/16/17 06:02 Dohle Bodies Not Reportable 05/16/17 06:02 Pelger-Huet Anomaly Not Reportable 05/16/17 06:02 Trudy Rods Not Reportable 05/16/17 06:02 Platelet Estimate Consistent w auto 05/16/17 06:02 Clumped Platelets Not Reportable 05/16/17 06:02 Plt Clumps, EDTA Not Reportable 05/16/17 06:02 Large Platelets Not Reportable 05/16/17 06:02 Giant Platelets Not Reportable 05/16/17 06:02 Platelet Satelliting Not Reportable 05/16/17 06:02 Plt Morphology Comment Not Reportable 05/16/17 06:02 RBC Morphology Normal 05/16/17 06:02 Dimorphic RBCs Not Reportable 05/16/17 06:02 Polychromasia Not Reportable 05/16/17 06:02 Hypochromasia Not Reportable 05/16/17 06:02 Poikilocytosis Not Reportable 05/16/17 06:02 Anisocytosis Not Reportable 05/16/17 06:02 Microcytosis Not Reportable 05/16/17 06:02 Macrocytosis Not Reportable 05/16/17 06:02 Spherocytes Not Reportable 05/16/17 06:02 Pappenheimer Bodies Not Reportable 05/16/17 06:02 Sickle Cells Not Reportable 05/16/17 06:02 Target Cells Not Reportable 05/16/17 06:02 Tear Drop Cells Not Reportable 05/16/17 06:02 Ovalocytes Not Reportable 05/16/17 06:02 Stomatocytes Few 05/15/17 03:08 Helmet Cells Not Reportable 05/16/17 06:02 [place] Bodies Not Reportable 05/16/17 06:02 [place] Rings Not Reportable 05/16/17 06:02 [place] Cells Not Reportable 05/16/17 06:02 Bite Cells Not Reportable 05/16/17 06:02 Crenated Cell Not Reportable 05/16/17 06:02 Elliptocytes Not Reportable 05/16/17 06:02 Acanthocytes (Spur) Not Reportable 05/16/17 06:02 Rouleaux Not Reportable 05/16/17 06:02 Hemoglobin C Crystals Not Reportable 05/16/17 06:02 Schistocytes Not Reportable 05/16/17 06:02 Malaria parasites Not Reportable 05/16/17 06:02 [place] Bodies Not Reportable 05/16/17 06:02 Hem Pathologist Commnt No 05/16/17 06:02 PT 11.1 Sec. (12.2-14.9) L 05/15/17 03:08 INR 0.77 (0.87-1.13) L 05/15/17 03:08 Sodium 143 mmol/L (137-145) 05/16/17 06:02 Potassium 5.0 mmol/L (3.6-5.0) 05/16/17 06:02 Chloride 94.8 mmol/L (98-107) L 05/16/17 06:02 Carbon Dioxide 42 mmol/L (22-30) H* 05/16/17 06:02 Anion Gap 11 mmol/L 05/16/17 06:02 BUN 13 mg/dL (7-17) 05/16/17 06:02 Creatinine 0.3 mg/dL (0.7-1.2) L 05/16/17 06:02 Estimated GFR > 60 ml/min 05/16/17 06:02 BUN/Creatinine Ratio 43 % 05/16/17 06:02 Glucose 124 mg/dL (65-100) H 05/16/17 06:02 POC Glucose 166 (70-105) H 05/16/17 21:16 Lactic Acid 1.30 mmol/L (0.7-2.0) 05/15/17 03:08 Calcium 8.3 mg/dL (8.4-10.2) L 05/16/17 06:02 Total Bilirubin 0.40 mg/dL (0.1-1.2) 05/15/17 03:08 AST 30 units/L (5-40) 05/15/17 03:08 ALT 42 units/L (7-56) 05/15/17 03:08 Alkaline Phosphatase 64 units/L (35-129) 05/15/17 03:08 Troponin T 0.029 ng/mL (0.00-0.029) 05/15/17 03:08 C-Reactive Protein 1.70 mg/dL (0.00-1.30) H 05/16/17 20:14 Total Protein 5.8 g/dL (6.3-8.2) L 05/15/17 03:08 Albumin 3.5 g/dL (3.9-5) L 05/15/17 03:08 Albumin/Globulin Ratio 1.5 % 05/15/17 03:08 Urine Color Straw (Yellow) 05/15/17 05:56 Urine Turbidity Clear (Clear) 05/15/17 05:56 Urine pH 6.0 (5.0-7.0) 05/15/17 05:56 Ur Specific [place] 1.011 (1.003-1.030) 05/15/17 05:56 Urine Protein <15 mg/dl mg/dL (Negative) 05/15/17 05:56 Urine Glucose (UA) Neg mg/dL (Negative) 05/15/17 05:56 Urine Ketones Neg mg/dL (Negative) 05/15/17 05:56 Urine Blood Neg (Negative) 05/15/17 05:56 Urine Nitrite Neg (Negative) 05/15/17 05:56 Urine Bilirubin Neg (Negative) 05/15/17 05:56 Urine Urobilinogen < 2.0 mg/dL (<2.0) 05/15/17 05:56 Ur Leukocyte Esterase Neg (Negative) 05/15/17 05:56 Urine WBC (Auto) < 1.0 /HPF (0.0-6.0) 05/15/17 05:56 Urine RBC (Auto) < 1.0 /HPF (0.0-6.0) 05/15/17 05:56
[2017-05-17] MEDS: PULMICORT IH SCH ×2 (13:18→20:11)
[2017-05-17] MEDS: BROVANA NEBU IH SCH ×2 (13:21→20:11)
--- NOTE | 2017-05-17 13:57 | Progress Note ---
Assessment and Plan -Acute on chronic hypoxic respiratory failure -Acute exacerbation of COPD -Severe malnutrition BMI 11 -Anxiety -Depression -Hypertension urgency -Tobacco abuse disorder Continue with supplemental oxygen to keep O2 sats>88% Restrictive oxygen strategy in view of compensatory metabolic alkalosis Anxiety management Bronchodilators Steroids VTE porphylaxis NIPPV qhs and prn Tobacco abuse/cessation counselling Nicotine withdrawal precautions Agree with evaluation for hospice Subjective Date of service: 05/17/17 Principal diagnosis: Acute on chronic respiratory failure, AE-COPD, Tobacco abuse disorder Interval history: Patient is a 71-year-old woman with a history of chronic hypoxic respiratory failure on home O2 due to end-stage COPD, hypertension, seizure disorder, tobacco use disorder and anxiety who presents with worsening shortness of breath and cough. Patient was just discharged on 05/13/2016 after COPD exacerbation. Seen and examined. Vitals, labs, medications, chart reviewed. Discussed with RT Has been compliant with NIPPV qhs Objective - Exam Narrative Exam: GEN: Severely malnourished BMI 11-->14.5 , purse lip breathing, mild respiratory distress awake, alert oriented 3 HEENT: NCAT, EOMI, PERRL, OP Clear NECK: supple, no adenopathy, no thyromegaly, no JVD CVS/HEART: RRR, NORMAL S1S2, NO JVD, pulses present bilaterally CHEST/LUNGS: Rhonchi bilaterally, diminished breath sounds Symmetrical chest expansion, reduced air entry bilaterally GI/Abdomen: soft, NTND, good bowel sounds, no guarding or rebound /Bladder: no suprapubic tenderness, no CVA or paraspinal tenderness EXT/Skin: no c/c/e, no obvious rash MSK: FROM x 4 Neuro: CN 2-12 grossly intact, no new focal deficits Psych: Anxious Vital Signs - 12hr 05/17/17 05/17/17 05/17/17 02:53 05:01 05:47 Temperature 97.3 F L Pulse Rate 104 H 104 H Pulse Rate [ Anterior Bilateral Throughout] Pulse Rate [ Throughout] Respiratory 22 24 Rate Respiratory Rate [Anterior Bilateral Throughout] Respiratory Rate [ Throughout] Blood Pressure 185/73 185/73 Blood Pressure [Right] O2 Sat by Pulse 98 Oximetry 05/17/17 05/17/17 05/17/17 06:15 06:43 08:17 Temperature Pulse Rate 120 H Pulse Rate [ 112 H 108 H Anterior Bilateral Throughout] Pulse Rate [ Throughout] Respiratory 21 22 Rate Respiratory 24 21 Rate [Anterior Bilateral Throughout] Respiratory Rate [ Throughout] Blood Pressure Blood Pressure [Right] O2 Sat by Pulse 97 94 Oximetry 05/17/17 05/17/17 05/17/17 08:55 10:00 12:00 Temperature 97.6 F Pulse Rate 108 H Pulse Rate [ 103 H Anterior Bilateral Throughout] Pulse Rate [ 107 H Throughout] Respiratory 20 Rate Respiratory 18 Rate [Anterior Bilateral Throughout] Respiratory 18 Rate [ Throughout] Blood Pressure Blood Pressure 164/64 [Right] O2 Sat by Pulse 96 98 Oximetry 05/17/17 12:41 Temperature 98.1 F Pulse Rate 109 H Pulse Rate [ Anterior Bilateral Throughout] Pulse Rate [ Throughout] Respiratory 18 Rate Respiratory Rate [Anterior Bilateral Throughout] Respiratory Rate [ Throughout] Blood Pressure Blood Pressure 181/77 [Right] O2 Sat by Pulse 96 Oximetry CBC and BMP: 05/16/17 06:02 05/16/17 06:02 ABG, PT/INR, D-dimer: PT/INR, D-dimer PT 11.1 Sec. (12.2-14.9) L 05/15/17 03:08 INR 0.77 (0.87-1.13) L 05/15/17 03:08 Abnormal lab findings: Abnormal Labs 05/15/17 05/15/17 05/15/17 03:08 03:08 03:08 WBC 14.8 H RBC 3.54 L MCV 98 H Seg Neuts % (Manual) 81.0 H Lymphocytes % (Manual) 3.0 L Seg Neutrophils # Man 12.0 H Lymphocytes # (Manual) 0.4 L PT 11.1 L INR 0.77 L Chloride 90.3 L Carbon Dioxide 39 H Creatinine 0.3 L Glucose 108 H POC Glucose Calcium 7.8 L C-Reactive Protein Total Protein 5.8 L Albumin 3.5 L 05/15/17 05/15/17 05/15/17 08:21 12:32 16:21 WBC RBC MCV Seg Neuts % (Manual) Lymphocytes % (Manual) Seg Neutrophils # Man Lymphocytes # (Manual) PT INR Chloride Carbon Dioxide Creatinine Glucose POC Glucose 166 H 125 H 168 H Calcium C-Reactive Protein Total Protein Albumin 05/15/17 05/16/17 05/16/17 21:55 06:02 06:02 WBC 11.5 H RBC 3.16 L MCV 99 H Seg Neuts % (Manual) 90.0 H Lymphocytes % (Manual) 2.0 L Seg Neutrophils # Man 10.4 H Lymphocytes # (Manual) 0.2 L PT INR Chloride 94.8 L Carbon Dioxide 42 H* Creatinine 0.3 L Glucose 124 H POC Glucose 211 H Calcium 8.3 L C-Reactive Protein Total Protein Albumin 05/16/17 05/16/17 05/16/17 07:22 11:45 15:32 WBC RBC MCV Seg Neuts % (Manual) Lymphocytes % (Manual) Seg Neutrophils # Man Lymphocytes # (Manual) PT INR Chloride Carbon Dioxide Creatinine Glucose POC Glucose 132 H 197 H 196 H Calcium C-Reactive Protein Total Protein Albumin 05/16/17 05/16/17 05/16/17 19:47 20:14 21:16 WBC RBC MCV Seg Neuts % (Manual) Lymphocytes % (Manual) Seg Neutrophils # Man Lymphocytes # (Manual) PT INR Chloride Carbon Dioxide Creatinine Glucose POC Glucose 192 H 166 H Calcium C-Reactive Protein 1.70 H Total Protein Albumin Chest x-ray: image reviewed (No acute infiltrate, chronic changes)
--- NOTE | 2017-05-17 14:24 | Discharge Summary ---
Providers - Providers Date of Admission: 05/15/17 05:03 Date of discharge: 05/17/17 Attending physician: CATHY LINO 05/15/17 13:13 Consult to Dietitian/Nutrition [CONS] Routine Physician Instructions: Reason For Exam: Reason for Consult: Malnutrition 05/16/17 11:28 Consult to Physician [CONS] Routine Consulting Provider: OLEGARIO LERMA Reason For Exam: copd, respiratory failure, pt known to you Place consult to:: MARIA GUADALUPE SNIDER Notified:: Phone number called:: [phone] Was contact made?: Yes If yes, spoke with:: Time called:: 12:20 Comment:: SIDNEY Primary care physician: NUTRITIONAL ASSISTANT Hospitalization Condition: Poor Hospital course: Patient is a 71-year-old woman with a history of chronic hypoxic respiratory failure on home O2 due to end-stage COPD, hypertension, seizure disorder and anxiety who presents with worsening shortness of breath and cough. Patient was just discharged on 05/13/2016 after COPD exacerbation, she was sent home on an NIV/BIPAP but she refuses to wear it. -Acute on chronic hypoxic respiratory failure: Consult to pulmonology, continue oxygen -Acute exacerbation of COPD: IV steroids, nebulizer treatments and antibiotics -Severe malnutrition BMI 14.5 (still very bad) Consult a dietitian, will add supplements -Acute on chronic worsening of her anxiety, patient wants something more for depression: Continue Xanax, add Zoloft -Hypertension urgency: IV hydralazine when necessary -DVT prophylaxis: sq lovenox -We discuss Hospice, she will consider==>she wore her bipap at night. Patient has elected to go HOME with [facility] Disposition: DC-50 TO HOSPICE (HOME) Time spent for discharge: 35 minutes Core Measure Documentation - Palliative Care Palliative Care/ Comfort Measures: Hospice Care - Core Measures Any of the following diagnoses?: none - VTE Discharge Requirements Deep Vein Thrombosis/Pulmonary Embolism Present on Admission: No Has pt received <5 days of overlap therapy or INR<2.0: No Anticoagulant overlap therapy prescribed at discharge: No Contraindication No Overlap Therapy order at DC: Not Indicated Exam - Physical Exam Narrative exam: GEN: Severely malnourished BMI 11-->14.5 pink puffer, mild respiratory increase accessory muscles, awake, alert oriented 3 HEENT: NCAT, EOMI, PERRL, OP Clear NECK: supple, no adenopathy, no thyromegaly, no JVD CVS/HEART: RRR, NORMAL S1S2, NO JVD, pulses present bilaterally CHEST/LUNGS: Rhonchi bilaterally, diminished breath sounds Symmetrical chest expansion, reduced air entry bilaterally GI/Abdomen: soft, NTND, good bowel sounds, no guarding or rebound /Bladder: no suprapubic tenderness, no CVA or paraspinal tenderness EXT/Skin: no c/c/e, no obvious rash MSK: FROM x 4 Neuro: CN 2-12 grossly intact, no new focal deficits Psych: Anxious - Constitutional Vitals: Temp Pulse Resp BP Pulse Ox 98.1 F 109 H 18 181/77 96 05/17/17 12:41 05/17/17 12:41 05/17/17 12:41 05/17/17 12:41 05/17/17 12:41 Plan Activity: up only with assistance, fall precautions, other Diet: regular Follow up with: PRIMARY CARE,MD [Primary Care Provider] - 3-5 Days Prescriptions: ALPRAZolam [Xanax TAB] 0.25 mg PO Q8H #20 tablet Arformoterol Nebu [Brovana Nebu] 15 mcg IH Q12HRT #30 ml Budesonide [Pulmicort Respules] 0.5 mg IH Q12HRT #30 nebu Ipratropium/Albuterol Sulfate [DUONEB *Not for PRN Use*] 1 ampul IH Q6HRT #30 ampul.neb oxyCODONE /ACETAMINOPHEN [Percocet 5/325 mg] 1 tab PO Q4H PRN #20 tablet PRN Reason: Pain , Severe (7-10) predniSONE [Deltasone] 50 mg PO QDAY #30 tab Sertraline [Zoloft] 25 mg PO QDAY #30 tab
--- NOTE | 2017-05-17 15:52 | Consultation ---
PULMONARY CONSULTATION CONSULTING PHYSICIAN: Maxx Gilliland M.D. REASON FOR CONSULTATION: COPD, respiratory failure. The patient is known to you. CHIEF COMPLAINT AND HISTORY OF PRESENT ILLNESS: The patient is a 71-year-old female who indeed known to me ____ significant for a diagnosis of chronic hypercapnic hypoxemic respiratory failure and tobacco abuse. She continues to smoke. She continues to have multiple admissions to the hospital, recently discharged from here. She came into the Emergency Room complaining of shortness of breath, unable to breathe. She had called EMS. She was able to shake her head yes or no. She denied fevers or chills. She denied cough or expectoration. She denied gross or streaky hemoptysis. She denied chest pain. She admits to smoking still a few cigarettes every now and then, but swears that the symptoms did not begin after smoking a cigarette. She denied any sick contacts. She, however, admitted that she was not taking some of her medication. She states she was not taking her blood pressure medication because she had a bad reaction to the amlodipine in the past and she was very bothered about anxiety. She blames her symptoms on anxiety. According to her, her Xanax is a p.r.n. prescription. She would like something long time to control her anxiety. She was evaluated in the Emergency Room, indeed found to be with an acute exacerbation of COPD and admitted for further management. When I stopped by to see her, she was lying in bed. I believe, she was on 2 liters nasal cannula. Her breathing was purse-lipped with some minor accessory respiratory muscle use. She denied any palpitations. This really is as much of the history of presentation as I have. Again, she denies in particular any pleuritic chest pain. PAST MEDICAL HISTORY: Chronic obstructive lung disease, hypertension, tobacco use disorder, history of cardiomyopathy, chronic home oxygen use and history of seizures. PAST SURGICAL HISTORY: She has had hip surgery. She has had a carotid endarterectomy and hysterectomy in the past. MEDICATIONS: She was on at the time I stopped by to see her were reviewed and included the following: DuoNeb treatments, nebulized q. 6 hours; Xanax 0.25 mg scheduled p.o. q. 8 hours. Lovenox 30 mg subQ daily, Pepcid 20 mg p.o. daily, Solu-Medrol 125 mg IV q. 6 hours. PRN Zofran and she was also on Zoloft 25 mg p.o. daily. ALLERGIES: TO ASPIRIN, TO CODEINE, TO IBUPROFEN, NATURE OF THIS ALLERGY IS UNKNOWN. DIET: Thin lady, bordering on being cachectic. No significant weight changes since I have last seen her. FAMILY AND SOCIAL HISTORY: She lives in the community. She has a 20 plus pack year tobacco smoking history, continues to smoke. She denies alcohol or illicit drug use or abuse. Family history, otherwise noncontributory. REVIEW OF SYSTEMS: No loss of consciousness. No new onset seizures. No new onset focal weakness. No gross hematochezia or melena. No gross hematuria or dysuria. No hematemesis. No hemoptysis. Complete 13 system review of systems obtained, pertinent positives and/or negatives as in body of the history above, otherwise they are noncontributory. PHYSICAL EXAMINATION: VITAL SIGNS: At presentation in the emergency room, she was afebrile, temperature 98.1 degrees Fahrenheit, pulse 112, respiratory rate 22, and blood pressure 129/66, oxygen sats were 87% at presentation. Inspired oxygen concentration was not recorded. GENERAL: She is an elderly looking female, looks her stated age, normocephalic, atraumatic. She is talking to me in partially interrupted sentences in mild to moderate respiratory distress. HEAD, EYES, EARS, NOSE AND THROAT AND NECK: She is anicteric. No conjunctival erythema. Grossly, no jugular venous distention, no thyromegaly, grossly no palpable lymph nodes in the supraclavicular or submandibular lymph node chains. Oropharynx is moist. LUNGS: Auscultation significant for diminished bilateral breath sounds, basilar expiratory tight wheezing, no rhonchi, no rales. HEART: Heart sounds 1 and 2 were heard at the time of my evaluation, regular rate and rhythm. She had a systolic ejection murmur, heard best in the left upper anterior sternal border. No rubs. ABDOMEN: Flat, soft, bowel sounds are positive, nontender. No palpable hepatosplenomegaly. EXTREMITIES: Without overt digital clubbing, cyanosis, no pedal edema. Dorsalis pedis pulses were palpable bilaterally. The skin was of poor turgor without tenting. She had scaling and exfoliation. No open sores, no cellulitis. NEUROLOGIC: Pupils were equal, round, about 3 mm, reactive to light. Extraocular muscle movements were intact. She moved all 4 extremities spontaneously. LABORATORY DATA: From my review are as follows: Admission white cell count 14,800 with a hemoglobin of 11.4, hematocrit of 34.5, platelet count of 229. INR 0.77. Serum sodium 137, potassium 4.4, chloride 90, bicarbonate 39, BUN 17, creatinine 0.3, glucose was 108. Lactic acid levels was 1.3. Liver function tests essentially within normal limits. Urinalysis was bland. No microbiology studies. DIAGNOSTIC DATA: Chest x-ray has been reviewed. I have also reviewed the radiologist's interpretation and I do agree with it, essentially chronic increased interstitial markings with tenting of the hemidiaphragm, some scarring of the pleural costophrenic angles. No gross pneumothorax, no gross bony fracture. ASSESSMENT: 1. Acute chronic obstructive pulmonary disease exacerbation. 2. Acute on chronic hypoxemic hypercapnic respiratory failure. 3. Tobacco use disorder. 4. Anxiety disorder. 5. Hypertension, poorly controlled. 6. History of cardiomyopathy, ejection fraction unknown. PLAN: 1. Continue supplemental oxygen to keep O2 sats greater than or equal to about 90%. 2. We will add long acting bronchodilators as well as inhaled corticosteroids. 3. Systemic steroids will be continued. I will, however, reduce the dose to 60 mg IV q. 8 hours and taper quickly from there. 4. CRP level will be ordered to better understand the true infectious potential of this leukocytosis. 5. I will put her on a quick course of oral azithromycin for severe COPD with an acute exacerbation. 6. We will continue GI and DVT prophylaxis. 7. Tobacco cessation has again been counseled. 8. I will start her on some BuSpar for generalized anxiety disorder and see if that will help control her anxiety attacks. I will, however, also discontinue the Zoloft. 9. Finally, flu and pneumonia vaccination will be per protocol. Again, I have strongly counseled her to stop smoking and she promises to give it another shot. Thank you very much for the consult. Dr. Gilliland will follow along and make further recommendations as picture progresses/becomes clearer. Hopefully, we can quickly turn her around and get her back to her normal living. JOB# [id number] CARMITA/CARLEEN
[2017-05-17] MEDS: ZOFRAN IV PRN (20:16)
[2017-05-18] MEDS: DUONEB *Not for PRN Use IH SCH ×4 (02:45→20:54)
[2017-05-18] MEDS: XANAX PO SCH ×3 (05:30→22:16)
[2017-05-18] MEDS: BROVANA NEBU IH SCH ×2 (07:40→20:54)
[2017-05-18] MEDS: PULMICORT IH SCH ×2 (07:40→20:53)
[2017-05-18] MEDS: BUSPAR PO SCH ×2 (09:46→22:16)
[2017-05-18] MEDS: PEPCID PO SCH (09:46)
[2017-05-18] MEDS: LOVENOX SUB-Q SCH (09:46)
[2017-05-18] MEDS: ZITHROMAX PO SCH (09:47)
[2017-05-18] MEDS: ZOLOFT PO SCH (09:47)
--- NOTE | 2017-05-18 12:49 | Event Note ---
Date: 05/18/17 Patient seen and examined, patient did leave yesterday because her blood pressure was elevated. Patient going to home hospice; therefore, she could have been discharged despite elevated blood pressure. She refuses to wear BiPAP last night she doesn't want it. Last visit best choice for please see discharge summary yesterday, discharge 32 minutes
--- NOTE | 2017-05-18 12:55 | Progress Note ---
Assessment and Plan Assessment and plan: Patient is a 71-year-old woman with a history of chronic hypoxic respiratory failure on home O2 due to end-stage COPD, hypertension, seizure disorder and anxiety who presents with worsening shortness of breath and cough. Patient was just discharged on 05/13/2016 after COPD exacerbation, she was sent home on an NIV/BIPAP but she refuses to wear it. -Acute on chronic hypoxic respiratory failure: Consult to pulmonology, continue oxygen -Acute exacerbation of COPD: IV steroids, nebulizer treatments and antibiotics -Severe malnutrition BMI 13.8: Consult a dietitian, will add supplements -Acute on chronic worsening of her anxiety, patient wants something more for depression: Continue Xanax, add Zoloft -Hypertension urgency: IV hydralazine when necessary -DVT prophylaxis: sq lovenox -We discuss Hospice, she will consider==>she refused bipap at night. Son has appealed the discharge. Which is perplexing to me since patient is able to make her own decision Discharge home hospice once Medicare appeal is up. History Interval history: Patient was seen and examined. Follow-up on current diagnosis/shortness of breath which is still present. Overnight uneventful. Patient denies any chest pain, nausea/vomiting or severe headaches. Imaging, nursing note, chart, labs and old chart reviewed. Discussed with patient. She still has a nonproductive cough. Hospitalist Physical - Physical exam Narrative exam: GEN: Severely malnourished BMI 13.8-->14.5 pink puffer, mild respiratory increase accessory muscles, awake, alert oriented 3 HEENT: NCAT, EOMI, PERRL, OP Clear NECK: supple, no adenopathy, no thyromegaly, no JVD CVS/HEART: RRR, NORMAL S1S2, NO JVD, pulses present bilaterally CHEST/LUNGS: Rhonchi bilaterally, diminished breath sounds Symmetrical chest expansion, reduced air entry bilaterally GI/Abdomen: soft, NTND, good bowel sounds, no guarding or rebound /Bladder: no suprapubic tenderness, no CVA or paraspinal tenderness EXT/Skin: no c/c/e, no obvious rash MSK: FROM x 4 Neuro: CN 2-12 grossly intact, no new focal deficits Psych: Anxious - Constitutional Vitals: Temp Pulse Resp BP Pulse Ox 97.6 F 86 20 150/56 97 05/18/17 07:49 01/10/18 10:00 05/18/17 10:00 05/18/17 07:49 05/18/17 10:00 Results - Labs CBC & Chem 7: 05/16/17 06:02 05/16/17 06:02 Labs: Laboratory Last Values WBC 11.5 K/mm3 (4.5-11.0) H 05/16/17 06:02 RBC 3.16 M/mm3 (3.65-5.03) L 05/16/17 06:02 Hgb 10.2 gm/dl (10.1-14.3) 05/16/17 06:02 Hct 31.1 % (30.3-42.9) 05/16/17 06:02 MCV 99 fl (79-97) H 05/16/17 06:02 MCH 32 pg (28-32) 05/16/17 06:02 MCHC 33 % (30-34) 05/16/17 06:02 RDW 14.7 % (13.2-15.2) 05/16/17 06:02 Plt Count 214 K/mm3 (140-440) 05/16/17 06:02 Add Manual Diff Complete 05/16/17 06:02 Total Counted 100 05/16/17 06:02 Seg Neutrophils % Onsite Health Coach 05/16/17 06:02 Seg Neuts % (Manual) 90.0 % (40.0-70.0) H 05/16/17 06:02 Band Neutrophils % 4.0 % 05/16/17 06:02 Lymphocytes % (Manual) 2.0 % (13.4-35.0) L 05/16/17 06:02 Reactive Lymphs % (Man) 0 % 05/16/17 06:02 Monocytes % (Manual) 4.0 % (0.0-7.3) 05/16/17 06:02 Eosinophils % (Manual) 0 % (0.0-4.3) 05/16/17 06:02 Basophils % (Manual) 0 % (0.0-1.8) 05/16/17 06:02 Metamyelocytes % 0 % 05/16/17 06:02 Myelocytes % 0 % 05/16/17 06:02 Promyelocytes % 0 % 05/16/17 06:02 Blast Cells % 0 % 05/16/17 06:02 Nucleated RBC % Not Reportable 05/16/17 06:02 Seg Neutrophils # Man 10.4 K/mm3 (1.8-7.7) H 05/16/17 06:02 Band Neutrophils # 0.5 K/mm3 05/16/17 06:02 Lymphocytes # (Manual) 0.2 K/mm3 (1.2-5.4) L 05/16/17 06:02 Abs React Lymphs (Man) 0.0 K/mm3 05/16/17 06:02 Monocytes # (Manual) 0.5 K/mm3 (0.0-0.8) 05/16/17 06:02 Eosinophils # (Manual) 0.0 K/mm3 (0.0-0.4) 05/16/17 06:02 Basophils # (Manual) 0.0 K/mm3 (0.0-0.1) 05/16/17 06:02 Metamyelocytes # 0.0 K/mm3 05/16/17 06:02 Myelocytes # 0.0 K/mm3 05/16/17 06:02 Promyelocytes # 0.0 K/mm3 05/16/17 06:02 Blast Cells # 0.0 K/mm3 05/16/17 06:02 WBC Morphology Not Reportable 05/16/17 06:02 Hypersegmented Neuts Not Reportable 05/16/17 06:02 Hyposegmented Neuts Not Reportable 05/16/17 06:02 Hypogranular Neuts Not Reportable 05/16/17 06:02 Smudge Cells Not Reportable 05/16/17 06:02 Toxic Granulation Not Reportable 05/16/17 06:02 Toxic Vacuolation Not Reportable 05/16/17 06:02 Dohle Bodies Not Reportable 05/16/17 06:02 Pelger-Huet Anomaly Not Reportable 05/16/17 06:02 Trudy Rods Not Reportable 05/16/17 06:02 Platelet Estimate Consistent w auto 05/16/17 06:02 Clumped Platelets Not Reportable 05/16/17 06:02 Plt Clumps, EDTA Not Reportable 05/16/17 06:02 Large Platelets Not Reportable 05/16/17 06:02 Giant Platelets Not Reportable 05/16/17 06:02 Platelet Satelliting Not Reportable 05/16/17 06:02 Plt Morphology Comment Not Reportable 05/16/17 06:02 RBC Morphology Normal 05/16/17 06:02 Dimorphic RBCs Not Reportable 05/16/17 06:02 Polychromasia Not Reportable 05/16/17 06:02 Hypochromasia Not Reportable 05/16/17 06:02 Poikilocytosis Not Reportable 05/16/17 06:02 Anisocytosis Not Reportable 05/16/17 06:02 Microcytosis Not Reportable 05/16/17 06:02 Macrocytosis Not Reportable 05/16/17 06:02 Spherocytes Not Reportable 05/16/17 06:02 Pappenheimer Bodies Not Reportable 05/16/17 06:02 Sickle Cells Not Reportable 05/16/17 06:02 Target Cells Not Reportable 05/16/17 06:02 Tear Drop Cells Not Reportable 05/16/17 06:02 Ovalocytes Not Reportable 05/16/17 06:02 Stomatocytes Few 05/15/17 03:08 Helmet Cells Not Reportable 05/16/17 06:02 [place] Bodies Not Reportable 05/16/17 06:02 [place] Rings Not Reportable 05/16/17 06:02 [place] Cells Not Reportable 05/16/17 06:02 Bite Cells Not Reportable 05/16/17 06:02 Crenated Cell Not Reportable 05/16/17 06:02 Elliptocytes Not Reportable 05/16/17 06:02 Acanthocytes (Spur) Not Reportable 05/16/17 06:02 Rouleaux Not Reportable 05/16/17 06:02 Hemoglobin C Crystals Not Reportable 05/16/17 06:02 Schistocytes Not Reportable 05/16/17 06:02 Malaria parasites Not Reportable 05/16/17 06:02 [place] Bodies Not Reportable 05/16/17 06:02 Hem Pathologist Commnt No 05/16/17 06:02 PT 11.1 Sec. (12.2-14.9) L 05/15/17 03:08 INR 0.77 (0.87-1.13) L 05/15/17 03:08 Sodium 143 mmol/L (137-145) 05/16/17 06:02 Potassium 5.0 mmol/L (3.6-5.0) 05/16/17 06:02 Chloride 94.8 mmol/L (98-107) L 05/16/17 06:02 Carbon Dioxide 42 mmol/L (22-30) H* 05/16/17 06:02 Anion Gap 11 mmol/L 05/16/17 06:02 BUN 13 mg/dL (7-17) 05/16/17 06:02 Creatinine 0.3 mg/dL (0.7-1.2) L 05/16/17 06:02 Estimated GFR > 60 ml/min 05/16/17 06:02 BUN/Creatinine Ratio 43 % 05/16/17 06:02 Glucose 124 mg/dL (65-100) H 05/16/17 06:02 POC Glucose 287 (70-105) H 05/17/17 13:46 Lactic Acid 1.30 mmol/L (0.7-2.0) 05/15/17 03:08 Calcium 8.3 mg/dL (8.4-10.2) L 05/16/17 06:02 Total Bilirubin 0.40 mg/dL (0.1-1.2) 05/15/17 03:08 AST 30 units/L (5-40) 05/15/17 03:08 ALT 42 units/L (7-56) 05/15/17 03:08 Alkaline Phosphatase 64 units/L (35-129) 05/15/17 03:08 Troponin T 0.029 ng/mL (0.00-0.029) 05/15/17 03:08 C-Reactive Protein 1.70 mg/dL (0.00-1.30) H 05/16/17 20:14 Total Protein 5.8 g/dL (6.3-8.2) L 05/15/17 03:08 Albumin 3.5 g/dL (3.9-5) L 05/15/17 03:08 Albumin/Globulin Ratio 1.5 % 05/15/17 03:08 Urine Color Straw (Yellow) 05/15/17 05:56 Urine Turbidity Clear (Clear) 05/15/17 05:56 Urine pH 6.0 (5.0-7.0) 05/15/17 05:56 Ur Specific [place] 1.011 (1.003-1.030) 05/15/17 05:56 Urine Protein <15 mg/dl mg/dL (Negative) 05/15/17 05:56 Urine Glucose (UA) Neg mg/dL (Negative) 05/15/17 05:56 Urine Ketones Neg mg/dL (Negative) 05/15/17 05:56 Urine Blood Neg (Negative) 05/15/17 05:56 Urine Nitrite Neg (Negative) 05/15/17 05:56 Urine Bilirubin Neg (Negative) 05/15/17 05:56 Urine Urobilinogen < 2.0 mg/dL (<2.0) 05/15/17 05:56 Ur Leukocyte Esterase Neg (Negative) 05/15/17 05:56 Urine WBC (Auto) < 1.0 /HPF (0.0-6.0) 05/15/17 05:56 Urine RBC (Auto) < 1.0 /HPF (0.0-6.0) 05/15/17 05:56
--- NOTE | 2017-05-18 19:17 | Progress Note ---
Subjective Date of service: 05/18/17 Principal diagnosis: Acute on chronic respiratory failure, AE-COPD, Tobacco abuse disorder Interval history: Patient is a 71-year-old woman with a history of chronic hypoxic respiratory failure on home O2 due to end-stage COPD, hypertension, seizure disorder, tobacco use disorder and anxiety who presents with worsening shortness of breath and cough. Patient was just discharged on 05/13/2016 after COPD exacerbation. Seen and examined. Vitals, labs, medications, chart reviewed. Discussed with RT Objective Vital Signs - 12hr 05/18/17 05/18/17 05/18/17 07:42 07:49 07:53 Temperature 97.6 F Pulse Rate 88 Pulse Rate [ Apical] Pulse Rate [ 88 89 Throughout] Respiratory 18 Rate Respiratory 18 18 Rate [ Throughout] Blood Pressure 150/56 O2 Sat by Pulse 95 97 Oximetry 05/18/17 05/18/17 05/18/17 10:00 13:31 13:36 Temperature Pulse Rate Pulse Rate [ 86 Apical] Pulse Rate [ 86 84 Throughout] Respiratory 20 Rate Respiratory 18 18 Rate [ Throughout] Blood Pressure O2 Sat by Pulse 97 Oximetry 05/18/17 15:28 Temperature 98.9 F Pulse Rate 102 H Pulse Rate [ Apical] Pulse Rate [ Throughout] Respiratory 19 Rate Respiratory Rate [ Throughout] Blood Pressure 175/73 O2 Sat by Pulse 96 Oximetry CBC and BMP: 05/16/17 06:02 05/16/17 06:02 ABG, PT/INR, D-dimer: PT/INR, D-dimer PT 11.1 Sec. (12.2-14.9) L 05/15/17 03:08 INR 0.77 (0.87-1.13) L 05/15/17 03:08 Abnormal lab findings: Abnormal Labs 05/15/17 05/15/17 05/15/17 03:08 03:08 03:08 WBC 14.8 H RBC 3.54 L MCV 98 H Seg Neuts % (Manual) 81.0 H Lymphocytes % (Manual) 3.0 L Seg Neutrophils # Man 12.0 H Lymphocytes # (Manual) 0.4 L PT 11.1 L INR 0.77 L Chloride 90.3 L Carbon Dioxide 39 H Creatinine 0.3 L Glucose 108 H POC Glucose Calcium 7.8 L C-Reactive Protein Total Protein 5.8 L Albumin 3.5 L 05/15/17 05/15/17 05/15/17 08:21 12:32 16:21 WBC RBC MCV Seg Neuts % (Manual) Lymphocytes % (Manual) Seg Neutrophils # Man Lymphocytes # (Manual) PT INR Chloride Carbon Dioxide Creatinine Glucose POC Glucose 166 H 125 H 168 H Calcium C-Reactive Protein Total Protein Albumin 05/15/17 05/16/17 05/16/17 21:55 06:02 06:02 WBC 11.5 H RBC 3.16 L MCV 99 H Seg Neuts % (Manual) 90.0 H Lymphocytes % (Manual) 2.0 L Seg Neutrophils # Man 10.4 H Lymphocytes # (Manual) 0.2 L PT INR Chloride 94.8 L Carbon Dioxide 42 H* Creatinine 0.3 L Glucose 124 H POC Glucose 211 H Calcium 8.3 L C-Reactive Protein Total Protein Albumin 05/16/17 05/16/17 05/16/17 07:22 11:45 15:32 WBC RBC MCV Seg Neuts % (Manual) Lymphocytes % (Manual) Seg Neutrophils # Man Lymphocytes # (Manual) PT INR Chloride Carbon Dioxide Creatinine Glucose POC Glucose 132 H 197 H 196 H Calcium C-Reactive Protein Total Protein Albumin 05/16/17 05/16/17 05/16/17 19:47 20:14 21:16 WBC RBC MCV Seg Neuts % (Manual) Lymphocytes % (Manual) Seg Neutrophils # Man Lymphocytes # (Manual) PT INR Chloride Carbon Dioxide Creatinine Glucose POC Glucose 192 H 166 H Calcium C-Reactive Protein 1.70 H Total Protein Albumin 05/17/17 13:46 WBC RBC MCV Seg Neuts % (Manual) Lymphocytes % (Manual) Seg Neutrophils # Man Lymphocytes # (Manual) PT INR Chloride Carbon Dioxide Creatinine Glucose POC Glucose 287 H Calcium C-Reactive Protein Total Protein Albumin
[2017-05-18] MEDS: ZOFRAN IV PRN (19:28)
[2017-05-18] MEDS: PERCOCET 5/325 PO PRN (20:28)
[2017-05-19] MEDS: DUONEB *Not for PRN Use IH SCH ×4 (02:40→20:06)
[2017-05-19] MEDS: PERCOCET 5/325 PO PRN ×2 (03:21→19:36)
[2017-05-19] MEDS: XANAX PO SCH ×3 (06:34→13:30)
[2017-05-19] MEDS: BROVANA NEBU IH SCH ×2 (07:27→20:01)
[2017-05-19] MEDS: PULMICORT IH SCH ×2 (07:28→20:01)
--- NOTE | 2017-05-19 09:34 | Progress Note ---
Assessment and Plan Patient resting on 2 litres O2.O2 saturation 97%. Still confused. No acute respiratory distress. - Patient Problems (1) Acute exacerbation of COPD with asthma Current Visit: Yes Status: Acute Plan to address problem: O2 2 litres via nasal canula. Albuterol/atrovent aerosol treatments q 6 hours Continue I/V solumedral Continue S/C Lovenox. Continue famotadine. (2) Acute respiratory failure with hypoxia and hypercapnia Current Visit: Yes Status: Acute Plan to address problem: BIPAP during night time and prn for shortness of breath during day time. O2 2 litres via nasal canula. Albuterol/atrovent aerosol treatments q 6 hours Continue I/V solumedral Continue S/C Lovenox. Continue famotadine. (3) Altered mental status Current Visit: Yes Status: Acute Qualifiers: Altered mental status type: unspecified Qualified Code(s): R41.82 - Altered mental status, unspecified Plan to address problem: Still confused. Repeating blood gases. Subjective Date of service: 05/19/17 Principal diagnosis: Acute on chronic respiratory failure, AE-COPD, Tobacco abuse disorder Interval history: Patient resting on 2 litres O2.O2 saturation 97%. Still confused. No acute respiratory distress. Objective Vital Signs - 12hr 05/18/17 05/18/17 05/18/17 22:00 23:00 23:43 Temperature 98.0 F Pulse Rate 100 H Pulse Rate [ 102 H Apical] Pulse Rate [ 102 H From Monitor] Pulse Rate [ Throughout] Respiratory 20 18 Rate Respiratory Rate [ Throughout] Respiratory 20 Rate [Upper Medial Back] Blood Pressure 178/68 Blood Pressure [Right] O2 Sat by Pulse 93 96 Oximetry 05/19/17 05/19/17 05/19/17 02:40 02:50 03:21 Temperature Pulse Rate Pulse Rate [ Apical] Pulse Rate [ From Monitor] Pulse Rate [ 98 H 99 H Throughout] Respiratory 22 Rate Respiratory 20 20 Rate [ Throughout] Respiratory Rate [Upper Medial Back] Blood Pressure Blood Pressure [Right] O2 Sat by Pulse Oximetry 05/19/17 05:33 Temperature 97.8 F Pulse Rate 100 H Pulse Rate [ Apical] Pulse Rate [ From Monitor] Pulse Rate [ Throughout] Respiratory 18 Rate Respiratory Rate [ Throughout] Respiratory Rate [Upper Medial Back] Blood Pressure Blood Pressure 185/77 [Right] O2 Sat by Pulse 97 Oximetry Constitutional: no acute distress, alert, other (Still confused.) Eyes: non-icteric ENT: oropharynx moist Neck: supple, no lymphadenopathy Ascultation: Bilateral: diminished breath sounds Cardiovascular: regular rate and rhythm Gastrointestinal: normoactive bowel sounds, soft, non-tender Integumentary: normal Extremities: no cyanosis, no edema Neurologic: non-focal exam, pupils equal and round, CN II-XII normal Psychiatric: other (Confused.) CBC and BMP: 05/16/17 06:02 05/16/17 06:02 ABG, PT/INR, D-dimer: PT/INR, D-dimer PT 11.1 Sec. (12.2-14.9) L 05/15/17 03:08 INR 0.77 (0.87-1.13) L 05/15/17 03:08 Abnormal lab findings: Abnormal Labs 05/15/17 05/15/17 05/15/17 03:08 03:08 03:08 WBC 14.8 H RBC 3.54 L MCV 98 H Seg Neuts % (Manual) 81.0 H Lymphocytes % (Manual) 3.0 L Seg Neutrophils # Man 12.0 H Lymphocytes # (Manual) 0.4 L PT 11.1 L INR 0.77 L Chloride 90.3 L Carbon Dioxide 39 H Creatinine 0.3 L Glucose 108 H POC Glucose Calcium 7.8 L C-Reactive Protein Total Protein 5.8 L Albumin 3.5 L 05/15/17 05/15/17 05/15/17 08:21 12:32 16:21 WBC RBC MCV Seg Neuts % (Manual) Lymphocytes % (Manual) Seg Neutrophils # Man Lymphocytes # (Manual) PT INR Chloride Carbon Dioxide Creatinine Glucose POC Glucose 166 H 125 H 168 H Calcium C-Reactive Protein Total Protein Albumin 05/15/17 05/16/17 05/16/17 21:55 06:02 06:02 WBC 11.5 H RBC 3.16 L MCV 99 H Seg Neuts % (Manual) 90.0 H Lymphocytes % (Manual) 2.0 L Seg Neutrophils # Man 10.4 H Lymphocytes # (Manual) 0.2 L PT INR Chloride 94.8 L Carbon Dioxide 42 H* Creatinine 0.3 L Glucose 124 H POC Glucose 211 H Calcium 8.3 L C-Reactive Protein Total Protein Albumin 05/16/17 05/16/17 05/16/17 07:22 11:45 15:32 WBC RBC MCV Seg Neuts % (Manual) Lymphocytes % (Manual) Seg Neutrophils # Man Lymphocytes # (Manual) PT INR Chloride Carbon Dioxide Creatinine Glucose POC Glucose 132 H 197 H 196 H Calcium C-Reactive Protein Total Protein Albumin 05/16/17 05/16/17 05/16/17 19:47 20:14 21:16 WBC RBC MCV Seg Neuts % (Manual) Lymphocytes % (Manual) Seg Neutrophils # Man Lymphocytes # (Manual) PT INR Chloride Carbon Dioxide Creatinine Glucose POC Glucose 192 H 166 H Calcium C-Reactive Protein 1.70 H Total Protein Albumin 05/17/17 13:46 WBC RBC MCV Seg Neuts % (Manual) Lymphocytes % (Manual) Seg Neutrophils # Man Lymphocytes # (Manual) PT INR Chloride Carbon Dioxide Creatinine Glucose POC Glucose 287 H Calcium C-Reactive Protein Total Protein Albumin Chest x-ray: report reviewed (Changes of COPD and fibrosis.), image reviewed
[2017-05-19] MEDS: APRESOLINE IV PRN (09:56)
[2017-05-19] MEDS: BUSPAR PO SCH ×2 (10:30→22:10)
[2017-05-19] MEDS: LOVENOX SUB-Q SCH (10:30)
[2017-05-19] MEDS: NORVASC PO SCH (10:30)
[2017-05-19] MEDS: ZOLOFT PO SCH (10:30)
[2017-05-19] MEDS: PEPCID PO SCH (10:30)
--- NOTE | 2017-05-19 13:57 | Progress Note ---
Assessment and Plan Assessment and plan: Patient is a 71-year-old woman with a history of chronic hypoxic respiratory failure on home O2 due to end-stage COPD, hypertension, seizure disorder and anxiety who presents with worsening shortness of breath and cough. Patient was just discharged on 05/13/2016 after COPD exacerbation, she was sent home on an NIV/BIPAP but she refuses to wear it. -Acute on chronic hypoxic respiratory failure: Consult to pulmonology, continue oxygen -Acute exacerbation of COPD: IV steroids, nebulizer treatments and antibiotics -Severe malnutrition BMI 13.8: Consult a dietitian, will add supplements -Acute on chronic worsening of her anxiety, patient wants something more for depression: Continue Xanax, added Zoloft -Hypertension urgency: IV hydralazine when necessary -DVT prophylaxis: sq lovenox -We discuss Hospice, she will consider==>she refuses bipap at night. She initially decide for home hospice, the EMS came to pick her up but BP was high because of increased anxiety. So patient wasn't discharged. Then next day, , Son appealed the discharge. Which is perplexing to me since patient is able to make her own decision and refusing BIPAP but at least she tired, she just can 't tolerate it due to the anxiety. Discharge home hospice once Medicare appeal is up. Patient is refusing to wear BIPAP at night, she is refusing nutritional supplements, her anxiety levels are high because of the End stage COPD. Very poor prognosis. Added Norvasc and will increase xanax History Interval history: Patient was seen and examined. Follow-up on current diagnosis/shortness of breath which is still present. Overnight uneventful. Patient denies any chest pain, nausea/vomiting or severe headaches. Imaging, nursing note, chart, labs and old chart reviewed. Discussed with patient. She still has a nonproductive cough. Hospitalist Physical - Physical exam Narrative exam: GEN: Severely malnourished BMI 13.8-->14.5 pink puffer, mild respiratory increase accessory muscles, awake, alert oriented 3 HEENT: NCAT, EOMI, PERRL, OP Clear NECK: supple, no adenopathy, no thyromegaly, no JVD CVS/HEART: RRR, NORMAL S1S2, NO JVD, pulses present bilaterally CHEST/LUNGS: Rhonchi bilaterally, diminished breath sounds Symmetrical chest expansion, reduced air entry bilaterally GI/Abdomen: soft, NTND, good bowel sounds, no guarding or rebound /Bladder: no suprapubic tenderness, no CVA or paraspinal tenderness EXT/Skin: no c/c/e, no obvious rash MSK: FROM x 4 Neuro: CN 2-12 grossly intact, no new focal deficits Psych: Anxious - Constitutional Vitals: Temp Pulse Resp BP Pulse Ox 97.8 F 89 18 185/77 96 05/19/17 05:33 05/19/17 07:37 05/19/17 07:37 05/19/17 05:33 05/19/17 09:00 Results - Labs CBC & Chem 7: 05/16/17 06:02 05/16/17 06:02 Labs: Laboratory Last Values WBC 11.5 K/mm3 (4.5-11.0) H 05/16/17 06:02 RBC 3.16 M/mm3 (3.65-5.03) L 05/16/17 06:02 Hgb 10.2 gm/dl (10.1-14.3) 05/16/17 06:02 Hct 31.1 % (30.3-42.9) 05/16/17 06:02 MCV 99 fl (79-97) H 05/16/17 06:02 MCH 32 pg (28-32) 05/16/17 06:02 MCHC 33 % (30-34) 05/16/17 06:02 RDW 14.7 % (13.2-15.2) 05/16/17 06:02 Plt Count 214 K/mm3 (140-440) 05/16/17 06:02 Add Manual Diff Complete 05/16/17 06:02 Total Counted 100 05/16/17 06:02 Seg Neutrophils % Stage Setting Painter Apprentice 05/16/17 06:02 Seg Neuts % (Manual) 90.0 % (40.0-70.0) H 05/16/17 06:02 Band Neutrophils % 4.0 % 05/16/17 06:02 Lymphocytes % (Manual) 2.0 % (13.4-35.0) L 05/16/17 06:02 Reactive Lymphs % (Man) 0 % 05/16/17 06:02 Monocytes % (Manual) 4.0 % (0.0-7.3) 05/16/17 06:02 Eosinophils % (Manual) 0 % (0.0-4.3) 05/16/17 06:02 Basophils % (Manual) 0 % (0.0-1.8) 05/16/17 06:02 Metamyelocytes % 0 % 05/16/17 06:02 Myelocytes % 0 % 05/16/17 06:02 Promyelocytes % 0 % 05/16/17 06:02 Blast Cells % 0 % 05/16/17 06:02 Nucleated RBC % Not Reportable 05/16/17 06:02 Seg Neutrophils # Man 10.4 K/mm3 (1.8-7.7) H 05/16/17 06:02 Band Neutrophils # 0.5 K/mm3 05/16/17 06:02 Lymphocytes # (Manual) 0.2 K/mm3 (1.2-5.4) L 05/16/17 06:02 Abs React Lymphs (Man) 0.0 K/mm3 05/16/17 06:02 Monocytes # (Manual) 0.5 K/mm3 (0.0-0.8) 05/16/17 06:02 Eosinophils # (Manual) 0.0 K/mm3 (0.0-0.4) 05/16/17 06:02 Basophils # (Manual) 0.0 K/mm3 (0.0-0.1) 05/16/17 06:02 Metamyelocytes # 0.0 K/mm3 05/16/17 06:02 Myelocytes # 0.0 K/mm3 05/16/17 06:02 Promyelocytes # 0.0 K/mm3 05/16/17 06:02 Blast Cells # 0.0 K/mm3 05/16/17 06:02 WBC Morphology Not Reportable 05/16/17 06:02 Hypersegmented Neuts Not Reportable 05/16/17 06:02 Hyposegmented Neuts Not Reportable 05/16/17 06:02 Hypogranular Neuts Not Reportable 05/16/17 06:02 Smudge Cells Not Reportable 05/16/17 06:02 Toxic Granulation Not Reportable 05/16/17 06:02 Toxic Vacuolation Not Reportable 05/16/17 06:02 Dohle Bodies Not Reportable 05/16/17 06:02 Pelger-Huet Anomaly Not Reportable 05/16/17 06:02 Trudy Rods Not Reportable 05/16/17 06:02 Platelet Estimate Consistent w auto 05/16/17 06:02 Clumped Platelets Not Reportable 05/16/17 06:02 Plt Clumps, EDTA Not Reportable 05/16/17 06:02 Large Platelets Not Reportable 05/16/17 06:02 Giant Platelets Not Reportable 05/16/17 06:02 Platelet Satelliting Not Reportable 05/16/17 06:02 Plt Morphology Comment Not Reportable 05/16/17 06:02 RBC Morphology Normal 05/16/17 06:02 Dimorphic RBCs Not Reportable 05/16/17 06:02 Polychromasia Not Reportable 05/16/17 06:02 Hypochromasia Not Reportable 05/16/17 06:02 Poikilocytosis Not Reportable 05/16/17 06:02 Anisocytosis Not Reportable 05/16/17 06:02 Microcytosis Not Reportable 05/16/17 06:02 Macrocytosis Not Reportable 05/16/17 06:02 Spherocytes Not Reportable 05/16/17 06:02 Pappenheimer Bodies Not Reportable 05/16/17 06:02 Sickle Cells Not Reportable 05/16/17 06:02 Target Cells Not Reportable 05/16/17 06:02 Tear Drop Cells Not Reportable 05/16/17 06:02 Ovalocytes Not Reportable 05/16/17 06:02 Stomatocytes Few 05/15/17 03:08 Helmet Cells Not Reportable 05/16/17 06:02 [place] Bodies Not Reportable 05/16/17 06:02 [place] Rings Not Reportable 05/16/17 06:02 [place] Cells Not Reportable 05/16/17 06:02 Bite Cells Not Reportable 05/16/17 06:02 Crenated Cell Not Reportable 05/16/17 06:02 Elliptocytes Not Reportable 05/16/17 06:02 Acanthocytes (Spur) Not Reportable 05/16/17 06:02 Rouleaux Not Reportable 05/16/17 06:02 Hemoglobin C Crystals Not Reportable 05/16/17 06:02 Schistocytes Not Reportable 05/16/17 06:02 Malaria parasites Not Reportable 05/16/17 06:02 [place] Bodies Not Reportable 05/16/17 06:02 Hem Pathologist Commnt No 05/16/17 06:02 PT 11.1 Sec. (12.2-14.9) L 05/15/17 03:08 INR 0.77 (0.87-1.13) L 05/15/17 03:08 Sodium 143 mmol/L (137-145) 05/16/17 06:02 Potassium 5.0 mmol/L (3.6-5.0) 05/16/17 06:02 Chloride 94.8 mmol/L (98-107) L 05/16/17 06:02 Carbon Dioxide 42 mmol/L (22-30) H* 05/16/17 06:02 Anion Gap 11 mmol/L 05/16/17 06:02 BUN 13 mg/dL (7-17) 05/16/17 06:02 Creatinine 0.3 mg/dL (0.7-1.2) L 05/16/17 06:02 Estimated GFR > 60 ml/min 05/16/17 06:02 BUN/Creatinine Ratio 43 % 05/16/17 06:02 Glucose 124 mg/dL (65-100) H 05/16/17 06:02 POC Glucose 287 (70-105) H 05/17/17 13:46 Lactic Acid 1.30 mmol/L (0.7-2.0) 05/15/17 03:08 Calcium 8.3 mg/dL (8.4-10.2) L 05/16/17 06:02 Total Bilirubin 0.40 mg/dL (0.1-1.2) 05/15/17 03:08 AST 30 units/L (5-40) 05/15/17 03:08 ALT 42 units/L (7-56) 05/15/17 03:08 Alkaline Phosphatase 64 units/L (35-129) 05/15/17 03:08 Troponin T 0.029 ng/mL (0.00-0.029) 05/15/17 03:08 C-Reactive Protein 1.70 mg/dL (0.00-1.30) H 05/16/17 20:14 Total Protein 5.8 g/dL (6.3-8.2) L 05/15/17 03:08 Albumin 3.5 g/dL (3.9-5) L 05/15/17 03:08 Albumin/Globulin Ratio 1.5 % 05/15/17 03:08 Urine Color Straw (Yellow) 05/15/17 05:56 Urine Turbidity Clear (Clear) 05/15/17 05:56 Urine pH 6.0 (5.0-7.0) 05/15/17 05:56 Ur Specific [place] 1.011 (1.003-1.030) 05/15/17 05:56 Urine Protein <15 mg/dl mg/dL (Negative) 05/15/17 05:56 Urine Glucose (UA) Neg mg/dL (Negative) 05/15/17 05:56 Urine Ketones Neg mg/dL (Negative) 05/15/17 05:56 Urine Blood Neg (Negative) 05/15/17 05:56 Urine Nitrite Neg (Negative) 05/15/17 05:56 Urine Bilirubin Neg (Negative) 05/15/17 05:56 Urine Urobilinogen < 2.0 mg/dL (<2.0) 05/15/17 05:56 Ur Leukocyte Esterase Neg (Negative) 05/15/17 05:56 Urine WBC (Auto) < 1.0 /HPF (0.0-6.0) 05/15/17 05:56 Urine RBC (Auto) < 1.0 /HPF (0.0-6.0) 05/15/17 05:56
[2017-05-19] MEDS ORDERED: XANAX PO SCH (13:58)
[2017-05-19] MEDS ORDERED: XANAX PO PRN (14:04)
[2017-05-20 01:02] VITALS: BP 166/72
[2017-05-20] MEDS: DUONEB *Not for PRN Use IH SCH ×3 (02:15→13:39)
[2017-05-20] MEDS: PERCOCET 5/325 PO PRN ×2 (02:42→13:22)
[2017-05-20] MEDS: PULMICORT IH SCH (07:30)
[2017-05-20] MEDS: BROVANA NEBU IH SCH (07:30)
[2017-05-20] MEDS: ZOLOFT PO SCH (10:59)
[2017-05-20] MEDS: NORVASC PO SCH (10:59)
[2017-05-20] MEDS: LOVENOX SUB-Q SCH (10:59)
[2017-05-20] MEDS: PEPCID PO SCH (10:59)
[2017-05-20] MEDS: BUSPAR PO SCH (11:00)
[2017-05-20] MEDS: ZOFRAN IV PRN (13:22)
--- NOTE | 2017-05-20 22:58 | Discharge Summary ---
Providers - Providers Date of Admission: 05/15/17 05:03 Date of discharge: 05/20/17 Attending physician: PRASAD DUNCAN 05/15/17 13:13 Consult to Dietitian/Nutrition [CONS] Routine Physician Instructions: Reason For Exam: Reason for Consult: Malnutrition 05/16/17 11:28 Consult to Physician [CONS] Routine Consulting Provider: OLEGARIO LERMA Reason For Exam: copd, respiratory failure, pt known to you Place consult to:: MARIA GUADALUPE SNIDER Notified:: Phone number called:: [phone] Was contact made?: Yes If yes, spoke with:: Time called:: 12:20 Comment:: SIDNEY Primary care physician: WAREHOUSE TRAINER Hospitalization Reason for admission: AMS Condition: Poor Hospital course: Patient is a 71-year-old woman with a history of chronic hypoxic respiratory failure on home O2 due to end-stage COPD, hypertension, seizure disorder and anxiety who presents with worsening shortness of breath and cough. Patient was just discharged on 05/13/2016 after COPD exacerbation, she was sent home on an NIV/BIPAP but she refuses to wear it. -Acute on chronic hypoxic respiratory failure: Consult to pulmonology, continue oxygen -Acute exacerbation of COPD: IV steroids, nebulizer treatments and antibiotics -Severe malnutrition BMI 14.5 (still very bad) Consult a dietitian, will add supplements -Acute on chronic worsening of her anxiety, patient wants something more for depression: Continue Xanax, add Zoloft -Hypertension urgency: IV hydralazine when necessary -DVT prophylaxis: sq lovenox -We discuss Hospice, she will consider==>she wore her bipap at night. Patient has elected to go HOME with HOSPICE with [facility] Accountable Disposition: [id number] ([facility]) Time spent for discharge: <30 mins Exam - Constitutional Vitals: Temp Pulse Resp BP Pulse Ox 98.4 F 80 20 166/72 96 05/20/17 01:01 05/20/17 14:04 05/20/17 13:50 05/20/17 01:01 05/20/17 07:30 General appearance: Present: no acute distress, well-nourished - EENT Eyes: Present: PERRL ENT: clear oral mucosa - Neck Neck: Present: supple, normal ROM - Respiratory Respiratory effort: normal Respiratory: bilateral: diminished - Cardiovascular Heart Sounds: Present: S1 & S2. Absent: rub, click - Extremities Extremities: pulses symmetrical, No edema Peripheral Pulses: within normal limits - Abdominal General gastrointestinal: Present: soft, non-tender, non-distended, normal bowel sounds - Integumentary Integumentary: Present: clear, warm, dry - Musculoskeletal Musculoskeletal: gait normal, strength equal bilaterally - Psychiatric Psychiatric: appropriate mood/affect, intact judgment & insight - Neurologic Neurologic: CNII-XII intact, moves all extremities Plan Activity: fall precautions Weight Bearing Status: Weight Bear as Tolerated Diet: regular Follow up with: PRIMARY CARE, [Primary Care Provider] - 3-5 Days Prescriptions: ALPRAZolam [Xanax TAB] 0.25 mg PO Q8H #20 tablet Arformoterol Nebu [Brovana Nebu] 15 mcg IH Q12HRT #30 ml Budesonide [Pulmicort Respules] 0.5 mg IH Q12HRT #30 nebu Ipratropium/Albuterol Sulfate [DUONEB *Not for PRN Use*] 1 ampul IH Q6HRT #30 ampul.neb oxyCODONE /ACETAMINOPHEN [Percocet 5/325 mg] 1 tab PO Q4H PRN #20 tablet PRN Reason: Pain , Severe (7-10) predniSONE [Deltasone] 50 mg PO QDAY #30 tab Sertraline [Zoloft] 25 mg PO QDAY #30 tab
== END 2017-05-20 15:33 | disposition hospice, inpatient (51) | DRG 189 ==
LOC: ED 02:20 → 4A 05:03
PROVIDERS: ADMIT Internal Medicine; ATTEND Family Medicine
PROC: 5A09357 Assistance with Respiratory Ventilation, Less than 24 Consecutive Hours, Continuous Positive Airway Pressure (ICD-10-PCS; 2017-05-15)
PROC: 5A09357 Assistance with Respiratory Ventilation, Less than 24 Consecutive Hours, Continuous Positive Airway Pressure (ICD-10-PCS; 2017-05-17)
PROC: 4A033R1 Measurement of Arterial Saturation, Peripheral, Percutaneous Approach (ICD-10-PCS; principal; 2017-05-20)
DX: J96.21 Acute and chronic respiratory failure with hypoxia (principal); E43 Unspecified severe protein-calorie malnutrition; J44.1 Chronic obstructive pulmonary disease with (acute) exacerbation; Z68.1 Body mass index [BMI] 19.9 or less, adult; I42.9 Cardiomyopathy, unspecified; J96.22 Acute and chronic respiratory failure with hypercapnia; I16.0 Hypertensive urgency; I50.9 Heart failure, unspecified; F17.210 Nicotine dependence, cigarettes, uncomplicated; I11.0 Hypertensive heart disease with heart failure; G40.909 Epilepsy, unspecified, not intractable, without status epilepticus; F32.9 Major depressive disorder, single episode, unspecified; F41.9 Anxiety disorder, unspecified; Z88.6 Allergy status to analgesic agent; Z88.5 Allergy status to narcotic agent; Z79.51 Long term (current) use of inhaled steroids; Z99.81 Dependence on supplemental oxygen
CPT/HCPCS: 36415; 36600; 71045; 80048; 80053; 81001; 82140; 82803; 82962; 84484; 85007; 85025; 85610; 86140; 93005; 93010; 94640; 94660; 94760; 96374; 99406; J0360; J1650; J2405; J2930; J7040